=== PATIENT | female | born 1940 | race Caucasian/White ===

== ENCOUNTER → 2016-10-19 | Outpatient (CLI) | payer MEDICARE ==
--- NOTE | 2016-10-19 15:50 | US ---
EXAMINATION TYPE: US carotid duplex BILAT DATE OF EXAM: 10/19/2016 3:04 PM COMPARISON: NONE CLINICAL HISTORY: 76-year-old female R09.89 carotid bruit. No h/o stroke, patient states she asked fo r a baseline exam TECHNIQUE: Carotid duplex ultrasound. Indirect Doppler criteria was utilized. FINDINGS: Mild to moderate focal atherosclerotic changes noted at both bifurcations. EXAM MEASUREMENTS: RIGHT: Peak Systolic Velocity (PSV) cm/sec ----- Right CCA: 80.8 ----- Right ICA: 82.6 ----- Right ECA: 80.8 ICA/CCA ratio: 1.0 RIGHT: End Diastole cm/sec ----- Right CCA: 16.3 ----- Right ICA: 22.4 ----- Right ECA: 11.0 LEFT: Peak Systolic Velocity (PSV) cm/sec ----- Left CCA: 69.5 ----- Left ICA: 101.8 ----- Left ECA: 64.3 ICA/CCA ratio: 1.5 LEFT: End Diastole cm/sec ----- Left CCA: 21.5 ----- Left ICA: 28.5 ----- Left ECA: 13.7 VERTEBRALS (direction of flow): Right Vertebral: Antegrade Left Vertebral: Antegrade IMPRESSION: No hemodynamically significant stenosis appreciated in either internal carotid artery. Criteria for Assigning % of Stenosis / Diameter reduction (Estimation based on the indirect measurements of the internal carotid artery velocities (ICA PSV). 1. Normal (no stenosis)=ICA PSV < 125 cm/s: ratio < 2.0: ICA EDV<40 cm/s. 2. Less than 50% stenosis=ICA PSV < 125 cm/s: ratio < 2.0: ICA EDV<40 cm/s. 3. 50 to 69% stenosis=ICA PSV of 125 to 230 cm/s: ration 2.0 ? 4.0: ICA EDV 40-100 cm/s. 4. Greater than 70% stenosis to near occlusion= ICA PSV > 230 cm/s: ratio > 4.0: ICA EDV > 100 cm/s. 5. Near occlusion= ICA PSV velocities may be low or undetectable: variable ratio and ICA EDV. 6. Total occlusion=unable to detect flow.
== END | disposition home or self-care (01) ==
LOC: RADUSWWP 14:39
PROVIDERS: ATTEND Family Medicine
DX: R09.89 Other specified symptoms and signs involving the circulatory and respiratory systems (principal)
CPT/HCPCS: 93880

== ENCOUNTER → 2017-04-20 | Outpatient (CLI) | payer MEDICARE ==
--- NOTE | 2017-04-20 10:06 | US ---
EXAMINATION TYPE: US abdomen complete DATE OF EXAM: 04/20/2017 COMPARISON: NONE CLINICAL HISTORY: K43.9 Hernia of Anterior Abdominal Wall. EXAM MEASUREMENTS: Liver Length: 15.2 cm Gallbladder Wall: 0.2 cm CBD: 0.8 cm Spleen: 7.8 cm Right Kidney: 10.2 x 4.9 x 4.1 cm Left Kidney: 10.1 x 5.5 x 4.1 cm Patient suffers from gross morbid obesity. Technically difficult and somewhat limited study. Pancreas: Tail obscured by overlying bowel gas Liver: Increased attenuation, decreased visualization of vessels suggestive of fatty infiltrate Gallbladder: cholelithiasis Evidence for sonographic Pearl's sign: no CBD: dilated Spleen: scattered shadowing echogenic foci Right Kidney: Inferior pole obscured by bowel gas, heterogeneous Left Kidney: No hydronephrosis or masses seen , heterogeneous Upper IVC: wnl Abd Aorta: bifurcation and some proximal obscured by bowel gas, otherwise wnl Abdominal wall scanned for hernia, unable to see hernia with ultrasound. The liver is heterogenous which may reflect fatty liver. The intrahepatic portion of the IVC and prox imal abdominal aorta are within normal limits. Common bile duct is unremarkable. The visualized por tions of the pancreas are homogenous. The spleen is unremarkable. Kidneys are symmetric and free of hydronephrosis. No renal lesions are seen. IMPRESSION: 1. No visible abdominal wall hernia. 2. Probable fatty liver. 3. Cholelithiasis.
== END | disposition home or self-care (01) ==
LOC: RADUSWWP 08:33
PROVIDERS: ATTEND Family Medicine
DX: K80.20 Calculus of gallbladder without cholecystitis without obstruction (principal)
CPT/HCPCS: 76700

== ENCOUNTER 2017-11-11 18:40 | Emergency (ER) | payer MEDICARE ==
[2017-11-11] MEDS ORDERED: GLUCAGON 1 MG/ML VIAL IVP STA (19:08)
[2017-11-11] MEDS ORDERED: METOCLOPRAMIDE 5 MG/ML 2 ML VIAL IVP STA (19:08)
--- NOTE | 2017-11-11 19:16 | ED ---
General Adult HPI - General Chief complaint: Allergic Reaction Stated complaint: Difficulty swallowing Time Seen by Provider: 11/11/17 19:00 Source: patient Mode of arrival: wheelchair Limitations: no limitations - History of Present Illness Initial comments: 77 year-old female patient presents to the emergency department today for complaints of esophageal foreign body. Patient states that earlier today she was eating henriquez. States that afterward she was unable to swallow anything without spitting up. Patient states that she has had this happen to her couple times in the past. Patient states that she did attempt putting and Ativan under her tongue to help relax the muscles however this did not help. Patient states that she has had to spit out her oral secretions. She denies any difficulty speaking or with breathing. Patient denies any recent rash, fever, chills, shortness breath, chest pain, abdominal pain, nausea, diarrhea, constipation, back pain, numbness, tingling, dizziness, weakness, hematuria, dysuria, urinary urgency, urinary frequency, headache, visual changes, or any other complaints. - Related Data Home Medications Medication Instructions Recorded Confirmed LORazepam [Ativan] 1 mg PO DAILY PRN 01/17/14 04/01/14 Levothyroxine Sodium [Synthroid] 37.5 mcg PO DAILY 01/17/14 04/01/14 Lisinopril [Zestril] 2.5 mg PO DAILY 01/17/14 04/01/14 metFORMIN HCL [Glucophage] 500 mg PO BID 01/17/14 04/01/14 Allergies Allergy/AdvReac Type Severity Reaction Status Date / Time codeine Allergy Rash/Hives Verified 11/11/17 18:50 metronidazole [From Flagyl] Allergy Rash/Hives Verified 11/11/17 18:50 Metronidazole HCl Allergy Rash/Hives Verified 11/11/17 18:50 [From Flagyl] morphine Allergy Rash/Hives Verified 11/11/17 18:50 Sulfa (Sulfonamide AdvReac Unknown Verified 11/11/17 18:50 Antibiotics) msg Allergy Anaphylaxis Uncoded 11/11/17 18:50 Review of Systems ROS Statement: Those systems with pertinent positive or pertinent negative responses have been documented in the HPI. ROS Other: All systems not noted in ROS Statement are negative. Past Medical History Past Medical History: Cancer, Diabetes Mellitus, Hypertension, Thyroid Disorder Additional Past Medical History / Comment(s): hx skin cancer, hx. kidney stone, episode in summer w/food getting stuck History of Any Multi-Drug Resistant Organisms: None Reported Past Surgical History: Adenoidectomy, Tonsillectomy Additional Past Surgical History / Comment(s): bunionectomy, surery for kidney stone, cataract surg. back surgery Past Anesthesia/Blood Transfusion Reactions: No Reported Reaction Past Psychological History: No Psychological Hx Reported Smoking Status: Never smoker Past Alcohol Use History: None Reported Past Drug Use History: None Reported General Exam Limitations: no limitations General appearance: alert, in no apparent distress, other (This is a well- developed, well-nourished, obese elderly female patient in no acute distress. Vital signs upon presentation are temperature 98.9F, pulse 97, respirations 16 , blood pressure 150/72, pulse ox 98% on room air.) Eye exam: Present: normal appearance, PERRL, EOMI. Absent: scleral icterus, conjunctival injection, periorbital swelling ENT exam: Present: normal exam, normal oropharynx, mucous membranes moist Neck exam: Present: normal inspection. Absent: tenderness, meningismus, lymphadenopathy Respiratory exam: Present: normal lung sounds bilaterally. Absent: respiratory distress, wheezes, rales, rhonchi, stridor Cardiovascular Exam: Present: regular rate, normal rhythm, normal heart sounds. Absent: systolic murmur, diastolic murmur, rubs, gallop, clicks Neurological exam: Present: alert, oriented X3, CN II-XII intact Psychiatric exam: Present: normal affect, normal mood Skin exam: Present: warm, dry, intact, normal color. Absent: rash Course Vital Signs 11/11/17 11/11/17 11/11/17 18:46 22:26 23:39 Temperature 98.9 F 97.8 F Pulse Rate 97 81 64 Respiratory 16 18 20 Rate Blood Pressure 150/72 106/51 139/57 O2 Sat by Pulse 98 99 98 Oximetry Medical Decision Making - Medical Decision Making 77-year-old female patient percents to the emergency department today with complaints of esophageal foreign body. Patient was unable to tolerate oral intake, she would regurgitated backup this and is swallowing. Did try glucagon and Reglan without success. We did discuss the case with Dr. Rodriges who did come in and perform foreign body retrieval via endoscopy. Patient is feeling much better after the procedure. Upon reevaluation she is awake and alert. Able to swallow without difficulty. She denies any current pain or shortness of breath. We will discharge her home to follow-up with the [facility] urologist in 2 weeks. She is instructed to follow-up with her primary care physician for recheck in 1-2 days. Return parameters discussed in detail. She verbalizes understanding and agrees with this plan. - Radiology Data Radiology results: report reviewed, image reviewed Two-view x-ray of the chest was obtained. Findings show scattered senescent parenchymal changes noted. No evidence for infiltrate. No evidence for atelectasis. Heart size is stable. Mediastinal structures are stable gross unremarkable. No evidence for hilar prominence. Degenerative changes in the dorsal spine. Impression by Dr. Gonzalez shows no evidence for acute pulmonary disease. Disposition Clinical Impression: Esophageal foreign body Disposition: HOME SELF-CARE Condition: Good Instructions: Esophageal Foreign Body (ED) Additional Instructions: Eat soft foods. Chew food thoroughly. Follow-up with GI specialist outpatient. Return here immediately for any new, worsening, or concerning symptoms. Is patient prescribed a controlled substance at d/c from ED?: No Referrals: Boni Alvarez MD [Primary Care Provider] - 1-2 days Katya Rodriges MD [STAFF PHYSICIAN] - 1-2 days Time of Disposition: 23:20
--- NOTE | 2017-11-11 19:56 | XR ---
EXAMINATION TYPE: XR chest 2V DATE OF EXAM: 11/11/2017 COMPARISON: NONE HISTORY: Shortness of breath TECHNIQUE: Frontal and lateral views of the chest are obtained. FINDINGS: Scattered senescent parenchymal changes noted. No evidence for infiltrate. No evidence for atelectasis. Heart size is stable. Mediastinal structures are stable and grossly unremarkable. No evidence for hilar prominence. Degenerative changes dorsal spine. IMPRESSION: 1. No evidence for acute pulmonary disease.
[2017-11-11] MEDS ORDERED: KETOROLAC 30 MG/ML 1 ML VIAL IVP STA (20:23)
[2017-11-11] MEDS ORDERED: PROPOFOL 10 MG/ML 20 ML VIAL IV ONE (21:31)
[2017-11-11] MEDS ORDERED: LACTATED RINGERS 1,000 ML IV ONE (21:37)
--- NOTE | 2017-11-11 22:27 | PCN ---
PROCEDURE NOTE REQUESTING PHYSICIAN: Dr. Boni Alvarez. BRIEF HISTORY: The patient is the patient is a 77-year-old white female who came to the emergency room with acute food dysphagia. She was eating a piece of henriquez at home for dinner and could not swallow any further. She had a similar episode 4 years ago, at which time she had an emergency upper endoscopy by Dr. Rush. She also has intermittent dysphagia to solids for the last 4 years' duration, which happens once or twice a month. PROCEDURE PERFORMED: EGD with foreign body removal. PREOPERATIVE DIAGNOSIS: Acute food dysphagia. IV sedation by anesthesia. PROCEDURE: After informed consent was obtained from the patient, she was brought into the endoscopy unit. IV conscious sedation was administered by Anesthesia under continuous monitoring. The Olympus scope was then inserted into the mouth, esophagus intubated without any difficulty and was gradually advanced into the distal esophagus. There was food impaction identified. Using a snare, part of the piece was removed. Subsequently,a was used and most of the meat bolus was removed and some of it was pushed into the stomach. The scope at this time was advanced into the stomach and duodenum carefully examined. Bulb and 2nd part of the duodenum appeared normal. The scope at this time was withdrawn to the stomach, adequately insufflated with air. Upon careful examination, mucosa of the antrum, body, cardia and fundus appeared normal. The scope was then withdrawn to the esophagus. GE junction was located at 38 cm from the incisors. There was a distal esophageal stricture identified measuring about 13-15 mm in diameter. There was mucosal erythema and friability noted at the site of food impaction. Distal esophagus appeared normal and the patient tolerated the procedure well. IMPRESSION: Distal esophageal stricture with food impaction, status post foreign body removal as described above. RECOMMENDATION: Findings of this examination were discussed with the patient as well as the family. She was advised to start on Prilosec 20 mg daily and follow anti-reflux measures and she was advised to follow up in office in 2-3 weeks. MMODL / IJN: [id number] /
[2017-11-11 23:40] VITALS: BP 139/57; PULSE 64; RESP 20; TEMP 97.8
== END 2017-11-11 23:43 | disposition home or self-care (01) ==
LOC: EC 18:40
DX: T18.128A Food in esophagus causing other injury, initial encounter (principal); E11.9 Type 2 diabetes mellitus without complications; I10 Essential (primary) hypertension; E07.9 Disorder of thyroid, unspecified; Z88.1 Allergy status to other antibiotic agents; Z88.2 Allergy status to sulfonamides; Z88.5 Allergy status to narcotic agent; Z88.8 Allergy status to other drugs, medicaments and biological substances; Z79.84 Long term (current) use of oral hypoglycemic drugs; Z79.899 Other long term (current) drug therapy; X58.XXXA Exposure to other specified factors, initial encounter
CPT/HCPCS: 99284; 96374; 96375 ×2; 96361 ×2; 71046; 43247; J1610; J2765; J1885; J2704

== ENCOUNTER → 2018-03-15 | Outpatient (CLI) | payer MEDICARE ==
--- NOTE | 2018-03-15 16:08 | US ---
EXAMINATION TYPE: US kidneys/renal and bladder DATE OF EXAM: 03/15/2018 COMPARISON: US 2016 CLINICAL HISTORY: R30.0 Dysuria. Chronic kidney disease EXAM MEASUREMENTS: Right Kidney: 10.5 x 4.1 x 3.1 cm Left Kidney: 9.6 x 3.3 x 2.9 cm Post Void Residual Volume: 2.1 mL bladder volume: 51.6 ml Right Kidney: thin cortex Left Kidney: small cyst 0.5 x 0.5 x 0.7 cm upper pole Bladder: wnl Bilateral Jets seen: Yes Normal Post Void Residual: Yes IMPRESSION: 1. Small left renal cyst.
== END | disposition home or self-care (01) ==
LOC: RADUSWWP 14:46
PROVIDERS: ATTEND Family Medicine
DX: N28.1 Cyst of kidney, acquired (principal)
CPT/HCPCS: 76770

== ENCOUNTER → 2018-11-07 | Outpatient (CLI) | payer MEDICARE | END | disposition home or self-care (01) | LOC: RADUSWWP 09:24 | PROVIDERS: ATTEND Family Medicine | DX: R25.2 Cramp and spasm (principal) | CPT/HCPCS: 93922 ==

== ENCOUNTER 2019-05-09 09:50 | Day surgery (SDC) | payer MEDICARE ==
[2019-05-07 13:37] VITALS: BMI 35.4
[~2019-05-09 09:50] MED LIST: LACTATED RINGERS 1,000 ML IV SCH
[2019-05-09 10:09] VITALS: RESP 16; TEMP 97.3
[2019-05-09] MEDS ORDERED: LIDOCAINE 1% 20 ML VIAL (10MG/ML) FOR IV START INTRADERMA ONE (10:30)
[2019-05-09 10:47] LABS: Glucose,Whole Blood 111 mg/dL (75-99)
[2019-05-09] MEDS ORDERED: PROPOFOL 10 MG/ML 20 ML VIAL IV ONE (11:21)
--- NOTE | 2019-05-09 11:33 | P.PCN ---
Date of Procedure: 05/09/19 Procedure(s) Performed: BRIEF HISTORY: Patient is a 79-year-old, pleasant, white female, scheduled for an upper endoscopy with dilation for intermittent dysphagia to solids. Last upper endoscopy dilation was done in 11/2017 and was noted to have a tight distal esophageal stricture.. PROCEDURE PERFORMED: Esophagogastroduodenoscopy with dilation. PREOPERATIVE DIAGNOSIS: Intermittent dysphagia to solids for the last 1 year duration. IV sedation per anesthesia. PROCEDURE: After informed consent was obtained, the patient was brought into the endoscopy unit. IV sedation was administered by Anesthesia under continuous monitoring. Initially the Olympus GIF-140 video endoscope was inserted into the mouth. Esophagus intubated without any difficulty. It was gradually advanced into the stomach and duodenum and carefully examined. The bulb and the second part of the duodenum appeared normal. The scope at this time was withdrawn to the stomach, adequately insufflated with air, and upon careful examination, mucosa of the antrum, body, cardia and the fundus appeared normal. The scope was then withdrawn into the esophagus. The GE junction was located at 35 cm from the incisors. There was a distal esophageal stricture identified at this time I used a 12 mm TTS balloon. Initially was dilated to 12 mm balloon findings there was a brisk oozing identified and hence further dilations were not performed. There was a small sliding type hiatal hernia noted. The rest of the esophagus appeared normal. There were no erosions or ulcerations seen and the patient tolerated the procedure well. IMPRESSION: 1. Distal esophageal stricture status post balloon dilation using 12 mm TTS balloon as described above. 2. Small hiatal sliding Hiatal hernia. RECOMMENDATIONS: The findings of this examination were discussed with the patient as well as a family. She was advised to remain on a clear liquid diet today. She'll continue with Zantac 150 milligrams twice daily and follow antireflux measures. She'll be seen in office in 6 months..
[2019-05-09 12:09] VITALS: BP 121/57; PULSE 63
== END 2019-05-09 12:21 | disposition home or self-care (01) ==
LOC: ORWHC2ENDO 09:50
PROVIDERS: ATTEND Internal Medicine Gastroenterology
DX: K22.2 Esophageal obstruction (principal); K44.9 Diaphragmatic hernia without obstruction or gangrene; E11.9 Type 2 diabetes mellitus without complications; E07.9 Disorder of thyroid, unspecified; K21.9 Gastro-esophageal reflux disease without esophagitis; Z79.890 Hormone replacement therapy; Z79.899 Other long term (current) drug therapy; Z88.2 Allergy status to sulfonamides; Z88.1 Allergy status to other antibiotic agents; Z88.5 Allergy status to narcotic agent; Z91.09 Other allergy status, other than to drugs and biological substances
CPT/HCPCS: 43249; J2704; C1726

== ENCOUNTER → 2019-07-11 | Outpatient (CLI) | payer MEDICARE ==
--- NOTE | 2019-07-11 15:17 | US ---
EXAMINATION TYPE: US kidneys/renal and bladder DATE OF EXAM: 07/11/2019 COMPARISON: US 03/15/2018 CLINICAL HISTORY: N18.3 chronic kidney stage 3. EXAM MEASUREMENTS: Right Kidney: 10.1 x 4.5 x 4.0 cm Left Kidney: 9.3 x 4.5 x 5.1 cm Right Kidney: No hydronephrosis or nephrolithiasis seen Left Kidney: No hydronephrosis or nephrolithiasis seen Bladder: wnl Bilateral Jets seen: only left jet seen Mild bilateral cortical renal thinning. There is no evidence for hydronephrosis at this point in time . No nephrolithiasis is seen. No masses are identified. The previously seen small left renal cyst i s not identified on today's exam. The urinary bladder is anechoic. Bilateral ureteral jets are not s een. IMPRESSION: No hydronephrosis or nephrolithiasis. Sonographic sequela of medical renal disease with c ortical renal thinning.
== END | disposition home or self-care (01) ==
LOC: RADUSWWP 14:30
PROVIDERS: ATTEND Internal Medicine Nephrology
DX: N18.3 Chronic kidney disease, stage 3 (moderate) (principal)
CPT/HCPCS: 76770

== ENCOUNTER 2019-09-12 08:19 | Day surgery (SDC) | payer MEDICARE ==
--- NOTE | 2019-09-12 09:16 | ED ---
ENT HPI - General Chief complaint: ENT Stated complaint: needs esophagus stretched Time Seen by Provider: 09/12/19 08:30 Source: patient, RN notes reviewed Mode of arrival: ambulatory - History of Present Illness Initial comments: This is a 71-year-old female history of previous episodes of esophageal stricture among other medical issues who states she was eating fish and some other food last night when she started developing difficulty swallowing. She states that she was sent here by her asked her neurologist's office for evaluation. She denies any fevers chills nausea vomiting sweats chest pain shortness of breath or other symptoms just difficulty swallowing she states she can't swallow water. MD complaint: difficulty swallowing - Related Data Home Medications Medication Instructions Recorded Confirmed Acetaminophen Tab [Tylenol Tab] 325 mg PO DIRECTED PRN 05/07/19 05/09/19 Levothyroxine Sodium [Synthroid] 75 mcg PO DAILY 05/07/19 05/09/19 Magnesium 300 mg PO DAILY 05/07/19 05/09/19 Ranitidine HCl [Zantac] 150 mg PO BID 05/07/19 05/09/19 Allergies Allergy/AdvReac Type Severity Reaction Status Date / Time codeine Allergy Rash/Hives Verified 05/09/19 10:01 metronidazole [From Flagyl] Allergy Rash/Hives Verified 05/09/19 10:01 Metronidazole HCl Allergy Rash/Hives Verified 05/09/19 10:01 [From Flagyl] morphine Allergy Rash/Hives Verified 05/09/19 10:01 hydrocodone [From Zillah] AdvReac Unknown felt her Verified 05/09/19 10:01 mind was not right. Sulfa (Sulfonamide AdvReac Unknown- Verified 05/09/19 10:01 Antibiotics) almost passed out msg Allergy Anaphylaxis Uncoded 05/09/19 10:01 Review of Systems ROS Statement: Those systems with pertinent positive or pertinent negative responses have been documented in the HPI. ROS Other: All systems not noted in ROS Statement are negative. Past Medical History Past Medical History: Cancer, Diabetes Mellitus, Renal Disease, Thyroid Disorder Additional Past Medical History / Comment(s): Basal Cell skin cancer, hx. kidney stone, Diabetes- no longer on meds- watches diet, uses cane, states episodes where it feels her throat is tight (hx of EGD with dilation), chronic kidney disease. History of Any Multi-Drug Resistant Organisms: None Reported Past Surgical History: Adenoidectomy, Back Surgery, Tonsillectomy Additional Past Surgical History / Comment(s): bunionectomy, kidney stone, cataracts, EGD with dilation Past Anesthesia/Blood Transfusion Reactions: No Reported Reaction Past Psychological History: No Psychological Hx Reported Smoking Status: Never smoker Past Alcohol Use History: None Reported Past Drug Use History: None Reported - Past Family History Brother(s) Family Medical History: Cancer Additional Family Medical History / Comment(s): basal cell skin cancer General Exam - General Exam Comments Initial Comments: This is a well-developed well-nourished awake alert oriented 3 female General appearance: alert, in no apparent distress Head exam: Present: atraumatic, normocephalic, normal inspection Eye exam: Present: normal appearance, PERRL, EOMI. Absent: scleral icterus, c onjunctival injection, periorbital swelling ENT exam: Present: normal exam, mucous membranes moist Neck exam: Present: normal inspection. Absent: tenderness, meningismus, lymphadenopathy Respiratory exam: Present: normal lung sounds bilaterally. Absent: respiratory distress, wheezes, rales, rhonchi, stridor Cardiovascular Exam: Present: regular rate, normal rhythm, normal heart sounds. Absent: systolic murmur, diastolic murmur, rubs, gallop, clicks GI/Abdominal exam: Present: soft, normal bowel sounds. Absent: distended, tenderness, guarding, rebound, rigid Extremities exam: Present: normal inspection, full ROM, normal capillary refill. Absent: tenderness, pedal edema, joint swelling, calf tenderness Back exam: Present: normal inspection Neurological exam: Present: alert, oriented X3, CN II-XII intact Psychiatric exam: Present: normal affect, normal mood Skin exam: Present: warm, dry, intact, normal color. Absent: rash Course Vital Signs 09/12/19 09/12/19 08:20 09:48 Temperature 97.9 F 98.1 F Pulse Rate 92 58 L Respiratory 16 18 Rate Blood Pressure 146/64 132/54 O2 Sat by Pulse 99 97 Oximetry Medical Decision Making - Medical Decision Making I did discuss case with Dr. Ruiz. Patient will be admitted to the endoscopy suite for foreign body removal and esophageal dilation. Disposition Clinical Impression: Esophageal obstruction, Esophageal stricture Disposition: ADMITTED IP TO THIS HOSP Condition: Fair Referrals: Boni Alvarez MD [Primary Care Provider] - 1-2 days
[2019-09-12 09:54] VITALS: RESP 18
[2019-09-12] MEDS ORDERED: NALOXONE 0.4 MG/ML 1 ML VIAL IV PRN (10:26)
[2019-09-12 11:23] VITALS: BP 181/61; PULSE 87; TEMP 97.7
[2019-09-12] MEDS ORDERED: PROPOFOL 10 MG/ML 20 ML VIAL IV ONE (13:53)
[2019-09-12] MEDS ORDERED: LIDOCAINE 1% INJ 10MG/ML (20 ML MDV) ONE (13:53)
[2019-09-12] MEDS ORDERED: SODIUM CHLORIDE 0.9% 1,000 ML IV ONE (14:18)
--- NOTE | 2019-09-12 14:32 | P.CONS ---
History of Present Illness - Reason for Consult Consult date: 09/12/19 Esophageal foreign body Requesting physician: Boni Alvarez - Chief Complaint Difficulty swallowing - History of Present Illness 79-year-old female with a medical history significant for diabetes mellitus, esophageal stricture, hypothyroidism and chronic kidney disease who presented to the hospital due to difficulty swallowing. The patient has a known history of a distal esophageal stricture treated in the past with dilation. Last EGD was in 04/2019. The patient follows up closely with gastroenterology in the outpatient setting. She is on H2 antagonist therapy. She reports eating a meal of fish with a breadcoating and a roll yesterday when she had the sensation of food consumption her esophagus. Subsequently she had problems tolerating her secretions and would bring up any water she tried to get down. She denies any signs or symptoms of GI bleeding. Review of Systems REVIEW OF SYSTEMS: CONSTITUTIONAL: Denies any fevers, chills, weight change or fatigue. CARDIOVASCULAR: Denies any chest pain, palpitations high or low blood pressures RESPIRATORY: Denies any shortness of breath, hemoptysis or cough. GENITOURINARY: No dysuria or hematuria. MUSCULOSKELETAL: No weakness reported. SKIN: Denies any new rashes or lesions, jaundice or pallor. PSYCHIATRIC: Denies any depression or anxiety. NEUROLOGY: Denies headache, denies any new focal deficits. EARS/NOSE/THROAT: No recent hearing change, congestion, nasal discharge or sore throat. EYES: No pain in eyes, discharge or change in vision. GASTROINTESTINAL: As per HPI. Past Medical History Past Medical History: Cancer, Diabetes Mellitus, Renal Disease, Thyroid Disorder Additional Past Medical History / Comment(s): Basal Cell skin cancer, hx. kidney stone, Diabetes- no longer on meds- watches diet, uses cane, states episodes where it feels her throat is tight (hx of EGD with dilation), chronic kidney disease. History of Any Multi-Drug Resistant Organisms: None Reported Past Surgical History: Adenoidectomy, Back Surgery, Tonsillectomy Additional Past Surgical History / Comment(s): bunionectomy, kidney stone, cataracts, EGD with dilation Past Anesthesia/Blood Transfusion Reactions: No Reported Reaction Past Psychological History: No Psychological Hx Reported Smoking Status: Never smoker Past Alcohol Use History: None Reported Past Drug Use History: None Reported - Past Family History Brother(s) Family Medical History: Cancer Additional Family Medical History / Comment(s): basal cell skin cancer Medications and Allergies Home Medications Medication Instructions Recorded Confirmed Type Acetaminophen Tab [Tylenol Tab] 325 mg PO Q6H PRN 05/07/19 09/12/19 History Levothyroxine Sodium [Synthroid] 75 mcg PO DAILY 05/07/19 09/12/19 History Magnesium 300 mg PO DAILY 05/07/19 09/12/19 History Bacillus Coagulans/Inulin 1 cap PO DAILY 09/12/19 09/12/19 History [Probiotic with Prebiotic Cap] Allergies Allergy/AdvReac Type Severity Reaction Status Date / Time codeine Allergy Rash/Hives Verified 09/12/19 10:46 metronidazole [From Flagyl] Allergy Rash/Hives Verified 09/12/19 10:46 Metronidazole HCl Allergy Rash/Hives Verified 09/12/19 10:46 [From Flagyl] morphine Allergy Rash/Hives Verified 09/12/19 10:46 hydrocodone [From [place]] AdvReac Unknown felt her Verified 09/12/19 10:46 mind was not right. Sulfa (Sulfonamide AdvReac Unknown- Verified 09/12/19 10:46 Antibiotics) almost passed out msg Allergy Anaphylaxis Uncoded 05/09/19 10:01 Physical Exam Vitals: Vital Signs Temp Pulse Pulse Resp BP BP Pulse Ox 09/12/19 12:00 87 18 09/12/19 11:21 97.7 F 87 18 181/61 100 09/12/19 09:48 98.1 F 58 L 18 132/54 97 09/12/19 08:20 97.9 F 92 16 146/64 99 Intake and Output 09/11/19 09/12/19 09/12/19 22:59 06:59 14:59 Other: Weight 92.306 kg On physical examination, patient appears comfortable in no apparent distress. HEAD: Normocephalic, atraumatic. EYES: No scleral icterus. No conjunctival injection. MOUTH: No lesions, tongue midline. NECK: Trachea midline, no gross abnormalities. CHEST: Clear to auscultation with no wheezing or rhonchi appreciated. HEART: Regular rate and rhythm. ABDOMEN: Soft, obese. Bowel sounds are positive. No organomegaly. No guarding or rigidity. EXTREMITIES: No pedal edema. SKIN: No rashes, no jaundice. NEUROLOGIC: Alert and oriented x3. No focal deficits. Assessment and Plan (1) Esophageal obstruction Narrative/Plan: 79-year-old female who came to the hospital due to complaints of difficulty swallowing. She has a known history of esophageal stricture last dilated in 04/2019. She is on H2 antagonist therapy at home. She reports eating food yesterday and subsequently was unable to tolerate her saliva or any liquids. She presented to the hospital for further evaluation. Current Visit: Yes Status: Acute Code(s): K22.2 - ESOPHAGEAL OBSTRUCTION SNOMED Code(s): 598430233 (2) Esophageal stricture Current Visit: Yes Status: Acute Code(s): K22.2 - ESOPHAGEAL OBSTRUCTION SNOMED Code(s): 54262997 (3) Difficulty swallowing liquids Current Visit: No Status: Acute Code(s): R13.10 - DYSPHAGIA, UNSPECIFIED SNOMED Code(s): 872797457 Plan: Supportive care Nothing by mouth Plan on an urgent EGD for further evaluation Follow-up with gastroenterology after discharge Plan is for foreign body removal with dilation on EGD Thank you for allowing us to participate in the care of the patient we will continue to follow
--- NOTE | 2019-09-12 14:44 | P.PCN ---
Date of Procedure: 09/12/19 Description of Procedure: BRIEF HISTORY: 79-year-old female with a medical history significant for diabetes mellitus, esophageal stricture, hypothyroidism and chronic kidney disease who presented to the hospital due to difficulty swallowing. The patient has a known history of a distal esophageal stricture treated in the past with dilation. Last EGD was in 04/2019. The patient follows up closely with gastroenterology in the outpatient setting. She is on H2 antagonist therapy. She reports eating a meal of fish with a breadcoating and a roll yesterday when she had the sensation of food consumption her esophagus. Subsequently she had problems tolerating her secretions and would bring up any water she tried to get down. She denies any signs or symptoms of GI bleeding. PROCEDURE PERFORMED: Esophagogastroduodenoscopy with lqpbrfq-sek-hutny balloon dilation of the esophagus. PREOPERATIVE DIAGNOSIS: Esophageal foreign body, esophageal stricture, esophageal dysphagia. ESTIMATED BLOOD LOSS: Minimal. IV sedation per anesthesia. PROCEDURE: After informed consent was obtained, the patient was brought into the endoscopy unit. IV sedation was administered by Anesthesia under continuous monitoring. Initially the Olympus GIF-190 video endoscope was inserted into the mouth. Esophagus intubated without any difficulty. It was gradually advanced into the stomach and duodenum and carefully examined. The bulb and the second part of the duodenum appeared normal. The scope at this time was withdrawn to the stomach, adequately insufflated with air, and upon careful examination, mucosa of the antrum, body, cardia and the fundus appeared normal. The scope was then wi thdrawn into the esophagus. The GE junction was located at 37 cm from the incisors, with a benign-appearing stricture just proximal to the esophagus. The stricture was easily traversed. Sequential dilation of the stricture with a xdaceql-nbo-xwqic balloon dilator to 10 mm11 mm12 mm was performed with superficial mucosal tearing noted after 12 mm dilation. The esophagus otherwise appeared normal. There were no erosions or ulcerations seen and the patient tolerated the procedure well. IMPRESSION: 1. Benign-appearing distal esophageal stricture, dilated with a eeevwaq-dkn-ejdtg balloon dilator. 2. Foreign body had passed through the esophagus and was not identified. RECOMMENDATIONS: The findings of this examination were discussed with the patient. Okay to resume full liquid diet, advance as tolerated. Continue H2 antagonist therapy. Follow-up in gastroenterology As previously scheduled. Okay for discharge home.
== END 2019-09-12 15:19 | disposition home or self-care (01) ==
LOC: EC 08:19 → 1SOBS 10:26 → UNDOADMOB 10:26 → 1SOBS 10:50 → OR 10:50 → UNDODISOB 15:19
PROVIDERS: ATTEND Internal Medicine
DX: K22.2 Esophageal obstruction (principal); E11.22 Type 2 diabetes mellitus with diabetic chronic kidney disease; N18.9 Chronic kidney disease, unspecified; E03.9 Hypothyroidism, unspecified; Z79.899 Other long term (current) drug therapy; Z79.890 Hormone replacement therapy; Z88.5 Allergy status to narcotic agent; Z88.1 Allergy status to other antibiotic agents; Z88.2 Allergy status to sulfonamides; Z91.018 Allergy to other foods; Z85.828 Personal history of other malignant neoplasm of skin; Z87.442 Personal history of urinary calculi; Z90.89 Acquired absence of other organs; Z98.890 Other specified postprocedural states; Z98.49 Cataract extraction status, unspecified eye; Z80.8 Family history of malignant neoplasm of other organs or systems
CPT/HCPCS: 99284; 43249; J2001; J2704; C1726

== ENCOUNTER 2020-01-24 17:30 | Emergency (ER) | payer MEDICARE ==
[2020-01-24] MEDS ORDERED: METOCLOPRAMIDE 5 MG/ML 2 ML VIAL IVP STA (18:05)
[2020-01-24] MEDS ORDERED: NITROGLYCERIN SL TABS 0.4 MG TAB SUBLINGUAL STA (18:05)
[2020-01-24] MEDS ORDERED: SODIUM CHLORIDE 0.9% 1,000 ML IV STA (18:06)
[2020-01-24] MEDS ORDERED: GLUCAGON 1 MG/ML VIAL IVP STA ×2 (18:06→19:03)
--- NOTE | 2020-01-24 19:07 | ED ---
General Adult HPI - General Chief complaint: ENT Stated complaint: Difficulty swallowing Time Seen by Provider: 01/24/20 17:39 Source: patient, RN notes reviewed Mode of arrival: wheelchair Limitations: no limitations - History of Present Illness Initial comments: Patient is a pleasant 79-year-old female presenting to the emergency department with concern for piece of chicken stuck in her esophagus. Patient was eating around 4:00, small piece. Patient feels is not going down. Patient has had similar episodes multiple times previously and has needed endoscopy. No difficulty in breathing. Patient feels it is in her lower neck/throat region. - Related Data Home Medications Medication Instructions Recorded Confirmed Levothyroxine Sodium [Synthroid] 75 mcg PO DAILY 05/07/19 01/24/20 Dexamethasone [Decadron] See Taper PO DIRECTED 01/24/20 01/24/20 Allergies Allergy/AdvReac Type Severity Reaction Status Date / Time codeine Allergy Rash/Hives Verified 01/24/20 18:47 metronidazole [From Flagyl] Allergy Rash/Hives Verified 01/24/20 18:47 Metronidazole HCl Allergy Rash/Hives Verified 01/24/20 18:47 [From Flagyl] morphine Allergy Rash/Hives Verified 01/24/20 18:47 hydrocodone [From [place]] AdvReac Unknown felt her Verified 01/24/20 18:47 mind was not right. famotidine [From Pepcid] AdvReac Nausea & Verified 01/24/20 18:51 Vomiting Opioids - Morphine Analogues AdvReac Confusion Verified 01/24/20 18:47 Opioids-Meperidine and AdvReac Confusion Verified 01/24/20 18:47 Related Opioids-Methadone and Related AdvReac Confusion Verified 01/24/20 18:47 Sulfa (Sulfonamide AdvReac Unknown- Verified 01/24/20 18:47 Antibiotics) almost passed out msg Allergy Anaphylaxis Uncoded 01/24/20 17:36 Review of Systems ROS Statement: Those systems with pertinent positive or pertinent negative responses have been documented in the HPI. ROS Other: All systems not noted in ROS Statement are negative. Constitutional: Denies: fever Eyes: Denies: eye pain ENT: Reports: as per HPI. Denies: ear pain Respiratory: Denies: cough, dyspnea Cardiovascular: Denies: chest pain Endocrine: Denies: fatigue Gastrointestinal: Denies: abdominal pain Genitourinary: Denies: dysuria Musculoskeletal: Denies: back pain Skin: Denies: rash Neurological: Denies: weakness Past Medical History Past Medical History: Cancer, Diabetes Mellitus, Renal Disease, Thyroid Disorder Additional Past Medical History / Comment(s): Basal Cell skin cancer, hx. kidney stone, Diabetes- no longer on meds- watches diet, uses cane, states episodes where it feels her throat is tight (hx of EGD with dilation), chronic kidney disease. History of Any Multi-Drug Resistant Organisms: None Reported Past Surgical History: Adenoidectomy, Back Surgery, Tonsillectomy Additional Past Surgical History / Comment(s): bunionectomy, kidney stone, cataracts, EGD with dilation Past Anesthesia/Blood Transfusion Reactions: No Reported Reaction Past Psychological History: No Psychological Hx Reported Smoking Status: Never smoker Past Alcohol Use History: None Reported Past Drug Use History: None Reported - Past Family History Brother(s) Family Medical History: Cancer Additional Family Medical History / Comment(s): basal cell skin cancer General Exam Limitations: no limitations General appearance: alert, in no apparent distress Head exam: Present: normocephalic Eye exam: Present: normal appearance, PERRL ENT exam: Present: normal oropharynx Neck exam: Present: normal inspection Respiratory exam: Present: normal lung sounds bilaterally Cardiovascular Exam: Present: regular rate, normal rhythm GI/Abdominal exam: Present: soft. Absent: tenderness Extremities exam: Present: normal inspection Neurological exam: Present: alert Psychiatric exam: Present: normal affect, normal mood Skin exam: Present: normal color Course Vital Signs 01/24/20 17:31 Temperature 98.4 F Pulse Rate 80 Respiratory 20 Rate Blood Pressure 159/76 O2 Sat by Pulse 96 Oximetry - Reevaluation(s) Reevaluation #1: 01/24/20 19:07 No improvement with medications. Case was discussed with Dr. Driver with gastroenterology who will come and for endoscopy. He does want to try a second dose of glucagon. 01/24/20 20:39 Patient reevaluated and resting comfortably in bed. Endoscopy is here. Patient will be discharged following endoscopy with Dr. driver Disposition Clinical Impression: Esophageal obstruction Disposition: HOME SELF-CARE Instructions (If sedation given, give patient instructions): Esophageal Foreign Body (ED) Additional Instructions: Discharge following endoscopy with Dr. Driver. Clear liquid diet tonight. Soft diet tomorrow. Follow-up with Dr. driver as directed. Follow-up with primary care physician in the next day or 2 for recheck. Return for not tolerating oral intake, difficulty breathing, worsening symptoms or other concerns. Is patient prescribed a controlled substance at d/c from ED?: No Referrals: Boni Alvarez MD [Primary Care Provider] - 1-2 days Dominic Driver MD [STAFF PHYSICIAN] - 1-2 days Time of Disposition: 20:40
[2020-01-24] MEDS ORDERED: SODIUM CHLORIDE 0.9% 1,000 ML IV ONE (21:25)
[2020-01-24] MEDS ORDERED: SODIUM CHLORIDE 0.9% 500 ML IV ONE (22:04)
[2020-01-24 22:28] LABS: Glucose,Whole Blood 219 mg/dL (75-99)
[2020-01-25 00:33] VITALS: BP 132/66; PULSE 92; RESP 17; TEMP 98.4
--- NOTE | 2020-01-25 10:24 | P.CONS ---
History of Present Illness - Reason for Consult Consult date: 01/24/20 Esophageal foreign body Requesting physician: Dominic Ruiz - Chief Complaint Difficulty swallowing - History of Present Illness 79-year-old female with a medical history significant for diabetes mellitus, esophageal stricture, hypothyroidism and chronic kidney disease who presented to the hospital with complaints of difficulty swallowing. The patient has a known history of a distal esophageal stricture and underwent EGD in 04/2019 and then again in 09/2019 at which time she presented to the emergency department with difficulty swallowing when EGD was performed informed body had passed and patient underwent sequential dilation with a vwmmdcq-llv-rwtot balloon dilator. The patient follows up with gastroenterology in the outpatient setting and is on H2 antagonist therapy. On current presentation should come to the hospital after eating chicken. She reports that the chicken was cut up very finally however developed difficulty swallowing and managing her secretions. Review of Systems REVIEW OF SYSTEMS: CONSTITUTIONAL: Denies any fevers, chills, weight change or fatigue. CARDIOVASCULAR: Denies any palpitations high or low blood pressures, but the patient did have some chest pain in association with her form body. RESPIRATORY: Denies any shortness of breath, hemoptysis or cough. GENITOURINARY: No dysuria or hematuria. MUSCULOSKELETAL: No weakness reported. SKIN: Denies any new rashes or lesions, jaundice or pallor. PSYCHIATRIC: Denies any depression or anxiety. NEUROLOGY: Denies headache, denies any new focal deficits. EARS/NOSE/THROAT: No recent hearing change, congestion, nasal discharge or sore throat. EYES: No pain in eyes, discharge or change in vision. GASTROINTESTINAL: As per HPI. Past Medical History Past Medical History: Cancer, Diabetes Mellitus, Renal Disease, Thyroid Disorder Additional Past Medical History / Comment(s): Basal Cell skin cancer, hx. kidney stone, Diabetes- no longer on meds- watches diet, uses cane, states episodes where it feels her throat is tight (hx of EGD with dilation), chronic kidney disease. History of Any Multi-Drug Resistant Organisms: None Reported Past Surgical History: Adenoidectomy, Back Surgery, Tonsillectomy Additional Past Surgical History / Comment(s): bunionectomy, kidney stone, cataracts, EGD with dilation Past Anesthesia/Blood Transfusion Reactions: No Reported Reaction Past Psychological History: No Psychological Hx Reported Smoking Status: Never smoker Past Alcohol Use History: None Reported Past Drug Use History: None Reported - Past Family History Brother(s) Family Medical History: Cancer Additional Family Medical History / Comment(s): basal cell skin cancer Medications and Allergies Home Medications Medication Instructions Recorded Confirmed Type Levothyroxine Sodium [Synthroid] 75 mcg PO DAILY 05/07/19 01/24/20 History Dexamethasone [Decadron] See Taper PO DIRECTED 01/24/20 01/24/20 History Allergies Allergy/AdvReac Type Severity Reaction Status Date / Time codeine Allergy Rash/Hives Verified 01/24/20 18:47 metronidazole [From Flagyl] Allergy Rash/Hives Verified 01/24/20 18:47 Metronidazole HCl Allergy Rash/Hives Verified 01/24/20 18:47 [From Flagyl] morphine Allergy Rash/Hives Verified 01/24/20 18:47 hydrocodone [From [place]] AdvReac Unknown felt her Verified 01/24/20 18:47 mind was not right. famotidine [From Pepcid] AdvReac Nausea & Verified 01/24/20 18:51 Vomiting Opioids - Morphine Analogues AdvReac Confusion Verified 01/24/20 18:47 Opioids-Meperidine and AdvReac Confusion Verified 01/24/20 18:47 Related Opioids-Methadone and Related AdvReac Confusion Verified 01/24/20 18:47 Sulfa (Sulfonamide AdvReac Unknown- Verified 01/24/20 18:47 Antibiotics) almost passed out msg Allergy Anaphylaxis Uncoded 01/24/20 17:36 Physical Exam Vitals: Vital Signs Temp Pulse Resp BP Pulse Ox 01/24/20 17:31 98.4 F 80 20 159/76 96 Intake and Output 01/24/20 01/24/20 01/24/20 06:59 14:59 22:59 Other: Weight 102.058 kg On physical examination, patient appears comfortable in no apparent distress. HEAD: Normocephalic, atraumatic. EYES: No scleral icterus. No conjunctival injection. MOUTH: No lesions, tongue midline. NECK: Trachea midline, no gross abnormalities. CHEST: Decreased air entry in all lung ladd. HEART: S1-S2 appreciated. ABDOMEN: Soft, obese. Bowel sounds are positive. No organomegaly. No guarding or rigidity. EXTREMITIES: No pedal edema. SKIN: No rashes, no jaundice. NEUROLOGIC: Alert and oriented x3. No focal deficits. Assessment and Plan (1) Esophageal obstruction Narrative/Plan: 71-year-old female with a known history of esophageal stricture and prior admissions for esophageal foreign body you presents back with difficulty swallowing after eating chicken earlier in the day. Patient's last presentation was in 09/2019 for esophageal foreign body at which time she underwent dilation with a zfmckki-tbw-lgqfl balloon dilator with the balloon inflated to 10 mm11 mm12 mm sequentially. Currently having difficulty with secretions suspects foreign body. Status: Acute Code(s): K22.2 - ESOPHAGEAL OBSTRUCTION SNOMED Code(s): 950874455 (2) Difficulty swallowing liquids Status: Acute Code(s): R13.10 - DYSPHAGIA, UNSPECIFIED SNOMED Code(s): 100800307 (3) Esophageal stricture Status: Acute Code(s): K22.2 - ESOPHAGEAL OBSTRUCTION SNOMED Code(s): 74028865 Plan: Supportive care Nothing by mouth Continue gentle IV fluids Case discussed with the patient and her daughter who is bedside at length and plan will be for emergent EGD for esophageal foreign body removal Patient will need follow-up after discharge with gastroenterology Thank you for allowing us to participate in the care of the patient
--- NOTE | 2020-01-25 10:32 | P.PCN ---
Date of Procedure: 01/24/20 Description of Procedure: BRIEF HISTORY: 79-year-old female with a medical history significant for diabetes mellitus, esophageal stricture, hypothyroidism and chronic kidney disease who presented to the hospital due to difficulty swallowing. The patient has a known history of a distal esophageal stricture treated in the past with dilation. Last EGD was in 04/2019. The patient follows up closely with gastroenterology in the outpatient setting. She is on H2 antagonist therapy. She reports eating a meal of fish with a breadcoating and a roll yesterday when she had the sensation of food consumption her esophagus. Subsequently she had problems tolerating her secretions and would bring up any water she tried to get down. She denies any signs or symptoms of GI bleeding. PROCEDURE PERFORMED: Esophagogastroduodenoscopy with esophageal foreign body removal. PREOPERATIVE DIAGNOSIS: Esophageal foreign body, esophageal stricture, esophageal dysphagia. ESTIMATED BLOOD LOSS: Minimal. IV sedation per anesthesia. PROCEDURE: After informed consent was obtained, the patient was brought into the endoscopy unit. IV sedation was administered by Anesthesia under continuous monitoring. Initially the Olympus GIF-190 video endoscope was inserted into the mouth. Esophagus intubated without any difficulty with the gastroscope advanced to the mid esophagus approximately 25 cm from the incisors with a large amount of liquid and chicken/food debris noted. Due to the debris being very fine multiple passes were needed to remove the debris with a combination of techniques including removal with Castillo net, rat tooth forceps and graspers. Eventually the stomach was able to be intubated at which time the gastroscope was pulled back to the distal esophagus and the remaining food was able to be advanced into the stomach with gentle pressure and lavage from the distal to pr oximal esophagus sequentially. The esophagus was then again intubated and the gastroscope advanced into the stomach and duodenum and carefully examined. The bulb and the second part of the duodenum appeared normal. The scope at this time was withdrawn to the stomach, adequately insufflated with air, and upon careful examination, mucosa of the antrum, body, cardia and the fundus appeared normal, except for a large amount of food debris noted throughout the entire stomach. The scope was then withdrawn into the esophagus. The GE junction was located at 37 cm from the incisors, with a benign-appearing stricture just proximal to the esophagus which was not dilated due to irritation and erythema at the site of prior foreign body impaction. Otherwise he esophagus appeared normal, except for severe irritation in the proximal esophagus secondary to the patient's presentation with foreign body. The patient tolerated the procedure well. IMPRESSION: 1. Benign-appearing distal esophageal stricture. 2. Foreign body removal from the esophagus with a variety of techniques as dictated in the body of the procedure report. RECOMMENDATIONS: The findings of this examination were discussed with the patient for liquids today and to advance diet tomorrow. Extensive conversation with the patient's daughter regarding dietary modifications and the need to avoid trigger foods as well as sips of water between small bites of thoroughly chewed food. Patient will need follow-up with GI in the next 1-2 weeks and consideration for outpatient EGD for repeat esophageal dilation.
== END 2020-01-25 00:33 | disposition home or self-care (01) ==
LOC: EC 17:30
DX: K22.2 Esophageal obstruction (principal); E07.9 Disorder of thyroid, unspecified; Z99.89 Dependence on other enabling machines and devices; Z88.5 Allergy status to narcotic agent; Z85.828 Personal history of other malignant neoplasm of skin; Z88.1 Allergy status to other antibiotic agents; Z88.2 Allergy status to sulfonamides; Z88.8 Allergy status to other drugs, medicaments and biological substances; Z79.890 Hormone replacement therapy; T17.828A Food in other parts of respiratory tract causing other injury, initial encounter; X58.XXXA Exposure to other specified factors, initial encounter
CPT/HCPCS: 99284; 96374; 96375; 96376; 96361 ×6; 36415; J1610; J2765

== ENCOUNTER → 2021-03-30 | Outpatient (CLI) | payer MEDICARE ==
--- NOTE | 2021-03-30 13:42 | ECHOF ---
Referral Reason:R01.1 Cardiac murmur, unspecified MEASUREMENTS -------- HEIGHT: 157.5 cm WEIGHT: 93.9 kg BP: RVIDd: 3.1 cm (< 3.3) IVSd: 1.0 cm (0.6 - 1.1) LVIDd: 4.0 cm (3.9 - 5.3) LVPWd: 0.9 cm (0.6 - 1.1) IVSs: 1.5 cm LVIDs: 2.7 cm LVPWs: 1.2 cm LAESV Index (A-L): 35.79 ml/m Ao Diam: 2.8 cm (2.0 - 3.7) AV Cusp: 1.4 cm (1.5 - 2.6) LA Diam: 4.5 cm (2.7 - 3.8) MV EXCURSION: 17.007 mm (> 18.000) MV EF SLOPE: 63 mm/s (70 - 150) EPSS: 0.5 cm MV E Franky: 0.89 m/s MV DecT: 380 ms MV A Franky: 1.06 m/s MV E/A Ratio: 0.83 AV maxP.60 mmHg AV maxP.60 mmHg AV meanP.15 mmHg AR PHT: 923 ms RAP: 5.00 mmHg RVSP: 27.18 mmHg FINDINGS -------- Sinus rhythm. This was a technically adequate study. The left ventricular size is normal. There is mild concentric left ventricular hypertrophy. Overa ll left ventricular systolic function is normal with, an EF between 55 - 60 %. The diastolic fillin g pattern is normal for the age of the patient 10.06. The right ventricle is normal in size. LA is moderately dilated 34-39 ml/m2 The right atrial size is normal. There is mild aortic valve sclerosis. There is mild aortic regurgitation. There is mild aortic st enosis present. Peak/mean gradient across the Aortic Valve is 15.60mmHg / 7.15mmHg. The mitral valve leaflets are mildly thickened. [id number]-rq-ghvxkkig mitral regurgitation is present. The tricuspid valve appears structurally normal. Mild tricuspid regurgitation present. Right vent ricular systolic pressure is normal at < 35 mmHg. Trace/mild (physiologic) pulmonic regurgitation. The aortic root size is normal. Echo free space indicative of a pericardial fat pad. CONCLUSIONS -------- 1. Overall left ventricular systolic function is normal with, an EF between 55 - 60 %. 2. LA is moderately dilated 34-39 ml/m2 3. There is mild aortic regurgitation. 4. There is mild aortic stenosis present. 5. Peak/mean gradient across the Aortic Valve is 15.60mmHg / 7.15mmHg. 6. Zfvm-tv-[id number] mitral regurgitation is present. 7. Mild tricuspid regurgitation present. 8. Trace/mild (physiologic) pulmonic regurgitation. 9. Echo free space indicative of a pericardial fat pad. TEST WORKER: Linda Goldberg RDCS
== END | disposition home or self-care (01) ==
LOC: RADECHMAIN 11:01
PROVIDERS: ATTEND Family Medicine
DX: I08.8 Other rheumatic multiple valve diseases (principal)
CPT/HCPCS: 93306

== ENCOUNTER → 2021-07-07 | Outpatient (CLI) | payer MEDICARE ==
--- NOTE | 2021-07-07 16:10 | US ---
EXAMINATION TYPE: US carotid duplex BILAT DATE OF EXAM: 07/07/2021 COMPARISON: US CLINICAL HISTORY: I65.29 OCCLUSION AND STENOSIS OF CAROTID ARTERY. Patient denies carotid symptoms. EXAM MEASUREMENTS: RIGHT: Peak Systolic Velocity (PSV) cm/sec ----- Right CCA: 100.5 ----- Right ICA: 97.6 ----- Right ECA: 80.0 ICA/CCA ratio: 1.0 RIGHT: End Diastole cm/sec ----- Right CCA: 19.7 ----- Right ICA: 15.0 ----- Right ECA: 0.0 LEFT: Peak Systolic Velocity (PSV) cm/sec ----- Left CCA: 102.7 ----- Left ICA: 95.7 ----- Left ECA: 62.1 ICA/CCA ratio: 0.9 LEFT: End Diastole cm/sec ----- Left CCA: 23.4 ----- Left ICA: 23.2 ----- Left ECA: 0.0 VERTEBRALS (direction of flow): Right Vertebral: Antegrade Left Vertebral: Antegrade Rhythm: Normal Mild to moderate mixed wall plaque is noted at bilateral carotid bifurcation, but PSV is wnl bilatera lly. IMPRESSION: 1. Atheromatous plaquing without significant flow-limiting stenosis. Criteria for Assigning % of Stenosis / Diameter reduction (Estimation based on the indirect measurements of the internal carotid artery velocities (ICA PSV). 1. Normal (no stenosis)=ICA PSV < 125 cm/s: ratio < 2.0: ICA EDV<40 cm/s. 2. Less than 50% stenosis=ICA PSV < 125 cm/s: ratio < 2.0: ICA EDV<40 cm/s. 3. 50 to 69% stenosis=ICA PSV of 125 to 230 cm/s: ration 2.0 ? 4.0: ICA EDV 40-100 cm/s. 4. Greater than 70% stenosis to near occlusion= ICA PSV > 230 cm/s: ratio > 4.0: ICA EDV > 100 cm/s. 5. Near occlusion= ICA PSV velocities may be low or undetectable: variable ratio and ICA EDV. 6. Total occlusion=unable to detect flow.
== END | disposition home or self-care (01) ==
LOC: RADUSWWP 14:47
PROVIDERS: ATTEND Family Medicine
DX: I65.29 Occlusion and stenosis of unspecified carotid artery (principal); I65.23 Occlusion and stenosis of bilateral carotid arteries
CPT/HCPCS: 93880

== ENCOUNTER 2022-03-25 09:29 | Inpatient (IN) | payer MEDICARE ==
[2022-03-25] MEDS ORDERED: DOPamine DRIP 800 MG in DEXTROSE/WATER 1 250ML.BAG IV ONE (09:40)
[2022-03-25] MEDS ORDERED: IV FLUID CONTINUATION 1,000 ML IV ONE (09:40)
[2022-03-25] MEDS ORDERED: EPINEPHrine 10 ML SYRINGE (0.1 MG/ML) IV ONE (09:40)
[2022-03-25] MEDS ORDERED: HEPARIN SODIUM 1,000 UN/ML (10ML VL) IV ONE (09:41)
[2022-03-25] MEDS ORDERED: LIDOCAINE 1% INJ 10MG/ML (30 ML VIAL-PF) SQ ONE (09:42)
[2022-03-25] MEDS ORDERED: SODIUM BICARB 8.4% 50 ML SYR (1 MEQ/ML) IV ONE (09:45)
[2022-03-25] MEDS ORDERED: MAGNESIUM SULFATE 4 MEQ/ML 10ML VIAL IV ONE (09:51)
--- NOTE | 2022-03-25 09:51 | ED ---
Medical Decision Making - Medical Decision Making Patient is an 82-year-old female with past medical history remarkable for thyroid disease who presents as a STEMI activation. EKG was transmitted via EMS and showed significant ST segment elevations in the inferior leads II,III, avf with reciprocal depressions in I, aVL, V2 as well as ST segment elevations in V3 through V6. Patient was having lightheadedness/N/V since last nightPer EMS, patient is bradycardic in the 30s. Blood pressure appears stable at 100/41. Received 4 aspirin. Was 8 minutes out. STEMI pager was activated. laboratory chemist called back at approximately 9:22 AM stating that labor arbitrator 3 is ready for the patient. Cardiology PA presented at emergency department and was in agreement on evaluation of the EKG. I spoke Dr. Carrasco over the phone, who is in agreement with need for cardiac cath. Patient was transferred upstairs to the labor arbitrator upon arrival to the ED. Brief evaluation by myself shows patient A&O x3 on arrival with similar vital signs on arrival. Registration notified me the patient was registered immediately upon arrival. EKG was given to cardiology PA to take with her to labor arbitrator. Disposition Clinical Impression: STEMI (ST elevation myocardial infarction) Disposition: ADMITTED IP TO THIS HOSP Condition: Serious
[2022-03-25] MEDS ORDERED: LIDOCAINE 2% SYG (PF) 100 MG/5 ML IV ONE ×3 (09:52→11:44)
[2022-03-25] MEDS: PHENYLEPHRINE-0.9% NACL SYG 1,000 MCG/10 ML SYRINGE IV ONE ×3 (09:55→10:02)
[2022-03-25] MEDS ORDERED: DEXTROSE 5% IN WATER 100 ML with AMIODARONE 150 MG IV ONE ×3 (09:55→11:30)
--- NOTE | 2022-03-25 09:56 | P.CRDCN ---
History of Present Illness History of present illness: This is an 82-year-old female past medical history of type 2 diabetes, hypothyroidism. She does not follow with a wheel and caster repairer. We have been asked to see in consultation for STEMI. Patient presented to the emergency department via EMS after dizziness and syncopal episode this morning. ER physician gave report on patient, Cardiology was paged. Patient seen on stretcher in ER, she was alert, oriented x 3. She had no chest pain or shortness of breath. She has no known cardiac history. ER attending proceeded to send patient to the labor relations manager for immediate revascularization. EKG revealed significant ST elevation in the inferior leads. As well as ST elevation in V3-V6, and ST depression in lead V1 and V2. REVIEW OF SYSTEMS At the time of my exam: CONSTITUTIONAL: Denies fever or chills. CARDIOVASCULAR: Denies chest pain, shortness of breath, orthopnea, PND or palpitations. RESPIRATORY: Denies cough. GASTROINTESTINAL: Denies abdominal pain, diarrhea, constipation, nausea or vomi ting. MUSCULOSKELETAL: Denies myalgias. NEUROLOGIC: +Syncope ENDOCRINE: Denies fatigue, weight change, polydipsia or polyurina. GENITOURINARY: Denies burning, hematuria or urgency with micturation. HEMATOLOGIC: Denies history of anemia or bleeding. PHYSICAL EXAMINATION: Full examination not able to be completed secondary to patient taken right to cardiac labor relations manager via ER. CONSTITUTIONAL: pale, no acute distress at time of evaluation, on O2 vis NC NEUROLOGIC EXAMINATION: Patient is awake, alert and oriented x3. ASSESSMENT STEMI History of type 2 diabetes History of hypothyroidism PLAN Patient taken to cardiac labor relations manager for immediate cardiac catheterization with Dr. Carrasco Further recommendations based on clinical course Nurse practitioner note has been reviewed by physician. Signing provider agrees with the documented findings, assessment, and plan of care. Past Medical History Past Medical History: Cancer, Diabetes Mellitus, Renal Disease, Thyroid Disorder Additional Past Medical History / Comment(s): Basal Cell skin cancer, hx. kidney stone, Diabetes- no longer on meds- watches diet, uses cane, states epi sodes where it feels her throat is tight (hx of EGD with dilation), chronic kidney disease. History of Any Multi-Drug Resistant Organisms: None Reported Past Surgical History: Adenoidectomy, Back Surgery, Tonsillectomy Additional Past Surgical History / Comment(s): bunionectomy, kidney stone, cataracts, EGD with dilation Past Anesthesia/Blood Transfusion Reactions: No Reported Reaction Past Psychological History: No Psychological Hx Reported Smoking Status: Never smoker Past Alcohol Use History: None Reported Past Drug Use History: None Reported - Past Family History Brother(s) Family Medical History: Cancer Additional Family Medical History / Comment(s): basal cell skin cancer Medications and Allergies Home Medications Medication Instructions Recorded Confirmed Type Levothyroxine Sodium [Synthroid] 75 mcg PO DAILY 05/07/19 03/25/22 History Omeprazole 20 mg PO DAILY 03/25/22 03/25/22 History Allergies Allergy/AdvReac Type Severity Reaction Status Date / Time codeine Allergy Rash/Hives Verified 01/24/20 18:47 metronidazole [From Flagyl] Allergy Rash/Hives Verified 01/24/20 18:47 Metronidazole HCl Allergy Rash/Hives Verified 01/24/20 18:47 [From Flagyl] morphine Allergy Rash/Hives Verified 01/24/20 18:47 hydrocodone [From [place]] AdvReac Unknown felt her Verified 01/24/20 18:47 mind was not right. famotidine [From Pepcid] AdvReac Nausea & Verified 01/24/20 18:51 Vomiting Opioids - Morphine Analogues AdvReac Confusion Verified 01/24/20 18:47 Opioids-Meperidine and AdvReac Confusion Verified 01/24/20 18:47 Related Opioids-Methadone and Related AdvReac Confusion Verified 01/24/20 18:47 Sulfa (Sulfonamide AdvReac Unknown- Verified 01/24/20 18:47 Antibiotics) almost passed out msg Allergy Anaphylaxis Uncoded 01/24/20 17:36 Results 03/25/22 09:55 03/25/22 09:55
[2022-03-25] MEDS ORDERED: NOREPINEPHRINE 4 MG in SODIUM CHLORIDE 0.9% 250 ML IV ONE (10:02)
[2022-03-25] MEDS ORDERED: TIROFIBAN 12.5MG-250ML NS 250 ML IV ONE (10:07)
[2022-03-25] MEDS ORDERED: niCARdipine 25 MG/10 ML VIAL ONE (10:07)
[2022-03-25 10:09] LABS: Basophils # (A) 0.1 k/uL (0-0.2); Basophils % (A) 1 %; Eosinophils # (A) 0.2 k/uL (0-0.7); Eosinophils % (A) 1 %; HCT 37.7 % (34.0-46.0); HGB 11.8 gm/dL (11.4-16.0); Lymphocytes # (A) 4.4 k/uL (1.0-4.8); Lymphocytes % (A) 36 %; MCHC 31.2 g/dL (31.0-37.0); MCV 99.2 fL (80.0-100.0); Mean Platelet Volume 8.7; Monocytes # (A) 0.7 k/uL (0-1.0); Monocytes % (A) 6 %; Neutrophils # (A) 6.7 k/uL (1.3-7.7); Neutrophils % (A) 54 %; Platelet Count 212 k/uL (150-450); RBC 3.81 m/uL (3.80-5.40); RDW 12.9 % (11.5-15.5); WBC 12.4 k/uL (3.8-10.6)
[2022-03-25] MEDS: niCARdipine Syringe (1,000 mcg/10 mL) INTRACORON ONE ×3 (10:09→10:27)
[2022-03-25 10:24] LABS: ALT 30 U/L (4-34); AST 56 U/L (14-36); African American GFR (CKD) 38 (>60 ml/min/1.73 sqM); Albumin 3.3 g/dL (3.5-5.0); Alkaline Phosphatase 87 U/L (38-126); Anion Gap 13 mmol/L; Blood Urea Nitrogen 20 mg/dL (7-17); Carbon Dioxide 21 mmol/L (22-30); Chloride 97 mmol/L (98-107); Glucose 224 mg/dL (74-99); Non-African American GFR(CKD) 33 (>60 ml/min/1.73 sqM); Potassium 3.6 mmol/L (3.5-5.1); Sodium 131 mmol/L (137-145); Total Bilirubin 0.6 mg/dL (0.2-1.3); Total Protein 5.7 g/dL (6.3-8.2)
[2022-03-25] MEDS: POTASSIUM CHLORIDE 20 MEQ in WATER FOR INJECTION 1 100ML.BAG IVPB SCH ×2 (10:40→14:19)
[2022-03-25] MEDS ORDERED: TICAGRELOR 90 MG TAB PO ONE (10:40)
[2022-03-25] MEDS ORDERED: TICAGRELOR 90 MG TAB ONE (10:45)
[2022-03-25] MEDS ORDERED: AMIODARONE 360 MG in DEXTROSE 5% IN WATER 200 ML IV ONE ×4 (10:45→11:45)
[2022-03-25 10:51] LABS: Creatine Kinase MB 4.1 ng/mL (0.0-2.4)
[2022-03-25 10:55] LABS: Troponin I 0.4 ng/mL (0.000-0.034)
[2022-03-25] MEDS ORDERED: RX INFO: IV CONTRAST WAS GIVEN 1 EACH MISC MISCELLANE PRN (10:56)
[2022-03-25] MEDS ORDERED: ATROPINE SULFATE 0.1 MG/ML 10ML SYRINGE IV PRN (10:56)
[2022-03-25] MEDS ORDERED: MAG HYDROX/AL HYDROX/SIMETH 30 ML CUP PO PRN (10:56)
[2022-03-25] MEDS ORDERED: ZOLPIDEM 5 MG TAB PO PRN (10:56)
[2022-03-25] MEDS ORDERED: NITROGLYCERIN SL TABS 0.4 MG TAB SUBLINGUAL PRN (10:56)
--- NOTE | 2022-03-25 10:59 | P.PCN ---
Date of Procedure: 03/25/22 Operative Findings: CARDIAC CATHETERIZATION AND PERCUTANEOUS CORONARY INTERVENTION PERFORMING PHYSICIAN: Rangel Carrasco MD, [facility] PROCEDURE PERFORMED: 1. Selective right and left coronary angiogram 2. Left heart catheterization 3. Successful stenting of the RCA distally and in the midportion using 3.0 x 38 Xience AVA mm stents with an excellent angiographic result 4. Successful placement of transvenous pacer the right common femoral vein 5. Aspiration thrombectomy from the right coronary artery INDICATION: Acute inferior ST elevation myocardial infarction complicated by third-degree AV block COMPLICATION: None APPROACH: Right common femoral artery LEVEL OF SEDATION: Moderate to sedation length of 60 minutes PROCEDURE DESCRIPTION: After obtaining an informed consent, the patient was brought to cardiac lift slab operator. Local anesthesia was performed using lidocaine subcutaneously. The right common femoral artery was cannulated using Seldinger technique, the guidewire passed easily, following that we advanced a 6 Ghanaian sheath dilator assembly, the wire and dilator were removed and sheath was flushed. Selective right and left coronary angiogram using a 6-Ghanaian JR4 and JL catheters. Following that we did left heart catheterization using 6-Ghanaian pigtail catheter. The procedure was completed there was no complication. SELECTIVE CORONARY ANGIOGRAM: The right coronary artery: Large caliber vessel and a dominant vessel. The RCA is occluded in the distal portion. There was large thrombus burden Left main: Has mild disease only. Bifurcates into LCx and LAD The left circumflex: Moderate caliber vessel nondominant vessel. The LCx proximity gives rises into an OM which appeared to be angiographically normal and the circumflex distally is occluded. The left anterior descending artery: Large caliber vessel. The proximal LAD has mild disease only. The mid LAD has intermediate lesion appeared to be in the range of 50%. The LAD distally appeared to be angiographically normal. HEMODYNAMICS: The LVEDP was 16 mmHg was no significant gradient across aortic valve. PCI OF THE RCA: The patient was brought emergently from the ER to the cardiac lift slab operator after she presented with inferior ST patient myocardial infarction. The patient had cardiac arrest with asystole when she arrived to the cardiac lift slab operator. CPR was initiated on subsequently we were able to bring the patient's back. The right common femoral artery was cannulated using micropuncture technique, the micronodular wire passed easily then I placed a 6-Ghanaian sheath. Then right common femoral vein was cannulated using puncture technique, the micropuncture w kd passed easily then I placed a 6-Ghanaian sheath. Subsequently transcutaneous pacer was advanced under fluoroscopy guidance to the right ventricle where the pacer was set up at the rate of 60 and amb 5. Then I did engage the right coronary artery using a JR4 guiding catheter. RCA angiogram was performed and showed occluded RCA at the distal portion. I did wire it using a run-through wire. Then I did balloon angioplasty using 30 mm balloon. Subsequently I did deploy 30 by 38 mm stent in the distal right coronary artery and 30 by 38 mm stent in the midright coronary artery. The following angiogram showed no flow in the right coronary artery distally. I did aspiration thrombectomy and I was able to obtain JOEY-3 flow. Subsequently postdilatation was performed using 3.5 mm NC balloon. The final angiogram showed reasonable angiographic results with a JOEY 2 flow. The pressure was marginal. Please note that the patient did have multiple cardiac arrest during the procedure required shock. Also please note that we give the patient heparin at the beginning with continuous ACT monitoring. CONCLUSION: 1. Acute inferior ST elevation myocardial infarction complicated by cardiac arrest 2. Occluded large dominant RCA distally. I performed successful stenting of the RCA as described above 3. Mildly elevated left-sided filling pressure
[2022-03-25] MEDS ORDERED: SODIUM CHLORIDE 0.9% 1,000 ML in EMPTY BAG 1 BAG IV SCH (11:00)
[2022-03-25] MEDS ORDERED: TIROFIBAN 12.5MG-250ML NS 250 ML IV SCH (11:30)
[2022-03-25] MEDS ORDERED: IOPAMIDOL-370 125ML BTL INJ ONE ×2 (11:47→11:48)
[2022-03-25 11:53] VITALS: BMI 40.0
[2022-03-25] MEDS: NOREPINEPHRINE 4 MG in SODIUM CHLORIDE 0.9% 250 ML IV SCH (13:23)
[2022-03-25] MEDS ORDERED: NALOXONE 0.4 MG/ML 1 ML VIAL IV PRN (13:24)
[2022-03-25] MEDS ORDERED: MELATONIN 3 MG TABLET PO PRN (13:25)
[2022-03-25] MEDS ORDERED: bisacodyL 5 MG TABLET.DR PO PRN (13:25)
[2022-03-25] MEDS ORDERED: ACETAMINOPHEN TAB 325 MG TAB PO PRN (13:25)
[2022-03-25] MEDS ORDERED: HYDROcodone/APAP 5-325MG 1 EACH TAB PO PRN (13:25)
[2022-03-25] MEDS ORDERED: DEXTROSE 50% SYRINGE 50 ML IVP PRN ×2 (13:32)
--- NOTE | 2022-03-25 13:42 | P.DS ---
Providers Date of admission: 03/25/22 10:42 Expected date of discharge: 03/25/22 Attending physician: Miranda Cristobal, Consults: 03/25/22 10:57 Consult Physician Routine Consulting Provider: [facility] Consult Reason/Comments: Post Interventional Patient Do you want consulting provider notified?: Already Contacted 03/25/22 11:04 Consult Physician Urgent Consulting Provider: Miranda Cristobal Consult Reason/Comments: Medical Management Do you want consulting provider notified?: Yes Primary care physician: Zach Longoria MD Hospital Course: Patient is an 82-year-old female with a history of diabetes mellitus type 2 diet controlled, hypothyroidism, and esophageal stricture who presented to the hospital via EMS due to lightheaded and dizziness. EMS noted that she is having an ST segment elevated myocardial infarction and she was immediately taken to the Violent Crimes Detective. On arrival her heart rate was low. In [employer] she went into asystole, she received a transvenous pacemaker, had a aspiration thrombectomy and stenting of the RCA. She also had an episode of ventricular tachycardia and was started on amiodarone drip. Her blood pressure was low necessitating levothyroid and dopamine. She was transferred to the ICU. Patient seen and examined at bedside. She states that this morning she woke up to go to the bathroom. After she finished going to the bathroom was about to get up she became very lightheaded and disoriented. She then walked to her bedroom and is unsure whether she lost consciousness or just fell to the floor. She knew she was unable to get up and called for her daughter. After getting into a chair she continued to feel very dizzy and lightheaded. She denies any chest pain, shortness breath, nausea, vomiting, diaphoresis with the episode. She currently is complaining of musculoskeletal chest pain after the decompressions. She was in her normal state of health up until today. She has no other complaints currently. Pertinent positives and negatives as discussed in HPI, a complete review of systems was performed and all other systems are negative. Vital signs reviewed General: Ill-appearing, mild distress, appears at stated age Derm: warm, dry, ecchymosis chest wall Head: atraumatic, normocephalic, symmetric Eyes: EOMI, no lid lag, anicteric sclera, pupils equal round reactive to light ENT: Nose and ears atraumatic, no thrush, no pharyngeal erythema Neck: No thyromegaly, no cervical lymphadenopathy, trachea midline, supple Mouth: no lip lesion, mucus membranes moist Cardiovascular: S1S2 reg, no murmur, positive posterior tibial pulse bilateral, no edema, capillary refill less than 2 seconds Lungs: clear to auscultation bilateral, no rhonchi, no rales, no wheeze, no accessory muscle use Abdominal: soft, nontender to palpation, no guarding, no appreciable organomegaly, normal bowel sounds Ext: no gross muscle atrophy, muscle strength 5 out of 5 bilateral upper extremities, able to wiggle toes bilateral lower extremities, muscle strength not tested due to the arterial sheath being in place. No contractures Neuro: CN II-XII grossly intact, light touch intact all 4 extremities, no t remors Psych: Alert, oriented, appropriate affect Assessment/Plan: Acute inferior ST segment elevated myocardial infarction Cardiac arrest Hypotension likely related to cardiogenic shock Nonsustained V. tach - Currently requiring levo and dopamine -Aspirin, Brillenta, Lipitor -Unable to have a beta phong secondary to bradycardia and hypotension -Transvenous pacemaker in place - echo - tele - check lipid profile - cardio recs Leukoctyosis, reactive - follow CBC HARRIS VS CKD - unknown baseline - follow Cr - target Map > 65 Hyponatremia - IVF - repeat in AM Diabetes mellitus type 2 -Patient is diet controlled at home -She believes her A1c is < 6 -Check A1c -Sliding-scale insulin Hypothyroidism -Synthroid The patient is admitted with an anticipated greater than 2 midnight stay for evaluation of STEMI. Surrogate decision-maker: daughter CODE STATUS:full DVT prophylaxis: SCDs Discussed with: Patient, nursing, Dr. Carrasco, cardio DIRECTOR METABOLISM Anticipated discharge date: in 3-[address]: home A total of 65 minutes was spent on the care of this complex patient more than 50% of the time was spent in counseling and care coordination. Patient Condition at Discharge: Stable Plan - Discharge Summary New Discharge Prescriptions: No Action Levothyroxine Sodium [Synthroid] 75 mcg PO DAILY Omeprazole 20 mg PO DAILY Discharge Medication List Levothyroxine Sodium [Synthroid] 75 mcg PO DAILY 05/07/19 [History] Omeprazole 20 mg PO DAILY 03/25/22 [History] Discharge Disposition: ADMITTED IP TO THIS HOSP
[2022-03-25] MEDS: DOPamine DRIP 800 MG in DEXTROSE/WATER 1 250ML.BAG IV SCH (14:05)
[2022-03-25] MEDS: ONDANSETRON ODT 4 MG TAB PO PRN (14:06)
--- NOTE | 2022-03-25 15:56 | XR ---
EXAMINATION TYPE: XR chest 1V portable DATE OF EXAM: 03/25/2022 COMPARISON: 11/11/2017 INDICATION: Short of breath TECHNIQUE: Single frontal view of the chest is obtained. Positioning is semiupright. FINDINGS: The heart size is normal. The pulmonary vasculature is normal. The lungs are clear. IMPRESSION: 1. No acute pulmonary process.
[2022-03-25 16:57] LABS: Glucose,Whole Blood 199 mg/dL (70-110)
[2022-03-25] MEDS: INSULIN ASPART (NovoLOG) 100 UNIT/ML VIAL SQ SCH ×2 (16:58→20:45)
[2022-03-25] MEDS ORDERED: AMIODARONE 450 MG in DEXTROSE 5% IN WATER 250 ML IV SCH ×4 (17:00→18:00)
[2022-03-25 20:40] LABS: Glucose,Whole Blood 204 mg/dL (70-110)
[2022-03-25] MEDS: ATORVASTATIN 80 MG TAB PO SCH (20:44)
[2022-03-25] MEDS: TICAGRELOR 90 MG TAB PO SCH (20:44)
[2022-03-25 21:39] LABS: Chol/HDL Ratio 2.85 Ratio
[2022-03-26] MEDS: NOREPINEPHRINE 4 MG in SODIUM CHLORIDE 0.9% 250 ML IV SCH ×2 (03:00→15:47)
[2022-03-26 04:39] LABS: Basophils % (A) 0 %; Eosinophils % (A) 0 %; HCT 33.8 % (34.0-46.0); HGB 11.1 gm/dL (11.4-16.0); Lymphocytes # (A) 0.8 k/uL (1.0-4.8); Lymphocytes % (A) 5 %; MCH 31.5 pg (25.0-35.0); MCHC 32.8 g/dL (31.0-37.0); MCV 96.3 fL (80.0-100.0); Mean Platelet Volume 8.4; Monocytes # (A) 1.5 k/uL (0-1.0); Monocytes % (A) 9 %; Neutrophils # (A) 14.7 k/uL (1.3-7.7); Neutrophils % (A) 86 %; Platelet Count 280 k/uL (150-450); RBC 3.51 m/uL (3.80-5.40); RDW 13.1 % (11.5-15.5); WBC 17.1 k/uL (3.8-10.6)
[2022-03-26 05:05] LABS: Calcium 8.6 mg/dL (8.4-10.2); Potassium 4.4 mmol/L (3.5-5.1)
[2022-03-26 06:34] LABS: Glucose,Whole Blood 196 mg/dL (70-110)
[2022-03-26] MEDS: INSULIN ASPART (NovoLOG) 100 UNIT/ML VIAL SQ SCH ×4 (06:36→20:47)
[2022-03-26] MEDS: PANTOPRAZOLE 40 MG TABLET PO SCH (06:37)
[2022-03-26] MEDS: LEVOTHYROXINE 75 MCG TAB PO SCH (06:37)
--- NOTE | 2022-03-26 07:52 | P.PN ---
Subjective Progress Note Date: 03/26/22 Principal diagnosis: Acute inferior ST elevation myocardial infarction This is an 82-year-old female patient who presented to the hospital with chest discomfort and also she did have an episode of syncope. She was diagnosed was inferior STEMI which she underwent a heart catheterization complicated by cardiac arrest multiple times. She underwent PCI of the RCA. The RCA was t otally occluded. The patient was seen this morning. Clinically she seems to be feeling better. She still on norepinephrine as well as dopamine which we are in process of weaning her from. She is also on amiodarone IV which I'm going to switch her to amiodarone by mouth. She is on Aggrastat which I'm going to stop. Beside that she is on dual antiplatelet therapy along with high intensity statin. An echo is in process to be done. We'll follow-up with the patient. Objective - Vital Signs Vital signs: Vital Signs Temp 97.9 F 03/26/22 06:00 Pulse 90 03/26/22 07:00 Resp 17 03/26/22 07:00 BP 114/49 03/26/22 06:00 Pulse Ox 97 03/26/22 07:00 FiO2 Intake & Output 03/25/22 03/26/22 03/26/22 18:59 06:59 18:59 Intake Total 6011.827 5810.527 68.212 Output Total 320 Balance 1975.473 890.527 68.212 Weight 102.5 kg 104.1 kg Intake: IV 1918 1014 0.9 93 39 pressure bag 453 975 Intake, IV Titration 57.473 196.527 68.212 Amount Norepinephrine 4 mg In 57.473 196.527 68.212 Sodium Chloride 0.9% 250 ml @ 0.05 MCG/KG/MIN 19. 526 mls/hr IV .Q13H1M PENDING SALE TO [facility] Rx#:[id number] Output: Urine 320 Other: Voiding Method External Catheter External Catheter # Voids 1 ABP, PAP, CO, CI - Last Documented Arterial Blood Pressure 111/45 - Constitutional General appearance: Present: no acute distress - Respiratory Respiratory: bilateral: CTA - Cardiovascular Rhythm: regular Heart sounds: normal: S1, S2 - Labs CBC & Chem 7: 03/26/22 04:20 03/26/22 04:20 Labs: Abnormal Lab Results - Last 24 Hours (Table) 03/25/22 03/25/2203/25/22 Range/Units 09:55 09:55 09:55 WBC 12.4 H (3.8-10.6) k/uL RBC (3.80-5.40) m/uL Hgb (11.4-16.0) gm/dL Hct (34.0-46.0) % Neutrophils # (1.3-7.7) k/uL Lymphocytes # (1.0-4.8) k/uL Monocytes # (0-1.0) k/uL Sodium 131 L (137-145) mmol/L Chloride 97 L (98-107) mmol/L Carbon Dioxide 21 L (22-30) mmol/L BUN 20 H (7-17) mg/dL Creatinine 1.48 H (0.52-1.04) mg/dL Glucose 224 H (74-99) mg/dL POC Glucose (mg/dL) (70-110) mg/dL Hemoglobin A1c (0.0-6.0) % Calcium 8.0 L (8.4-10.2) mg/dL Magnesium (1.6-2.3) mg/dL AST 56 H (14-36) U/L CK-MB (CK-2) 4.1 H (0.0-2.4) ng/mL Troponin I 0.400 H* (0.000-0.034) ng/mL Total Protein 5.7 L (6.3-8.2) g/dL Albumin 3.3 L (3.5-5.0) g/dL Triglycerides 202.00 H (0.00-149.00) mg/dL VLDL Cholesterol, Calc 40.40 H (5.00-40.00) mg/dL 03/25/22 03/25/22 03/25/22 Range/Units 09:55 15:07 15:07 WBC (3.8-10.6) k/uL RBC (3.80-5.40) m/uL Hgb (11.4-16.0) gm/dL Hct (34.0-46.0) % Neutrophils # (1.3-7.7) k/uL Lymphocytes # (1.0-4.8) k/uL Monocytes # (0-1.0) k/uL Sodium (137-145) mmol/L Chloride (98-107) mmol/L Carbon Dioxide (22-30) mmol/L BUN (7-17) mg/dL Creatinine (0.52-1.04) mg/dL Glucose (74-99) mg/dL POC Glucose (mg/dL) (70-110) mg/dL Hemoglobin A1c 6.3 H (0.0-6.0) % Calcium (8.4-10.2) mg/dL Magnesium 2.6 H (1.6-2.3) mg/dL AST (14-36) U/L CK-MB (CK-2) (0.0-2.4) ng/mL Troponin I 234.000 H* (0.000-0.034) ng/mL Total Protein (6.3-8.2) g/dL Albumin (3.5-5.0) g/dL Triglycerides (0.00-149.00) mg/dL VLDL Cholesterol, Calc (5.00-40.00) mg/dL 03/25/22 03/25/22 03/26/22 Range/Units 16:55 20:39 04:20 WBC 17.1 H (3.8-10.6) k/uL RBC 3.51 L (3.80-5.40) m/uL Hgb 11.1 L (11.4-16.0) gm/dL Hct 33.8 L (34.0-46.0) % Neutrophils # 14.7 H (1.3-7.7) k/uL Lymphocytes # 0.8 L (1.0-4.8) k/uL Monocytes # 1.5 H (0-1.0) k/uL Sodium (137-145) mmol/L Chloride (98-107) mmol/L Carbon Dioxide (22-30) mmol/L BUN (7-17) mg/dL Creatinine (0.52-1.04) mg/dL Glucose (74-99) mg/dL POC Glucose (mg/dL) 199 H 204 H (70-110) mg/dL Hemoglobin A1c (0.0-6.0) % Calcium (8.4-10.2) mg/dL Magnesium (1.6-2.3) mg/dL AST (14-36) U/L CK-MB (CK-2) (0.0-2.4) ng/mL Troponin I (0.000-0.034) ng/mL Total Protein (6.3-8.2) g/dL Albumin (3.5-5.0) g/dL Triglycerides (0.00-149.00) mg/dL VLDL Cholesterol, Calc (5.00-40.00) mg/dL 03/26/22 03/26/22 Range/Units 04:20 06:32 WBC (3.8-10.6) k/uL RBC (3.80-5.40) m/uL Hgb (11.4-16.0) gm/dL Hct (34.0-46.0) % Neutrophils # (1.3-7.7) k/uL Lymphocytes # (1.0-4.8) k/uL Monocytes # (0-1.0) k/uL Sodium 132 L (137-145) mmol/L Chloride (98-107) mmol/L Carbon Dioxide 19 L (22-30) mmol/L BUN 26 H (7-17) mg/dL Creatinine 1.65 H (0.52-1.04) mg/dL Glucose 205 H (74-99) mg/dL POC Glucose (mg/dL) 196 H (70-110) mg/dL Hemoglobin A1c (0.0-6.0) % Calcium (8.4-10.2) mg/dL Magnesium (1.6-2.3) mg/dL AST (14-36) U/L CK-MB (CK-2) (0.0-2.4) ng/mL Troponin I (0.000-0.034) ng/mL Total Protein (6.3-8.2) g/dL Albumin (3.5-5.0) g/dL Triglycerides (0.00-149.00) mg/dL VLDL Cholesterol, Calc (5.00-40.00) mg/dL Assessment and Plan Assessment: Assessment Acute inferior STEMI Cardiogenic shock Cardiac arrest Multiple comorbid conditions Plan DC a new IV and start the patient on the medial by mouth DC Aggrastat Right wean the patient from norepinephrine as well as dopamine Continue dual antiplatelet therapy Follow-up on the echo cardiac
[2022-03-26] MEDS: ASPIRIN 81 MG PO SCH (08:12)
[2022-03-26] MEDS: TICAGRELOR 90 MG TAB PO SCH ×2 (08:12→20:28)
[2022-03-26] MEDS: AMIODARONE 200 MG TAB PO SCH ×2 (08:12→20:28)
--- NOTE | 2022-03-26 08:21 | P.HPIM ---
History of Present Illness H&P Date: 03/26/22 Patient is an 82-year-old female with a history of diabetes mellitus type 2 diet controlled, hypothyroidism, and esophageal stricture who presented to the hospital via EMS due to lightheaded and dizziness. EMS noted that she is having an ST segment elevated myocardial infarction and she was immediately taken to [facility]. On arrival her heart rate was low. In [facility] she went into asystole, she received a transvenous pacemaker, had a aspiration thrombectomy and stenting of the RCA. She also had an episode of ventricular tachycardia and was started on amiodarone drip. Her blood pressure was low necessitating levothyroid and dopamine. She was transferred to the ICU. Patient seen and examined at bedside. She states that this morning she woke up to go to the bathroom. After she finished going to the bathroom was about to get up she became very lightheaded and disoriented. She then walked to her bedroom and is unsure whether she lost consciousness or just fell to the floor. She knew she was unable to get up and called for her daughter. After getting into a chair she continued to feel very dizzy and lightheaded. She denies any chest pain, shortness breath, nausea, vomiting, diaphoresis with the episode. She currently is complaining of musculoskeletal chest pain after the decompressions. She was in her normal state of health up until today. She has no other complaints currently. Pertinent positives and negatives as discussed in HPI, a complete review of systems was performed and all other systems are negative. Vital signs reviewed General: Ill-appearing, mild distress, appears at stated age Derm: warm, dry, ecchymosis chest wall Head: atraumatic, normocephalic, symmetric Eyes: EOMI, no lid lag, anicteric sclera, pupils equal round reactive to light ENT: Nose and ears atraumatic, no thrush, no pharyngeal erythema Neck: No thyromegaly, no cervical lymphadenopathy, trachea midline, supple Mouth: no lip lesion, mucus membranes moist Cardiovascular: S1S2 reg, no murmur, positive posterior tibial pulse bilateral, no edema, capillary refill less than 2 seconds Lungs: clear to auscultation bilateral, no rhonchi, no rales, no wheeze, no accessory muscle use Abdominal: soft, nontender to palpation, no guarding, no appreciable organom egaly, normal bowel sounds Ext: no gross muscle atrophy, muscle strength 5 out of 5 bilateral upper extremities, able to wiggle toes bilateral lower extremities, muscle strength not tested due to the arterial sheath being in place. No contractures Neuro: CN II-XII grossly intact, light touch intact all 4 extremities, no tremors Psych: Alert, oriented, appropriate affect Assessment/Plan: Acute inferior ST segment elevated myocardial infarction Cardiac arrest Hypotension likely related to cardiogenic shock Nonsustained V. tach - Currently requiring levo and dopamine -Aspirin, Brillenta, Lipitor -Unable to have a beta phong secondary to bradycardia and hypotension -Transvenous pacemaker in place - echo - tele - check lipid profile - cardio recs Leukoctyosis, reactive - follow CBC HARRIS VS CKD - unknown baseline - follow Cr - target Map > 65 Hyponatremia - IVF - repeat in AM Diabetes mellitus type 2 -Patient is diet controlled at home -She believes her A1c is < 6 -Check A1c -Sliding-scale insulin Hypothyroidism -Synthroid The patient is admitted with an anticipated greater than 2 midnight stay for evaluation of STEMI. Surrogate decision-maker: daughter CODE STATUS:full DVT prophylaxis: SCDs Discussed with: Patient, nursing, Dr. Carrasco, cardio OPS ANALYST Anticipated discharge date: in 3-[address]: home A total of 65 minutes was spent on the care of this complex patient more than 50% of the time was spent in counseling and care coordination. Past Medical History Past Medical History: Cancer, Diabetes Mellitus, Renal Disease, Thyroid Disorder Additional Past Medical History / Comment(s): Basal Cell skin cancer, hx. kidney stone, Diabetes- no longer on meds- watches diet, uses cane, states episodes where it feels her throat is tight (hx of EGD with dilation), chronic kidney disease. History of Any Multi-Drug Resistant Organisms: None Reported Past Surgical History: Adenoidectomy, Back Surgery, Tonsillectomy Additional Past Surgical History / Comment(s): bunionectomy, kidney stone, cataracts, EGD with dilation Past Anesthesia/Blood Transfusion Reactions: No Reported Reaction Past Psychological History: No Psychological Hx Reported Smoking Status: Never smoker Past Alcohol Use History: None Reported Past Drug Use History: None Reported - Past Family History Brother(s) Family Medical History: Cancer Additional Family Medical History / Comment(s): basal cell skin cancer family Additional Family Medical History / Comment(s): no family hx of heart disease Medications and Allergies Home Medications Medication Instructions Recorded Confirmed Type Levothyroxine Sodium [Synthroid] 75 mcg PO DAILY 05/07/19 03/25/22 History Omeprazole 20 mg PO DAILY 03/25/22 03/25/22 History Allergies Allergy/AdvReac Type Severity Reaction Status Date / Time codeine Allergy Rash/Hives Verified 01/24/20 18:47 metronidazole [From Flagyl] Allergy Rash/Hives Verified 01/24/20 18:47 Metronidazole HCl Allergy Rash/Hives Verified 01/24/20 18:47 [From Flagyl] morphine Allergy Rash/Hives Verified 01/24/20 18:47 hydrocodone [From [place]] AdvReac Unknown felt her Verified 01/24/20 18:47 mind was not right. famotidine [From Pepcid] AdvReac Nausea & Verified 01/24/20 18:51 Vomiting Opioids - Morphine Analogues AdvReac Confusion Verified 01/24/20 18:47 Opioids-Meperidine and AdvReac Confusion Verified 01/24/20 18:47 Related Opioids-Methadone and Related AdvReac Confusion Verified 01/24/20 18:47 Sulfa (Sulfonamide AdvReac Unknown- Verified 01/24/20 18:47 Antibiotics) almost passed out msg Allergy Anaphylaxis Uncoded 01/24/20 17:36 Physical Exam Osteopathic Statement: *. No significant issues noted on an osteopathic structural exam other than those noted in the History and Physical/Consult. Vitals: Vital Signs Temp Pulse Pulse Resp BP BP Pulse Ox 03/26/22 07:00 90 17 97 03/26/22 06:30 100 15 97 03/26/22 06:00 97.9 F 98 18 114/49 97 03/26/22 05:30 105 H 16 98 03/26/22 05:00 106 H 18 97 03/26/22 04:30 104 H 16 97 03/26/22 04:00 97.9 F 100 100 12 97 03/26/22 03:30 109 H 0 L 97 03/26/22 03:00 112 H 12 96 03/26/22 02:30 112 H 10 L 97 03/26/22 02:00 109 H 15 97 03/26/22 01:30 99 18 97 03/26/22 01:00 98 21 97 03/26/22 00:30 92 18 96 03/26/22 00:00 97.9 F 106 H 101 H 18 97 03/25/22 23:41 16 97 03/25/22 23:30 101 H 13 96 03/25/22 23:00 101 H 16 96 03/25/22 22:42 97.8 F 18 105/46 96 03/25/22 22:30 109 H 85 H 97 03/25/22 22:00 102 H 22 92/50 97 03/25/22 21:30 109 H 13 92/50 96 03/25/22 21:00 107 H 6 L 89/56 98 03/25/22 20:30 104 H 17 96 03/25/22 20:00 97.9 F 99 109 H 18 79/52 96 03/25/22 19:30 100 18 96 03/25/22 19:00 109 H 19 87/54 96 03/25/22 18:30 107 H 18 87/54 96 03/25/22 18:00 110 H 17 87/54 96 03/25/22 17:30 108 H 17 83/48 96 03/25/22 17:00 107 H 23 97 03/25/22 16:30 105 H 17 97 03/25/22 16:00 111 H 17 97 03/25/22 15:30 118 H 12 96 03/25/22 15:00 95.8 F L 113 H 14 98 03/25/22 14:30 111 H 15 96 03/25/22 14:00 95.8 F L 104 H 15 100 03/25/22 13:30 109 H 15 97 03/25/22 13:00 111 H 13 03/25/22 12:30 99 12 100 03/25/22 12:00 104 H 10 L 89/60 98 03/25/22 11:32 106 H 16 Intake and Output 03/25/22 03/26/22 03/26/22 22:59 06:59 14:59 Intake Total 726.708 829.795 68.212 Output Total 150 170 Balance 576.708 659.795 68.212 Intake: IV 624 702 0.9 24 27 pressure bag 600 675 Intake, IV Titration 102.708 127.795 68.212 Amount Norepinephrine 4 mg In 102.708 127.795 68.212 Sodium Chloride 0.9% 250 ml @ 0.05 MCG/KG/MIN 19. 526 mls/hr IV .Q13H1M [facility] Rx#:[id number] Output: Urine 150 170 Other: Voiding Method External Catheter External Catheter # Voids 1 Weight 104.1 kg ABP, PAP, CO, CI - Last 8 Hours Arterial Blood Pressure 111/45 Arterial Blood Pressure 108/44 Arterial Blood Pressure 116/46 Arterial Blood Pressure 114/47 Arterial Blood Pressure 123/49 Arterial Blood Pressure 113/46 Arterial Blood Pressure 112/45 Arterial Blood Pressure 125/50 Arterial Blood Pressure 120/49 Arterial Blood Pressure 122/51 Arterial Blood Pressure 119/49 Arterial Blood Pressure 110/45 Arterial Blood Pressure 116/45 Arterial Blood Pressure 115/47 Results CBC & Chem 7: 03/26/22 04:20 03/26/22 04:20 Labs: Abnormal Lab Results - Last 24 Hours (Table) 03/25/22 03/25/22 03/25/22 Range/Units 09:55 09:55 09:55 WBC 12.4 H (3.8-10.6) k/uL RBC (3.80-5.40) m/uL Hgb (11.4-16.0) gm/dL Hct (34.0-46.0) % Neutrophils # (1.3-7.7) k/uL Lymphocytes # (1.0-4.8) k/uL Monocytes # (0-1.0) k/uL Sodium 131 L (137-145) mmol/L Chloride 97 L (98-107) mmol/L Carbon Dioxide 21 L (22-30) mmol/L BUN 20 H (7-17) mg/dL Creatinine 1.48 H (0.52-1.04) mg/dL Glucose 224 H (74-99) mg/dL POC Glucose (mg/dL) (70-110) mg/dL Hemoglobin A1c (0.0-6.0) % Calcium 8.0 L (8.4-10.2) mg/dL Magnesium (1.6-2.3) mg/dL AST 56 H (14-36) U/L CK-MB (CK-2) 4.1 H (0.0-2.4) ng/mL Troponin I 0.400 H* (0.000-0.034) ng/mL Total Protein 5.7 L (6.3-8.2) g/dL Albumin 3.3 L (3.5-5.0) g/dL Triglycerides 202.00 H (0.00-149.00) mg/dL VLDL Cholesterol, Calc 40.40 H (5.00-40.00) mg/dL 03/25/22 03/25/22 03/25/22 Range/Units 09:55 15:07 15:07 WBC (3.8-10.6) k/uL RBC (3.80-5.40) m/uL Hgb (11.4-16.0) gm/dL Hct (34.0-46.0) % Neutrophils # (1.3-7.7) k/uL Lymphocytes # (1.0-4.8) k/uL Monocytes # (0-1.0) k/uL Sodium (137-145) mmol/L Chloride (98-107) mmol/L Carbon Dioxide (22-30) mmol/L BUN (7-17) mg/dL Creatinine (0.52-1.04) mg/dL Glucose (74-99) mg/dL POC Glucose (mg/dL) (70-110) mg/dL Hemoglobin A1c 6.3 H (0.0-6.0) % Calcium (8.4-10.2) mg/dL Magnesium 2.6 H (1.6-2.3) mg/dL AST (14-36) U/L CK-MB (CK-2) (0.0-2.4) ng/mL Troponin I 234.000 H* (0.000-0.034) ng/mL Total Protein (6.3-8.2) g/dL Albumin (3.5-5.0) g/dL Triglycerides (0.00-149.00) mg/dL VLDL Cholesterol, Calc (5.00-40.00) mg/dL 03/25/22 03/25/22 03/26/22 Range/Units 16:55 20:39 04:20 WBC 17.1 H (3.8-10.6) k/uL RBC 3.51 L (3.80-5.40) m/uL Hgb 11.1 L (11.4-16.0) gm/dL Hct 33.8 L (34.0-46.0) % Neutrophils # 14.7 H (1.3-7.7) k/uL Lymphocytes # 0.8 L (1.0-4.8) k/uL Monocytes # 1.5 H (0-1.0) k/uL Sodium (137-145) mmol/L Chloride (98-107) mmol/L Carbon Dioxide (22-30) mmol/L BUN (7-17) mg/dL Creatinine (0.52-1.04) mg/dL Glucose (74-99) mg/dL POC Glucose (mg/dL) 199 H 204 H (70-110) mg/dL Hemoglobin A1c (0.0-6.0) % Calcium (8.4-10.2) mg/dL Magnesium (1.6-2.3) mg/dL AST (14-36) U/L CK-MB (CK-2) (0.0-2.4) ng/mL Troponin I (0.000-0.034) ng/mL Total Protein (6.3-8.2) g/dL Albumin (3.5-5.0) g/dL Triglycerides (0.00-149.00) mg/dL VLDL Cholesterol, Calc (5.00-40.00) mg/dL 03/26/22 03/26/22 Range/Units 04:20 06:32 WBC (3.8-10.6) k/uL RBC (3.80-5.40) m/uL Hgb (11.4-16.0) gm/dL Hct (34.0-46.0) % Neutrophils # (1.3-7.7) k/uL Lymphocytes # (1.0-4.8) k/uL Monocytes # (0-1.0) k/uL Sodium 132 L (137-145) mmol/L Chloride (98-107) mmol/L Carbon Dioxide 19 L (22-30) mmol/L BUN 26 H (7-17) mg/dL Creatinine 1.65 H (0.52-1.04) mg/dL Glucose 205 H (74-99) mg/dL POC Glucose (mg/dL) 196 H (70-110) mg/dL Hemoglobin A1c (0.0-6.0) % Calcium (8.4-10.2) mg/dL Magnesium (1.6-2.3) mg/dL AST (14-36) U/L CK-MB (CK-2) (0.0-2.4) ng/mL Troponin I (0.000-0.034) ng/mL Total Protein (6.3-8.2) g/dL Albumin (3.5-5.0) g/dL Triglycerides (0.00-149.00) mg/dL VLDL Cholesterol, Calc (5.00-40.00) mg/dL Thrombosis Risk Factor Assmnt - Choose All That Apply Any of the Below Risk Factors Present?: Yes Each Factor Represents 1 point: Acute NH, Medical pt on bed rest, Obesity (BMI >25) Other Risk Factors: Yes Each Risk Factor Represents 2 Points: Patient confined to bed Each Risk Factor Represents 3 Points: Age 75 years or older Other congenital or acquired thrombophilia - If yes, enter type in comment: No Thrombosis Risk Factor Assessment Total Risk Factor Score: 8 Thrombosis Risk Factor Assessment Level: High Risk
--- NOTE | 2022-03-26 10:17 | CA ---
Transthoracic Echo Report Name: Antnoio Muhammad Age: 82 Gender: F : 1940 Exam Date: 03/25/2022 13:20 Exam Location: [place] [facility] Ht (in): 62 Wt (lb): 210 Ordering Physician: Blanca Frazier Attending/Referring Phys: [employer] Linda Goldberg RDCS Procedure CPT: Indications: stemi Cardiac Hx: Technical Quality: Good Contrast 1: Total Dose (mL): Contrast 2: Total Dose (mL): MEASUREMENTS (Male / Female) Normal Values DOPPLER AV Peak Velocity 162.0 cm/s AV Peak Gradient 10.5 mmHg TR Peak Velocity 208.6 cm/s TR Peak Gradient 17.4 mmHg Right Ventricular Systolic Press 22.4 mmHg FINDINGS Left Ventricle Left ventricular ejection fraction is estimated at 40-45%. Inferior hypokinesis. Right Ventricle Normal right ventricular size and function. Right Atrium Normal right atrial size. Left Atrium Normal left atrial size. Mitral Valve Structurally normal mitral valve. Aortic Valve Trileaflet aortic valve. Tricuspid Valve Pulmonic Valve Pericardium Echo free space anterior to the right ventricle likely represents a fat pad. Aorta CONCLUSIONS Technically difficult study for interpretation Inverted all dysfunctional was EF between 40-45 post Previewed by: Dr. Rangel Carrasco MD (Electronically Signed) Final Date: 26 March 2022 10:16
[2022-03-26] MEDS: DOPamine DRIP 800 MG in DEXTROSE/WATER 1 250ML.BAG IV SCH (10:36)
--- NOTE | 2022-03-26 11:34 | P.CNPUL ---
History of Present Illness Consult date: 03/26/22 Requesting physician: Miranda Cristobal Reason for consult: other Chief complaint: Cardiac arrest. History of present illness: Pulmonary consult dated 03/26/2022. 82-year-old female who was admitted on March 25. She came in with syncope, and was found to have third-degree heart block. She was on the way to the catheterization laboratory, which she had a full-blown cardiac arrest. The pa jere underwent CPR, and ended up receiving 2 stents in the right coronary artery, with a temporary pacemaker being placed. The patient was brought back to the ICU. I was not initially consulted until late last night. Currently, the patient's on norepinephrine at 3 mcg/m, dopamine at 5 mcg/kg/m, and saline at 75 mL an hour. In addition, the patient's on 2 L of oxygen. I was called late last night by the hospitalist service, to alert me of the consult. This morning, the temporary venous pacemaker was removed by cardiology. White count 17.1, hemoglobin 11.1, hematocrit 33.8, and platelet count 280,000 sodium 132, potassium 4.4, chlorides 101, CO2 19, BUN 26, and creatinine 1.65. Troponin was 234. The patient's chest x-ray did not show any acute process. The patient was in acute inferior wall ST segment elevation myocardial infarction, cardiac arrest, and cardiogenic shock. Review of Systems REVIEW OF SYSTEMS: CONSTITUTIONAL: [Negative.] NEUROLOGIC: Cardiac syncope. HEENT: [ Negative.] CARDIAC: [Negative.] PULMONARY: [Negative.] GI: [Negative.] : [Negative.] RHEUMATOLOGIC: [ Negative.] IMMUNOLOGIC: [ Negative.] ENDOCRINE: [Negative. ] DERMATOLOGIC: [Negative.] Past Medical History Past Medical History: Cancer, Diabetes Mellitus, Renal Disease, Thyroid Disorder Additional Past Medical History / Comment(s): Basal Cell skin cancer, hx. kidney stone, Diabetes- no longer on meds- watches diet, uses cane, states episodes where it feels her throat is tight (hx of EGD with dilation), chronic kidney disease. History of Any Multi-Drug Resistant Organisms: None Reported Past Surgical History: Adenoidectomy, Back Surgery, Tonsillectomy Additional Past Surgical History / Comment(s): bunionectomy, kidney stone, cataracts, EGD with dilation Past Anesthesia/Blood Transfusion Reactions: No Reported Reaction Past Psychological History: No Psychological Hx Reported Smoking Status: Never smoker Past Alcohol Use History: None Reported Past Drug Use History: None Reported - Past Family History Brother(s) Family Medical History: Cancer Additional Family Medical History / Comment(s): basal cell skin cancer family Additional Family Medical History / Comment(s): no family hx of heart disease Medications and Allergies Home Medications Medication Instructions Recorded Confirmed Type Levothyroxine Sodium [Synthroid] 75 mcg PO DAILY 05/07/19 03/25/22 History Omeprazole 20 mg PO DAILY 03/25/22 03/25/22 History Allergies Allergy/AdvReac Type Severity Reaction Status Date / Time codeine Allergy Rash/Hives Verified 01/24/20 18:47 metronidazole [From Flagyl] Allergy Rash/Hives Verified 01/24/20 18:47 Metronidazole HCl Allergy Rash/Hives Verified 01/24/20 18:47 [From Flagyl] morphine Allergy Rash/Hives Verified 01/24/20 18:47 hydrocodone [From [place]] AdvReac Unknown felt her Verified 01/24/20 18:47 mind was not right. famotidine [From Pepcid] AdvReac Nausea & Verified 01/24/20 18:51 Vomiting Opioids - Morphine Analogues AdvReac Confusion Verified 01/24/20 18:47 Opioids-Meperidine and AdvReac Confusion Verified 01/24/20 18:47 Related Opioids-Methadone and Related AdvReac Confusion Verified 01/24/20 18:47 Sulfa (Sulfonamide AdvReac Unknown- Verified 01/24/20 18:47 Antibiotics) almost passed out msg Allergy Anaphylaxis Uncoded 01/24/20 17:36 Physical Exam Osteopathic Statement: *. No significant issues noted on an osteopathic structural exam other than those noted in the History and Physical/Consult. Vitals: Vital Signs Temp Pulse Pulse Resp BP BP Pulse Ox 03/26/22 11:00 90 14 100/53 99 03/26/22 10:30 90 16 96/43 98 03/26/22 10:00 89 17 98 03/26/22 09:30 104 H 17 97 03/26/22 09:00 94 17 100/42 03/26/22 08:30 96 15 98 03/26/22 08:00 97.8 F 96 14 95 03/26/22 07:30 100 12 96 03/26/22 07:00 90 17 97 03/26/22 06:30 100 15 97 03/26/22 06:00 97.9 F 98 18 114/49 97 03/26/22 05:30 105 H 16 98 03/26/22 05:00 106 H 18 97 03/26/22 04:30 104 H 16 97 03/26/22 04:00 97.9 F 100 100 12 97 03/26/22 03:30 109 H 0 L 97 03/26/22 03:00 112 H 12 96 03/26/22 02:30 112 H 10 L 97 03/26/22 02:00 109 H 15 97 03/26/22 01:30 99 18 97 03/26/22 01:00 98 21 97 03/26/22 00:30 92 18 96 03/26/22 00:00 97.9 F 106 H 101 H 18 97 03/25/22 23:41 16 97 03/25/22 23:30 101 H 13 96 03/25/22 23:00 101 H 16 96 03/25/22 22:42 97.8 F 18 105/46 96 03/25/22 22:30 109 H 85 H 97 03/25/22 22:00 102 H 22 92/50 97 03/25/22 21:30 109 H 13 92/50 96 03/25/22 21:00 107 H 6 L 89/56 98 03/25/22 20:30 104 H 17 96 03/25/22 20:00 97.9 F 99 109 H 18 79/52 96 03/25/22 19:30 100 18 96 03/25/22 19:00 109 H 19 87/54 96 03/25/22 18:30 107 H 18 87/54 96 03/25/22 18:00 110 H 17 87/54 96 03/25/22 17:30 108 H 17 83/48 96 03/25/22 17:00 107 H 23 97 03/25/22 16:30 105 H 17 97 03/25/22 16:00 111 H 17 97 03/25/22 15:30 118 H 12 96 03/25/22 15:00 95.8 F L 113 H 14 98 03/25/22 14:30 111 H 15 96 03/25/22 14:00 95.8 F L 104 H 15 100 03/25/22 13:30 109 H 15 97 03/25/22 13:00 111 H 13 03/25/22 12:30 99 12 100 03/25/22 12:00 104 H 10 L 89/60 98 03/25/22 11:32 106 H 16 Intake and Output 03/25/22 03/26/22 03/26/22 22:59 06:59 14:59 Intake Total 726.708 829.795 614.132 Output Total 150 170 50 Balance 576.708 659.795 564.132 Intake: IV 624 702 312 0.9 24 27 12 pressure bag 600 675 300 Intake, IV Titration 102.708 127.795 302.132 Amount DOPamine DRIP 800 mg In 197.145 Dextrose/Water 1 250ml. bag @ 5 MCG/KG/MIN 9.609 mls/hr IV .Q24H [facility] Rx#: [id number] Norepinephrine 4 mg In 102.708 127.795 104.987 Sodium Chloride 0.9% 250 ml @ 0.05 MCG/KG/MIN 19. 526 mls/hr IV .Q13H1M [facility] Rx#:[id number] Output: Urine 150 170 50 Other: Voiding Method External Catheter External Catheter External Catheter # Voids 1 Weight 104.1 kg ABP, PAP, CO, CI - Last 8 Hours Arterial Blood Pressure 105/44 Arterial Blood Pressure 109/45 Arterial Blood Pressure 106/44 Arterial Blood Pressure 109/48 Arterial Blood Pressure 109/46 Arterial Blood Pressure 114/48 Arterial Blood Pressure 107/45 Arterial Blood Pressure 104/45 Arterial Blood Pressure 111/45 Arterial Blood Pressure 108/44 Arterial Blood Pressure 116/46 Arterial Blood Pressure 114/47 Arterial Blood Pressure 123/49 Arterial Blood Pressure 113/46 Arterial Blood Pressure 112/45 Arterial Blood Pressure 125/50 No acute distress, oriented 3. No respiratory distress, currently on 2 L by nasal cannula. HEENT examination is grossly unremarkable. Neck supple. Full range of motion. No adenopathy thyromegaly or neck vein distention. Cardiovascular examination reveals regular rhythm rate. S1-S2 normal. No S3 or S4. No discernible murmur noted. Heart sounds are distant. Heart rate 90 bpm. Lungs reveal mostly clear breath sounds. Minimal scattered rhonchi. No wheezes. No crackles. Breath sounds equal bilaterally. 2 L saturation is 99%. Abdomen soft bowel sounds are heard. No masses or tenderness. Extremities are intact. No cyanosis clubbing or edema. Skin is without rash or lesion. Neurologic examination is brief but nonfocal. Results - Laboratory Findings CBC and BMP: 03/26/22 04:20 03/26/22 04:20 Abnormal lab findings: Abnormal Labs 03/25/22 03/25/22 03/25/22 09:55 09:55 09:55 WBC 12.4 H RBC Hgb Hct Neutrophils # Lymphocytes # Monocytes # Sodium 131 L Chloride 97 L Carbon Dioxide 21 L BUN 20 H Creatinine 1.48 H Glucose 224 H POC Glucose (mg/dL) Hemoglobin A1c Calcium 8.0 L Magnesium AST 56 H CK-MB (CK-2) 4.1 H Troponin I 0.400 H* Total Protein 5.7 L Albumin 3.3 L Triglycerides 202.00 H VLDL Cholesterol, Calc 40.40 H 03/25/22 03/25/22 03/25/22 09:55 15:07 15:07 WBC RBC Hgb Hct Neutrophils # Lymphocytes # Monocytes # Sodium Chloride Carbon Dioxide BUN Creatinine Glucose POC Glucose (mg/dL) Hemoglobin A1c 6.3 H Calcium Magnesium 2.6 H AST CK-MB (CK-2) Troponin I 234.000 H* Total Protein Albumin Triglycerides VLDL Cholesterol, Calc 03/25/22 03/25/22 03/26/22 16:55 20:39 04:20 WBC 17.1 H RBC 3.51 L Hgb 11.1 L Hct 33.8 L Neutrophils # 14.7 H Lymphocytes # 0.8 L Monocytes # 1.5 H Sodium Chloride Carbon Dioxide BUN Creatinine Glucose POC Glucose (mg/dL) 199 H 204 H Hemoglobin A1c Calcium Magnesium AST CK-MB (CK-2) Troponin I Total Protein Albumin Triglycerides VLDL Cholesterol, Calc 03/26/22 03/26/22 04:20 06:32 WBC RBC Hgb Hct Neutrophils # Lymphocytes # Monocytes # Sodium 132 L Chloride Carbon Dioxide 19 L BUN 26 H Creatinine 1.65 H Glucose 205 H POC Glucose (mg/dL) 196 H Hemoglobin A1c Calcium Magnesium AST CK-MB (CK-2) Troponin I Total Protein Albumin Triglycerides VLDL Cholesterol, Calc - Diagnostic Findings Chest x-ray: image reviewed Assessment and Plan Assessment: Acute inferior wall, ST segment elevation myocardial infarction. Status post cardiopulmonary arrest, with cardiopulmonary resuscitation and return of spontaneous circulation. Stenting 2, in the right coronary artery, aspiration thrombectomy from the right coronary artery and placement of a temporary venous pacemaker. History of GERD. History of hypothyroidism. Plan: Plan dated 03/26/2022. The patient appears be resting comfortably in the intensive care unit. Labs, x-rays, medications are reviewed. The patient remains on norepinephrine at 3 mcg/m, and dopamine at 5 mcg/kg/m. The temperature venous pacemaker was removed by cardiology today. Labs, x-rays, medications are reviewed. Prognosis is certainly guarded. We will follow along and make recommendations along the way. Time with Patient: Greater than 30
[2022-03-26 11:43] LABS: Glucose,Whole Blood 165 mg/dL (70-110)
[2022-03-26] MEDS: ONDANSETRON ODT 4 MG TAB PO PRN (11:47)
--- NOTE | 2022-03-26 13:04 | P.PN ---
Subjective Progress Note Date: 03/26/22 Patient is an 82-year-old female with a history of diabetes mellitus type 2 diet controlled, hypothyroidism, and esophageal stricture who presented to the hospital via EMS due to lightheaded and dizziness. EMS noted that she is having an ST segment elevated myocardial infarction and she was immediately taken to the [facility]. On arrival her heart rate was low. In [facility] she went into asystole, she received a transvenous pacemaker, had a aspiration thrombectomy and stenting of the RCA. She also had an episode of ventricular tachycardia and was started on amiodarone drip. Her blood pressure was low necessitating levo and dopamine. She was transferred to the ICU. She did well but continued to require vasopressor and critical care was consulted. Her echo came back with EF 40-45% with inferior wall hypokanesis. Patient seen and examined at bedside. She is still having some pain from her the chest compressions were preformed. No shortness of breath. Still is worried about nausea and vomiting has not tried to eat much. General: nontoxic, no distress, appears at stated age Derm: warm, dry Head: atraumatic, normocephalic, symmetric Eyes: EOMI, no lid lag, anicteric sclera Mouth: no lip lesion, mucus membranes moist Cardiovascular: S1S2 reg, no murmur, positive posterior tibial pulse bilateral, Lungs: CTA bilateral, no rhonchi, no rales , no accessory muscle use Abdominal: soft, nontender to palpation, no guarding, no appreciable organomegaly Ext: no gross muscle atrophy, no edema, no contractures Neuro: CN II-XI grossly intact, no focal neuro deficits Psych: Alert, oriented, appropriate affect Assessment/Plan: Acute inferior ST segment elevated myocardial infarction Cardiac arrest Hypotension likely related to cardiogenic shock Nonsustained V. tach - Currently requiring levo and dopamine- weaning -Aspirin, Brillenta, Lipitor, amio -Unable to have a beta phong secondary to bradycardia and hypotension -Transvenous pacemaker removed on 03/26/22 - echo with EF 40-45% - tele - Lipid profile normal - cardio recs Leukoctyosis, reactive - follow CBC HARRIS with possible CKD - IVF - Avoid nephrotoxic agents - suspect component of ATN due to hypotension Hyponatremia - IVF - repeat in AM Diabetes mellitus type 2 -Patient is diet controlled at home - A1C 6.3 -Sliding-scale insulin Hypothyroidism -Synthroid Objective - Vital Signs Vital signs: Vital Signs Temp 97.6 F 03/26/22 12:00 Pulse 91 03/26/22 12:00 Resp 14 03/26/22 12:00 BP 96/47 03/26/22 12:00 Pulse Ox 99 03/26/22 12:00 FiO2 Intake & Output 03/25/22 03/26/22 03/26/22 18:59 06:59 18:59 Intake Total 0760.901 6209.527 703.328 Output Total 320 50 Balance 1974.473 890.527 653.328 Weight 102.5 kg 104.1 kg Intake: IV 1918 1014 390 0.9 93 39 15 pressure bag 453 975 375 Intake, IV Titration 57.473 196.527 313.328 Amount DOPamine DRIP 800 mg In 197.145 Dextrose/Water 1 250ml. bag @ 5 MCG/KG/MIN 9.609 mls/hr IV .Q24H FL[facility] Rx#: [id number] Norepinephrine 4 mg In 57.473 196.527 116.183 Sodium Chloride 0.9% 250 ml @ 0.05 MCG/KG/MIN 19. 526 mls/hr IV .Q13H1M [facility] Rx#:[id number] Output: Urine 320 50 Other: Voiding Method External Catheter External Catheter External Catheter # Voids 1 ABP, PAP, CO, CI - Last Documented Arterial Blood Pressure 112/47 - Labs CBC & Chem 7: 03/26/22 04:20 03/26/22 04:20 Labs: Abnormal Lab Results - Last 24 Hours (Table) 03/25/22 03/25/22 03/25/22 Range/Units 09:55 09:55 15:07 WBC (3.8-10.6) k/uL RBC (3.80-5.40) m/uL Hgb (11.4-16.0) gm/dL Hct (34.0-46.0) % Neutrophils # (1.3-7.7) k/uL Lymphocytes # (1.0-4.8) k/uL Monocytes # (0-1.0) k/uL Sodium (137-145) mmol/L Carbon Dioxide (22-30) mmol/L BUN (7-17) mg/dL Creatinine (0.52-1.04) mg/dL Glucose (74-99) mg/dL POC Glucose (mg/dL) (70-110) mg/dL Hemoglobin A1c 6.3 H (0.0-6.0) % Magnesium 2.6 H (1.6-2.3) mg/dL Troponin I (0.000-0.034) ng/mL Triglycerides 202.00 H (0.00-149.00) mg/dL VLDL Cholesterol, Calc 40.40 H (5.00-40.00) mg/dL 03/25/22 03/25/22 03/25/22 Range/Units 15:07 16:55 20:39 WBC (3.8-10.6) k/uL RBC (3.80-5.40) m/uL Hgb (11.4-16.0) gm/dL Hct (34.0-46.0) % Neutrophils # (1.3-7.7) k/uL Lymphocytes # (1.0-4.8) k/uL Monocytes # (0-1.0) k/uL Sodium (137-145) mmol/L Carbon Dioxide (22-30) mmol/L BUN (7-17) mg/dL Creatinine (0.52-1.04) mg/dL Glucose (74-99) mg/dL POC Glucose (mg/dL) 199 H 204 H (70-110) mg/dL Hemoglobin A1c (0.0-6.0) % Magnesium (1.6-2.3) mg/dL Troponin I 234.000 H* (0.000-0.034) ng/mL Triglycerides (0.00-149.00) mg/dL VLDL Cholesterol, Calc (5.00-40.00) mg/dL 03/26/22 03/26/22 03/26/22 Range/Units 04:20 04:20 06:32 WBC 17.1 H (3.8-10.6) k/uL RBC 3.51 L (3.80-5.40) m/uL Hgb 11.1 L (11.4-16.0) gm/dL Hct 33.8 L (34.0-46.0) % Neutrophils # 14.7 H (1.3-7.7) k/uL Lymphocytes # 0.8 L (1.0-4.8) k/uL Monocytes # 1.5 H (0-1.0) k/uL Sodium 132 L (137-145) mmol/L Carbon Dioxide 19 L (22-30) mmol/L BUN 26 H (7-17) mg/dL Creatinine 1.65 H (0.52-1.04) mg/dL Glucose 205 H (74-99) mg/dL POC Glucose (mg/dL) 196 H (70-110) mg/dL Hemoglobin A1c (0.0-6.0) % Magnesium (1.6-2.3) mg/dL Troponin I (0.000-0.034) ng/mL Triglycerides (0.00-149.00) mg/dL VLDL Cholesterol, Calc (5.00-40.00) mg/dL 03/26/22 Range/Units 11:42 WBC (3.8-10.6) k/uL RBC (3.80-5.40) m/uL Hgb (11.4-16.0) gm/dL Hct (34.0-46.0) % Neutrophils # (1.3-7.7) k/uL Lymphocytes # (1.0-4.8) k/uL Monocytes # (0-1.0) k/uL Sodium (137-145) mmol/L Carbon Dioxide (22-30) mmol/L BUN (7-17) mg/dL Creatinine (0.52-1.04) mg/dL Glucose (74-99) mg/dL POC Glucose (mg/dL) 165 H (70-110) mg/dL Hemoglobin A1c (0.0-6.0) % Magnesium (1.6-2.3) mg/dL Troponin I (0.000-0.034) ng/mL Triglycerides (0.00-149.00) mg/dL VLDL Cholesterol, Calc (5.00-40.00) mg/dL
[2022-03-26] MEDS: SODIUM CHLORIDE 0.9% 1,000 ML IV SCH (15:06)
[2022-03-26 16:26] LABS: Glucose,Whole Blood 169 mg/dL (70-110)
[2022-03-26 20:14] LABS: Glucose,Whole Blood 131 mg/dL (70-110)
[2022-03-26] MEDS: ATORVASTATIN 80 MG TAB PO SCH (20:28)
[2022-03-27] MEDS: SODIUM CHLORIDE 0.9% 1,000 ML IV SCH ×2 (04:08→15:51)
[2022-03-27 04:38] LABS: HCT 27.5 % (34.0-46.0); MCH 31.5 pg (25.0-35.0); MCHC 32.6 g/dL (31.0-37.0); MCV 96.6 fL (80.0-100.0); Mean Platelet Volume 8.4; Platelet Count 192 k/uL (150-450); RBC 2.85 m/uL (3.80-5.40); WBC 17.4 k/uL (3.8-10.6)
[2022-03-27 04:50] LABS: Calcium 8.1 mg/dL (8.4-10.2); Potassium 4.6 mmol/L (3.5-5.1)
[2022-03-27 06:31] LABS: Glucose,Whole Blood 160 mg/dL (70-110)
[2022-03-27 06:39] LABS: Glucose,Whole Blood 124 mg/dL (70-110)
[2022-03-27] MEDS: PANTOPRAZOLE 40 MG TABLET PO SCH (06:43)
[2022-03-27] MEDS: LEVOTHYROXINE 75 MCG TAB PO SCH (06:43)
[2022-03-27] MEDS: INSULIN ASPART (NovoLOG) 100 UNIT/ML VIAL SQ SCH ×4 (06:44→20:26)
[2022-03-27] MEDS: NOREPINEPHRINE 4 MG in SODIUM CHLORIDE 0.9% 250 ML IV SCH ×2 (06:46→17:23)
--- NOTE | 2022-03-27 07:48 | P.PN ---
Subjective Progress Note Date: 03/27/22 Principal diagnosis: Acute inferior ST elevation myocardial infarction This is an 82-year-old female patient who presented to the hospital with chest discomfort and also she did have an episode of syncope. She was diagnosed was inferior STEMI which she underwent a heart catheterization complicated by cardiac arrest multiple times. She underwent PCI of the RCA. The RCA was t otally occluded. March [id number] The patient was seen this morning. Clinically she seems to be feeling better. She still on norepinephrine as well as dopamine which we are in process of weaning her from. She is also on amiodarone IV which I'm going to switch her to amiodarone by mouth. She is on Aggrastat which I'm going to stop. Beside that she is on dual antiplatelet therapy along with high intensity statin. An echo is in process to be done. We'll follow-up with the patient. March [id number] The patient was seen this morning. She is not experiencing any symptoms of chest pain or chest discomfort. The EKG changes are much better. We were able to wean her from norepinephrine but she still on small dose of dopamine. I'm going to give the patient a bolus of 250 of 0.9 normal saline and try to wean her from dopamine and remove the sheaths from the right groin. She has not been eating and drinking well. She has been maintaining normal sinus mechanism. The echo revealed mildly impaired EF around 40-45%. Beside that she is on dual antiplatelet therapy along with high intensity statin. Objective - Vital Signs Vital signs: Vital Signs Temp 98.1 F 03/27/22 04:00 Pulse 85 03/27/22 07:00 Resp 14 03/27/22 07:00 BP 97/46 03/27/22 07:00 Pulse Ox 98 03/27/22 07:00 FiO2 Intake & Output 03/26/22 03/27/22 03/27/22 18:59 06:59 18:59 Intake Total 1191.310 936 277.867 Output Total 50 Balance 1141.310 936 277.867 Weight 105.6 kg Intake: IV 858 936 78 0.9 33 36 3 pressure bag 825 900 75 Intake, IV Titration 333.310 199.867 Amount DOPamine DRIP 800 mg In 197.145 199.867 Dextrose/Water 1 250ml. bag @ 5 MCG/KG/MIN 9.609 mls/hr IV .Q24H [facility] Rx#: [id number] Norepinephrine 4 mg In 136.165 Sodium Chloride 0.9% 250 ml @ 0.05 MCG/KG/MIN 19. 526 mls/hr IV .Q13H1M [facility] Rx#:[id number] Output: Urine 50 Other: Voiding Method External Catheter External Catheter # Voids 1 1 1 ABP, PAP, CO, CI - Last Documented Arterial Blood Pressure 113/47 - Constitutional General appearance: Present: no acute distress - Respiratory Respiratory: bilateral: diminished - Cardiovascular Rhythm: regular Heart sounds: normal: S1, S2 - Labs CBC & Chem 7: 03/27/22 04:16 03/27/22 04:16 Labs: Abnormal Lab Results - Last 24 Hours (Table) 03/26/22 03/26/22 03/26/22 Range/Units 11:42 16:24 20:13 WBC (3.8-10.6) k/uL RBC (3.80-5.40) m/uL Hgb (11.4-16.0) gm/dL Hct (34.0-46.0) % Sodium (137-145) mmol/L Carbon Dioxide (22-30) mmol/L BUN (7-17) mg/dL Creatinine (0.52-1.04) mg/dL Glucose (74-99) mg/dL POC Glucose (mg/dL) 165 H 169 H 131 H (70-110) mg/dL Calcium (8.4-10.2) mg/dL 03/27/22 03/27/22 03/27/22 Range/Units 04:16 04:16 06:29 WBC 17.4 H (3.8-10.6) k/uL RBC 2.85 L (3.80-5.40) m/uL Hgb 9.0 L D (11.4-16.0) gm/dL Hct 27.5 L (34.0-46.0) % Sodium 132 L (137-145) mmol/L Carbon Dioxide 19 L (22-30) mmol/L BUN 32 H (7-17) mg/dL Creatinine 1.48 H (0.52-1.04) mg/dL Glucose 149 H (74-99) mg/dL POC Glucose (mg/dL) 160 H (70-110) mg/dL Calcium 8.1 L (8.4-10.2) mg/dL 03/27/22 Range/Units 06:37 WBC (3.8-10.6) k/uL RBC (3.80-5.40) m/uL Hgb (11.4-16.0) gm/dL Hct (34.0-46.0) % Sodium (137-145) mmol/L Carbon Dioxide (22-30) mmol/L BUN (7-17) mg/dL Creatinine (0.52-1.04) mg/dL Glucose (74-99) mg/dL POC Glucose (mg/dL) 124 H (70-110) mg/dL Calcium (8.4-10.2) mg/dL Assessment and Plan Assessment: Assessment Acute inferior STEMI Cardiogenic shock Cardiac arrest Multiple comorbid conditions Plan The right wean the patient from dopamine Give the patient a bolus of 250 of 0.9 normal saline Continue dual antiplatelet therapy Continue high intensity statin Try to remove the sheath from the right groin Follow-up with the patient
[2022-03-27] MEDS: MIDODRINE 5 MG TAB PO SCH ×3 (07:56→16:54)
[2022-03-27] MEDS ORDERED: SODIUM CHLORIDE 0.9% 500 ML 250 ML IV ONE (08:38)
[2022-03-27] MEDS: AMIODARONE 200 MG TAB PO SCH ×2 (08:50→20:26)
[2022-03-27] MEDS: ASPIRIN 81 MG PO SCH (08:50)
[2022-03-27] MEDS: TICAGRELOR 90 MG TAB PO SCH ×2 (08:50→20:26)
--- NOTE | 2022-03-27 10:24 | P.PN ---
Subjective Progress Note Date: 03/27/22 Principal diagnosis: Myocardial infarction. Pulmonary consult dated 03/26/2022. 82-year-old female who was admitted on March 25. She came in with syncope, and was found to have third-degree heart block. She was on the way to the catheterization laboratory, which she had a full-blown cardiac arrest. The patient underwent CPR, and ended up receiving 2 stents in the right coronary artery, with a temporary pacemaker being placed. The patient was brought back to the ICU. I was not initially consulted until late last night. Currently, the patient's on norepinephrine at 3 mcg/m, dopamine at 5 mcg/kg/m, and saline at 75 mL an hour. In addition, the patient's on 2 L of oxygen. I was called late last night by the hospitalist service, to alert me of the consult. This morning, the temporary venous pacemaker was removed by cardiology. White count 17.1, hemoglobin 11.1, hematocrit 33.8, and platelet count 280,000 sodium 132, potassium 4.4, chlorides 101, CO2 19, BUN 26, and creatinine 1.65. Troponin was 234. The patient's chest x-ray did not show any acute process. The patient was in acute inferior wall ST segment elevation myocardial infarction, cardiac ar rest, and cardiogenic shock. Progress note dated 03/27/2022. 82-year-old female admitted on March 25. She apparently came in initially with syncope. She was found to have third-degree heart block. On the way to the catheterization laboratory, she had a full-blown cardiac arrest, with cardio pulmonary resuscitation and eventual return of spontaneous circulation. In the catheterization laboratory, she received 2 stents of the right coronary artery, and a temporary pacemaker was placed. She was brought back to the intensive care unit, on dopamine and norepinephrine. Currently, she is resting comfortably. She is on 2 L. She is again seen in room 261. Currently, she getting dopamine at 2.5 mcg/kg/m. Norepinephrine has been weaned off. Saline is running at 75 mL an hour. Other than chest pain, because of cardiopulmonary resuscitation, the patient seems be doing relatively well. White count 17.4, hemoglobin 9, hematocrit 27.5, platelet count 292,000. Sodium 132, potassium 4 .6, chlorides 106, CO2 19, anion gap 7, BUN 32, and creatinine 1.48. No chest x-ray on this patient today. Objective - Vital Signs Vital signs: Vital Signs Temp 97.8 F 03/27/22 08:00 Pulse 80 03/27/22 10:00 Resp 17 03/27/22 10:00 BP 84/52 03/27/22 10:00 Pulse Ox 97 03/27/22 10:00 FiO2 Intake & Output 03/26/22 03/27/22 03/27/22 18:59 06:59 18:59 Intake Total 1191.310 936 766.608 Output Total 50 Balance 1141.310 936 766.608 Weight 105.6 kg Intake: IV 858 936 562 0.9 33 36 12 pressure bag 825 900 550 Intake, IV Titration 333.310 204.608 Amount DOPamine DRIP 800 mg In 197.145 204.608 Dextrose/Water 1 250ml. bag @ 5 MCG/KG/MIN 9.609 mls/hr IV .Q24H [facility] Rx#: [id number] Norepinephrine 4 mg In 136.165 Sodium Chloride 0.9% 250 ml @ 0.05 MCG/KG/MIN 19. 526 mls/hr IV .Q13H1M [facility] Rx#:[id number] Output: Urine 50 Other: Voiding Method External Catheter External Catheter External Catheter # Voids 1 1 0 ABP, PAP, CO, CI - Last Documented Arterial Blood Pressure 106/46 - Exam No acute distress, oriented 3. No respiratory distress, currently on 2 L by nasal cannula. HEENT examination is grossly unremarkable. Neck supple. Full range of motion. No adenopathy thyromegaly or neck vein distention. Cardiovascular examination reveals regular rhythm rate. S1-S2 normal. No S3 or S4. No discernible murmur noted. Heart sounds are distant. Heart rate 80 bpm. Lungs reveal mostly clear breath sounds. Minimal scattered rhonchi. No wheezes. No crackles. Breath sounds equal bilaterally. 2 L saturation is 97 %. Abdomen soft bowel sounds are heard. No masses or tenderness. Extremities are intact. No cyanosis clubbing or edema. Skin is without rash or lesion. Neurologic examination is brief but nonfocal. - Labs CBC & Chem 7: 03/27/22 04:16 03/27/22 04:16 Labs: Abnormal Lab Results - Last 24 Hours (Table) 03/26/22 03/26/22 03/26/22 Range/Units 11:42 16:24 20:13 WBC (3.8-10.6) k/uL RBC (3.80-5.40) m/uL Hgb (11.4-16.0) gm/dL Hct (34.0-46.0) % Sodium (137-145) mmol/L Carbon Dioxide (22-30) mmol/L BUN (7-17) mg/dL Creatinine (0.52-1.04) mg/dL Glucose (74-99) mg/dL POC Glucose (mg/dL) 165 H 169 H 131 H (70-110) mg/dL Calcium (8.4-10.2) mg/dL 03/27/22 03/27/22 03/27/22 Range/Units 04:16 04:16 06:29 WBC 17.4 H (3.8-10.6) k/uL RBC 2.85 L (3.80-5.40) m/uL Hgb 9.0 L D (11.4-16.0) gm/dL Hct 27.5 L (34.0-46.0) % Sodium 132 L (137-145) mmol/L Carbon Dioxide 19 L (22-30) mmol/L BUN 32 H (7-17) mg/dL Creatinine 1.48 H (0.52-1.04) mg/dL Glucose 149 H (74-99) mg/dL POC Glucose (mg/dL) 160 H (70-110) mg/dL Calcium 8.1 L (8.4-10.2) mg/dL 03/27/22 Range/Units 06:37 WBC (3.8-10.6) k/uL RBC (3.80-5.40) m/uL Hgb (11.4-16.0) gm/dL Hct (34.0-46.0) % Sodium (137-145) mmol/L Carbon Dioxide (22-30) mmol/L BUN (7-17) mg/dL Creatinine (0.52-1.04) mg/dL Glucose (74-99) mg/dL POC Glucose (mg/dL) 124 H (70-110) mg/dL Calcium (8.4-10.2) mg/dL Assessment and Plan Assessment: Acute inferior wall, ST segment elevation myocardial infarction. Status post cardiopulmonary arrest, with cardiopulmonary resuscitation and return of spontaneous circulation. Stenting 2, of the right coronary artery, aspiration thrombectomy from the right coronary artery and placement of a temporary venous pacemaker. History of GERD. History of hypothyroidism. Plan: Plan dated 03/26/2022. The patient appears be resting comfortably in the intensive care unit. Labs, x- rays, medications are reviewed. The patient remains on norepinephrine at 3 mcg/m, and dopamine at 5 mcg/kg/m. The temperature venous pacemaker was removed by cardiology today. Labs, x-rays, medications are reviewed. Prognosis is certainly guarded. We will follow along and make recommendations along the way. Plan dated 03/27/2022. The patient is seemingly doing reasonably well in the intensive care unit, room 261. She remains on dopamine at 2.5 mcg/kg/m. Norepinephrine has been weaned off. She is also receiving saline at 75 is an hour. She's currently on 2 L of oxygen. She does have soreness to the anterior chest wall, because of cardiopulmonary resuscitation. The temporary venous pacemaker was removed by cardiology yesterday. Labs, x-rays, and medications are reviewed. Prognosis is guarded. We will continue to follow the patient and make recommendations along the way. Time with Patient: Greater than 30
[2022-03-27 11:45] LABS: Glucose,Whole Blood 135 mg/dL (70-110)
[2022-03-27 14:03] LABS: HCT 26.3 % (34.0-46.0); HGB 8.5 gm/dL (11.4-16.0); MCH 31.7 pg (25.0-35.0); MCHC 32.4 g/dL (31.0-37.0); MCV 97.8 fL (80.0-100.0); Mean Platelet Volume 8.6; Platelet Count 194 k/uL (150-450); RBC 2.69 m/uL (3.80-5.40); RDW 13.1 % (11.5-15.5); WBC 16.4 k/uL (3.8-10.6)
[2022-03-27] MEDS: DOPamine DRIP 800 MG in DEXTROSE/WATER 1 250ML.BAG IV SCH (14:05)
--- NOTE | 2022-03-27 14:47 | P.PN ---
Subjective Progress Note Date: 03/27/22 (delayed charting seen at 1030) Patient is an 82-year-old female with a history of diabetes mellitus type 2 diet controlled, hypothyroidism, and esophageal stricture who presented to the [facility] via EMS due to lightheaded and dizziness. EMS noted that she is having an ST segment elevated myocardial infarction and she was immediately taken to the [facility]. On arrival her heart rate was low. In [facility] she went into asystole, she received a transvenous pacemaker, had a aspiration thrombectomy and stenting of the RCA. She also had an episode of ventricular tachycardia and was started on amiodarone drip. Her blood pressure was low necessitating levo and dopamine. She was transferred to the ICU. She did well but continued to require vasopressor and critical care was consulted. Her echo came back with EF 40-45% with inferior wall hypokanesis. Her HgB continued to fall. Patient seen and examined at bedside. She has no chest pain or shortness of breath, no lightheadedness no dizziness. No blood bowel movements per patient and nursing General: nontoxic, no distress, appears at stated age Derm: multiple area of ecchymosis worse left breast Head: atraumatic, normocephalic, symmetric Eyes: EOMI, no lid lag, anicteric sclera Mouth: no lip lesion, mucus membranes moist Cardiovascular: S1S2 reg, no murmur, positive posterior tibial pulse bilateral, Lungs: Decreased bs bilateral, no rhonchi, no rales , no accessory muscle use Abdominal: soft, nontender to palpation, no guarding, no appreciable organomegaly Ext: no gross muscle atrophy, no edema, no contractures Neuro: CN II-XI grossly intact, no focal neuro deficits Psych: Alert, oriented, appropriate affect Assessment/Plan: Acute inferior ST segment elevated myocardial infarction Cardiac arrest Hypotension likely related to cardiogenic shock Nonsustained V. tach Cardiomyopathy with EF 40-45% - Currently requiring dopamine- weaning, off levo -Aspirin, Brillenta, Lipitor, amio -Unable to have a beta phong secondary to bradycardia and hypotension -Transvenous pacemaker removed on 03/26/22 - echo with EF 40-45% - tele - Lipid profile normal - cardio recs Anemia - no signs of GI bleed - CT abd and pelvis to rule out retorperitoneal bleed - follow CBC Leukoctyosis, reactive - follow CBC [facility] with possible CKD - IVF - Avoid nephrotoxic agents - suspect component of ATN due to hypotension Hyponatremia, stable - IVF - repeat in AM Diabetes mellitus type 2 -Patient is diet controlled at home - A1C 6.3 -Sliding-scale insulin Hypothyroidism -Synthroid Active Medications Generic Name Dose Route Start Last Admin Trade Name Freq PRN Reason Stop Dose Admin Acetaminophen 650 mg 03/25/22 13:25 03/27/22 14:05 Acetaminophen Tab 325 Mg Tab PO 650 mg Q6HR PRN Administration Mild Pain or Fever > 100.5 Hydrocodone Bitart/Acetaminophen 1 each 03/25/22 13:25 Hydrocodone/Apap 5-325mg 1 Each Tab PO Q4HR PRN Moderate Pain (Scale 4 to 6) Al Hydroxide/Mg Hydroxide 30 ml 03/25/22 10:56 Mag Hydrox/Al Hydrox/Simeth 30 Ml Cup PO Q4HR PRN Heartburn Amiodarone HCl 400 mg 03/26/22 09:00 03/27/22 08:50 Amiodarone 200 Mg Tab PO 400 mg BID FLORINDA Administration Aspirin 81 mg 03/26/22 09:00 03/27/22 08:50 Aspirin 81 Mg PO 81 mg DAILY FLORINDA Administration Atorvastatin Calcium 80 mg 03/25/22 21:00 03/26/22 20:28 Atorvastatin 80 Mg Tab PO 80 mg HS FLORINDA Administration Atropine Sulfate 0.5 mg 03/25/22 10:56 Atropine Sulfate 0.1 Mg/Ml 10ml Syringe IV ONCE PRN Symptomatic Bradycardia Bisacodyl 5 mg 03/25/22 13:25 Bisacodyl 5 Mg Tablet.Dr PO DAILY PRN Constipation Dextrose/Water 25 ml 03/25/22 13:32 Dextrose 50% Syringe 50 Ml IVP PER PROTOCOL PRN Hypoglycemia Protocol Dextrose/Water 50 ml 03/25/22 13:32 Dextrose 50% Syringe 50 Ml IVP PER PROTOCOL PRN Hypoglycemia Protocol Norepinephrine Bitartrate 4 mg 254 mls @ 19.526 mls/hr 03/25/22 13:30 03/27/22 06:46 / Sodium Chloride IV Not Given .Q13H1M FLORINDA Protocol 0.05 MCG/KG/MIN Dopamine HCl/Dextrose 800 mg/ 250 mls @ 9.609 mls/hr 03/25/22 13:30 03/27/22 14:05 IV Solution IV Not Given .Q24H FLORINDA Protocol 5 MCG/KG/MIN Sodium Chloride 1,000 mls @ 75 mls/hr 03/26/22 13:15 03/27/22 04:08 Saline 0.9% IV 75 mls/hr .[id number] FLORINDA Administration Insulin Aspart 0 unit 03/25/22 17:30 03/27/22 11:58 Insulin Aspart (Novolog) 100 Unit/Ml Vial SQ Not Given ACHS [facility] Protocol Levothyroxine Sodium 75 mcg 03/26/22 06:30 03/27/22 06:43 Levothyroxine 75 Mcg Tab PO 75 mcg DAILY@0630 FLORINDA Administration Melatonin 3 mg 03/25/22 13:25 Melatonin 3 Mg Tablet PO HS PRN Insomnia Midodrine 2.5 mg 03/27/22 07:46 03/27/22 12:10 Midodrine 5 Mg Tab PO 2.5 mg AC-TID FLORINDA Administration Naloxone HCl 0.2 mg 03/25/22 13:24 Naloxone 0.4 Mg/Ml 1 Ml Vial IV Q2M PRN Opioid Reversal Nitroglycerin 0.4 mg 03/25/22 10:56 Nitroglycerin Sl Tabs 0.4 Mg Tab SUBLINGUAL Q5M PRN Chest Pain Ondansetron HCl 4 mg 03/25/22 13:05 03/26/22 11:47 Ondansetron Odt 4 Mg Tab PO 4 mg Q8HR PRN Administration Nausea Pantoprazole Sodium 40 mg 03/26/22 07:30 03/27/22 06:43 Pantoprazole 40 Mg Tablet PO 40 mg [id number] FLORINDA Administration Ticagrelor 90 mg 03/25/22 21:00 03/27/22 08:50 Ticagrelor 90 Mg Tab PO 90 mg BID FLORINDA Administration Protocol Zolpidem Tartrate 5 mg 03/25/22 10:56 Zolpidem 5 Mg Tab PO HS PRN Insomnia Objective - Vital Signs Vital signs: Vital Signs Temp 97.4 F L 03/27/22 12:00 Pulse 79 03/27/22 14:00 Resp 15 03/27/22 14:00 BP 93/43 03/27/22 14:00 Pulse Ox 96 03/27/22 14:00 FiO2 Intake & Output 03/26/22 03/27/22 03/27/22 18:59 06:59 18:59 Intake Total 1191.947 312 1748.399 Output Total 50 Balance 1141.211 714 2836.399 Weight 105.6 kg Intake: IV 858 936 874 0.9 33 36 24 pressure bag 825 900 850 Intake, IV Titration 333.310 227.399 Amount DOPamine DRIP 800 mg In 197.145 227.399 Dextrose/Water 1 250ml. bag @ 5 MCG/KG/MIN 9.609 mls/hr IV .Q24H FLORINDA Rx#: [id number] Norepinephrine 4 mg In 136.165 Sodium Chloride 0.9% 250 ml @ 0.05 MCG/KG/MIN 19. 526 mls/hr IV .Q13H1M FLORINDA Rx#:[id number] Output: Urine 50 Other: Voiding Method External Catheter External Catheter External Catheter # Voids 1 1 1 ABP, PAP, CO, CI - Last Documented Arterial Blood Pressure 111/48 - Labs CBC & Chem 7: 03/27/22 13:40 03/27/22 04:16 Labs: Abnormal Lab Results - Last 24 Hours (Table) 03/26/22 03/26/22 03/27/22 Range/Units 16:24 20:13 04:16 WBC 17.4 H (3.8-10.6) k/uL RBC 2.85 L (3.80-5.40) m/uL Hgb 9.0 L D (11.4-16.0) gm/dL Hct 27.5 L (34.0-46.0) % Sodium (137-145) mmol/L Carbon Dioxide (22-30) mmol/L BUN (7-17) mg/dL Creatinine (0.52-1.04) mg/dL Glucose (74-99) mg/dL POC Glucose (mg/dL) 169 H 131 H (70-110) mg/dL Calcium (8.4-10.2) mg/dL 03/27/22 03/27/22 03/27/22 Range/Units 04:16 06:29 06:37 WBC (3.8-10.6) k/uL RBC (3.80-5.40) m/uL Hgb (11.4-16.0) gm/dL Hct (34.0-46.0) % Sodium 132 L (137-145) mmol/L Carbon Dioxide 19 L (22-30) mmol/L BUN 32 H (7-17) mg/dL Creatinine 1.48 H (0.52-1.04) mg/dL Glucose 149 H (74-99) mg/dL POC Glucose (mg/dL) 160 H 124 H (70-110) mg/dL Calcium 8.1 L (8.4-10.2) mg/dL 03/27/22 03/27/22 Range/Units 11:44 13:40 WBC 16.4 H (3.8-10.6) k/uL RBC 2.69 L (3.80-5.40) m/uL Hgb 8.5 L (11.4-16.0) gm/dL Hct 26.3 L (34.0-46.0) % Sodium (137-145) mmol/L Carbon Dioxide (22-30) mmol/L BUN (7-17) mg/dL Creatinine (0.52-1.04) mg/dL Glucose (74-99) mg/dL POC Glucose (mg/dL) 135 H (70-110) mg/dL Calcium (8.4-10.2) mg/dL
--- NOTE | 2022-03-27 15:46 | CT ---
EXAMINATION TYPE: CT abdomen pelvis wo con DATE OF EXAM: 03/27/2022 COMPARISON: None HISTORY: Anemmia, possible retroperitoneal bleed CT DLP: 1718 mGycm Automated exposure control for dose reduction was used. There is some infiltrate and atelectasis at the posterior lung bases with bilateral pleural effusions . Heart is enlarged. No pericardial effusion. There is subcutaneous edema over the anterior abdomen. Liver and spleen are intact. Stomach is intact. No evidence of pancreatic mass. There are multiple ca lcified gallstones. There is no adrenal mass. There is contrast in the kidneys apparently from previous contrast exam. Ur eters are not dilated. No hydronephrosis. No retroperitoneal adenopathy. There is contrast in the uri nary bladder. Bladder distends smoothly. No inguinal hernia. There is retained fecal material in the rectum. No evidence of free air. No ascites. No mesenteric edema. There is some presacral edema. The lumbar vertebrae have normal alignment. There is multilevel spondylotic changes. There is 10% wed ging of L4 and L3 and T11 vertebra. The bony pelvis is intact. The hip joints are intact. IMPRESSION: There is some constipation with rectal fecal impaction. Mild presacral edema. Subcutaneous edema over the anterior abdomen. Contrast in the renal collecting systems and urinary bl adder. No sign of renal obstruction. No evidence of retroperitoneal hemorrhage. Pleural effusions with mild basilar infiltrates and atelectasis that could be congestive heart failur e. High attenuation in the gallbladder. Gallstones are possible. This could also be vicarious excreti on.
[2022-03-27 15:54] LABS: Appearance,Urine Clear (Clear); Bilirubin,Urine Negative (Negative); Blood,Urine Negative (Negative); Color,Urine Yellow; Glucose,Urine (UA) Negative (Negative); Ketones,Urine Negative (Negative); Leukocyte Esterase,Urine Negative (Negative); Nitrite,Urine Negative (Negative); PH, Urine 5.5 (5.0-8.0); Protein,Urine Trace (Negative); Specific Gravity,Urine 1.025 (1.001-1.035); Urobilinogen,Urine <2.0 mg/dL (<2.0)
[2022-03-27 16:39] LABS: Glucose,Whole Blood 141 mg/dL (70-110)
[2022-03-27 20:24] LABS: Glucose,Whole Blood 207 mg/dL (70-110)
[2022-03-27 20:24] LABS: HCT 24.4 % (34.0-46.0); HGB 8.1 gm/dL (11.4-16.0); MCH 32.5 pg (25.0-35.0); MCHC 33.2 g/dL (31.0-37.0); MCV 97.8 fL (80.0-100.0); Mean Platelet Volume 9.2; Platelet Count 168 k/uL (150-450); RDW 13.3 % (11.5-15.5); WBC 15.7 k/uL (3.8-10.6)
[2022-03-27] MEDS: ATORVASTATIN 80 MG TAB PO SCH (20:26)
[2022-03-27] MEDS ORDERED: SODIUM CHLORIDE 0.9% 500 ML 500 ML IV ONE (23:54)
[2022-03-28 04:16] LABS: HCT 25.5 % (34.0-46.0); HGB 8.1 gm/dL (11.4-16.0); MCH 30.8 pg (25.0-35.0); MCHC 31.6 g/dL (31.0-37.0); MCV 97.5 fL (80.0-100.0); Mean Platelet Volume 9.2; Platelet Count 190 k/uL (150-450); RBC 2.62 m/uL (3.80-5.40); RDW 13.3 % (11.5-15.5); WBC 17.7 k/uL (3.8-10.6)
[2022-03-28 04:55] LABS: Calcium 7.4 mg/dL (8.4-10.2); Potassium 4.3 mmol/L (3.5-5.1)
[2022-03-28] MEDS ORDERED: QUEtiapine 50 MG TAB PO STA (05:21)
[2022-03-28] MEDS: MIDODRINE 5 MG TAB PO SCH ×3 (05:34→18:17)
[2022-03-28] MEDS: LEVOTHYROXINE 75 MCG TAB PO SCH (05:34)
[2022-03-28] MEDS: PANTOPRAZOLE 40 MG TABLET PO SCH (05:34)
[2022-03-28 06:04] LABS: Glucose,Whole Blood 119 mg/dL (70-110)
[2022-03-28] MEDS: INSULIN ASPART (NovoLOG) 100 UNIT/ML VIAL SQ SCH ×4 (06:49→20:43)
[2022-03-28] MEDS: NOREPINEPHRINE 4 MG in SODIUM CHLORIDE 0.9% 250 ML IV SCH ×2 (06:50→18:11)
--- NOTE | 2022-03-28 07:28 | XR ---
EXAMINATION TYPE: XR chest 1V portable DATE OF EXAM: 03/28/2022 Comparison: 03/25/2022 Clinical History: 82-year-old female plural effusions Findings: Heart mildly enlarged. Diffuse interstitial density has increased in the interval. Trace left pleural effusion has developed. Impression: Now mild cardiomegaly with increasing interstitial densities and a trace left effusion. Correlate for developing CHF and pulmonary vascular congestion.
--- NOTE | 2022-03-28 07:53 | P.PN ---
Subjective Progress Note Date: 03/28/22 PROGRESS NOTE The patient is an 82-year-old female presented with an acute myocardial infarction, underwent stenting of the RCA. Her presentation was complicated by complete heart block and cardiac arrest. She is awake, confused at times, following commands. Her blood pressure is on the low side. She continues to have a venous sheath in her right femoral vein because of lack of access of peripheral site. She scheduled to undergo a midline today. She has no further atrial fibrillation or ventricular tachycardia. She has no chest discomfort, dizziness or palpitations. Medications: Amiodarone 400 mg twice a day, aspirin once a day, midodrine 5 mg 3 times a day, Brilinta 90 mg twice a day, Lipitor 80 mg daily she is off norepinephrine PHYSICAL EXAMINATION: Blood pressure 107/50 heart rate 80 LUNGS: Few crackles at the base HEART: Regular rate and rhythm, S1, S2. No S3. systolic ejection murmur ABDOMEN: Soft, nontender, no organomegaly EXTREMETIES: No edema, venous access in the right femoral vein, no hematoma LAB: Hemoglobin 8.1, white blood cell 17.7, BUN 40, creatinine 1.44, potassium 4.3 IMPRESSION: 1. Status post inferior wall myocardial infarction, complicated by complete hea rt block and cardiac arrest, improving, post stenting 2. Chronic kidney disease 3. Hypotension 4. Mild ischemic cardiomyopathy PLAN: 1. Place midline today 2. Remove venous she 3. Increase physical activity afterward 4. Follow blood pressure, and heart rate and if stable add beta phong 5. Follow renal functions Objective - Vital Signs Vital signs: Vital Signs Temp 98.2 F 03/28/22 04:00 Pulse 85 03/28/22 07:00 Resp 19 03/28/22 07:00 BP 95/53 03/28/22 06:00 Pulse Ox 96 03/28/22 07:31 FiO2 Intake & Output 03/27/22 03/28/22 03/28/22 18:59 06:59 18:59 Intake Total 8556.204 6914 78 Output Total 660 250 15 Balance 725.359 0208 63 Weight 106.6 kg Intake: IV 1186 936 78 0.9 36 36 3 pressure bag 1150 900 75 Intake, IV Titration 227.399 500 Amount DOPamine DRIP 800 mg In 227.399 Dextrose/Water 1 250ml. bag @ 5 MCG/KG/MIN 9.609 mls/hr IV .Q24H [facility] Rx#: [id number] Sodium Chloride 0.9% 500 500 ml 500 ml @ 999 mls/hr IV .Q31M [facility] Rx#:[id number] Oral 250 Output: Urine 660 250 15 Other: Voiding Method Indwelling Catheter Indwelling Catheter # Voids 1 ABP, PAP, CO, CI - Last Documented Arterial Blood Pressure 107/45 - Labs CBC & Chem 7: 03/28/22 04:00 03/28/22 04:00 Labs: Abnormal Lab Results - Last 24 Hours (Table) 03/27/22 03/27/22 03/27/22 Range/Units 11:44 13:40 15:35 WBC 16.4 H (3.8-10.6) k/uL RBC 2.69 L (3.80-5.40) m/uL Hgb 8.5 L (11.4-16.0) gm/dL Hct 26.3 L (34.0-46.0) % Sodium (137-145) mmol/L Chloride (98-107) mmol/L Carbon Dioxide (22-30) mmol/L BUN (7-17) mg/dL Creatinine (0.52-1.04) mg/dL Glucose (74-99) mg/dL POC Glucose (mg/dL) 135 H (70-110) mg/dL Calcium (8.4-10.2) mg/dL Urine Protein Trace H (Negative) 03/27/22 03/27/22 03/27/22 Range/Units 16:38 20:00 20:23 WBC 15.7 H (3.8-10.6) k/uL RBC 2.50 L (3.80-5.40) m/uL Hgb 8.1 L (11.4-16.0) gm/dL Hct 24.4 L (34.0-46.0) % Sodium (137-145) mmol/L Chloride (98-107) mmol/L Carbon Dioxide (22-30) mmol/L BUN (7-17) mg/dL Creatinine (0.52-1.04) mg/dL Glucose (74-99) mg/dL POC Glucose (mg/dL) 141 H 207 H (70-110) mg/dL Calcium (8.4-10.2) mg/dL Urine Protein (Negative) 03/28/22 03/28/22 03/28/22 Range/Units 04:00 04:00 06:01 WBC 17.7 H (3.8-10.6) k/uL RBC 2.62 L (3.80-5.40) m/uL Hgb 8.1 L (11.4-16.0) gm/dL Hct 25.5 L (34.0-46.0) % Sodium 131 L (137-145) mmol/L Chloride 109 H (98-107) mmol/L Carbon Dioxide 16 L (22-30) mmol/L BUN 40 H (7-17) mg/dL Creatinine 1.44 H (0.52-1.04) mg/dL Glucose 115 H (74-99) mg/dL POC Glucose (mg/dL) 119 H (70-110) mg/dL Calcium 7.4 L (8.4-10.2) mg/dL Urine Protein (Negative)
[2022-03-28 07:57] LABS: Reticulocyte % 2.9 % (0.5-2.0)
--- NOTE | 2022-03-28 09:27 | P.PN ---
Subjective Progress Note Date: 03/28/22 On today's evaluation of 03/28/2022, the patient is being seen for a follow-up. The patient is post acute ST segment elevation inferior wall myocardial infarction the patient underwent stenting of the RCA 2. Note that during the course of her cardiac catheterization, the patient had ventricular tachycardia and subsequently asystole. She was resuscitated. The patient was given a transvenous pacemaker which was a temporary pacemaker that was ultimately taken off. Currently she is off pressors and the patient is hemodynamically stable maintaining her on blood pressure. Cardiac rhythm is sinus at this point in time. The patient was on a combination of norepinephrine and dopamine and both have been discontinued and the patient is currently on normal saline at the rate of 75 mL an hour. Her echocardiogram is showing an ejection fraction of around 40-45%. No significant valvular abnormalities. There was a drop in hemoglobin down to 8.1 and based on that the patient was given CAT scan of the abdomen and pelvis that showed no evidence of any retroperitoneal bleed. The patient has chronic stage III kidney disease in the patient's creatinine is stable at 1.44. She does have a component of non- anion gap Metabolic acidosis. Overnight, the patient was given Ambien and subsequently she became agitated and delirious and the patient was given Seroquel a dose of 50 mg and the patient is currently quite drowsy. She is arousable yet she is resting comfortably in bed and the family's the bedside. She remains on a combination of aspirin and Alimta. She is on high dose statins. She is on NovoLog sliding scale insulin coverage. She is on Synthroid. Family is at the bedside. Objective - Vital Signs Vital signs: Vital Signs Temp 98.2 F 03/28/22 04:00 Pulse 85 03/28/22 08:00 Resp 11 L 03/28/22 08:00 BP 109/57 03/28/22 08:00 Pulse Ox 96 03/28/22 08:00 FiO2 Intake & Output 03/27/22 03/28/22 03/28/22 18:59 06:59 18:59 Intake Total 2573.195 2870 78 Output Total 660 250 15 Balance 001.466 7187 63 Weight 106.6 kg Intake: IV 1186 936 78 0.9 36 36 3 pressure bag 1150 900 75 Intake, IV Titration 227.399 500 Amount DOPamine DRIP 800 mg In 227.399 Dextrose/Water 1 250ml. bag @ 5 MCG/KG/MIN 9.609 mls/hr IV .Q24H [facility] Rx#: [id number] Sodium Chloride 0.9% 500 500 ml 500 ml @ 999 mls/hr IV .Q31M [facility] Rx#:[id number] Oral 250 Output: Urine 660 250 15 Other: Voiding Method Indwelling Catheter Indwelling Catheter Indwelling Catheter # Voids 1 ABP, PAP, CO, CI - Last Documented Arterial Blood Pressure 118/48 - Exam No acute distress, oriented 3. No respiratory distress, currently on 2 L by nasal cannula. HEENT examination is grossly unremarkable. Neck supple. Full range of motion. No adenopathy thyromegaly or neck vein distention. Cardiovascular examination reveals regular rhythm rate. S1-S2 normal. No S3 or S4. No discernible murmur noted. Heart sounds are distant. Heart rate 80 bpm. Lungs reveal mostly clear breath sounds. Minimal scattered rhonchi. No wheezes. No crackles. Breath sounds equal bilaterally. 2 L saturation is 97 %. Abdomen soft bowel sounds are heard. No masses or tenderness. Extremities are intact. No cyanosis clubbing or edema. Skin is without rash or lesion. Neurologic examination is brief but nonfocal. - Labs CBC & Chem 7: 03/28/22 04:00 03/28/22 04:00 Labs: Abnormal Lab Results - Last 24 Hours (Table) 03/27/22 03/27/22 03/27/22 Range/Units 11:44 13:40 15:35 WBC 16.4 H (3.8-10.6) k/uL RBC 2.69 L (3.80-5.40) m/uL Hgb 8.5 L (11.4-16.0) gm/dL Hct 26.3 L (34.0-46.0) % Retic Count (0.5-2.0) % Sodium (137-145) mmol/L Chloride (98-107) mmol/L Carbon Dioxide (22-30) mmol/L BUN (7-17) mg/dL Creatinine (0.52-1.04) mg/dL Glucose (74-99) mg/dL POC Glucose (mg/dL) 135 H (70-110) mg/dL Calcium (8.4-10.2) mg/dL Urine Protein Trace H (Negative) 03/27/22 03/27/22 03/27/22 Range/Units 16:38 20:00 20:23 WBC 15.7 H (3.8-10.6) k/uL RBC 2.50 L (3.80-5.40) m/uL Hgb 8.1 L (11.4-16.0) gm/dL Hct 24.4 L (34.0-46.0) % Retic Count (0.5-2.0) % Sodium (137-145) mmol/L Chloride (98-107) mmol/L Carbon Dioxide (22-30) mmol/L BUN (7-17) mg/dL Creatinine (0.52-1.04) mg/dL Glucose (74-99) mg/dL POC Glucose (mg/dL) 141 H 207 H (70-110) mg/dL Calcium (8.4-10.2) mg/dL Urine Protein (Negative) 03/28/22 03/28/22 03/28/22 Range/Units 04:00 04:00 04:00 WBC 17.7 H (3.8-10.6) k/uL RBC 2.62 L (3.80-5.40) m/uL Hgb 8.1 L (11.4-16.0) gm/dL Hct 25.5 L (34.0-46.0) % Retic Count 2.9 H (0.5-2.0) % Sodium 131 L (137-145) mmol/L Chloride 109 H (98-107) mmol/L Carbon Dioxide 16 L (22-30) mmol/L BUN 40 H (7-17) mg/dL Creatinine 1.44 H (0.52-1.04) mg/dL Glucose 115 H (74-99) mg/dL POC Glucose (mg/dL) (70-110) mg/dL Calcium 7.4 L (8.4-10.2) mg/dL Urine Protein (Negative) 03/28/22 Range/Units 06:01 WBC (3.8-10.6) k/uL RBC (3.80-5.40) m/uL Hgb (11.4-16.0) gm/dL Hct (34.0-46.0) % Retic Count (0.5-2.0) % Sodium (137-145) mmol/L Chloride (98-107) mmol/L Carbon Dioxide (22-30) mmol/L BUN (7-17) mg/dL Creatinine (0.52-1.04) mg/dL Glucose (74-99) mg/dL POC Glucose (mg/dL) 119 H (70-110) mg/dL Calcium (8.4-10.2) mg/dL Urine Protein (Negative) Assessment and Plan Plan: Acute inferior ST segment elevated myocardial infarction, post emergent artery c atheterization and stent insertion 2 in the RCA. A she is currently on a combination of aspirin and brillinta Cardiac arrest , V. tach/asystole occurred during cardiac catheterization and the patient had cardiac pulmonary arrest, resuscitated in the [facility] and currently the patient is in a normal sinus rhythm with occasional PVCs. During the course of this resuscitation, the patient was also given the for the third degree AV AV block and the TVP was removed yesterday. Hypotension likely related to cardiogenic shock, recovered and the patient was on pressors in the form of norepinephrine and dopamine and the patient is currently off pressors. She is maintaining her on blood pressure for now Nonsustained V. tach, likely ischemic in nature post acute inferior wall ST segment elevation myocardial infarction Cardiomyopathy with EF 40-45%, patient is currently off pressors Anemia, dropped the Hb the patient underwent a CT abd and pelvis to rule out retorperitoneal bleed Leukoctyosis, reactive HARRIS with possible CKD , Cr is 1.44 Hyponatremia, stable Diabetes mellitus type 2, Patient is diet controlled at home, - HA1C 6.3 , -Sliding-scale insulin Hypothyroidism, on Synthroid Delirium, was given Seroquel at a dose of 50 mg overnight and the patient is currently drowsy and sleeping. Noted the patient was also given Ambien overnight Non-anion gap metabolic acidosis and serum bicarb is down to 16 and the patient is receiving IV fluids in the form of normal saline at the rate of 75 mL an hour Plan We'll establish IV access Monitor hemoglobin CAT scan of the abdomen and pelvis showed no evidence of any retroperitoneal bleed Change IV fluids to bicarbonate infusion at the rate of 100 mL an hour Continue aspirin and Brilinta No beta blockers yet that the patient had very soft blood pressure. Continue amiodarone per cardiology at a dose of 100 mg twice a day Dopamine and norepinephrine infusion have been both discontinued Monitor mental status Monitor renal function and avoid nephrotoxic agents Monitor sodium level Monitor hemoglobin Echo was noted We will establish an IV access and will remove the venous sheath and arterial sheath We'll continue to follow
[2022-03-28] MEDS: AMIODARONE 200 MG TAB PO SCH ×2 (09:51→20:45)
[2022-03-28] MEDS: ASPIRIN 81 MG PO SCH (09:52)
[2022-03-28] MEDS: TICAGRELOR 90 MG TAB PO SCH ×2 (09:52→20:44)
--- NOTE | 2022-03-28 09:52 | P.PN ---
Subjective Progress Note Date: 03/28/22 Patient is an 82-year-old female with a history of diabetes mellitus type 2 diet controlled, hypothyroidism, and esophageal stricture who presented to the hospital via EMS due to lightheaded and dizziness. EMS noted that she is having an ST segment elevated myocardial infarction and she was immediately taken to the [facility]. On arrival her heart rate was low. In [facility] she went into asystole, she received a transvenous pacemaker, had a aspiration thrombectomy and stenting of the RCA. She also had an episode of ventricular tachycardia and was started on amiodarone drip. Her blood pressure was low necessitating levo and dopamine. She was transferred to the ICU. She did well but continued to require vasopressor and critical care was consulted. Her echo came back with EF 40-45% with inferior wall hypokanesis. Her HgB continued to fall. She underwent CT abd and pelvis which showed facal impaction but no retroperitoneal bleed. Patient seen and examined at bedside. Family present and asks me not to wake her, as she was up all night. Family given update. They said she had wanted to have BM yesterday but could not go on bed disla. General: nontoxic, no distress, appears at stated age Derm: multiple area of ecchymosis worse left breast Head: atraumatic, normocephalic, symmetric Mouth: no lip lesion Cardiovascular: S1S2 reg, no murmur, positive posterior tibial pulse bilateral, Lungs: Decreased bs bilateral, no rhonchi, no rales , no accessory muscle use Abdominal: soft, nontender to palpation, no guarding, no appreciable organomegaly Ext: no gross muscle atrophy, trace edema, no contractures Assessment/Plan: Acute inferior ST segment elevated myocardial infarction Cardiac arrest Hypotension likely related to cardiogenic shock Nonsustained V. tach Ischemic Cardiomyopathy with EF 40-45% - off dopamine and levo -Aspirin, Brillenta, Lipitor, amio -Unable to have a beta phong secondary to bradycardia and hypotension -Transvenous pacemaker removed on 03/26/22, sheath is still in place, remove today, have consulted for a midline. - echo with EF 40-45% - tele - Lipid profile normal - cardio recs Acute encephalopathy, medication related - no additional doses of ambien - safe and supportive environment. Anemia - no signs of GI bleed - CT abd and pelvis to rule out retorperitoneal bleed - follow CBC Leukoctyosis, reactive - follow CBC HARRIS with possible CKD Non anion gap metabolic acidosis - IVF transitioned to D5 with sodium bicarb - Avoid nephrotoxic agents - suspect component of ATN due to hypotension Hyponatremia, stable - IVF - repeat in AM Diabetes mellitus type 2 -Patient is diet controlled at home - A1C 6.3 -Sliding-scale insulin Hypothyroidism -Synthroid Active Medications Generic Name Dose Route Start Last Admin Trade Name Freq PRN Reason Stop Dose Admin Acetaminophen 650 mg 03/25/22 13:25 03/27/22 14:05 Acetaminophen Tab 325 Mg Tab PO 650 mg Q6HR PRN Administration Mild Pain or Fever > 100.5 Hydrocodone Bitart/Acetaminophen 1 each 03/25/22 13:25 Hydrocodone/Apap 5-325mg 1 Each Tab PO Q4HR PRN Moderate Pain (Scale 4 to 6) Al Hydroxide/Mg Hydroxide 30 ml 03/25/22 10:56 Mag Hydrox/Al Hydrox/Simeth 30 Ml Cup PO Q4HR PRN Heartburn Amiodarone HCl 400 mg 03/26/22 09:00 03/27/22 20:26 Amiodarone 200 Mg Tab PO 400 mg BID [facility] Administration Aspirin 81 mg 03/26/22 09:00 03/27/22 08:50 Aspirin 81 Mg PO 81 mg DAILY [facility] Administration Atorvastatin Calcium 80 mg 03/25/22 21:00 03/27/22 20:26 Atorvastatin 80 Mg Tab PO 80 mg HS [facility] Administration Atropine Sulfate 0.5 mg 03/25/22 10:56 Atropine Sulfate 0.1 Mg/Ml 10ml Syringe IV ONCE PRN Symptomatic Bradycardia Bisacodyl 5 mg 03/25/22 13:25 Bisacodyl 5 Mg Tablet.Dr PO DAILY PRN Constipation Dextrose/Water 25 ml 03/25/22 13:32 Dextrose 50% Syringe 50 Ml IVP PER PROTOCOL PRN Hypoglycemia Protocol Dextrose/Water 50 ml 03/25/22 13:32 Dextrose 50% Syringe 50 Ml IVP PER PROTOCOL PRN Hypoglycemia Protocol Norepinephrine Bitartrate 4 mg 254 mls @ 19.526 mls/hr 03/25/22 13:30 03/28/22 06:50 / Sodium Chloride IV Not Given .Q13H1M [facility] Protocol 0.05 MCG/KG/MIN Dopamine HCl/Dextrose 800 mg/ 250 mls @ 9.609 mls/hr 03/25/22 13:30 03/27/22 14:05 IV Solution IV Not Given .Q24H [facility] Protocol 5 MCG/KG/MIN Sodium Bicarbonate 150 ml/ 1,150 mls @ 75 mls/hr 03/28/22 10:00 Dextrose/Water IV .[id number] [facility] Insulin Aspart 0 unit 03/25/22 17:30 03/28/22 06:49 Insulin Aspart (Novolog) 100 Unit/Ml Vial SQ Not Given ACHS [facility] Protocol Levothyroxine Sodium 75 mcg 03/26/22 06:30 03/28/22 05:34 Levothyroxine 75 Mcg Tab PO 75 mcg DAILY@0630 [facility] Administration Melatonin 3 mg 03/25/22 13:25 Melatonin 3 Mg Tablet PO HS PRN Insomnia Midodrine 5 mg 03/28/22 07:30 03/28/22 05:34 Midodrine 5 Mg Tab PO 5 mg AC-TID [facility] Administration Naloxone HCl 0.2 mg 03/25/22 13:24 Naloxone 0.4 Mg/Ml 1 Ml Vial IV Q2M PRN Opioid Reversal Nitroglycerin 0.4 mg 03/25/22 10:56 Nitroglycerin Sl Tabs 0.4 Mg Tab SUBLINGUAL Q5M PRN Chest Pain Ondansetron HCl 4 mg 03/25/22 13:05 03/26/22 11:47 Ondansetron Odt 4 Mg Tab PO 4 mg Q8HR PRN Administration Nausea Pantoprazole Sodium 40 mg 03/26/22 07:30 03/28/22 05:34 Pantoprazole 40 Mg Tablet PO 40 mg [id number] [facility] Administration Ticagrelor 90 mg 03/25/22 21:00 03/27/22 20:26 Ticagrelor 90 Mg Tab PO 90 mg BID [facility] Administration Protocol Objective - Vital Signs Vital signs: Vital Signs Temp 98.2 F 03/28/22 04:00 Pulse 85 03/28/22 08:00 Resp 11 L 03/28/22 08:00 BP 109/57 03/28/22 08:00 Pulse Ox 96 03/28/22 08:00 FiO2 Intake & Output 03/27/22 03/28/22 03/28/22 18:59 06:59 18:59 Intake Total 5252.339 5906 78 Output Total 660 250 15 Balance 182.547 4276 63 Weight 106.6 kg Intake: IV 1186 936 78 0.9 36 36 3 pressure bag 1150 900 75 Intake, IV Titration 227.399 500 Amount DOPamine DRIP 800 mg In 227.399 Dextrose/Water 1 250ml. bag @ 5 MCG/KG/MIN 9.609 mls/hr IV .Q24H [facility] Rx#: [id number] Sodium Chloride 0.9% 500 500 ml 500 ml @ 999 mls/hr IV .Q31M [facility] Rx#:[id number] Oral 250 Output: Urine 660 250 15 Other: Voiding Method Indwelling Catheter Indwelling Catheter Indwelling Catheter # Voids 1 ABP, PAP, CO, CI - Last Documented Arterial Blood Pressure 118/48 - Labs CBC & Chem 7: 03/28/22 04:00 03/28/22 04:00 Labs: Abnormal Lab Results - Last 24 Hours (Table) 03/27/22 03/27/22 03/27/22 Range/Units 11:44 13:40 15:35 WBC 16.4 H (3.8-10.6) k/uL RBC 2.69 L (3.80-5.40) m/uL Hgb 8.5 L (11.4-16.0) gm/dL Hct 26.3 L (34.0-46.0) % Retic Count (0.5-2.0) % Sodium (137-145) mmol/L Chloride (98-107) mmol/L Carbon Dioxide (22-30) mmol/L BUN (7-17) mg/dL Creatinine (0.52-1.04) mg/dL Glucose (74-99) mg/dL POC Glucose (mg/dL) 135 H (70-110) mg/dL Calcium (8.4-10.2) mg/dL Urine Protein Trace H (Negative) 03/27/22 03/27/22 03/27/22 Range/Units 16:38 20:00 20:23 WBC 15.7 H (3.8-10.6) k/uL RBC 2.50 L (3.80-5.40) m/uL Hgb 8.1 L (11.4-16.0) gm/dL Hct 24.4 L (34.0-46.0) % Retic Count (0.5-2.0) % Sodium (137-145) mmol/L Chloride (98-107) mmol/L Carbon Dioxide (22-30) mmol/L BUN (7-17) mg/dL Creatinine (0.52-1.04) mg/dL Glucose (74-99) mg/dL POC Glucose (mg/dL) 141 H 207 H (70-110) mg/dL Calcium (8.4-10.2) mg/dL Urine Protein (Negative) 03/28/22 03/28/22 03/28/22 Range/Units 04:00 04:00 04:00 WBC 17.7 H (3.8-10.6) k/uL RBC 2.62 L (3.80-5.40) m/uL Hgb 8.1 L (11.4-16.0) gm/dL Hct 25.5 L (34.0-46.0) % Retic Count 2.9 H (0.5-2.0) % Sodium 131 L (137-145) mmol/L Chloride 109 H (98-107) mmol/L Carbon Dioxide 16 L (22-30) mmol/L BUN 40 H (7-17) mg/dL Creatinine 1.44 H (0.52-1.04) mg/dL Glucose 115 H (74-99) mg/dL POC Glucose (mg/dL) (70-110) mg/dL Calcium 7.4 L (8.4-10.2) mg/dL Urine Protein (Negative) 03/28/22 Range/Units 06:01 WBC (3.8-10.6) k/uL RBC (3.80-5.40) m/uL Hgb (11.4-16.0) gm/dL Hct (34.0-46.0) % Retic Count (0.5-2.0) % Sodium (137-145) mmol/L Chloride (98-107) mmol/L Carbon Dioxide (22-30) mmol/L BUN (7-17) mg/dL Creatinine (0.52-1.04) mg/dL Glucose (74-99) mg/dL POC Glucose (mg/dL) 119 H (70-110) mg/dL Calcium (8.4-10.2) mg/dL Urine Protein (Negative)
[2022-03-28] MEDS: DEXTROSE 5% IN WATER 1,000 ML with SODIUM BICARB (1 MEQ/ML) 150 ML IV SCH (10:25)
[2022-03-28 11:26] LABS: Glucose,Whole Blood 145 mg/dL (70-110)
--- NOTE | 2022-03-28 11:28 | P.NPCON ---
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 Patient was admitted to the hospital with complaints of ligh theadedness and dizziness. She had acute ST elevation ME and was taken to the r&d lab technician. Patient had a transvenous pacer she had stenting of RCA. Patient had a cardiac arrest in the r&d lab technician as well. Next Patient was on dopamine which is now discontinued she was also on amiodarone drip and had a transvenous pacer which is currently removed. Family is present at bedside Patient has been confused this morning. Urine output is at 35-30 mL per minute. It had been low at about 5-0 mL per hour overnight. Serum creatinine has been at about 1.4 mg/dL. It had increased to 1.6 on 03/26/2022. Review of Systems As per HPI Past Medical History Past Medical History: Cancer, Diabetes Mellitus, Renal Disease, Thyroid Disorder Additional Past Medical History / Comment(s): Basal Cell skin cancer, hx. kidney stone, Diabetes- no longer on meds- watches diet, uses cane, states episodes where it feels her throat is tight (hx of EGD with dilation), chronic kidney disease. History of Any Multi-Drug Resistant Organisms: None Reported Past Surgical History: Adenoidectomy, Back Surgery, Tonsillectomy Additional Past Surgical History / Comment(s): bunionectomy, kidney stone, cataracts, EGD with dilation Past Anesthesia/Blood Transfusion Reactions: No Reported Reaction Past Psychological History: No Psychological Hx Reported Smoking Status: Never smoker Past Alcohol Use History: None Reported Past Drug Use History: None Reported - Past Family History Brother(s) Family Medical History: Cancer Additional Family Medical History / Comment(s): basal cell skin cancer family Additional Family Medical History / Comment(s): no family hx of heart disease Medications and Allergies Home Medications Medication Instructions Recorded Confirmed Type Levothyroxine Sodium [Synthroid] 75 mcg PO DAILY 05/07/19 03/25/22 History Omeprazole 20 mg PO DAILY 03/25/22 03/25/22 History Allergies Allergy/AdvReac Type Severity Reaction Status Date / Time codeine Allergy Rash/Hives Verified 01/24/20 18:47 metronidazole [From Flagyl] Allergy Rash/Hives Verified 01/24/20 18:47 Metronidazole HCl Allergy Rash/Hives Verified 01/24/20 18:47 [From Flagyl] morphine Allergy Rash/Hives Verified 01/24/20 18:47 hydrocodone [From [place]] AdvReac Unknown felt her Verified 01/24/20 18:47 mind was not right. famotidine [From Pepcid] AdvReac Nausea & Verified 01/24/20 18:51 Vomiting Opioids - Morphine Analogues AdvReac Confusion Verified 01/24/20 18:47 Opioids-Meperidine and AdvReac Confusion Verified 01/24/20 18:47 Related Opioids-Methadone and Related AdvReac Confusion Verified 01/24/20 18:47 Sulfa (Sulfonamide AdvReac Unknown- Verified 01/24/20 18:47 Antibiotics) almost passed out msg Allergy Anaphylaxis Uncoded 01/24/20 17:36 Physical Exam Vitals: Vital Signs Temp Pulse Resp BP Pulse Ox 03/28/22 09:00 80 19 99/55 03/28/22 08:00 85 11 L 109/57 96 03/28/22 07:31 96 03/28/22 07:00 85 19 03/28/22 06:00 83 18 95/53 98 03/28/22 05:00 83 23 87/51 98 03/28/22 04:00 98.2 F 87 20 93/45 98 03/28/22 03:00 89 25 H 98/53 95 03/28/22 02:00 92 15 94 L 03/28/22 01:00 91 23 100/63 96 03/28/22 00:16 93 32 H 97 03/28/22 00:00 97.8 F 87 24 97/66 98 03/27/22 23:00 86 19 98/69 98 03/27/22 22:00 75 17 130/70 98 03/27/22 21:00 85 15 122/53 96 03/27/22 20:30 87 20 101/51 96 03/27/22 20:00 98.1 F 85 18 100/49 97 03/27/22 19:30 86 19 97/46 97 03/27/22 19:00 80 19 91/44 97 03/27/22 18:30 84 19 94/46 98 03/27/22 18:00 82 18 90/44 97 03/27/22 17:30 80 18 95 03/27/22 17:00 79 17 87/53 98 03/27/22 16:30 75 17 85/36 98 03/27/22 16:00 97.8 F 75 15 95 03/27/22 15:30 75 19 97 03/27/22 15:00 100/53 03/27/22 14:30 73 16 103/47 97 03/27/22 14:00 79 15 93/43 96 03/27/22 13:30 75 15 92/39 97 03/27/22 13:00 79 16 92/40 96 03/27/22 12:30 76 15 101/48 95 03/27/22 12:00 97.4 F L 79 17 97 03/27/22 11:30 80 20 93/51 100 Intake and Output 03/27/22 03/28/22 03/28/22 22:59 06:59 14:59 Intake Total 874 1124 156 Output Total 750 160 45 Balance 124 964 111 Intake: IV 624 624 156 0.9 24 24 6 pressure bag 600 600 150 Intake, IV Titration 500 Amount Sodium Chloride 0.9% 500 500 ml 500 ml @ 999 mls/hr IV .Q31M ONE Rx#:[id number] Oral 250 Output: Urine 750 160 45 Other: Voiding Method Indwelling Catheter Indwelling Catheter Indwelling Catheter Weight 106.6 kg ABP, PAP, CO, CI - Last 8 Hours Arterial Blood Pressure 120/50 Arterial Blood Pressure 118/48 Arterial Blood Pressure 107/45 Arterial Blood Pressure 113/43 Arterial Blood Pressure 105/45 Arterial Blood Pressure 110/43 Patient is confused. She has been having hallucinations. Patient is comfortable Examination of the heart S1 and S2 Examination of the lungs bilateral breath sounds are heard Abdomen is soft obese nontender Examination of the lower extremities shows no significant edema RAYON WINDER exam shows patient is moving all 4 extremities but is confused. Results - Lab Results Most recent lab results Calcium 7.4 mg/dL (8.4-10.2) L 03/28/22 04:00 Magnesium 2.6 mg/dL (1.6-2.3) H 03/25/22 15:07 03/28/22 04:00 03/28/22 04:00 Assessment and Plan Assessment: 1. Acute kidney injury secondary to hypotension/cardiac arrest currently with improved urine output. UA is benign. CT of the abdomen does not show any obstruction 2. CK D NKF stage IIIB be with baseline creatinine close to 1.4 mg/dL. Etiology is nephrosclerosis 3. Status post acute ST elevation ME status post cardiac catheterization and stenting of RCA 4. Status post cardiac arrest 5. Confusion and mental status changes 6. Non-gap metabolic acidosis associated with acute kidney injury currently maintained on bicarb drip Plan: Continue IV bicarb Repeat labs in a.m. Avoid nephrotoxic agents Check iron profile
[2022-03-28] MEDS ORDERED: ATROPINE SULFATE 0.1 MG/ML 10ML SYRINGE ONE (12:23)
[2022-03-28 12:47] LABS: % Iron Saturation 6.28 (12.00-45.00)
[2022-03-28] MEDS: DOPamine DRIP 800 MG in DEXTROSE/WATER 1 250ML.BAG IV SCH (15:14)
[2022-03-28 16:28] LABS: Glucose,Whole Blood 186 mg/dL (70-110)
--- NOTE | 2022-03-28 17:14 | XR ---
EXAMINATION TYPE: XR chest 1V confirm line [facility] DATE OF EXAM: 03/28/2022 4:49 PM COMPARISON: Chest radiographs from 03/28/2022 TECHNIQUE: XR chest 1V confirm line [facility] Portable AP radiograph of the chest. CLINICAL INDICATION:Female, 82 years old with history of left sc line placement; FINDINGS: Lungs/Pleura: There is trace bilateral pleural effusions. No pneumothorax. Pulmonary vascularity: Pulmonary vascular congestion. Heart/mediastinum: Cardiomediastinal silhouette is enlarged and stable. Musculoskeletal: No acute osseous pathology. Lines/Tubes: Left-sided PICC with distal tip at the superior vena cava/brachiocephalic confluence. IMPRESSION: Left PICC in appropriate placement. Pulmonary vascular congestion, trace bilateral pleural effusions and cardiomegaly correlate for conge stive heart failure with serum BNP.
--- NOTE | 2022-03-28 17:14 | P.PCN ---
Date of Procedure: 03/28/22 Preoperative Diagnosis: Acute non-STEMI, cardiac arrest Postoperative Diagnosis: Same Procedure(s) Performed: Insertion of a triple-lumen catheter Anesthesia: local Surgeon: Danial Estrada Estimated Blood Loss (ml): 0 Pathology: other Condition: critical Disposition: ICU Operative Findings: Indication: Hemodynamic monitoring/Intravenous access. A time-out was completed verifying correct patient, procedure, site, positioning, and implant(s) or special equipment if applicable. The patient was placed in a dependent position appropriate for central line placement based on the vein to be cannulated. The patients left chest was prepped and draped in sterile fashion. 1% Lidocaine was used to anesthetize the surrounding skin area. A triple lumen 9F Cordis catheter was introduced into the left subclavian vein using Seldinger technique. The catheter was threaded smoothly over the guide wire and appropriate blood return was obtained. Each lumen of the catheter was evacuated of air and flushed with sterile saline. The catheter was then sutured in place to the skin and a sterile dressing applied. Perfusion to the extremity distal to the point of catheter insertion was checked and found to be adequate. The patient tolerated the procedure well and there were no complications.
[2022-03-28 20:21] LABS: Glucose,Whole Blood 173 mg/dL (70-110)
[2022-03-28] MEDS: ATORVASTATIN 80 MG TAB PO SCH (20:44)
[2022-03-28] MEDS ORDERED: QUEtiapine 50 MG TAB PO SCH (21:00)
[2022-03-29] MEDS: DEXTROSE 5% IN WATER 1,000 ML with SODIUM BICARB (1 MEQ/ML) 150 ML IV SCH ×2 (00:50→17:26)
[2022-03-29 04:33] LABS: HCT 24.5 % (34.0-46.0); HGB 7.7 gm/dL (11.4-16.0); MCH 30.8 pg (25.0-35.0); MCHC 31.6 g/dL (31.0-37.0); MCV 97.5 fL (80.0-100.0); Mean Platelet Volume 8.7; Platelet Count 184 k/uL (150-450); RBC 2.51 m/uL (3.80-5.40); RDW 13.7 % (11.5-15.5); WBC 13.1 k/uL (3.8-10.6)
[2022-03-29 04:50] LABS: Calcium 7.5 mg/dL (8.4-10.2); Potassium 3.9 mmol/L (3.5-5.1)
[2022-03-29 06:27] LABS: Glucose,Whole Blood 155 mg/dL (70-110)
[2022-03-29] MEDS: PANTOPRAZOLE 40 MG TABLET PO SCH (06:41)
[2022-03-29] MEDS: LEVOTHYROXINE 75 MCG TAB PO SCH (06:41)
[2022-03-29] MEDS: MIDODRINE 5 MG TAB PO SCH ×3 (06:41→17:26)
[2022-03-29] MEDS: INSULIN ASPART (NovoLOG) 100 UNIT/ML VIAL SQ SCH ×4 (06:41→20:32)
[2022-03-29] MEDS ORDERED: POTASSIUM CHLORIDE 10 MEQ in WATER FOR INJECTION 1 100ML.BAG IVPB ONE (07:30)
--- NOTE | 2022-03-29 07:32 | P.PN ---
Subjective Progress Note Date: 03/29/22 PROGRESS NOTE The patient is an 82-year-old female presented with an acute myocardial infarction, underwent stenting of the RCA. Her presentation was complicated by complete heart block and cardiac arrest. She is awake, confused at times, following commands. Her blood pressure is on the low side. She continues to have a venous sheath in her right femoral vein because of lack of access of peripheral site. She scheduled to undergo a midline today. She has no further atrial fibrillation or ventricular tachycardia. She has no chest discomfort, dizziness or palpitations. March 29: She is more awake and alert this morning, she denies any chest discomfort. She continues to be in sinus mechanism. She had a triple lumen catheter inserted. She denies any nausea or vomiting. She has no evidence of malignant arrhythmia. Hemodynamically she is stable. Her echocardiogram showed an ejection fraction of 40-45% with inferior wall hypokinesis Medications: Amiodarone 400 mg twice a day, aspirin once a day, midodrine 5 mg 3 times a day, Brilinta 90 mg twice a day, Lipitor 80 mg daily PHYSICAL EXAMINATION: Blood pressure 111/60 heart rate 76 LUNGS: Clear to auscultation HEART: Regular rate and rhythm, S1, S2. No S3. systolic ejection murmur ABDOMEN: Soft, nontender, no organomegaly EXTREMETIES: No edema, no hematoma LAB: Hemoglobin 7.7, white blood cell 13.1, BUN 42, creatinine 1.41, potassium 3.9 IMPRESSION: 1. Status post inferior wall myocardial infarction, complicated by complete heart block and cardiac arrest, improving, post stenting 2. Chronic kidney disease 3. Hypotension, resolved 4. Mild ischemic cardiomyopathy 5. Anemia PLAN: 1. Decrease amiodarone to 200 mg twice a day 2. Start low dose beta phong 3. Increase physical activity 4. Follow blood pressure and adjust the dose of midodrine and beta phong accordingly Objective - Vital Signs Vital signs: Vital Signs Temp 99.1 F 03/29/22 04:00 Pulse 76 03/29/22 07:00 Resp 16 03/29/22 07:00 BP 111/56 03/29/22 07:00 Pulse Ox 95 03/29/22 07:00 FiO2 Intake & Output 03/28/22 03/29/22 03/29/22 18:59 06:59 18:59 Intake Total 1266 1035 Output Total 320 560 Balance 946 475 Weight 108 kg Intake: IV 156 900 0.9 6 Dextrose 5% in Water 1, 900 000 ml @ 75 mls/hr IV . [id number] FLORINDA with Sodium Bicarb (1 Meq/ml) 150 ml Rx#:[id number] pressure bag 150 Intake, IV Titration 750 75 Amount Dextrose 5% in Water 1, 750 75 000 ml @ 75 mls/hr IV . [id number] FLORINDA with Sodium Bicarb (1 Meq/ml) 150 ml Rx#:[id number] Oral 360 60 Output: Urine 320 560 Other: Voiding Method Indwelling Catheter Indwelling Catheter ABP, PAP, CO, CI - Last Documented Arterial Blood Pressure 108/41 - Labs CBC & Chem 7: 03/29/22 03:48 03/29/22 03:48 Labs: Abnormal Lab Results - Last 24 Hours (Table) 03/28/22 03/28/22 03/28/22 Range/Units 04:00 04:00 11:25 WBC (3.8-10.6) k/uL RBC (3.80-5.40) m/uL Hgb (11.4-16.0) gm/dL Hct (34.0-46.0) % Retic Count 2.9 H (0.5-2.0) % Sodium (137-145) mmol/L Carbon Dioxide (22-30) mmol/L BUN (7-17) mg/dL Creatinine (0.52-1.04) mg/dL Glucose (74-99) mg/dL POC Glucose (mg/dL) 145 H (70-110) mg/dL Calcium (8.4-10.2) mg/dL Iron 14 L (50-170) ug/dL TIBC 220 L (228-460) ug/dL % Saturation 6.28 L (12.00-45.00) Transferrin 157.0 L (204.0-354.0) mg/dL 03/28/22 03/28/22 03/29/22 Range/Units 16:27 20:20 03:48 WBC (3.8-10.6) k/uL RBC (3.80-5.40) m/uL Hgb (11.4-16.0) gm/dL Hct (34.0-46.0) % Retic Count (0.5-2.0) % Sodium 130 L (137-145) mmol/L Carbon Dioxide 21 L (22-30) mmol/L BUN 42 H (7-17) mg/dL Creatinine 1.41 H (0.52-1.04) mg/dL Glucose 132 H (74-99) mg/dL POC Glucose (mg/dL) 186 H 173 H (70-110) mg/dL Calcium 7.5 L (8.4-10.2) mg/dL Iron (50-170) ug/dL TIBC (228-460) ug/dL % Saturation (12.00-45.00) Transferrin (204.0-354.0) mg/dL 03/29/22 03/29/22 Range/Units 03:48 06:26 WBC 13.1 H (3.8-10.6) k/uL RBC 2.51 L (3.80-5.40) m/uL Hgb 7.7 L (11.4-16.0) gm/dL Hct 24.5 L (34.0-46.0) % Retic Count (0.5-2.0) % Sodium (137-145) mmol/L Carbon Dioxide (22-30) mmol/L BUN (7-17) mg/dL Creatinine (0.52-1.04) mg/dL Glucose (74-99) mg/dL POC Glucose (mg/dL) 155 H (70-110) mg/dL Calcium (8.4-10.2) mg/dL Iron (50-170) ug/dL TIBC (228-460) ug/dL % Saturation (12.00-45.00) Transferrin (204.0-354.0) mg/dL
[2022-03-29] MEDS: SODIUM CHLORIDE 0.9% 1,000 ML IV SCH (07:56)
[2022-03-29] MEDS: NOREPINEPHRINE 4 MG in SODIUM CHLORIDE 0.9% 250 ML IV SCH ×2 (07:59→22:08)
[2022-03-29] MEDS: SODIUM FERRIC GLUCONAT-SUCROSE 125 MG in SODIUM CHLORIDE 0.9% 100 ML IVPB SCH (08:24)
--- NOTE | 2022-03-29 08:35 | P.PN ---
Subjective Progress Note Date: 03/29/22 On today's evaluation of 03/28/2022, the patient is being seen for a follow-up. The patient is post acute ST segment elevation inferior wall myocardial infarction the patient underwent stenting of the RCA 2. Note that during the course of her cardiac catheterization, the patient had ventricular tachycardia and subsequently asystole. She was resuscitated. The patient was given a transvenous pacemaker which was a temporary pacemaker that was ultimately taken off. Currently she is off pressors and the patient is hemodynamically stable maintaining her on blood pressure. Cardiac rhythm is sinus at this point in time. The patient was on a combination of norepinephrine and dopamine and both have been discontinued and the patient is currently on normal saline at the rate of 75 mL an hour. Her echocardiogram is showing an ejection fraction of around 40-45%. No significant valvular abnormalities. There was a drop in hemoglobin down to 8.1 and based on that the patient was given CAT scan of the abdomen and pelvis that showed no evidence of any retroperitoneal bleed. The patient has chronic stage III kidney disease in the patient's creatinine is stable at 1.44. She does have a component of non- anion gap Metabolic acidosis. Overnight, the patient was given Ambien and subsequently she became agitated and delirious and the patient was given Seroquel a dose of 50 mg and the patient is currently quite drowsy. She is arousable yet she is resting comfortably in bed and the family's the bedside. She remains on a combination of aspirin and Alimta. She is on high dose statins. She is on NovoLog sliding scale insulin coverage. She is on Synthroid. Family is at the bedside. On 03/29/2022, the patient is being seen for a follow-up. She is resting comfortably in bed. As mentioned earlier, the patient is status post acute ST segment elevation myocardial infarction the patient underwent a inferior wall AL requiring emergent cardiac catheterization and stenting of the RCA 2. The patient also had V. tach and asystole and she was resuscitated and this was a brief cardiac arrest and she was resuscitated adequately. During the course of her treatment she also had a transvenous pacemaker that was removed. I was able to take off the catheter sheath yesterday. I also give the patient a triple- lumen catheter in her left subclavian for IV access. She is currently on no pr essors. She is receiving bicarb infusion for an underlying bicarb deficit and it is running at the rate of 75 mL an hour and see him back today's up to 21. Her echocardiogram showed an ejection fraction of 40-45%. One concern is downgoing drop in hemoglobin which is down to 7.7. No signs of any bleeding. CAT scan of the abdomen and pelvis as mentioned showed no evidence of any retroperitoneal bleeding. The patient remains on a combination of aspirin and Alimta. Creatinine is stable at 1.4. In terms of her mentation, yesterday afternoon she started turning around and she was more interactive and oriented and this morning she is feeling pretty good she is able to follow commands. No agitation. No major confusion at this point in time and she is moving all 4 extremities without any limitation. In terms of her blood work, the patient has a low white cell count of 15.1 with hemoglobin of 7.7 and a platelet count of 184. Sodium is at 1:30 with a potassium level of 3.99. Her blood sugar from this morning is at 155. The patient is still on amiodarone 200 mg by mouth twice a day. She was started on metoprolol 12.5 mg by mouth twice a day and will monitor blood pressure very closely with that. The antiplatelet agents are still on board. She is on high dose statins. She is on room air oxygen with a pulse ox of 95%. Objective - Vital Signs Vital signs: Vital Signs Temp 96.5 F L 03/29/22 08:00 Pulse 76 03/29/22 08:00 Resp 16 03/29/22 08:00 BP 113/51 03/29/22 08:00 Pulse Ox 95 03/29/22 08:00 FiO2 Intake & Output 03/28/22 03/29/22 03/29/22 18:59 06:59 18:59 Intake Total 1266 1035 95 Output Total 320 560 15 Balance 946 475 80 Weight 108 kg Intake: IV 156 900 95 0.9 6 20 Dextrose 5% in Water 1, 900 75 000 ml @ 75 mls/hr IV . [id number] FLORINDA with Sodium Bicarb (1 Meq/ml) 150 ml Rx#:[id number] pressure bag 150 Intake, IV Titration 750 75 Amount Dextrose 5% in Water 1, 750 75 000 ml @ 75 mls/hr IV . [id number] FLORINDA with Sodium Bicarb (1 Meq/ml) 150 ml Rx#:[id number] Oral 360 60 Output: Urine 320 560 15 Other: Voiding Method Indwelling Catheter Indwelling Catheter Indwelling Catheter ABP, PAP, CO, CI - Last Documented Arterial Blood Pressure 108/41 - Exam No acute distress, oriented 3. No respiratory distress, currently on room air oxygen HEENT examination is grossly unremarkable. Neck supple. Full range of motion. No adenopathy thyromegaly or neck vein distention. Cardiovascular examination reveals regular rhythm rate. S1-S2 normal. No S3 or S4. No discernible murmur noted. Heart sounds are distant. Heart rate 80 bpm. Lungs reveal mostly clear breath sounds. Minimal scattered rhonchi. No wheezes. No crackles. Breath sounds equal bilaterally. Abdomen soft bowel sounds are heard. No masses or tenderness. Extremities are intact. No cyanosis clubbing or edema. Skin is without rash or lesion. Neurologic examination is brief but nonfocal. More oriented and alert and she is communicating. No focal neurological deficit. She had some episodes of delirium yesterday and she seems to be much more appropriate today. - Labs CBC & Chem 7: 03/29/22 03:48 03/29/22 03:48 Labs: Abnormal Lab Results - Last 24 Hours (Table) 03/28/22 03/28/22 03/28/22 Range/Units 04:00 11:25 16:27 WBC (3.8-10.6) k/uL RBC (3.80-5.40) m/uL Hgb (11.4-16.0) gm/dL Hct (34.0-46.0) % Sodium (137-145) mmol/L Carbon Dioxide (22-30) mmol/L BUN (7-17) mg/dL Creatinine (0.52-1.04) mg/dL Glucose (74-99) mg/dL POC Glucose (mg/dL) 145 H 186 H (70-110) mg/dL Calcium (8.4-10.2) mg/dL Iron 14 L (50-170) ug/dL TIBC 220 L (228-460) ug/dL % Saturation 6.28 L (12.00-45.00) Transferrin 157.0 L (204.0-354.0) mg/dL 03/28/22 03/29/22 03/29/22 Range/Units 20:20 03:48 03:48 WBC 13.1 H (3.8-10.6) k/uL RBC 2.51 L (3.80-5.40) m/uL Hgb 7.7 L (11.4-16.0) gm/dL Hct 24.5 L (34.0-46.0) % Sodium 130 L (137-145) mmol/L Carbon Dioxide 21 L (22-30) mmol/L BUN 42 H (7-17) mg/dL Creatinine 1.41 H (0.52-1.04) mg/dL Glucose 132 H (74-99) mg/dL POC Glucose (mg/dL) 173 H (70-110) mg/dL Calcium 7.5 L (8.4-10.2) mg/dL Iron (50-170) ug/dL TIBC (228-460) ug/dL % Saturation (12.00-45.00) Transferrin (204.0-354.0) mg/dL 03/29/22 Range/Units 06:26 WBC (3.8-10.6) k/uL RBC (3.80-5.40) m/uL Hgb (11.4-16.0) gm/dL Hct (34.0-46.0) % Sodium (137-145) mmol/L Carbon Dioxide (22-30) mmol/L BUN (7-17) mg/dL Creatinine (0.52-1.04) mg/dL Glucose (74-99) mg/dL POC Glucose (mg/dL) 155 H (70-110) mg/dL Calcium (8.4-10.2) mg/dL Iron (50-170) ug/dL TIBC (228-460) ug/dL % Saturation (12.00-45.00) Transferrin (204.0-354.0) mg/dL Assessment and Plan Plan: Acute inferior ST segment elevated myocardial infarction, post emergent artery catheterization and stent insertion 2 in the RCA. A she is currently on a combination of aspirin and brillinta Cardiac arrest , V. tach/asystole occurred during cardiac catheterization and the patient had cardiac pulmonary arrest, resuscitated in the Elevator Supervisor and currently the patient is in a normal sinus rhythm with occasional PVCs. During the course of this resuscitation, the patient was also given the for the third degree AV AV block and the TVP was removed yesterday. Hypotension likely related to cardiogenic shock, recovered and the patient was on pressors in the form of norepinephrine and dopamine and the patient is cur rently off pressors. She is maintaining her on blood pressure for now Nonsustained V. tach, likely ischemic in nature post acute inferior wall ST segment elevation myocardial infarction Cardiomyopathy with EF 40-45%, patient is currently off pressors Anemia, dropped the Hb the patient underwent a CT abd and pelvis to rule out retorperitoneal bleed Leukoctyosis, reactive HARRIS with possible CKD , Cr is 1.44 Hyponatremia, stable , Diabetes mellitus type 2, Patient is diet controlled at home, - HA1C 6.3 , -Sliding-scale insulin Hypothyroidism, on Synthroid Delirium, was given Seroquel at a dose of 50 mg overnight and the patient is currently drowsy and sleeping. Noted the patient was also given Ambien overnight Non-anion gap metabolic acidosis , improved Plan IV access was established The patient remains on a combination of aspirin and Brilinta The patient remains on amiodarone and the cardiac rhythm is sinus, no ventricular arrhythmias The patient was started on metoprolol 12.5 mg by mouth twice a day Hemoglobin is at 7.7 and needs to be further monitored and there is no signs of any bleeding Mental status improved compared to yesterday Serum bicarb has also improved compared to yesterday and will continue the bicarb infusion for another 24 hours Monitor mental status Increased mobility as tolerated and the patient may need to stay in for today for further monitoring.
[2022-03-29] MEDS: TICAGRELOR 90 MG TAB PO SCH ×2 (09:27→20:46)
[2022-03-29] MEDS: ASPIRIN 81 MG PO SCH (09:28)
[2022-03-29] MEDS: METOPROLOL TARTRATE 12.5 MG TAB PO SCH ×2 (09:28→20:32)
[2022-03-29] MEDS: AMIODARONE 200 MG TAB PO SCH ×2 (09:28→20:46)
--- NOTE | 2022-03-29 11:28 | P.PN ---
Subjective Patient is seen for follow-up for acute kidney injury and top of chronic kidney disease. Patient is status post cardiac catheterization and stenting of RCA for acute ST elevation VA. She had third degree heart block and is status post transvenous pacer which was eventually removed. Renal function has improved Serum creatinine had increased to 1.6 and is now staying at 1.4 Patient was hallucinating yesterday. Mentation is much improved today. Objective - Vital Signs Vital signs: Vital Signs Temp 96.5 F L 03/29/22 08:00 Pulse 76 03/29/22 09:00 Resp 18 03/29/22 10:00 BP 109/57 03/29/22 10:00 Pulse Ox 94 L 03/29/22 10:00 FiO2 Intake & Output 03/28/22 03/29/22 03/29/22 18:59 06:59 18:59 Intake Total 1266 1035 285 Output Total 320 560 55 Balance 946 475 230 Weight 108 kg Intake: IV 156 900 285 0.9 6 60 Dextrose 5% in Water 1, 900 225 000 ml @ 75 mls/hr IV . [id number] FLORINDA with Sodium Bicarb (1 Meq/ml) 150 ml Rx#:[id number] pressure bag 150 Intake, IV Titration 750 75 Amount Dextrose 5% in Water 1, 750 75 000 ml @ 75 mls/hr IV . [id number] FLORINDA with Sodium Bicarb (1 Meq/ml) 150 ml Rx#:[id number] Oral 360 60 Output: Urine 320 560 55 Other: Voiding Method Indwelling Catheter Indwelling Catheter Indwelling Catheter ABP, PAP, CO, CI - Last Documented Arterial Blood Pressure 108/41 - Exam Awake, comfortable, not in any acute distress On 6 questions appropriately Examination of the heart S1 and S2 Examination of the lungs bilateral breath sounds are heard Abdomen is soft nontender Examination of the lower extremities shows 1+ edema bilaterally WANT AD RECEIVER exam grossly intact - Labs CBC & Chem 7: 03/29/22 03:48 03/29/22 03:48 Labs: Abnormal Lab Results - Last 24 Hours (Table) 03/28/22 03/28/22 03/28/22 Range/Units 04:00 11:25 16:27 WBC (3.8-10.6) k/uL RBC (3.80-5.40) m/uL Hgb (11.4-16.0) gm/dL Hct (34.0-46.0) % Sodium (137-145) mmol/L Carbon Dioxide (22-30) mmol/L BUN (7-17) mg/dL Creatinine (0.52-1.04) mg/dL Glucose (74-99) mg/dL POC Glucose (mg/dL) 145 H 186 H (70-110) mg/dL Calcium (8.4-10.2) mg/dL Iron 14 L (50-170) ug/dL TIBC 220 L (228-460) ug/dL % Saturation 6.28 L (12.00-45.00) Transferrin 157.0 L (204.0-354.0) mg/dL 03/28/22 03/29/22 03/29/22 Range/Units 20:20 03:48 03:48 WBC 13.1 H (3.8-10.6) k/uL RBC 2.51 L (3.80-5.40) m/uL Hgb 7.7 L (11.4-16.0) gm/dL Hct 24.5 L (34.0-46.0) % Sodium 130 L (137-145) mmol/L Carbon Dioxide 21 L (22-30) mmol/L BUN 42 H (7-17) mg/dL Creatinine 1.41 H (0.52-1.04) mg/dL Glucose 132 H (74-99) mg/dL POC Glucose (mg/dL) 173 H (70-110) mg/dL Calcium 7.5 L (8.4-10.2) mg/dL Iron (50-170) ug/dL TIBC (228-460) ug/dL % Saturation (12.00-45.00) Transferrin (204.0-354.0) mg/dL 03/29/22 Range/Units 06:26 WBC (3.8-10.6) k/uL RBC (3.80-5.40) m/uL Hgb (11.4-16.0) gm/dL Hct (34.0-46.0) % Sodium (137-145) mmol/L Carbon Dioxide (22-30) mmol/L BUN (7-17) mg/dL Creatinine (0.52-1.04) mg/dL Glucose (74-99) mg/dL POC Glucose (mg/dL) 155 H (70-110) mg/dL Calcium (8.4-10.2) mg/dL Iron (50-170) ug/dL TIBC (228-460) ug/dL % Saturation (12.00-45.00) Transferrin (204.0-354.0) mg/dL Assessment and Plan Assessment: 1. Acute kidney injury secondary to hypotension/cardiac arrest currently with improved urine output. UA is benign. CT of the abdomen does not show any obstruction 2. CK D NKF stage IIIB be with baseline creatinine close to 1.4 mg/dL. Etiology is nephrosclerosis 3. Status post acute ST elevation VA status post cardiac catheterization and stenting of RCA 4. Status post cardiac arrest 5. Confusion and mental status changes 6. Non-gap metabolic acidosis associated with acute kidney injury currently maintained on bicarb drip Plan: DC bicarb drip tomorrow Encourage increase oral intake Avoid nephrotoxic agents Repeat labs in a.m.
[2022-03-29 11:57] LABS: Glucose,Whole Blood 179 mg/dL (70-110)
--- NOTE | 2022-03-29 12:55 | US ---
EXAMINATION TYPE: US lower ext pseudo artery RT DATE OF EXAM: 03/29/2022 COMPARISON: NONE CLINICAL HISTORY: hematoma/pseudoaneurysm. Right groin heart cath on 03/25/2022 EXAM PERFORMED: Grayscale and color Doppler duplex imaging performed of the groin, post cardiac clement ter to assess for pseudoaneurysm. SIDE PERFORMED: RIGHT Color and Waveform Doppler performed to assess for the presence of pseudoaneurysm; Extremely limited exam due to patient body habitus and swelling Is there ultrasound evidence of a pseudoaneurysm: Possible pseudoaneurysm with partial flow, unable to visualize a neck= 4.6 x 2.2 x 1.4 cm Is there a fluid collection present: yes vs edema, anterior to PSA IMPRESSION: 1. Small pseudoaneurysm suggested on the right. 2. The neck was not definitively visualized.
[2022-03-29] MEDS: DOPamine DRIP 800 MG in DEXTROSE/WATER 1 250ML.BAG IV SCH (13:13)
--- NOTE | 2022-03-29 13:27 | CDI ---
Documentation Clarification Form Date: 03/29/2022 01:15:09 PM From: Dagmar Barboza CCS, CCDS Admit Date: 03/25/2022 10:42:00 AM Patient Name: Antonio Muhammad Visit Number: [id number] Discharge Date: ATTENTION: The Clinical Documentation Specialists (CDI) and [facility] Coding Staff appreciate your assistance in clarifying documentation. Please respond to the clarification below the line at the bottom and electronically sign. The CDI & [facility] Coding staff will review the response and follow-up if needed. Please note: Queries are made part of the Legal Health Record. If you have any questions, please contact the author of this message via ITS. Dr. Miranda Cristobal: Unspecified Anemia is documented in the 03/27 Attending Physician Progress Note, in the 03/28 & 03/29 Pulmonary/Critical Care Progress Note and in the 03/29 Cardiology Progress Note. Additional specificity regarding the Type & Acuity of Anemia is requested. History/Risk Factors per the 03/25 H/P: DM II, diet controlled; Hypothyroidism, Esophageal Stricture, CKD. Clinical indicators: Presented to the ED on 03/25 via EMS with lightheadedness, nausea and vomiting, HR in the 30s. STEMI alert activated. Admit with STEMI. Patient taken to the labor/excavator emergently: LHC and Stent placement to RCA. Hemoglobin 03/25: 11.8. 03/26: 11.1. 03/27: 9.0, 8.5, 8.1. 03/28: 8.1. 03/29: 7.7. Hematocrit 03/25: 37.7. 03/26: 33.8. 03/27: 27.5, 26.3, 24.4; 03/28: 25.5. 03/29: 24.5. 03/28 LAB: Iron 14, TIBC 220, % Saturation 6.28, Transferrin 157.0 Treatment 03/25: Ht Cath & PTCA w/Stent, to ICU, Ann catheter, Fall precautions, Smoking Cessation. IV Dopamine/Dextrose, IV Epinephrine, IV heparin, IV Na Bicarb, IV Mag Sulfate, IV Norepinephrine, IV Kcl 100 mls @ 50 mls/hr q2H, po Brilinta 180 mg, IV Atropine 0.5 mg x1, Nitro sl. 9/18: IV Na Chl 250 mls @ 999 mls/hr q16M, 500 mls @ 999 mls/hr q31M 03/29: IV Ferric na gluconate 125 mg 110 mls @ 100 mls/hr Daily. Please clarify the Type & Acuity of Anemia if known: [ ] Acute blood loss anemia [ ] Acute on chronic blood loss anemia [ ] Chronic blood loss anemia [ X ] Iron deficiency anemia [ ] Hemolytic anemia [ ] Drug induced anemia [ ] Nutritional Anemia [ ] Anemia of Chronic Kidney Disease [ ] Anemia of Chronic Disease [ ] Unable to determine [ ] Other, please specify (Template Last Revised: August 2020) MTDD
--- NOTE | 2022-03-29 15:15 | P.PN ---
Subjective Progress Note Date: 03/29/22 (delayed charting seen at 1100) Patient is an 82-year-old female with a history of diabetes mellitus type 2 diet controlled, hypothyroidism, and esophageal stricture who [facility] due to lightheaded and dizziness. EMS noted that she is having an ST segment elevated myocardial infarction and she was immediately taken to the [facility]. On arrival her heart rate was low. In [facility] she went into asystole, she received a transvenous pacemaker, had a aspiration thrombectomy and stenting of the RCA. She also had an episode of ventricular tachycardia and was started on amiodarone drip. Her blood pressure was low necessitating levo and dopamine. She was transferred to the ICU. She did well but continued to require vasopressor and critical care was consulted. Her echo came back with EF 40-45% with inferior wall hypokanesis. Her HgB continued to fall. She underwent CT abd and pelvis which showed fecal impaction but no retroperitoneal bleed. She continue to have decreasing hemoglobin. Her iron studies came back abnormal. Patient seen and examined at bedside. Family given update. Had BM this morning, still has pain with deep inspiration. No nausea or vomiting, no bleeding. General: nontoxic, no distress, appears at stated age Derm: multiple area of ecchymosis worse left breast Head: atraumatic, normocephalic, symmetric Mouth: no lip lesion Cardiovascular: S1S2 reg, no murmur, positive posterior tibial pulse bilateral, Lungs: Decreased bs bilateral, no rhonchi, no rales , no accessory muscle use Abdominal: soft, nontender to palpation, no guarding, no appreciable organomegaly Ext: no gross muscle atrophy, trace edema, no contractures Assessment/Plan: Acute inferior ST segment elevated myocardial infarction Cardiac arrest Hypotension likely related to cardiogenic shock Nonsustained V. tach Ischemic Cardiomyopathy with EF 40-45% - off dopamine and levo -Aspirin, Brillenta, Lipitor, amio -started on midodrine by nephrology and metoprolol by cardio -Transvenous pacemaker removed on 03/26/22, sheath is still in place, remove today, have consulted for a midline. - echo with EF 40-45% - tele - Lipid profile normal - cardio recs Anemia, Iron deficiency with acute blood loss - US LE ordered and demonstrates pseudoaneurysm va fluid collection - IV iron X 1 - no signs of GI bleed - follow CBC Leukoctyosis, reactive - follow CBC HARRIS with possible CKD Non anion gap metabolic acidosis - IVF transitioned to D5 with sodium bicarb - Avoid nephrotoxic agents - suspect component of ATN due to hypotension Hyponatremia, worsening - monitor closely on IVF - suspect hypervolemic - repeat in AM Diabetes mellitus type 2 -Patient is diet controlled at home - A1C 6.3 -Sliding-scale insulin Hypothyroidism -Synthroid Acute encephalopathy, medication related, resolved Active Medications Generic Name Dose Route Start Last Admin Trade Name Freq PRN Reason Stop Dose Admin Acetaminophen 650 mg 03/25/22 13:25 03/27/22 14:05 Acetaminophen Tab 325 Mg Tab PO 650 mg Q6HR PRN Administration Mild Pain or Fever > 100.5 Hydrocodone Bitart/Acetaminophen 1 each 03/25/22 13:25 Hydrocodone/Apap 5-325mg 1 Each Tab PO Q4HR PRN Moderate Pain (Scale 4 to 6) Al Hydroxide/Mg Hydroxide 30 ml 03/25/22 10:56 Mag Hydrox/Al Hydrox/Simeth 30 Ml Cup PO Q4HR PRN Heartburn Amiodarone HCl 200 mg 03/29/22 09:00 03/29/22 09:28 Amiodarone 200 Mg Tab PO 200 mg BID FLORINDA Administration Aspirin 81 mg 03/26/22 09:00 03/29/22 09:28 Aspirin 81 Mg PO 81 mg DAILY FLORINDA Administration Atorvastatin Calcium 80 mg 03/25/22 21:00 03/28/22 20:44 Atorvastatin 80 Mg Tab PO 80 mg HS FLORINDA Administration Atropine Sulfate 0.5 mg 03/25/22 10:56 Atropine Sulfate 0.1 Mg/Ml 10ml Syringe IV ONCE PRN Symptomatic Bradycardia Bisacodyl 5 mg 03/25/22 13:25 Bisacodyl 5 Mg Tablet.Dr PO DAILY PRN Constipation Dextrose/Water 25 ml 03/25/22 13:32 Dextrose 50% Syringe 50 Ml IVP PER PROTOCOL PRN Hypoglycemia Protocol Dextrose/Water 50 ml 03/25/22 13:32 Dextrose 50% Syringe 50 Ml IVP PER PROTOCOL PRN Hypoglycemia Protocol Norepinephrine Bitartrate 4 mg 254 mls @ 19.526 mls/hr 03/25/22 13:30 07:59 / Sodium Chloride IV Not Given .Q13H1M FLORINDA Protocol 0.05 MCG/KG/MIN Dopamine HCl/Dextrose 800 mg/ 250 mls @ 9.609 mls/hr 03/25/22 13:30 03/29/22 13:13 IV Solution IV Not Given .Q24H FLORINDA Protocol 5 MCG/KG/MIN Sodium Bicarbonate 150 ml/ 1,150 mls @ 75 mls/hr 03/28/22 10:00 03/29/22 00:50 Dextrose/Water IV 75 mls/hr .[id number] FLORINDA Administration Ferric Sodium Gluconate 125 mg 110 mls @ 100 mls/hr 03/29/22 09:00 03/29/22 08:24 / Sodium Chloride IVPB 03/31/22 10:05 100 mls/hr DAILY FLORINDA Administration Insulin Aspart 0 unit 03/25/22 17:30 03/29/22 11:58 Insulin Aspart (Novolog) 100 Unit/Ml Vial SQ 1 unit ACHS FLORINDA Administration Protocol Levothyroxine Sodium 75 mcg 03/26/22 06:30 03/29/22 06:41 Levothyroxine 75 Mcg Tab PO 75 mcg DAILY@0630 FLORINDA Administration Melatonin 3 mg 03/25/22 13:25 Melatonin 3 Mg Tablet PO HS PRN Insomnia Metoprolol Tartrate 12.5 mg 03/29/22 09:00 03/29/22 09:28 Metoprolol Tartrate 12.5 Mg Tab PO 12.5 mg BID FLORINDA Administration Midodrine 5 mg 03/28/22 07:30 03/29/22 11:58 Midodrine 5 Mg Tab PO 5 mg AC-TID FLORINDA Administration Naloxone HCl 0.2 mg 03/25/22 13:24 Naloxone 0.4 Mg/Ml 1 Ml Vial IV Q2M PRN Opioid Reversal Nitroglycerin 0.4 mg 03/25/22 10:56 Nitroglycerin Sl Tabs 0.4 Mg Tab SUBLINGUAL Q5M PRN Chest Pain Ondansetron HCl 4 mg 03/25/22 13:05 03/26/22 11:47 Ondansetron Odt 4 Mg Tab PO 4 mg Q8HR PRN Administration Nausea Pantoprazole Sodium 40 mg 03/26/22 07:30 03/29/22 06:41 Pantoprazole 40 Mg Tablet PO 40 mg [id number] FLORINDA Administration Ticagrelor 90 mg 03/25/22 21:00 09/20/22 09:27 Ticagrelor 90 Mg Tab PO 90 mg BID FLORINDA Administration Protocol Objective - Vital Signs Vital signs: Vital Signs Temp 96.5 F L 03/29/22 08:00 Pulse 73 03/29/22 14:00 Resp 23 03/29/22 14:00 BP 96/51 03/29/22 14:00 Pulse Ox 94 L 03/29/22 14:00 FiO2 Intake & Output 03/28/22 03/29/22 03/29/22 18:59 06:59 18:59 Intake Total 1266 1035 665 Output Total 320 560 160 Balance 946 475 505 Weight 108 kg Intake: IV 156 900 665 0.9 6 140 Dextrose 5% in Water 1, 900 525 000 ml @ 75 mls/hr IV . [id number] FLORINDA with Sodium Bicarb (1 Meq/ml) 150 ml Rx#:[id number] pressure bag 150 Intake, IV Titration 750 75 Amount Dextrose 5% in Water 1, 750 75 000 ml @ 75 mls/hr IV . [id number] FLORINDA with Sodium Bicarb (1 Meq/ml) 150 ml Rx#:[id number] Oral 360 60 Output: Urine 320 560 160 Other: Voiding Method Indwelling Catheter Indwelling Catheter Indwelling Catheter ABP, PAP, CO, CI - Last Documented Arterial Blood Pressure 108/41 - Labs CBC & Chem 7: 03/29/22 03:48 03/29/22 03:48 Labs: Abnormal Lab Results - Last 24 Hours (Table) 03/28/22 03/28/22 03/29/22 Range/Units 16:27 20:20 03:48 WBC (3.8-10.6) k/uL RBC (3.80-5.40) m/uL Hgb (11.4-16.0) gm/dL Hct (34.0-46.0) % Sodium 130 L (137-145) mmol/L Carbon Dioxide 21 L (22-30) mmol/L BUN 42 H (7-17) mg/dL Creatinine 1.41 H (0.52-1.04) mg/dL Glucose 132 H (74-99) mg/dL POC Glucose (mg/dL) 186 H 173 H (70-110) mg/dL Calcium 7.5 L (8.4-10.2) mg/dL 03/29/22 03/29/22 03/29/22 Range/Units 03:48 06:26 11:55 WBC 13.1 H (3.8-10.6) k/uL RBC 2.51 L (3.80-5.40) m/uL Hgb 7.7 L (11.4-16.0) gm/dL Hct 24.5 L (34.0-46.0) % Sodium (137-145) mmol/L Carbon Dioxide (22-30) mmol/L BUN (7-17) mg/dL Creatinine (0.52-1.04) mg/dL Glucose (74-99) mg/dL POC Glucose (mg/dL) 155 H 179 H (70-110) mg/dL Calcium (8.4-10.2) mg/dL
[2022-03-29 16:24] LABS: Glucose,Whole Blood 125 mg/dL (70-110)
--- NOTE | 2022-03-29 18:15 | P.CONS ---
History of Present Illness - Reason for Consult Consult date: 03/29/22 iron def anemia Requesting physician: Miranda Cristobal (stemi) - Chief Complaint STEMI - History of Present Illness Ms. Muhammad is a very pleasant 82-year-old patient we have been asked to see in regards to iron deficient anemia. Patient is status post cardiac catheteriza tion with thrombectomy and RCA stent. Required CPR 4 days ago for an episode of cardiopulmonary arrest. Her hemoglobin was low normal on admit, since admission Hgb has progressively decreased, she has not required a transfusion yet. Patient denies any history of blood transfusions, diagnosis of iron deficiency, no family history of any anemia or deficiency disorders. she is pretty massive bruising across her chest, and in areas of known trauma on the extremities. No hematomas. She denies any epistaxis, gum bleeding, hematemesis, hemoptysis, hematuria, hematochezia or melena. She has had a colonoscopy within the last 3 or 4 years, she follows with Dr. Rodriges for chronic esophageal stricture/neuro esophagus. She will occasionally have dilation. Denies any vegan type diet. She does have chronic kidney disease Review of Systems 10 point ROS is neg Past Medical History Past Medical History: Cancer, Diabetes Mellitus, Renal Disease, Thyroid Disorder Additional Past Medical History / Comment(s): Basal Cell skin cancer, hx. kidney stone, Diabetes- no longer on meds- watches diet, uses cane, states episodes where it feels her throat is tight (hx of EGD with dilation), chronic kidney disease. History of Any Multi-Drug Resistant Organisms: None Reported Past Surgical History: Adenoidectomy, Back Surgery, Tonsillectomy Additional Past Surgical History / Comment(s): bunionectomy, kidney stone, cataracts, EGD with dilation Past Anesthesia/Blood Transfusion Reactions: No Reported Reaction Past Psychological History: No Psychological Hx Reported Smoking Status: Never smoker Past Alcohol Use History: None Reported Past Drug Use History: None Reported - Past Family History Brother(s) Family Medical History: Cancer Additional Family Medical History / Comment(s): basal cell skin cancer family Additional Family Medical History / Comment(s): no family hx of heart disease Medications and Allergies Home Medications Medication Instructions Recorded Confirmed Type Levothyroxine Sodium [Synthroid] 75 mcg PO DAILY 05/07/19 03/25/22 History Omeprazole 20 mg PO DAILY 03/25/22 03/25/22 History Allergies Allergy/AdvReac Type Severity Reaction Status Date / Time codeine Allergy Rash/Hives Verified 01/24/20 18:47 metronidazole [From Flagyl] Allergy Rash/Hives Verified 01/24/20 18:47 Metronidazole HCl Allergy Rash/Hives Verified 01/24/20 18:47 [From Flagyl] morphine Allergy Rash/Hives Verified 01/24/20 18:47 hydrocodone [From [place]] AdvReac Unknown felt her Verified 01/24/20 18:47 mind was not right. famotidine [From Pepcid] AdvReac Nausea & Verified 01/24/20 18:51 Vomiting Opioids - Morphine Analogues AdvReac Confusion Verified 01/24/20 18:47 Opioids-Meperidine and AdvReac Confusion Verified 01/24/20 18:47 Related Opioids-Methadone and Related AdvReac Confusion Verified 01/24/20 18:47 Sulfa (Sulfonamide AdvReac Unknown- Verified 01/24/20 18:47 Antibiotics) almost passed out msg Allergy Anaphylaxis Uncoded 01/24/20 17:36 Physical Exam Vitals: Vital Signs Temp Pulse Resp BP Pulse Ox 03/29/22 16:00 97.2 F L 74 18 99/57 91 L 03/29/22 15:00 73 18 100/56 93 L 03/29/22 14:00 73 23 96/51 94 L 03/29/22 13:00 72 12 102/50 94 L 03/29/22 12:00 74 21 83/44 93 L 03/29/22 11:00 73 11 L 100/51 95 03/29/22 10:00 18 109/57 94 L 03/29/22 09:00 76 19 109/66 95 03/29/22 08:00 96.5 F L 76 16 113/51 95 03/29/22 07:00 76 16 111/56 95 03/29/22 06:00 90 28 H 117/62 95 03/29/22 05:00 79 25 H 99/59 92 L 03/29/22 04:00 99.1 F 82 22 105/56 91 L 03/29/22 03:00 80 26 H 97/53 93 L 03/29/22 02:00 81 22 99/51 94 L 03/29/22 01:00 80 21 95/34 92 L 03/29/22 00:00 97.5 F L 80 26 H 81/56 93 L 03/28/22 23:00 80 26 H 96/46 92 L 03/28/22 22:00 83 24 91/46 95 03/28/22 21:00 81 23 110/57 91 L 03/28/22 20:00 97.4 F L 81 18 112/69 92 L 03/28/22 19:00 75 22 110/60 03/28/22 18:00 75 22 106/57 Intake and Output 03/29/22 03/29/22 03/29/22 06:59 14:59 22:59 Intake Total 735 665 190 Output Total 345 160 60 Balance 390 505 130 Intake: IV 675 665 190 0.9 140 40 Dextrose 5% in Water 1, 675 525 150 000 ml @ 75 mls/hr IV . [id number] FLORINDA with Sodium Bicarb (1 Meq/ml) 150 ml Rx#:[id number] Oral 60 Output: Urine 345 160 60 Other: Voiding Method Indwelling Catheter Indwelling Catheter Indwelling Catheter Weight 108 kg - Constitutional General appearance: cooperative, no acute distress, obese - EENT Eyes: anicteric sclerae, EOMI ENT: hearing grossly normal, normal oropharynx - Neck Neck: no lymphadenopathy - Respiratory Respiratory: bilateral: CTA - Cardiovascular Rhythm: regular Heart sounds: normal: S1, S2 Abnormal Heart Sounds: no systolic murmur, no diastolic murmur, no rub, no S3 Gallop, no S4 Gallop, no click, no other leg Peripheral Edema: bilateral: None - Gastrointestinal General gastrointestinal: no absent bowel sounds, no decreased bowel sounds, no distended, no hepatomegaly, no hyperactive bowel sounds, normal bowel sounds, no organomegaly, no rigid, no scaphoid, soft, no splenomegaly, no tenderness, no umbilical hernia, no ventral hernia - Integumentary Integumentary: pale - Neurologic Neurologic: CNII-XII intact - Musculoskeletal Musculoskeletal: generalized weakness, strength equal bilaterally - Psychiatric Psychiatric: A&O x's 3, appropriate affect, intact judgment & insight Results CBC & Chem 7: 03/29/22 03:48 03/29/22 03:48 Labs: Abnormal Lab Results - Last 24 Hours (Table) 03/28/22 03/29/22 03/29/22 Range/Units 20:20 03:48 03:48 WBC 13.1 H (3.8-10.6) k/uL RBC 2.51 L (3.80-5.40) m/uL Hgb 7.7 L (11.4-16.0) gm/dL Hct 24.5 L (34.0-46.0) % Sodium 130 L (137-145) mmol/L Carbon Dioxide 21 L (22-30) mmol/L BUN 42 H (7-17) mg/dL Creatinine 1.41 H (0.52-1.04) mg/dL Glucose 132 H (74-99) mg/dL POC Glucose (mg/dL) 173 H (70-110) mg/dL Calcium 7.5 L (8.4-10.2) mg/dL Vitamin B12 (200.0-944.0) pg/mL 03/29/22 03/29/22 03/29/22 Range/Units 03:48 06:26 11:55 WBC (3.8-10.6) k/uL RBC (3.80-5.40) m/uL Hgb (11.4-16.0) gm/dL Hct (34.0-46.0) % Sodium (137-145) mmol/L Carbon Dioxide (22-30) mmol/L BUN (7-17) mg/dL Creatinine (0.52-1.04) mg/dL Glucose (74-99) mg/dL POC Glucose (mg/dL) 155 H 179 H (70-110) mg/dL Calcium (8.4-10.2) mg/dL Vitamin B12 1144.0 H (200.0-944.0) pg/mL 03/29/22 Range/Units 16:22 WBC (3.8-10.6) k/uL RBC (3.80-5.40) m/uL Hgb (11.4-16.0) gm/dL Hct (34.0-46.0) % Sodium (137-145) mmol/L Carbon Dioxide (22-30) mmol/L BUN (7-17) mg/dL Creatinine (0.52-1.04) mg/dL Glucose (74-99) mg/dL POC Glucose (mg/dL) 125 H (70-110) mg/dL Calcium (8.4-10.2) mg/dL Vitamin B12 (200.0-944.0) pg/mL Assessment and Plan (1) Iron deficiency anemia Current Visit: Yes Status: Acute Priority: High Code(s): D50.9 - IRON DEFICIENCY ANEMIA, UNSPECIFIED SNOMED Code(s): 57156340 Plan: Laboratory values are consistent with iron deficiency. IV iron has been ordered. Agree with the same. Anemia is new since admit, progressive. Pt has had thrombectomy, cardiac procedures as well as CPR with bruising all across the chest. No other bleeding reported. No transfusion today. Monitor CBC daily Pt reports colonoscopy in maybe the last 3-4 years. She has has frequent EGDs with Dr. Rodriges for chronic esophageal stricture/narrowing and occasional dilation. No need for urgent endoscopy at this time. Few additional nutritional labs ordered for anemia. Epo level ordered. attests: I have seen and examined patient, performed history and physical exam, developed impression and plan of care. Discussed with dictator. Agree with documentation, dictated as a scribe
[2022-03-29 20:16] LABS: Glucose,Whole Blood 139 mg/dL (70-110)
[2022-03-29] MEDS: ATORVASTATIN 80 MG TAB PO SCH (20:46)
[2022-03-30 04:29] LABS: Calcium 7.3 mg/dL (8.4-10.2); HCT 26.4 % (34.0-46.0); HGB 8.7 gm/dL (11.4-16.0); MCH 31.6 pg (25.0-35.0); MCV 95.9 fL (80.0-100.0); Mean Platelet Volume 8.5; Platelet Count 212 k/uL (150-450); Potassium 3.8 mmol/L (3.5-5.1); RBC 2.75 m/uL (3.80-5.40); RDW 14.4 % (11.5-15.5); WBC 15.8 k/uL (3.8-10.6)
[2022-03-30] MEDS ORDERED: POTASSIUM CHLORIDE 20 MEQ in WATER FOR INJECTION 1 100ML.BAG IVPB STA ×2 (06:29→06:33)
[2022-03-30 06:34] LABS: Glucose,Whole Blood 136 mg/dL (70-110)
[2022-03-30] MEDS: INSULIN ASPART (NovoLOG) 100 UNIT/ML VIAL SQ SCH ×4 (06:40→20:39)
[2022-03-30] MEDS: LEVOTHYROXINE 75 MCG TAB PO SCH (06:47)
[2022-03-30] MEDS: PANTOPRAZOLE 40 MG TABLET PO SCH (06:47)
[2022-03-30] MEDS: MIDODRINE 5 MG TAB PO SCH ×3 (06:47→17:46)
--- NOTE | 2022-03-30 07:35 | P.PN ---
Subjective Progress Note Date: 03/30/22 PROGRESS NOTE The patient is an 82-year-old female presented with an acute myocardial infarction, underwent stenting of the RCA. Her presentation was complicated by complete heart block and cardiac arrest. She is awake, confused at times, following commands. Her blood pressure is on the low side. She continues to have a venous sheath in her right femoral vein because of lack of access of peripheral site. She scheduled to undergo a midline today. She has no further atrial fibrillation or ventricular tachycardia. She has no chest discomfort, dizziness or palpitations. March 29: She is more awake and alert this morning, she denies any chest discomfort. She continues to be in sinus mechanism. She had a triple lumen catheter inserted. She denies any nausea or vomiting. She has no evidence of malignant arrhythmia. Hemodynamically she is stable. Her echocardiogram showed an ejection fraction of 40-45% with inferior wall hypokinesis March 30: The patient is feeling well this morning, she has chest wall tenderness but no anginal pain. She is in sinus mechanism and hemodynamically stable. She has no malignant arrhythmia. Her urine output is good. She is on no vasopressors. She has no nausea or vomiting. Her duplex scan showed possible pseudoaneurysm on the right. The neck could not be visualized. Medications: Amiodarone 200 mg twice a day, aspirin once a day, midodrine 5 mg 3 times a day, Brilinta 90 mg twice a day, Lipitor 80 mg daily , Metoprolol 12.5 mg twice a day PHYSICAL EXAMINATION: Blood [id number] heart rate 73 LUNGS: Clear to auscultation HEART: Regular rate and rhythm, S1, S2. No S3. systolic ejection murmur ABDOMEN: Soft, nontender, no organomegaly EXTREMETIES +1 edema, more on the right side, no hematoma, Right groin nontender LAB: Hemoglobi 8.7, white blood cell 15.8, BUN 41, creatinine 1.25. Sodium 129. IMPRESSION: 1. Status post inferior wall myocardial infarction, complicated by complete heart block and cardiac arrest, improving, post stenting 2. Chronic kidney disease, Improved 3. Hypotension, resolved 4. Mild ischemic cardiomyopathy 5. Anemia 6. 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 Increase physical activity 2. Follow hemoglobin. 3. Obtain consultation from interventional radiology for possible injection of the pseudoaneurysm 4. Follow renal function and hemoglobin Objective - Vital Signs Vital signs: Vital Signs Temp 98.3 F 03/30/22 04:00 Pulse 73 03/30/22 06:00 Resp 26 H 03/30/22 06:00 BP 92/76 03/30/22 06:00 Pulse Ox 92 L 03/30/22 07:14 FiO2 Intake & Output 03/29/22 03/30/22 03/30/22 18:59 06:59 18:59 Intake Total 1045 1045 Output Total 260 430 Balance 785 615 Weight 107.5 kg Intake: IV 1045 1045 0.9 220 220 Dextrose 5% in Water 1, 825 825 000 ml @ 75 mls/hr IV . [id number] FLORINDA with Sodium Bicarb (1 Meq/ml) 150 ml Rx#:[id number] Output: Urine 260 430 Other: Voiding Method Indwelling Catheter Indwelling Catheter ABP, PAP, CO, CI - Last Documented Arterial Blood Pressure 108/41 - Labs CBC & Chem 7: 03/30/22 03:56 03/30/22 03:56 Labs: Abnormal Lab Results - Last 24 Hours (Table) 03/29/22 03/29/22 03/29/22 Range/Units 03:48 11:55 16:22 WBC (3.8-10.6) k/uL RBC (3.80-5.40) m/uL Hgb (11.4-16.0) gm/dL Hct (34.0-46.0) % Sodium (137-145) mmol/L BUN (7-17) mg/dL Creatinine (0.52-1.04) mg/dL Glucose (74-99) mg/dL POC Glucose (mg/dL) 179 H 125 H (70-110) mg/dL Calcium (8.4-10.2) mg/dL Vitamin B12 1144.0 H (200.0-944.0) pg/mL 03/29/22 03/30/22 03/30/22 Range/Units 20:14 03:56 03:56 WBC 15.8 H (3.8-10.6) k/uL RBC 2.75 L (3.80-5.40) m/uL Hgb 8.7 L (11.4-16.0) gm/dL Hct 26.4 L (34.0-46.0) % Sodium 129 L (137-145) mmol/L BUN 41 H (7-17) mg/dL Creatinine 1.25 H (0.52-1.04) mg/dL Glucose 120 H (74-99) mg/dL POC Glucose (mg/dL) 139 H (70-110) mg/dL Calcium 7.3 L (8.4-10.2) mg/dL Vitamin B12 (200.0-944.0) pg/mL 03/30/22 Range/Units 06:32 WBC (3.8-10.6) k/uL RBC (3.80-5.40) m/uL Hgb (11.4-16.0) gm/dL Hct (34.0-46.0) % Sodium (137-145) mmol/L BUN (7-17) mg/dL Creatinine (0.52-1.04) mg/dL Glucose (74-99) mg/dL POC Glucose (mg/dL) 136 H (70-110) mg/dL Calcium (8.4-10.2) mg/dL Vitamin B12 (200.0-944.0) pg/mL
[2022-03-30] MEDS ORDERED: ALBUTEROL HFA INHALER INHALATION PRN (07:47)
[2022-03-30] MEDS ORDERED: guaiFENesin-DM 100-10MG/5ML 10 ML CUP PO PRN (07:49)
[2022-03-30] MEDS: DEXTROSE 5% IN WATER 1,000 ML with SODIUM BICARB (1 MEQ/ML) 150 ML IV SCH (08:11)
[2022-03-30] MEDS: TICAGRELOR 90 MG TAB PO SCH ×2 (08:17→20:39)
[2022-03-30] MEDS: METOPROLOL TARTRATE 12.5 MG TAB PO SCH ×2 (08:17→20:39)
[2022-03-30] MEDS: AMIODARONE 200 MG TAB PO SCH ×2 (08:17→20:39)
[2022-03-30] MEDS: ASPIRIN 81 MG PO SCH (08:18)
--- NOTE | 2022-03-30 09:34 | P.PN ---
Subjective Progress Note Date: 03/30/22 On today's evaluation of 03/28/2022, the patient is being seen for a follow-up. The patient is post acute ST segment elevation inferior wall myocardial infarction the patient underwent stenting of the RCA 2. Note that during the course of her cardiac catheterization, the patient had ventricular tachycardia and subsequently asystole. She was resuscitated. The patient was given a transvenous pacemaker which was a temporary pacemaker that was ultimately taken off. Currently she is off pressors and the patient is hemodynamically stable maintaining her on blood pressure. Cardiac rhythm is sinus at this point in time. The patient was on a combination of norepinephrine and dopamine and both have been discontinued and the patient is currently on normal saline at the rate of 75 mL an hour. Her echocardiogram is showing an ejection fraction of around 40-45%. No significant valvular abnormalities. There was a drop in hemoglobin down to 8.1 and based on that the patient was given CAT scan of the abdomen and pelvis that showed no evidence of any retroperitoneal bleed. The patient has chronic stage III kidney disease in the patient's creatinine is stable at 1.44. She does have a component of non- anion gap Metabolic acidosis. Overnight, the patient was given Ambien and subsequently she became agitated and delirious and the patient was given Seroquel a dose of 50 mg and the patient is currently quite drowsy. She is arousable yet she is resting comfortably in bed and the family's the bedside. She remains on a combination of aspirin and Alimta. She is on high dose statins. She is on NovoLog sliding scale insulin coverage. She is on Synthroid. Family is at the bedside. On 03/29/2022, the patient is being seen for a follow-up. She is resting comfortably in bed. As mentioned earlier, the patient is status post acute ST segment elevation myocardial infarction the patient underwent a inferior wall NM requiring emergent cardiac catheterization and stenting of the RCA 2. The patient also had V. tach and asystole and she was resuscitated and this was a brief cardiac arrest and she was resuscitated adequately. During the course of her treatment she also had a transvenous pacemaker that was removed. I was able to take off the catheter sheath yesterday. I also give the patient a triple- lumen catheter in her left subclavian for IV access. She is currently on no pr essors. She is receiving bicarb infusion for an underlying bicarb deficit and it is running at the rate of 75 mL an hour and see him back today's up to 21. Her echocardiogram showed an ejection fraction of 40-45%. One concern is downgoing drop in hemoglobin which is down to 7.7. No signs of any bleeding. CAT scan of the abdomen and pelvis as mentioned showed no evidence of any retroperitoneal bleeding. The patient remains on a combination of aspirin and Alimta. Creatinine is stable at 1.4. In terms of her mentation, yesterday afternoon she started turning around and she was more interactive and oriented and this morning she is feeling pretty good she is able to follow commands. No agitation. No major confusion at this point in time and she is moving all 4 extremities without any limitation. In terms of her blood work, the patient has a low white cell count of 15.1 with hemoglobin of 7.7 and a platelet count of 184. Sodium is at 1:30 with a potassium level of 3.99. Her blood sugar from this morning is at 155. The patient is still on amiodarone 200 mg by mouth twice a day. She was started on metoprolol 12.5 mg by mouth twice a day and will monitor blood pressure very closely with that. The antiplatelet agents are still on board. She is on high dose statins. She is on room air oxygen with a pulse ox of 95%. On 03/30/2022, the patient is awake and alert and she is communicating. She is sore from all the CPR that she received. Otherwise, she is hemodynamically stable. Normotensive. She is on no pressors. No major respiratory distress. She is on 2 L O2 nasal cannula and pulse ox is around 94%. The patient is currently on a bicarb infusion and his serum bicarbonate is improved and the bicarb deficit has been corrected and this was a component of non-anion gap metabolic acidosis. The same time, the patient creatinine has been improving. Creatinine is down to 1.2 and a serum bicarbonate has also normalized. Rest of the electrodes showed mild component of hyponatremia with a sodium level of 129 and a potassium level of 3.8. Urine is a 41 with a creatinine of 1.25 in the creatinine is essentially improving. The patient's serum iron was low at 14 and she will be receiving iron infusion. Hemoglobin is at 3.7 with a white cell count of 15.8. She is on aspirin and Alimta. She is on beta blockers which is able to tolerate without any major difficulties and the cardiac rhythm is sinus. She is having a questionable pseudoaneurysm right groin and this will be further worked up by cardiology. Otherwise, no other significant events overnig ht. The patient remains in intensive care units for now. She is supposedly wall myocardial infarction and this was a ST segment elevation NM and the patient received 2 stents in her RCA, remains on a combination of aspirin and Brilinta. Objective - Vital Signs Vital signs: Vital Signs Temp 97.5 F L 03/30/22 08:00 Pulse 79 03/30/22 08:00 Resp 24 03/30/22 08:00 BP 111/56 03/30/22 08:00 Pulse Ox 92 L 03/30/22 08:00 FiO2 Intake & Output 03/29/22 03/30/22 03/30/22 18:59 06:59 18:59 Intake Total 1045 1045 285 Output Total 260 430 115 Balance 785 615 170 Weight 107.5 kg Intake: IV 1045 1045 285 0.9 220 220 60 Dextrose 5% in Water 1, 825 825 225 000 ml @ 75 mls/hr IV . [id number] FLORINDA with Sodium Bicarb (1 Meq/ml) 150 ml Rx#:[id number] Output: Urine 260 430 115 Other: Voiding Method Indwelling Catheter Indwelling Catheter Indwelling Catheter ABP, PAP, CO, CI - Last Documented Arterial Blood Pressure 108/41 - Exam No acute distress, oriented 3. No respiratory distress, currently on room air oxygen HEENT examination is grossly unremarkable. Neck supple. Full range of motion. No adenopathy thyromegaly or neck vein distention. Cardiovascular examination reveals regular rhythm rate. S1-S2 normal. No S3 or S4. No discernible murmur noted. Heart sounds are distant. Heart rate 80 bpm. Lungs reveal mostly clear breath sounds. Minimal scattered rhonchi. No wheezes. No crackles. Breath sounds equal bilaterally. Abdomen soft bowel sounds are heard. No masses or tenderness. Extremities are intact. No cyanosis clubbing or edema. Skin is without rash or lesion. Neurologic examination is brief but nonfocal. More oriented and alert and she is communicating. No focal neurological deficit. She had some episodes of delirium yesterday and she seems to be much more appropriate today. - Labs CBC & Chem 7: 03/30/22 03:56 03/30/22 03:56 Labs: Abnormal Lab Results - Last 24 Hours (Table) 03/29/22 03/29/22 03/29/22 Range/Units 03:48 11:55 16:22 WBC (3.8-10.6) k/uL RBC (3.80-5.40) m/uL Hgb (11.4-16.0) gm/dL Hct (34.0-46.0) % Sodium (137-145) mmol/L BUN (7-17) mg/dL Creatinine (0.52-1.04) mg/dL Glucose (74-99) mg/dL POC Glucose (mg/dL) 179 H 125 H (70-110) mg/dL Calcium (8.4-10.2) mg/dL Vitamin B12 1144.0 H (200.0-944.0) pg/mL 03/29/22 03/30/22 03/30/22 Range/Units 20:14 03:56 03:56 WBC 15.8 H (3.8-10.6) k/uL RBC 2.75 L (3.80-5.40) m/uL Hgb 8.7 L (11.4-16.0) gm/dL Hct 26.4 L (34.0-46.0) % Sodium 129 L (137-145) mmol/L BUN 41 H (7-17) mg/dL Creatinine 1.25 H (0.52-1.04) mg/dL Glucose 120 H (74-99) mg/dL POC Glucose (mg/dL) 139 H (70-110) mg/dL Calcium 7.3 L (8.4-10.2) mg/dL Vitamin B12 (200.0-944.0) pg/mL 03/30/22 Range/Units 06:32 WBC (3.8-10.6) k/uL RBC (3.80-5.40) m/uL Hgb (11.4-16.0) gm/dL Hct (34.0-46.0) % Sodium (137-145) mmol/L BUN (7-17) mg/dL Creatinine (0.52-1.04) mg/dL Glucose (74-99) mg/dL POC Glucose (mg/dL) 136 H (70-110) mg/dL Calcium (8.4-10.2) mg/dL Vitamin B12 (200.0-944.0) pg/mL Assessment and Plan Plan: Acute inferior ST segment elevated myocardial infarction, post emergent artery catheterization and stent insertion 2 in the RCA. A she is currently on a combination of aspirin and brillinta Cardiac arrest , V. tach/asystole occurred during cardiac catheterization and the patient had cardiac pulmonary arrest, resuscitated in the [employer] and currently the patient is in a normal sinus rhythm with occasional PVCs. During the course of this resuscitation, the patient was also given the for the third degree AV AV block and the TVP was removed yesterday. Hypotension likely related to cardiogenic shock, recovered and the patient was on pressors in the form of norepinephrine and dopamine and the patient is currently off pressors. She is maintaining her on blood pressure for now Nonsustained V. tach, likely ischemic in nature post acute inferior wall ST segment elevation myocardial infarction Cardiomyopathy with EF 40-45%, patient is currently off pressors Anemia, dropped the Hb the patient underwent a CT abd and pelvis to rule out retorperitoneal bleed and the patient has an iron deficiency anemia and she'll be started on IV iron supplements. Leukoctyosis, reactive HARRIS with possible CKD , Cr is improving is down to 1.25 Hyponatremia, stable , Diabetes mellitus type 2, Patient is diet controlled at home, - HA1C 6.3 , -Sliding-scale insulin Hypothyroidism, on Synthroid Delirium, was given Seroquel at a dose of 50 mg overnight and the patient is currently drowsy and sleeping. Noted the patient was also given Ambien overnight Non-anion gap metabolic acidosis , improved Plan Discontinue the bicarb infusion IV fluids to KVO IV iron regarding her underlying iron deficiency and the patient is going to receive 3 doses of Fe metoprolol is much gluconate 125 mg each access was established The patient remains on a combination of aspirin and Brilinta The patient remains on amiodarone and the cardiac rhythm is sinus, no ventricular arrhythmias metoprolol 12.5 mg by mouth twice a day Hemoglobin is at 8.7 and needs to be further monitored and there is no signs of any bleeding Mental status improved Increased mobility as tolerated and the patient may need to stay in for today for further monitoring. TARA dwyer with regards
--- NOTE | 2022-03-30 10:21 | P.GSCN ---
History of Present Illness Consult date: 03/30/22 Reason for Consult: assess for pseudoaneurysm treatment History of present illness: Evaluation of the images of the right groin post cardiac catheterization is equivocal. CTA may be of benefit. Past Medical History Past Medical History: Cancer, Diabetes Mellitus, Renal Disease, Thyroid Disorder Additional Past Medical History / Comment(s): Basal Cell skin cancer, hx. kidney stone, Diabetes- no longer on meds- watches diet, uses cane, states episodes where it feels her throat is tight (hx of EGD with dilation), chronic kidney disease. History of Any Multi-Drug Resistant Organisms: None Reported Past Surgical History: Adenoidectomy, Back Surgery, Tonsillectomy Additional Past Surgical History / Comment(s): bunionectomy, kidney stone, cataracts, EGD with dilation Past Anesthesia/Blood Transfusion Reactions: No Reported Reaction Past Psychological History: No Psychological Hx Reported Smoking Status: Never smoker Past Alcohol Use History: None Reported Past Drug Use History: None Reported - Past Family History Brother(s) Family Medical History: Cancer Additional Family Medical History / Comment(s): basal cell skin cancer family Additional Family Medical History / Comment(s): no family hx of heart disease Medications and Allergies Home Medications Medication Instructions Recorded Confirmed Type Levothyroxine Sodium [Synthroid] 75 mcg PO DAILY 05/07/19 03/25/22 History Omeprazole 20 mg PO DAILY 03/25/22 03/25/22 History Allergies Allergy/AdvReac Type Severity Reaction Status Date / Time codeine Allergy Rash/Hives Verified 01/24/20 18:47 metronidazole [From Flagyl] Allergy Rash/Hives Verified 01/24/20 18:47 Metronidazole HCl Allergy Rash/Hives Verified 01/24/20 18:47 [From Flagyl] morphine Allergy Rash/Hives Verified 01/24/20 18:47 hydrocodone [From Crowley] AdvReac Unknown felt her Verified 01/24/20 18:47 mind was not right. famotidine [From Pepcid] AdvReac Nausea & Verified 01/24/20 18:51 Vomiting Opioids - Morphine Analogues AdvReac Confusion Verified 01/24/20 18:47 Opioids-Meperidine and AdvReac Confusion Verified 01/24/20 18:47 Related Opioids-Methadone and Related AdvReac Confusion Verified 01/24/20 18:47 Sulfa (Sulfonamide AdvReac Unknown- Verified 01/24/20 18:47 Antibiotics) almost passed out msg Allergy Anaphylaxis Uncoded 01/24/20 17:36 Surgical - Exam Vital Signs Pulse Resp 106 H 16 03/25/22 11:32 03/25/22 11:32 Results - Labs 03/30/22 03:56 03/30/22 03:56 Abnormal Lab Results - Last 24 Hours (Table) 03/29/22 03/29/22 03/29/22 Range/Units 03:48 11:55 16:22 WBC (3.8-10.6) k/uL RBC (3.80-5.40) m/uL Hgb (11.4-16.0) gm/dL Hct (34.0-46.0) % Sodium (137-145) mmol/L BUN (7-17) mg/dL Creatinine (0.52-1.04) mg/dL Glucose (74-99) mg/dL POC Glucose (mg/dL) 179 H 125 H (70-110) mg/dL Calcium (8.4-10.2) mg/dL Vitamin B12 1144.0 H (200.0-944.0) pg/mL 03/29/22 03/30/22 03/30/22 Range/Units 20:14 03:56 03:56 WBC 15.8 H (3.8-10.6) k/uL RBC 2.75 L (3.80-5.40) m/uL Hgb 8.7 L (11.4-16.0) gm/dL Hct 26.4 L (34.0-46.0) % Sodium 129 L (137-145) mmol/L BUN 41 H (7-17) mg/dL Creatinine 1.25 H (0.52-1.04) mg/dL Glucose 120 H (74-99) mg/dL POC Glucose (mg/dL) 139 H (70-110) mg/dL Calcium 7.3 L (8.4-10.2) mg/dL Vitamin B12 (200.0-944.0) pg/mL 03/30/22 Range/Units 06:32 WBC (3.8-10.6) k/uL RBC (3.80-5.40) m/uL Hgb (11.4-16.0) gm/dL Hct (34.0-46.0) % Sodium (137-145) mmol/L BUN (7-17) mg/dL Creatinine (0.52-1.04) mg/dL Glucose (74-99) mg/dL POC Glucose (mg/dL) 136 H (70-110) mg/dL Calcium (8.4-10.2) mg/dL Vitamin B12 (200.0-944.0) pg/mL Diabetes panel 03/30/22 Range/Units 03:56 Sodium 129 L (137-145) mmol/L Potassium 3.8 (3.5-5.1) mmol/L Chloride 99 (98-107) mmol/L Carbon Dioxide 22 (22-30) mmol/L BUN 41 H (7-17) mg/dL Creatinine 1.25 H (0.52-1.04) mg/dL Glucose 120 H (74-99) mg/dL Calcium 7.3 L (8.4-10.2) mg/dL Calcium panel 03/30/22 Range/Units 03:56 Calcium 7.3 L (8.4-10.2) mg/dL Pituitary panel 03/30/22 Range/Units 03:56 Sodium 129 L (137-145) mmol/L Potassium 3.8 (3.5-5.1) mmol/L Chloride 99 (98-107) mmol/L Carbon Dioxide 22 (22-30) mmol/L BUN 41 H (7-17) mg/dL Creatinine 1.25 H (0.52-1.04) mg/dL Glucose 120 H (74-99) mg/dL Calcium 7.3 L (8.4-10.2) mg/dL Adrenal panel 03/30/22 Range/Units 03:56 Sodium 129 L (137-145) mmol/L Potassium 3.8 (3.5-5.1) mmol/L Chloride 99 (98-107) mmol/L Carbon Dioxide 22 (22-30) mmol/L BUN 41 H (7-17) mg/dL Creatinine 1.25 H (0.52-1.04) mg/dL Glucose 120 H (74-99) mg/dL Calcium 7.3 L (8.4-10.2) mg/dL
[2022-03-30] MEDS: SODIUM FERRIC GLUCONAT-SUCROSE 125 MG in SODIUM CHLORIDE 0.9% 100 ML IVPB SCH (10:32)
[2022-03-30 11:23] LABS: Glucose,Whole Blood 139 mg/dL (70-110)
[2022-03-30] MEDS ORDERED: FUROSEMIDE 10 MG/ML 2 ML VIAL IV ONE (11:36)
[2022-03-30] MEDS: NOREPINEPHRINE 4 MG in SODIUM CHLORIDE 0.9% 250 ML IV SCH (13:47)
--- NOTE | 2022-03-30 16:34 | P.PN ---
Subjective Patient is seen for follow-up for acute kidney injury and top of chronic kidney disease. Patient is status post cardiac catheterization and stenting of RCA for acute ST elevation [place]. She had third degree heart block and is status post transvenous pacer which was eventually removed. Renal function has improved Serum creatinine had increased to 1.6 and is now down to 1.2 Mentation is normal. Trying to increase oral intake. IV bicarbonate discontinued today. Objective - Vital Signs Vital signs: Vital Signs Temp 97.7 F 03/30/22 12:00 Pulse 73 03/30/22 13:00 Resp 21 03/30/22 13:00 BP 102/57 03/30/22 13:00 Pulse Ox 97 03/30/22 13:00 FiO2 Intake & Output 03/29/22 03/30/22 03/30/22 18:59 06:59 18:59 Intake Total 1045 1045 345 Output Total 260 430 350 Balance 785 615 -5 Weight 107.5 kg Intake: IV 1045 1045 345 0.9 220 220 120 Dextrose 5% in Water 1, 825 825 225 000 ml @ 75 mls/hr IV . [id number] FLORINDA with Sodium Bicarb (1 Meq/ml) 150 ml Rx#:[id number] Output: Urine 260 430 350 Other: Voiding Method Indwelling Catheter Indwelling Catheter Indwelling Catheter ABP, PAP, CO, CI - Last Documented Arterial Blood Pressure 108/41 - Exam Awake, comfortable, not in any acute distress On 6 questions appropriately Examination of the heart S1 and S2 Examination of the lungs bilateral breath sounds are heard Abdomen is soft nontender Examination of the lower extremities shows 1+ edema bilaterally DETACHER exam grossly intact - Labs CBC & Chem 7: 03/30/22 03:56 03/30/22 03:56 Labs: Abnormal Lab Results - Last 24 Hours (Table) 03/29/22 03/29/22 03/30/22 Range/Units 03:48 20:14 03:56 WBC (3.8-10.6) k/uL RBC (3.80-5.40) m/uL Hgb (11.4-16.0) gm/dL Hct (34.0-46.0) % Sodium 129 L (137-145) mmol/L BUN 41 H (7-17) mg/dL Creatinine 1.25 H (0.52-1.04) mg/dL Glucose 120 H (74-99) mg/dL POC Glucose (mg/dL) 139 H (70-110) mg/dL Calcium 7.3 L (8.4-10.2) mg/dL Erythropoietin 53.39 H (2.00-30.00) mIU/mL 03/30/22 03/30/22 03/30/22 Range/Units 03:56 06:32 11:22 WBC 15.8 H (3.8-10.6) k/uL RBC 2.75 L (3.80-5.40) m/uL Hgb 8.7 L (11.4-16.0) gm/dL Hct 26.4 L (34.0-46.0) % Sodium (137-145) mmol/L BUN (7-17) mg/dL Creatinine (0.52-1.04) mg/dL Glucose (74-99) mg/dL POC Glucose (mg/dL) 136 H 139 H (70-110) mg/dL Calcium (8.4-10.2) mg/dL Erythropoietin (2.00-30.00) mIU/mL Assessment and Plan Assessment: 1. Acute kidney injury secondary to hypotension/cardiac arrest currently with improved urine output. UA is benign. CT of the abdomen does not show any obstruction. 2. CKD NKF stage IIIB b with baseline creatinine close to 1.4 mg/dL. Etiology is nephrosclerosis 3. Status post acute ST elevation [place] status post cardiac catheterization and stenting of RCA 4. Status post cardiac arrest 5. Confusion and mental status changes, improved. 6. Non-gap metabolic acidosis associated with acute kidney injury, s/p bicarb drip 7. Hypervolemic hyponatremia Plan: agree with discontinuation of bicarb drip Encourage increase oral intake Avoid nephrotoxic agents IV lasix x1 Repeat labs in a.m.
[2022-03-30 16:38] LABS: Glucose,Whole Blood 167 mg/dL (70-110)
--- NOTE | 2022-03-30 18:28 | P.PN ---
Subjective Patient seen and examined at bedside. Patient denies shortness of breath. Patient has some chest tenderness status post CPR. Patient has extensive bruising throughout her chest. Patient however feels better than she would have mentioned given the circumstances. She denies nausea vomiting fevers and chills. is awaiting transfer to cardiac telemetry floor. Objective - Vital Signs Vital signs: Vital Signs Temp 97.6 F 03/30/22 14:00 Pulse 82 03/30/22 14:00 Resp 20 03/30/22 14:00 BP 115/68 03/30/22 14:00 Pulse Ox 90 L 03/30/22 14:00 FiO2 Intake & Output 03/29/22 03/30/22 03/30/22 18:59 06:59 18:59 Intake Total 1045 1045 345 Output Total 260 430 950 Balance 785 615 -605 Weight 107.5 kg Intake: IV 1045 1045 345 0.9 220 220 120 Dextrose 5% in Water 1, 825 825 225 000 ml @ 75 mls/hr IV . [id number] FLORINDA with Sodium Bicarb (1 Meq/ml) 150 ml Rx#:[id number] Output: Urine 260 430 950 Other: Voiding Method Indwelling Catheter Indwelling Catheter Indwelling Catheter ABP, PAP, CO, CI - Last Documented Arterial Blood Pressure 108/41 - Constitutional Constitutional Comment(s): General: [non toxic], [no distress], [appears at stated age] Derm: [warm], [dry] multiple areas of extensive bruising of the chest Head: [atraumatic], [normocephalic], [symmetric] Eyes: [EOMI], [no lid lag], [anicteric sclera] Mouth: [no lip lesion], [mucus membranes moist] Cardiovascular: [S1S2 reg], [no murmur], [positive posterior tibial pulse bilateral], Lungs: [CTA bilateral], [no rhonchi, no rales] , [no accessory muscle use] Abdominal: [soft], [ nontender to palpation], [no guarding], [no appreciable organomegaly] Ext: [no gross muscle atrophy], [no edema], [no contractures] Neuro: [ CN II-XI grossly intact], [no focal neuro deficits] Psych: [Alert], [oriented], [appropriate affect] - Labs CBC & Chem 7: 03/30/22 03:56 03/30/22 03:56 Labs: Abnormal Lab Results - Last 24 Hours (Table) 03/29/22 03/29/22 03/30/22 Range/Units 03:48 20:14 03:56 WBC (3.8-10.6) k/uL RBC (3.80-5.40) m/uL Hgb (11.4-16.0) gm/dL Hct (34.0-46.0) % Sodium 129 L (137-145) mmol/L BUN 41 H (7-17) mg/dL Creatinine 1.25 H (0.52-1.04) mg/dL Glucose 120 H (74-99) mg/dL POC Glucose (mg/dL) 139 H (70-110) mg/dL Calcium 7.3 L (8.4-10.2) mg/dL Erythropoietin 53.39 H (2.00-30.00) mIU/mL 03/30/22 03/30/22 03/30/22 Range/Units 03:56 06:32 11:22 WBC 15.8 H (3.8-10.6) k/uL RBC 2.75 L (3.80-5.40) m/uL Hgb 8.7 L (11.4-16.0) gm/dL Hct 26.4 L (34.0-46.0) % Sodium (137-145) mmol/L BUN (7-17) mg/dL Creatinine (0.52-1.04) mg/dL Glucose (74-99) mg/dL POC Glucose (mg/dL) 136 H 139 H (70-110) mg/dL Calcium (8.4-10.2) mg/dL Erythropoietin (2.00-30.00) mIU/mL 03/30/22 Range/Units 16:37 WBC (3.8-10.6) k/uL RBC (3.80-5.40) m/uL Hgb (11.4-16.0) gm/dL Hct (34.0-46.0) % Sodium (137-145) mmol/L BUN (7-17) mg/dL Creatinine (0.52-1.04) mg/dL Glucose (74-99) mg/dL POC Glucose (mg/dL) 167 H (70-110) mg/dL Calcium (8.4-10.2) mg/dL Erythropoietin (2.00-30.00) mIU/mL Assessment and Plan Assessment: Acute inferior ST segment elevated myocardial infarction Cardiac arrest Hypotension likely related to cardiogenic shock resolved Nonsustained V. tach resolved Ischemic Cardiomyopathy with EF 40-45% - off dopamine and levo -Aspirin, Brillenta, Lipitor, amio -started on midodrine by nephrology and metoprolol by cardio -Transvenous pacemaker removed on 03/26/22, sheath is still in place, removed - echo with EF 40-45% - tele - Lipid profile normal - cardio recs Anemia, Iron deficiency with acute blood loss - US LE ordered and demonstrates pseudoaneurysm va fluid collection - IV iron X 1 - no signs of GI bleed - follow CBC Leukoctyosis, reactive - follow CBC HARRIS with possible CKD Non anion gap metabolic acidosis - IVF transitioned to D5 with sodium bicarb - Avoid nephrotoxic agents - suspect component of ATN due to hypotension Hyponatremia, worsening - monitor closely on IVF - suspect hypervolemic - repeat in AM - consult nephrology Diabetes mellitus type 2 -Patient is diet controlled at home - A1C 6.3 -Sliding-scale insulin Hypothyroidism -Synthroid -check tsh Acute encephalopathy, medication related, resolved Time with Patient: Greater than 30
[2022-03-30 20:17] LABS: Glucose,Whole Blood 171 mg/dL (70-110)
[2022-03-30] MEDS: ATORVASTATIN 80 MG TAB PO SCH (20:39)
[2022-03-31 06:10] LABS: Glucose,Whole Blood 122 mg/dL (70-110)
[2022-03-31] MEDS: MIDODRINE 5 MG TAB PO SCH ×3 (06:40→17:11)
[2022-03-31] MEDS: LEVOTHYROXINE 75 MCG TAB PO SCH (06:40)
[2022-03-31] MEDS: PANTOPRAZOLE 40 MG TABLET PO SCH (06:40)
[2022-03-31] MEDS: INSULIN ASPART (NovoLOG) 100 UNIT/ML VIAL SQ SCH ×4 (06:40→22:18)
[2022-03-31] MEDS ORDERED: FUROSEMIDE 10 MG/ML 4 ML VIAL IV STA (08:30)
--- NOTE | 2022-03-31 08:31 | P.PN ---
Subjective Progress Note Date: 03/31/22 PROGRESS NOTE The patient is an 82-year-old female presented with an acute myocardial infarction, underwent stenting of the RCA. Her presentation was complicated by complete heart block and cardiac arrest. She is awake, confused at times, following commands. Her blood pressure is on the low side. She continues to have a venous sheath in her right femoral vein because of lack of access of peripheral site. She scheduled to undergo a midline today. She has no further atrial fibrillation or ventricular tachycardia. She has no chest discomfort, dizziness or palpitations. March 29: She is more awake and alert this morning, she denies any chest discomfort. She continues to be in sinus mechanism. She had a triple lumen catheter inserted. She denies any nausea or vomiting. She has no evidence of malignant arrhythmia. Hemodynamically she is stable. Her echocardiogram showed an ejection fraction of 40-45% with inferior wall hypokinesis March 30: The patient is feeling well this morning, she has chest wall tenderness but no anginal pain. She is in sinus mechanism and hemodynamically stable. She has no malignant arrhythmia. Her urine output is good. She is on no vasopressors. She has no nausea or vomiting. Her duplex scan showed possible pseudoaneurysm on the right. The neck could not be visualized. March 31: The patient feels well this morning, she denies any dyspnea, dizziness or palpitations. She has chest wall tenderness. Hemodynamically she is stable. H er blood pressure is stable and she continues to be in sinus mechanism. She denies any nausea or vomiting. She is increasing her activity gradually. She was evaluated by the interventional radiologist regarding the possible pseudoaneurysm and a CT angiogram was recommended. Medications: Amiodarone 200 mg twice a day, aspirin once a day, midodrine 5 mg 3 times a day, Brilinta 90 mg twice a day, Lipitor 80 mg daily , Metoprolol 12.5 mg twice a day PHYSICAL EXAMINATION: Blood pressure 99/60 heart rate 73 LUNGS: Clear to auscultation HEART: Regular rate and rhythm, S1, S2. No S3. systolic ejection murmur ABDOMEN: Soft, nontender, no organomegaly EXTREMETIES +1-2 edema LAB: Pending IMPRESSION: 1. Status post inferior wall myocardial infarction, complicated by complete heart block and cardiac arrest, improving, post stenting 2. Chronic kidney disease, Improved 3. Hypotension, resolved 4. Mild ischemic cardiomyopathy 5. Anemia 6. 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 Increase physical activity 2. Follow renal function to see if his CT angiogram can be performed 3. IV Lasix 1 4. Continue low-dose beta phong and statin 5. Decrease amiodarone 6. Follow hemoglobin 7. If stable probable DC in 24-48 hours. Objective - Vital Signs Vital signs: Vital Signs Temp 98.1 F 03/31/22 04:00 Pulse 74 03/31/22 04:00 Resp 20 03/31/22 04:00 BP 99/59 03/31/22 04:00 Pulse Ox 96 03/31/22 04:00 FiO2 Intake & Output 03/30/22 03/31/22 03/31/22 18:59 06:59 18:59 Intake Total 345 Output Total 950 400 Balance -605 -400 Weight 105.5 kg Intake: IV 345 0.9 120 Dextrose 5% in Water 1, 225 000 ml @ 75 mls/hr IV . [id number] FLORINDA with Sodium Bicarb (1 Meq/ml) 150 ml Rx#:[id number] Output: Urine 950 400 Other: Voiding Method Indwelling Catheter Indwelling Catheter ABP, PAP, CO, CI - Last Documented Arterial Blood Pressure 108/41 - Labs CBC & Chem 7: 03/30/22 03:56 03/30/22 03:56 Labs: Abnormal Lab Results - Last 24 Hours (Table) 03/29/22 03/30/22 03/30/22 Range/Units 03:48 11:22 16:37 POC Glucose (mg/dL) 139 H 167 H (70-110) mg/dL Erythropoietin 53.39 H (2.00-30.00) mIU/mL 03/30/22 03/31/22 Range/Units 20:16 06:08 POC Glucose (mg/dL) 171 H 122 H (70-110) mg/dL Erythropoietin (2.00-30.00) mIU/mL
[2022-03-31] MEDS: METOPROLOL TARTRATE 12.5 MG TAB PO SCH ×2 (08:33→22:16)
[2022-03-31] MEDS: ASPIRIN 81 MG PO SCH (08:33)
[2022-03-31] MEDS: AMIODARONE 200 MG TAB PO SCH (08:33)
[2022-03-31] MEDS: TICAGRELOR 90 MG TAB PO SCH ×2 (08:33→22:17)
[2022-03-31 09:55] LABS: HCT 25.3 % (34.0-46.0); HGB 8.3 gm/dL (11.4-16.0); Hypochromasia Slight; MCH 32.2 pg (25.0-35.0); MCHC 32.6 g/dL (31.0-37.0); MCV 98.7 fL (80.0-100.0); Mean Platelet Volume 8.3; Platelet Count 268 k/uL (150-450); RBC 2.57 m/uL (3.80-5.40); RDW 14.2 % (11.5-15.5); WBC 14.1 k/uL (3.8-10.6)
[2022-03-31 10:04] LABS: Calcium 7.1 mg/dL (8.4-10.2); Potassium 3.6 mmol/L (3.5-5.1)
[2022-03-31] MEDS: SODIUM FERRIC GLUCONAT-SUCROSE 125 MG in SODIUM CHLORIDE 0.9% 100 ML IVPB SCH (10:13)
[2022-03-31 11:50] LABS: Glucose,Whole Blood 161 mg/dL (70-110)
--- NOTE | 2022-03-31 12:13 | P.PN ---
Subjective Patient is seen for follow-up for acute kidney injury and top of chronic kidney disease. Patient is status post cardiac catheterization and stenting of RCA for acute ST elevation MA. She had third degree heart block and is status post transvenous pacer which was eventually removed. Renal function has improved Serum creatinine had increased to 1.6 and now fluctuating between 1.2 and 1.4. Patient has been hypervolemic and received IV Lasix yesterday. Objective - Vital Signs Vital signs: Vital Signs Temp 97.4 F L 03/31/22 08:23 Pulse 76 03/31/22 11:46 Resp 19 03/31/22 11:46 BP 100/57 03/31/22 08:23 Pulse Ox 93 L 03/31/22 08:23 FiO2 Intake & Output 03/30/22 03/31/22 03/31/22 18:59 06:59 18:59 Intake Total 345 Output Total 950 400 Balance -605 -400 Weight 105.5 kg Intake: IV 345 0.9 120 Dextrose 5% in Water 1, 225 000 ml @ 75 mls/hr IV . [id number] FLORINDA with Sodium Bicarb (1 Meq/ml) 150 ml Rx#:[id number] Output: Urine 950 400 Other: Voiding Method Indwelling Catheter Indwelling Catheter Indwelling Catheter ABP, PAP, CO, CI - Last Documented Arterial Blood Pressure 108/41 - Exam Awake, comfortable, not in any acute distress On 6 questions appropriately Examination of the heart S1 and S2 Examination of the lungs bilateral breath sounds are heard Abdomen is soft nontender Examination of the lower extremities shows 1+ edema bilaterally TRACTOR DRIVER exam grossly intact - Labs CBC & Chem 7: 03/31/22 09:08 03/31/22 09:08 Labs: Abnormal Lab Results - Last 24 Hours (Table) 03/29/22 03/30/22 03/30/22 Range/Units 03:48 16:37 20:16 WBC (3.8-10.6) k/uL RBC (3.80-5.40) m/uL Hgb (11.4-16.0) gm/dL Hct (34.0-46.0) % Sodium (137-145) mmol/L Chloride (98-107) mmol/L BUN (7-17) mg/dL Creatinine (0.52-1.04) mg/dL Glucose (74-99) mg/dL POC Glucose (mg/dL) 167 H 171 H (70-110) mg/dL Calcium (8.4-10.2) mg/dL Erythropoietin 53.39 H (2.00-30.00) mIU/mL 03/31/22 03/31/22 03/31/22 Range/Units 06:08 09:08 09:08 WBC 14.1 H (3.8-10.6) k/uL RBC 2.57 L (3.80-5.40) m/uL Hgb 8.3 L (11.4-16.0) gm/dL Hct 25.3 L (34.0-46.0) % Sodium 128 L (137-145) mmol/L Chloride 96 L (98-107) mmol/L BUN 39 H (7-17) mg/dL Creatinine 1.46 H (0.52-1.04) mg/dL Glucose 144 H (74-99) mg/dL POC Glucose (mg/dL) 122 H (70-110) mg/dL Calcium 7.1 L (8.4-10.2) mg/dL Erythropoietin (2.00-30.00) mIU/mL 03/31/22 Range/Units 11:49 WBC (3.8-10.6) k/uL RBC (3.80-5.40) m/uL Hgb (11.4-16.0) gm/dL Hct (34.0-46.0) % Sodium (137-145) mmol/L Chloride (98-107) mmol/L BUN (7-17) mg/dL Creatinine (0.52-1.04) mg/dL Glucose (74-99) mg/dL POC Glucose (mg/dL) 161 H (70-110) mg/dL Calcium (8.4-10.2) mg/dL Erythropoietin (2.00-30.00) mIU/mL Assessment and Plan Assessment: 1. Acute kidney injury secondary to hypotension/cardiac arrest currently with improved urine output. UA is benign. CT of the abdomen does not show any obstruction. 2. CKD NKF stage IIIB b with baseline creatinine close to 1.4 mg/dL. Etiology is nephrosclerosis 3. Status post acute ST elevation MA status post cardiac catheterization and stenting of RCA 4. Status post cardiac arrest 5. Confusion and mental status changes, improved. 6. Non-gap metabolic acidosis associated with acute kidney injury, s/p bicarb drip 7. Hypervolemic hyponatremia 8. Anemia with severe iron deficiency status post IV iron Plan: Encourage increase oral intake Avoid nephrotoxic agents Diurese patient Repeat labs in a.m. Check chest x-ray in a.m.
--- NOTE | 2022-03-31 12:55 | P.PN ---
Subjective Progress Note Date: 03/31/22 On today's evaluation of 03/28/2022, the patient is being seen for a follow-up. The patient is post acute ST segment elevation inferior wall myocardial infarction the patient underwent stenting of the RCA 2. Note that during the course of her cardiac catheterization, the patient had ventricular tachycardia and subsequently asystole. She was resuscitated. The patient was given a transvenous pacemaker which was a temporary pacemaker that was ultimately taken off. Currently she is off pressors and the patient is hemodynamically stable maintaining her on blood pressure. Cardiac rhythm is sinus at this point in time. The patient was on a combination of norepinephrine and dopamine and both have been discontinued and the patient is currently on normal saline at the rate of 75 mL an hour. Her echocardiogram is showing an ejection fraction of around 40-45%. No significant valvular abnormalities. There was a drop in hemoglobin down to 8.1 and based on that the patient was given CAT scan of the abdomen and pelvis that showed no evidence of any retroperitoneal bleed. The patient has chronic stage III kidney disease in the patient's creatinine is stable at 1.44. She does have a component of non- anion gap Metabolic acidosis. Overnight, the patient was given Ambien and subsequently she became agitated and delirious and the patient was given Seroquel a dose of 50 mg and the patient is currently quite drowsy. She is arousable yet she is resting comfortably in bed and the family's the bedside. She remains on a combination of aspirin and Alimta. She is on high dose statins. She is on NovoLog sliding scale insulin coverage. She is on Synthroid. Family is at the bedside. On 03/29/2022, the patient is being seen for a follow-up. She is resting comfortably in bed. As mentioned earlier, the patient is status post acute ST segment elevation myocardial infarction the patient underwent a inferior wall ID requiring emergent cardiac catheterization and stenting of the RCA 2. The patient also had V. tach and asystole and she was resuscitated and this was a brief cardiac arrest and she was resuscitated adequately. During the course of her treatment she also had a transvenous pacemaker that was removed. I was able to take off the catheter sheath yesterday. I also give the patient a triple- lumen catheter in her left subclavian for IV access. She is currently on no pr essors. She is receiving bicarb infusion for an underlying bicarb deficit and it is running at the rate of 75 mL an hour and see him back today's up to 21. Her echocardiogram showed an ejection fraction of 40-45%. One concern is downgoing drop in hemoglobin which is down to 7.7. No signs of any bleeding. CAT scan of the abdomen and pelvis as mentioned showed no evidence of any retroperitoneal bleeding. The patient remains on a combination of aspirin and Alimta. Creatinine is stable at 1.4. In terms of her mentation, yesterday afternoon she started turning around and she was more interactive and oriented and this morning she is feeling pretty good she is able to follow commands. No agitation. No major confusion at this point in time and she is moving all 4 extremities without any limitation. In terms of her blood work, the patient has a low white cell count of 15.1 with hemoglobin of 7.7 and a platelet count of 184. Sodium is at 1:30 with a potassium level of 3.99. Her blood sugar from this morning is at 155. The patient is still on amiodarone 200 mg by mouth twice a day. She was started on metoprolol 12.5 mg by mouth twice a day and will monitor blood pressure very closely with that. The antiplatelet agents are still on board. She is on high dose statins. She is on room air oxygen with a pulse ox of 95%. On 03/30/2022, the patient is awake and alert and she is communicating. She is sore from all the CPR that she received. Otherwise, she is hemodynamically stable. Normotensive. She is on no pressors. No major respiratory distress. She is on 2 L O2 nasal cannula and pulse ox is around 94%. The patient is currently on a bicarb infusion and his serum bicarbonate is improved and the bicarb deficit has been corrected and this was a component of non-anion gap metabolic acidosis. The same time, the patient creatinine has been improving. Creatinine is down to 1.2 and a serum bicarbonate has also normalized. Rest of the electrodes showed mild component of hyponatremia with a sodium level of 129 and a potassium level of 3.8. Urine is a 41 with a creatinine of 1.25 in the creatinine is essentially improving. The patient's serum iron was low at 14 and she will be receiving iron infusion. Hemoglobin is at 3.7 with a white cell count of 15.8. She is on aspirin and Alimta. She is on beta blockers which is able to tolerate without any major difficulties and the cardiac rhythm is sinus. She is having a questionable pseudoaneurysm right groin and this will be further worked up by cardiology. Otherwise, no other significant events overnig ht. The patient remains in intensive care units for now. She is supposedly wall myocardial infarction and this was a ST segment elevation ID and the patient received 2 stents in her RCA, remains on a combination of aspirin and Brilinta. , the patient is on a medical treatment. The patient is feeling any chest pain. The patient denies having any shortness of breath. No syncope. No angina. She remains on a combination of aspirin and Brilinta. No bleeding complications. She is extremely weak and she would benefit from physical therapy and rehabilitation. Blood work from today shows a white cell count of 14.4 with hemoglobin 8.3 and the patient is taking her third dose of IV iron. The platelet count is up to 68. BUN is a 39 with a creatinine of 1.4. No altered mentation. No other complaints otherwise for now. No cardiac arrhythmias. The patient is on 3 L of nasal cannula with a pulse oximeter of 96%. BP is adequate for now. Objective - Vital Signs Vital signs: Vital Signs Temp 97.4 F L 03/31/22 08:23 Pulse 79 03/31/22 12:23 Resp 18 03/31/22 12:23 BP 93/59 03/31/22 12:23 Pulse Ox 96 03/31/22 12:23 FiO2 Intake & Output 03/30/22 03/31/22 03/31/22 18:59 06:59 18:59 Intake Total 345 Output Total 950 400 Balance -605 -400 Weight 105.5 kg Intake: IV 345 0.9 120 Dextrose 5% in Water 1, 225 000 ml @ 75 mls/hr IV . [id number] FLORINDA with Sodium Bicarb (1 Meq/ml) 150 ml Rx#:[id number] Output: Urine 950 400 Other: Voiding Method Indwelling Catheter Indwelling Catheter Indwelling Catheter ABP, PAP, CO, CI - Last Documented Arterial Blood Pressure 108/41 - Exam No acute distress, oriented 3. No respiratory distress, currently on 3 L O2 nasal cannula with a pulse ox of 96% HEENT examination is grossly unremarkable. Neck supple. Full range of motion. No adenopathy thyromegaly or neck vein distention. Cardiovascular examination reveals regular rhythm rate. S1-S2 normal. No S3 or S4. No discernible murmur noted. Heart sounds are distant. Heart rate 80 bpm. Lungs reveal mostly clear breath sounds. Minimal scattered rhonchi. No wheez es. No crackles. Breath sounds equal bilaterally. Abdomen soft bowel sounds are heard. No masses or tenderness. Extremities are intact. No cyanosis clubbing or edema. Skin is without rash or lesion. NeurologicNeurologically, the patient is awake and alert and the patient does not have any focal neurological deficit. Cranial nerves are essentially intact. Generalized motor weakness involving the extremities. - Labs CBC & Chem 7: 03/31/22 09:08 03/31/22 09:08 Labs: Abnormal Lab Results - Last 24 Hours (Table) 03/29/22 03/30/22 03/30/22 Range/Units 03:48 16:37 20:16 WBC (3.8-10.6) k/uL RBC (3.80-5.40) m/uL Hgb (11.4-16.0) gm/dL Hct (34.0-46.0) % Sodium (137-145) mmol/L Chloride (98-107) mmol/L BUN (7-17) mg/dL Creatinine (0.52-1.04) mg/dL Glucose (74-99) mg/dL POC Glucose (mg/dL) 167 H 171 H (70-110) mg/dL Calcium (8.4-10.2) mg/dL Erythropoietin 53.39 H (2.00-30.00) mIU/mL 03/31/22 03/31/22 03/31/22 Range/Units 06:08 09:08 09:08 WBC 14.1 H (3.8-10.6) k/uL RBC 2.57 L (3.80-5.40) m/uL Hgb 8.3 L (11.4-16.0) gm/dL Hct 25.3 L (34.0-46.0) % Sodium 128 L (137-145) mmol/L Chloride 96 L (98-107) mmol/L BUN 39 H (7-17) mg/dL Creatinine 1.46 H (0.52-1.04) mg/dL Glucose 144 H (74-99) mg/dL POC Glucose (mg/dL) 122 H (70-110) mg/dL Calcium 7.1 L (8.4-10.2) mg/dL Erythropoietin (2.00-30.00) mIU/mL 03/31/22 Range/Units 11:49 WBC (3.8-10.6) k/uL RBC (3.80-5.40) m/uL Hgb (11.4-16.0) gm/dL Hct (34.0-46.0) % Sodium (137-145) mmol/L Chloride (98-107) mmol/L BUN (7-17) mg/dL Creatinine (0.52-1.04) mg/dL Glucose (74-99) mg/dL POC Glucose (mg/dL) 161 H (70-110) mg/dL Calcium (8.4-10.2) mg/dL Erythropoietin (2.00-30.00) mIU/mL Assessment and Plan Plan: Acute inferior ST segment elevated myocardial infarction, post emergent artery catheterization and stent insertion 2 in the RCA. A she is currently on a combination of aspirin and brillinta, currently free of any angina and the pa tient is asymptomatic. She is having some skeletal chest wall pain as the patient received CPR to her chest wall. Cardiac arrest , V. tach/asystole occurred during cardiac catheterization and the patient had cardiac pulmonary arrest, resuscitated in the [employer] and currently the patient is in a normal sinus rhythm with occasional PVCs. During the course of this resuscitation, the patient was also given the for the third degree AV AV block and the TVP was removed yesterday. Hypotension likely related to cardiogenic shock, recovered and the patient was on pressors in the form of norepinephrine and dopamine and the patient is currently off pressors. She is maintaining her on blood pressure for now Nonsustained V. tach, likely ischemic in nature post acute inferior wall ST segment elevation myocardial infarction Cardiomyopathy with EF 40-45%, patient is currently off pressors Anemia, dropped the Hb the patient underwent a CT abd and pelvis to rule out retorperitoneal bleed and the patient has an iron deficiency anemia and she'll be started on IV iron supplements. Leukoctyosis, reactive HARRIS with possible CKD , Cr is improving and it is stable Hyponatremia, stable , Diabetes mellitus type 2, Patient is diet controlled at home, - HA1C 6.3 , -Sliding-scale insulin Hypothyroidism, on Synthroid Delirium, was given Seroquel at a dose of 50 mg overnight and the patient is currently drowsy and sleeping. Noted the patient was also given Ambien overnight Non-anion gap metabolic acidosis , improved Plan Continue using incentive spirometer Wean FiO2 down IV fluids to KVO IV iron regarding her underlying iron deficiency and the patient is going to receive 3 doses of Fe metoprolol is much gluconate 125 mg each The patient remains on a combination of aspirin and Brilinta The patient remains on amiodarone and the cardiac rhythm is sinus, no ventricular arrhythmias metoprolol 12.5 mg by mouth twice a day Hemoglobin is stable Mental status improved Increased mobility as tolerated and the patient may need to stay in for today for further monitoring. Consult PT Evaluate for ECF placement
--- NOTE | 2022-03-31 16:01 | P.PN ---
Subjective Patient seen and examined at bedside. Patient is accompanied by her 2 daughters. Patient denies chest pain or shortness of breath at this time how ever she does feel tired. Patient has no questions or concerns. Objective - Vital Signs Vital signs: Vital Signs Temp 97.4 F L 03/31/22 08:23 Pulse 79 03/31/22 12:23 Resp 18 03/31/22 15:15 BP 93/59 03/31/22 12:23 Pulse Ox 96 03/31/22 12:23 FiO2 Intake & Output 03/30/22 03/31/22 03/31/22 18:59 06:59 18:59 Intake Total 345 Output Total 950 400 200 Balance -605 -400 -200 Weight 105.5 kg Intake: IV 345 0.9 120 Dextrose 5% in Water 1, 225 000 ml @ 75 mls/hr IV . [id number] FLORINDA with Sodium Bicarb (1 Meq/ml) 150 ml Rx#:[id number] Output: Urine 950 400 200 Other: Voiding Method Indwelling Catheter Indwelling Catheter Indwelling Catheter ABP, PAP, CO, CI - Last Documented Arterial Blood Pressure 108/41 - Exam General: [non toxic], [no distress], [appears at stated age] Derm: [warm], [dry] extensive bruising of chest Head: [atraumatic], [normocephalic], [symmetric] Eyes: [EOMI], [no lid lag], [anicteric sclera] Mouth: [no lip lesion], [mucus membranes moist] Cardiovascular: [S1S2 reg], [no murmur], [positive posterior tibial pulse bilateral], Lungs: [CTA bilateral], [no rhonchi, no rales] , [no accessory muscle use] Abdominal: [soft], [ nontender to palpation], [no guarding], [no appreciable organomegaly] Ext: [no gross muscle atrophy], [no edema], [no contractures] Neuro: [ CN II-XI grossly intact], [no focal neuro deficits] Psych: [Alert], [oriented], [appropriate affect] - Labs CBC & Chem 7: 03/31/22 09:08 03/31/22 09:08 Labs: Abnormal Lab Results - Last 24 Hours (Table) 03/30/22 03/30/22 03/31/22 Range/Units 16:37 20:16 06:08 WBC (3.8-10.6) k/uL RBC (3.80-5.40) m/uL Hgb (11.4-16.0) gm/dL Hct (34.0-46.0) % Sodium (137-145) mmol/L Chloride (98-107) mmol/L BUN (7-17) mg/dL Creatinine (0.52-1.04) mg/dL Glucose (74-99) mg/dL POC Glucose (mg/dL) 167 H 171 H 122 H (70-110) mg/dL Calcium (8.4-10.2) mg/dL 03/31/22 03/31/22 03/31/22 Range/Units 09:08 09:08 11:49 WBC 14.1 H (3.8-10.6) k/uL RBC 2.57 L (3.80-5.40) m/uL Hgb 8.3 L (11.4-16.0) gm/dL Hct 25.3 L (34.0-46.0) % Sodium 128 L (137-145) mmol/L Chloride 96 L (98-107) mmol/L BUN 39 H (7-17) mg/dL Creatinine 1.46 H (0.52-1.04) mg/dL Glucose 144 H (74-99) mg/dL POC Glucose (mg/dL) 161 H (70-110) mg/dL Calcium 7.1 L (8.4-10.2) mg/dL Assessment and Plan Assessment: Acute inferior ST segment elevated myocardial infarction Cardiac arrest Hypotension likely related to cardiogenic shock resolved Nonsustained V. tach resolved Ischemic Cardiomyopathy with EF 40-45% - off dopamine and levo -Aspirin, Brillenta, Lipitor, amio -started on midodrine by nephrology and metoprolol by cardio -Transvenous pacemaker removed on 03/26/22, sheath is still in place, removed - echo with EF 40-45% - tele - Lipid profile normal - cardio recs Anemia, Iron deficiency with acute blood loss - US LE ordered and demonstrates pseudoaneurysm va fluid collection - IV iron X 1 - no signs of GI bleed - follow CBC Leukoctyosis, reactive - follow CBC HARRIS with possible CKD Non anion gap metabolic acidosis - IVF transitioned to D5 with sodium bicarb - Avoid nephrotoxic agents - suspect component of ATN due to hypotension Hyponatremia, worsening - monitor closely on IVF - suspect hypervolemic - repeat in AM - Nephrology following Diabetes mellitus type 2 -Patient is diet controlled at home - A1C 6.3 -Sliding-scale insulin Hypothyroidism -Synthroid -TSH within normal limits Acute encephalopathy, medication related, resolved Discharge planning in the next 24 hours to rehab Time with Patient: Greater than 30
[2022-03-31 16:57] LABS: Glucose,Whole Blood 139 mg/dL (70-110)
[2022-03-31 20:14] LABS: Glucose,Whole Blood 182 mg/dL (70-110)
[2022-03-31] MEDS: ATORVASTATIN 80 MG TAB PO SCH (22:17)
[2022-04-01 06:16] LABS: Glucose,Whole Blood 125 mg/dL (70-110)
[2022-04-01 06:32] VITALS: TEMP 98.3
[2022-04-01] MEDS: LEVOTHYROXINE 75 MCG TAB PO SCH (06:33)
[2022-04-01] MEDS: PANTOPRAZOLE 40 MG TABLET PO SCH (06:33)
[2022-04-01] MEDS: INSULIN ASPART (NovoLOG) 100 UNIT/ML VIAL SQ SCH ×2 (06:33→12:33)
[2022-04-01] MEDS: MIDODRINE 5 MG TAB PO SCH ×2 (06:33→12:37)
[2022-04-01] MEDS: METOPROLOL TARTRATE 12.5 MG TAB PO SCH (08:50)
[2022-04-01] MEDS: ASPIRIN 81 MG PO SCH (08:51)
[2022-04-01] MEDS: TICAGRELOR 90 MG TAB PO SCH (08:51)
[2022-04-01] MEDS: AMIODARONE 200 MG TAB PO SCH (08:51)
[2022-04-01] MEDS ORDERED: FUROSEMIDE 10 MG/ML 4 ML VIAL IV SCH (09:00)
[2022-04-01 09:05] VITALS: RESP 16
[2022-04-01 09:25] LABS: Basophils % (A) 0 %; Eosinophils # (A) 0.5 k/uL (0-0.7); Eosinophils % (A) 4 %; HCT 26.8 % (34.0-46.0); HGB 8.5 gm/dL (11.4-16.0); Hypochromasia Slight; Lymphocytes # (A) 1.2 k/uL (1.0-4.8); Lymphocytes % (A) 9 %; MCH 31.5 pg (25.0-35.0); MCHC 31.7 g/dL (31.0-37.0); MCV 99.4 fL (80.0-100.0); Macrocytosis Slight; Mean Platelet Volume 7.9; Monocytes % (A) 8 %; Neutrophils # (A) 10.1 k/uL (1.3-7.7); Neutrophils % (A) 77 %; Platelet Count 331 k/uL (150-450); RBC 2.69 m/uL (3.80-5.40); RDW 15.1 % (11.5-15.5); WBC 13.2 k/uL (3.8-10.6)
[2022-04-01 09:42] LABS: Albumin 2.6 g/dL (3.5-5.0); Calcium 7.6 mg/dL (8.4-10.2); Potassium 3.9 mmol/L (3.5-5.1)
[2022-04-01] MEDS ORDERED: TOLVAPTAN 15 MG 1/2 TABLET PO ONE (10:30)
[2022-04-01 11:41] LABS: Glucose,Whole Blood 147 mg/dL (70-110)
--- NOTE | 2022-04-01 11:44 | P.PN ---
Subjective Patient is seen for follow-up for acute kidney injury and top of chronic kidney disease. Patient is status post cardiac catheterization and stenting of RCA for acute ST elevation MS. She had third degree heart block and is status post transvenous pacer which was eventually removed. Renal function had improved but serum creatinine slowly increasing again. Serum creatinine had increased to 1.6 and now fluctuating between 1.2 and 1.4. Patient has been hypervolemic and has been receiving IV Lasix daily. Sodium is down to 127 today and serum creatinine at 1.5 today. No significant complaints. Blood pressure on the lower side and maintained on midodrine. Objective - Vital Signs Vital signs: Vital Signs Temp 98.3 F 04/01/22 04:00 Pulse 92 04/01/22 08:00 Resp 16 04/01/22 08:00 BP 97/64 04/01/22 08:00 Pulse Ox 95 04/01/22 08:00 FiO2 Intake & Output 03/31/22 04/01/22 04/01/22 18:59 06:59 18:59 Output Total 1150 320 600 Balance -1150 -320 -600 Output: Urine 1150 320 600 Other: Voiding Method Indwelling Catheter Indwelling Catheter ABP, PAP, CO, CI - Last Documented Arterial Blood Pressure 108/41 - Exam Awake, comfortable, not in any acute distress On 6 questions appropriately Examination of the heart S1 and S2 Examination of the lungs bilateral breath sounds are heard Abdomen is soft nontender Examination of the lower extremities shows 1+ edema bilaterally [employer] exam grossly intact - Labs CBC & Chem 7: 04/01/22 08:59 04/01/22 08:59 Labs: Abnormal Lab Results - Last 24 Hours (Table) 03/31/22 03/31/22 03/31/22 Range/Units 11:49 16:55 20:13 WBC (3.8-10.6) k/uL RBC (3.80-5.40) m/uL Hgb (11.4-16.0) gm/dL Hct (34.0-46.0) % Neutrophils # (1.3-7.7) k/uL Sodium (137-145) mmol/L Chloride (98-107) mmol/L BUN (7-17) mg/dL Creatinine (0.52-1.04) mg/dL Glucose (74-99) mg/dL POC Glucose (mg/dL) 161 H 139 H 182 H (70-110) mg/dL Calcium (8.4-10.2) mg/dL Total Bilirubin (0.2-1.3) mg/dL AST (14-36) U/L Total Protein (6.3-8.2) g/dL Albumin (3.5-5.0) g/dL 04/01/22 04/01/22 04/01/22 Range/Units 06:15 08:59 08:59 WBC 13.2 H (3.8-10.6) k/uL RBC 2.69 L (3.80-5.40) m/uL Hgb 8.5 L (11.4-16.0) gm/dL Hct 26.8 L (34.0-46.0) % Neutrophils # 10.1 H (1.3-7.7) k/uL Sodium 127 L (137-145) mmol/L Chloride 95 L (98-107) mmol/L BUN 42 H (7-17) mg/dL Creatinine 1.51 H (0.52-1.04) mg/dL Glucose 144 H (74-99) mg/dL POC Glucose (mg/dL) 125 H (70-110) mg/dL Calcium 7.6 L (8.4-10.2) mg/dL Total Bilirubin 2.0 H (0.2-1.3) mg/dL AST 56 H (14-36) U/L Total Protein 5.0 L (6.3-8.2) g/dL Albumin 2.6 L (3.5-5.0) g/dL Assessment and Plan Assessment: 1. Acute kidney injury secondary to hypotension/cardiac arrest currently with improved urine output. UA is benign. CT of the abdomen does not show any obstruction. 2. CKD NKF stage IIIB b with baseline creatinine close to 1.4 mg/dL. Etiology is nephrosclerosis 3. Status post acute ST elevation MS status post cardiac catheterization and stenting of RCA 4. Status post cardiac arrest 5. Confusion and mental status changes, improved. 6. Non-gap metabolic acidosis associated with acute kidney injury, s/p bicarb drip 7. Hypervolemic hyponatremia 8. Anemia with severe iron deficiency status post IV iron Plan: Increase midodrine to 10 mg 3 times a day Samsca 1 today Switch to by mouth Lasix 40 mg daily upon discharge.
[2022-04-01 11:47] LABS: INR 1.1 (<1.2)
[2022-04-01 11:48] LABS: Prothrombin Time 11.6 sec (9.0-12.0)
--- NOTE | 2022-04-01 12:52 | P.PN ---
Subjective Progress Note Date: 04/01/22 HISTORY OF PRESENT ILLNESS: The patient is an 82-year-old female presented with an acute myocardial infarction, underwent stenting of the RCA. Her presentation was complicated by complete heart block and cardiac arrest. She is awake, confused at times, following commands. Her blood pressure is on the low side. She continues to have a venous sheath in her right femoral vein because of lack of access of peripheral site. She scheduled to undergo a midline today. She has no further atrial fibrillation or ventricular tachycardia. She has no chest discomfort, dizziness or palpitations. March 29: She is more awake and alert this morning, she denies any chest discomfort. She continues to be in sinus mechanism. She had a triple lumen catheter inserted. She denies any nausea or vomiting. She has no evidence of malignant arrhythmia. Hemodynamically she is stable. Her echocardiogram showed an ejection fraction of 40-45% with inferior wall hypokinesis March 30: The patient is feeling well this morning, she has chest wall tenderness but no anginal pain. She is in sinus mechanism and hemodynamically stable. She has no malignant arrhythmia. Her urine output is good. She is on no vasopressors. She has no nausea or vomiting. Her duplex scan showed possible pseudoaneurysm on the right. The neck could not be visualized. March 31: The patient feels well this morning, she denies any dyspnea, dizziness or palpitations. She has chest wall tenderness. Hemodynamically she is stable. Her blood pressure is stable and she continues to be in sinus mechanism. She denies any nausea or vomiting. She is increasing her activity gradually. She was evaluated by the interventional radiologist regarding the possible pseudoaneurysm and a CT angiogram was recommended. 04/01/2022 Patient examined this morning at the bedside. Patient denies chest pain or pressure. She denies shortness of breath. She states her chest is sore secondary to cardiac arrest and CPR. She reports anxiety this morning. She was started on IV Lasix per nephrology. Her kidney function is stable at 1.5. PHYSICAL EXAM: VITAL SIGNS: Reviewed. GENERAL: Well-developed in no acute distress. NECK: Supple. No JVD or thyromegaly LUNGS: Respirations even and unlabored. Lungs essentially clear to auscultation bilaterally. HEART: Regular rate and rhythm. S1 and S2 heard. Systolic murmur noted. EXTREMITIES: Normal range of motion. No clubbing or cyanosis. Peripheral pulses intact. 2+ bilateral lower extremity edema ASSESSMENT: 1. Status post inferior wall myocardial infarction, complicated by complete heart block and cardiac arrest, improving, post stenting 2. Chronic kidney disease, Improved 3. Hypotension, resolved 4. Mild ischemic cardiomyopathy 5. Anemia 6. Possible pseudoaneurysm PLAN: Continue current cardiac medications Continue IV Lasix per nephrology Monitor kidney function Daily weights and accurate I&O Continue to monitor vital signs Further recommendations pending patient's course Nurse practitioner note has been reviewed by physician. Signing provider agrees with the documented findings, assessment, and plan of care. Objective - Vital Signs Vital signs: Vital Signs Temp 98.3 F 04/01/22 04:00 Pulse 92 04/01/22 08:00 Resp 16 04/01/22 08:00 BP 97/64 04/01/22 08:00 Pulse Ox 95 04/01/22 08:00 FiO2 Intake & Output 03/31/22 04/01/22 04/01/22 18:59 06:59 18:59 Output Total 1150 320 600 Balance -1150 -320 -600 Output: Urine 1150 320 600 Other: Voiding Method Indwelling Catheter Indwelling Catheter ABP, PAP, CO, CI - Last Documented Arterial Blood Pressure 108/41 - Labs CBC & Chem 7: 04/01/22 08:59 04/01/22 08:59 Labs: Abnormal Lab Results - Last 24 Hours (Table) 03/31/22 03/31/22 04/01/22 Range/Units 16:55 20:13 06:15 WBC (3.8-10.6) k/uL RBC (3.80-5.40) m/uL Hgb (11.4-16.0) gm/dL Hct (34.0-46.0) % Neutrophils # (1.3-7.7) k/uL Sodium (137-145) mmol/L Chloride (98-107) mmol/L BUN (7-17) mg/dL Creatinine (0.52-1.04) mg/dL Glucose (74-99) mg/dL POC Glucose (mg/dL) 139 H 182 H 125 H (70-110) mg/dL Calcium (8.4-10.2) mg/dL Total Bilirubin (0.2-1.3) mg/dL AST (14-36) U/L Lactate Dehydrogenase (313-618) U/L Total Protein (6.3-8.2) g/dL Albumin (3.5-5.0) g/dL 04/01/22 04/01/22 04/01/22 Range/Units 08:59 08:59 11:16 WBC 13.2 H (3.8-10.6) k/uL RBC 2.69 L (3.80-5.40) m/uL Hgb 8.5 L (11.4-16.0) gm/dL Hct 26.8 L (34.0-46.0) % Neutrophils # 10.1 H (1.3-7.7) k/uL Sodium 127 L (137-145) mmol/L Chloride 95 L (98-107) mmol/L BUN 42 H (7-17) mg/dL Creatinine 1.51 H (0.52-1.04) mg/dL Glucose 144 H (74-99) mg/dL POC Glucose (mg/dL) (70-110) mg/dL Calcium 7.6 L (8.4-10.2) mg/dL Total Bilirubin 2.0 H (0.2-1.3) mg/dL AST 56 H (14-36) U/L Lactate Dehydrogenase 1341 H (313-618) U/L Total Protein 5.0 L (6.3-8.2) g/dL Albumin 2.6 L (3.5-5.0) g/dL 04/01/22 Range/Units 11:40 WBC (3.8-10.6) k/uL RBC (3.80-5.40) m/uL Hgb (11.4-16.0) gm/dL Hct (34.0-46.0) % Neutrophils # (1.3-7.7) k/uL Sodium (137-145) mmol/L Chloride (98-107) mmol/L BUN (7-17) mg/dL Creatinine (0.52-1.04) mg/dL Glucose (74-99) mg/dL POC Glucose (mg/dL) 147 H (70-110) mg/dL Calcium (8.4-10.2) mg/dL Total Bilirubin (0.2-1.3) mg/dL AST (14-36) U/L Lactate Dehydrogenase (313-618) U/L Total Protein (6.3-8.2) g/dL Albumin (3.5-5.0) g/dL
--- NOTE | 2022-04-01 13:27 | P.DS ---
Providers Date of admission: 03/25/22 10:42 Expected date of discharge: 04/01/22 Attending physician: Miranda Cristobal, Consults: 03/25/22 10:57 Consult Physician Routine Consulting Provider: [facility] Consult Reason/Comments: Post Interventional Patient Do you want consulting provider notified?: Already Contacted 03/25/22 11:04 Consult Physician Urgent Consulting Provider: Miranda Cristobal Consult Reason/Comments: Medical Management Do you want consulting provider notified?: Yes 03/25/22 21:03 Consult Physician Routine Consulting Provider: Nehemias Black Consult Reason/Comments: ICU care , hypotension Do you want consulting provider notified?: Yes 03/25/22 21:07 Consult Physician Stat Consulting Provider: Nehemias Black Consult Reason/Comments: ICU Do you want consulting provider notified?: Already Contacted 03/28/22 03:45 Consult Physician Stat Consulting Provider: Eladio Hayes Consult Reason/Comments: low urine output, chronic kidney disease Do you want consulting provider notified?: Already Contacted 03/29/22 07:44 Consult Physician Routine Consulting Provider: Bev Fabian Consult Reason/Comments: iron deficiency anemia Do you want consulting provider notified?: Yes Primary care physician: Zach Longoria MD Hospital Course: Admission diagnoses: Acute [place] Discharge diagnoses: Acute inferior ST segment elevated myocardial infarction Cardiac arrest Hypotension likely related to cardiogenic shock resolved Nonsustained V. tach resolved Ischemic Cardiomyopathy with EF 40-45% Anemia, Iron deficiency with acute blood loss Leukoctyosis, reactive Hyponatremia-repeat BMP F/u with nephrology DM diet controlled Hba1c 6.3 HARRIS on CKD Hypothyroid Patient is an 82-year-old female with a history of diabetes mellitus type 2 diet controlled, hypothyroidism, and esophageal stricture who presented to the hospital via EMS due to lightheaded and dizziness. EMS noted that she is having an ST segment elevated myocardial infarction and she was immediately taken to the [facility]. On arrival her heart rate was low. In [facility] she went into asystole, she received a transvenous pacemaker, had a aspiration thrombectomy and stenting of the RCA. She also had an episode of ventricular tachycardia and was started on amiodarone drip. Her blood pressure was low necessitating levothyroid and dopamine. She was transferred to the ICU. Patient seen and examined at bedside. She states that this morning she woke up to go to the bathroom. After she finished going to the bathroom was about to get up she became very lightheaded and disoriented. She then walked to her bedroom and is unsure whether she lost consciousness or just fell to the floor. She knew she was unable to get up and called for her daughter. After getting into a chair she continued to feel very dizzy and lightheaded. She denies any chest pain, shortness breath, nausea, vomiting, diaphoresis with the episode. She currently is complaining of musculoskeletal chest pain after the decompressions. She was in her normal state of health up until today. She has no other complaints currently. Pertinent positives and negatives as discussed in HPI, a complete review of systems was performed and all other systems are negative. Physical: General: [non toxic], [no distress], [appears at stated age] Derm: [warm], [dry] Head: [atraumatic], [normocephalic], [symmetric] Eyes: [EOMI], [no lid lag], [anicteric sclera] Mouth: [no lip lesion], [mucus membranes moist] Cardiovascular: [S1S2 reg], [no murmur], [positive posterior tibial pulse bilateral], +2 bilateral lower extremity edema Lungs: [CTA bilateral], [no rhonchi, no rales] , [no accessory muscle use] Abdominal: [soft], [ nontender to palpation], [no guarding], [no appreciable organomegaly] Ext: [no gross muscle atrophy], [no edema], [no contractures] Neuro: [ CN II-XI grossly intact], [no focal neuro deficits] Psych: [Alert], [oriented], [appropriate affect] Clinical Course: Acute inferior ST segment elevated myocardial infarction Cardiac arrest Hypotension likely related to cardiogenic shock resolved Nonsustained V. tach resolved Ischemic Cardiomyopathy with EF 40-45% - off dopamine and levo -Aspirin, Brillenta, Lipitor, amio -started on midodrine by nephrology and metoprolol by cardio -Transvenous pacemaker removed on 03/26/22, sheath is still in place, removed - echo with EF 40-45% - Lipid profile normal - cardio followed Anemia, Iron deficiency with acute blood loss - US LE ordered and demonstrates pseudoaneurysm va fluid collection - IV iron X 1 - no signs of GI bleed - follow CBC Leukoctyosis, reactive trnding down - follow CBC HARRIS with possible CKD Non anion gap metabolic acidosis - Avoid nephrotoxic agents - suspect component of ATN due to hypotension Hyponatremia repeat BMP Diabetes mellitus type 2 -Patient is diet controlled at home - A1C 6.3 -Sliding-scale insulin Hypothyroidism -Synthroid -TSH within normal limits Acute encephalopathy, medication related, resolved Disposition: Transfer to SNF Condition: Fair Activity: Activity as tolerated Diet: Diabetic Follow-up with PCP in 3-7 days Follow-up with nephrology within 1 week to recheck electrolytes and renal function Follow-up with cardiology in 1-2 weeks Follow-up with pulmonology in 1-2 weeks Patient Condition at Discharge: Stable Plan - Discharge Summary Discharge Rx Participant: Yes New Discharge Prescriptions: New Ticagrelor [Brilinta] 90 mg PO BID #60 tab Atorvastatin [Lipitor] 80 mg PO HS #30 tab Melatonin 3 mg PO HS PRN #30 tab PRN Reason: Insomnia Midodrine [ProAmatine] 5 mg PO AC-TID #90 tab Pantoprazole [Protonix] 40 mg PO AC-BRKFST #30 tab Ondansetron Odt [Zofran ODT] 4 mg PO Q8HR PRN #30 tab PRN Reason: Nausea Aspirin 81 mg PO DAILY #30 tab Furosemide [Lasix] 40 mg PO DAILY #30 tab Metoprolol Tartrate [Lopressor] 12.5 mg PO BID #60 tab Nitroglycerin Sl Tabs [Nitrostat] 0.4 mg SUBLINGUAL Q5M PRN #30 tab PRN Reason: Chest Pain Acetaminophen Tab [Tylenol] 650 mg PO Q6HR PRN #90 tab PRN Reason: Mild Pain Or Fever > 100.5 Continue Levothyroxine Sodium [Synthroid] 75 mcg PO DAILY Discontinued Omeprazole 20 mg PO DAILY Discharge Medication List Levothyroxine Sodium [Synthroid] 75 mcg PO DAILY 05/07/19 [History] Acetaminophen Tab [Tylenol] 650 mg PO Q6HR PRN #90 tab 04/01/22 [Rx] Aspirin 81 mg PO DAILY #30 tab 04/01/22 [Rx] Atorvastatin [Lipitor] 80 mg PO HS #30 tab 04/01/22 [Rx] Furosemide [Lasix] 40 mg PO DAILY #30 tab 04/01/22 [Rx] Melatonin 3 mg PO HS PRN #30 tab 04/01/22 [Rx] Metoprolol Tartrate [Lopressor] 12.5 mg PO BID #60 tab 04/01/22 [Rx] Midodrine [ProAmatine] 5 mg PO AC-TID #90 tab 04/01/22 [Rx] Nitroglycerin Sl Tabs [Nitrostat] 0.4 mg SUBLINGUAL Q5M PRN #30 tab 04/01/22 [Rx] Ondansetron Odt [Zofran ODT] 4 mg PO Q8HR PRN #30 tab 04/01/22 [Rx] Pantoprazole [Protonix] 40 mg PO AC-BRKFST #30 tab 04/01/22 [Rx] Ticagrelor [Brilinta] 90 mg PO BID #60 tab 04/01/22 [Rx] Follow up Appointment(s)/Referral(s): Patti Lloyd MD [STAFF PHYSICIAN] - 1 Week Zach Harper MD [STAFF PHYSICIAN] - 1 Week Danial Estrada MD [STAFF PHYSICIAN] - 1 Week Activity/Diet/Wound Care/Special Instructions: Follow-up with PCP in 3-7 days Discharge Disposition: ADMITTED IP TO THIS HOSP
--- NOTE | 2022-04-01 13:39 | P.PN ---
Subjective Progress Note Date: 04/01/22 On today's evaluation of 03/28/2022, the patient is being seen for a follow-up. The patient is post acute ST segment elevation inferior wall myocardial infarction the patient underwent stenting of the RCA 2. Note that during the course of her cardiac catheterization, the patient had ventricular tachycardia and subsequently asystole. She was resuscitated. The patient was given a transvenous pacemaker which was a temporary pacemaker that was ultimately taken off. Currently she is off pressors and the patient is hemodynamically stable maintaining her on blood pressure. Cardiac rhythm is sinus at this point in time. The patient was on a combination of norepinephrine and dopamine and both have been discontinued and the patient is currently on normal saline at the rate of 75 mL an hour. Her echocardiogram is showing an ejection fraction of around 40-45%. No significant valvular abnormalities. There was a drop in hemoglobin down to 8.1 and based on that the patient was given CAT scan of the abdomen and pelvis that showed no evidence of any retroperitoneal bleed. The patient has chronic stage III kidney disease in the patient's creatinine is stable at 1.44. She does have a component of non- anion gap Metabolic acidosis. Overnight, the patient was given Ambien and subsequently she became agitated and delirious and the patient was given Seroquel a dose of 50 mg and the patient is currently quite drowsy. She is arousable yet she is resting comfortably in bed and the family's the bedside. She remains on a combination of aspirin and Alimta. She is on high dose statins. She is on NovoLog sliding scale insulin coverage. She is on Synthroid. Family is at the bedside. On 03/29/2022, the patient is being seen for a follow-up. She is resting comfortably in bed. As mentioned earlier, the patient is status post acute ST segment elevation myocardial infarction the patient underwent a inferior wall ND requiring emergent cardiac catheterization and stenting of the RCA 2. The patient also had V. tach and asystole and she was resuscitated and this was a brief cardiac arrest and she was resuscitated adequately. During the course of her treatment she also had a transvenous pacemaker that was removed. I was able to take off the catheter sheath yesterday. I also give the patient a triple- lumen catheter in her left subclavian for IV access. She is currently on no pr essors. She is receiving bicarb infusion for an underlying bicarb deficit and it is running at the rate of 75 mL an hour and see him back today's up to 21. Her echocardiogram showed an ejection fraction of 40-45%. One concern is downgoing drop in hemoglobin which is down to 7.7. No signs of any bleeding. CAT scan of the abdomen and pelvis as mentioned showed no evidence of any retroperitoneal bleeding. The patient remains on a combination of aspirin and Alimta. Creatinine is stable at 1.4. In terms of her mentation, yesterday afternoon she started turning around and she was more interactive and oriented and this morning she is feeling pretty good she is able to follow commands. No agitation. No major confusion at this point in time and she is moving all 4 extremities without any limitation. In terms of her blood work, the patient has a low white cell count of 15.1 with hemoglobin of 7.7 and a platelet count of 184. Sodium is at 1:30 with a potassium level of 3.99. Her blood sugar from this morning is at 155. The patient is still on amiodarone 200 mg by mouth twice a day. She was started on metoprolol 12.5 mg by mouth twice a day and will monitor blood pressure very closely with that. The antiplatelet agents are still on board. She is on high dose statins. She is on room air oxygen with a pulse ox of 95%. On 03/30/2022, the patient is awake and alert and she is communicating. She is sore from all the CPR that she received. Otherwise, she is hemodynamically stable. Normotensive. She is on no pressors. No major respiratory distress. She is on 2 L O2 nasal cannula and pulse ox is around 94%. The patient is currently on a bicarb infusion and his serum bicarbonate is improved and the bicarb deficit has been corrected and this was a component of non-anion gap metabolic acidosis. The same time, the patient creatinine has been improving. Creatinine is down to 1.2 and a serum bicarbonate has also normalized. Rest of the electrodes showed mild component of hyponatremia with a sodium level of 129 and a potassium level of 3.8. Urine is a 41 with a creatinine of 1.25 in the creatinine is essentially improving. The patient's serum iron was low at 14 and she will be receiving iron infusion. Hemoglobin is at 3.7 with a white cell count of 15.8. She is on aspirin and Alimta. She is on beta blockers which is able to tolerate without any major difficulties and the cardiac rhythm is sinus. She is having a questionable pseudoaneurysm right groin and this will be further worked up by cardiology. Otherwise, no other significant events overnig ht. The patient remains in intensive care units for now. She is supposedly wall myocardial infarction and this was a ST segment elevation ND and the patient received 2 stents in her RCA, remains on a combination of aspirin and Brilinta. , the patient is on a medical treatment. The patient is feeling any chest pain. The patient denies having any shortness of breath. No syncope. No angina. She remains on a combination of aspirin and Brilinta. No bleeding complications. She is extremely weak and she would benefit from physical therapy and rehabilitation. Blood work from today shows a white cell count of 14.4 with hemoglobin 8.3 and the patient is taking her third dose of IV iron. The platelet count is up to 68. BUN is a 39 with a creatinine of 1.4. No altered mentation. No other complaints otherwise for now. No cardiac arrhythmias. The patient is on 3 L of nasal cannula with a pulse oximeter of 96%. BP is adequate for now. 04/01/2024, the patient is stable. She is still having soreness in her chest. This is manageable with painkillers. No cardiac arrhythmias. She is on 3 L about 2 by nasal cannula. She is producing adequate amount of urine output and the patient is on Lasix and she has been switched to oral Lasix from IV Lasix and she is receiving 40 mg by mouth daily. Overall, she is doing well. There is some disturbances in her electrolytes. The patient had a sodium level of 07/29/2016 the patient was given a dose of Semsca by nephrology. Creatinine is at 1.5 with a BUN of 42. The white cell count of 15.2 with a hemoglobin of 8.5. No other complaints otherwise for now. She remains on a combination of aspirin and Brilinta. She is very much weak and she is looking forward for rehabilitation. Objective - Vital Signs Vital signs: Vital Signs Temp 98.3 F 04/01/22 04:00 Pulse 92 04/01/22 08:00 Resp 16 04/01/22 08:00 BP 97/64 09/23/22 08:00 Pulse Ox 95 04/01/22 08:00 FiO2 Intake & Output 03/31/22 04/01/22 04/01/22 18:59 06:59 18:59 Output Total 1150 320 600 Balance -1150 -320 -600 Output: Urine 1150 320 600 Other: Voiding Method Indwelling Catheter Indwelling Catheter ABP, PAP, CO, CI - Last Documented Arterial Blood Pressure 108/41 - Exam No acute distress, oriented 3. No respiratory distress, currently on 3 L O2 nasal cannula with a pulse ox of 96% HEENT examination is grossly unremarkable. Neck supple. Full range of motion. No adenopathy thyromegaly or neck vein di stention. Cardiovascular examination reveals regular rhythm rate. S1-S2 normal. No S3 or S4. No discernible murmur noted. Heart sounds are distant. Heart rate 80 bpm. Lungs reveal mostly clear breath sounds. Minimal scattered rhonchi. No wheezes. No crackles. Breath sounds equal bilaterally. Abdomen soft bowel sounds are heard. No masses or tenderness. Extremities are intact. No cyanosis clubbing or edema. Skin is without rash or lesion. NeurologicNeurologically, the patient is awake and alert and the patient does not have any focal neurological deficit. Cranial nerves are essentially intact. Generalized motor weakness involving the extremities. - Labs CBC & Chem 7: 04/01/22 08:59 04/01/22 08:59 Labs: Abnormal Lab Results - Last 24 Hours (Table) 03/31/22 03/31/22 04/01/22 Range/Units 16:55 20:13 06:15 WBC (3.8-10.6) k/uL RBC (3.80-5.40) m/uL Hgb (11.4-16.0) gm/dL Hct (34.0-46.0) % Neutrophils # (1.3-7.7) k/uL Sodium (137-145) mmol/L Chloride (98-107) mmol/L BUN (7-17) mg/dL Creatinine (0.52-1.04) mg/dL Glucose (74-99) mg/dL POC Glucose (mg/dL) 139 H 182 H 125 H (70-110) mg/dL Calcium (8.4-10.2) mg/dL Total Bilirubin (0.2-1.3) mg/dL AST (14-36) U/L Lactate Dehydrogenase (313-618) U/L Total Protein (6.3-8.2) g/dL Albumin (3.5-5.0) g/dL 04/01/22 04/01/22 04/01/22 Range/Units 08:59 08:59 11:16 WBC 13.2 H (3.8-10.6) k/uL RBC 2.69 L (3.80-5.40) m/uL Hgb 8.5 L (11.4-16.0) gm/dL Hct 26.8 L (34.0-46.0) % Neutrophils # 10.1 H (1.3-7.7) k/uL Sodium 127 L (137-145) mmol/L Chloride 95 L (98-107) mmol/L BUN 42 H (7-17) mg/dL Creatinine 1.51 H (0.52-1.04) mg/dL Glucose 144 H (74-99) mg/dL POC Glucose (mg/dL) (70-110) mg/dL Calcium 7.6 L (8.4-10.2) mg/dL Total Bilirubin 2.0 H (0.2-1.3) mg/dL AST 56 H (14-36) U/L Lactate Dehydrogenase 1341 H (313-618) U/L Total Protein 5.0 L (6.3-8.2) g/dL Albumin 2.6 L (3.5-5.0) g/dL 04/01/22 Range/Units 11:40 WBC (3.8-10.6) k/uL RBC (3.80-5.40) m/uL Hgb (11.4-16.0) gm/dL Hct (34.0-46.0) % Neutrophils # (1.3-7.7) k/uL Sodium (137-145) mmol/L Chloride (98-107) mmol/L BUN (7-17) mg/dL Creatinine (0.52-1.04) mg/dL Glucose (74-99) mg/dL POC Glucose (mg/dL) 147 H (70-110) mg/dL Calcium (8.4-10.2) mg/dL Total Bilirubin (0.2-1.3) mg/dL AST (14-36) U/L Lactate Dehydrogenase (313-618) U/L Total Protein (6.3-8.2) g/dL Albumin (3.5-5.0) g/dL Assessment and Plan Plan: Acute inferior ST segment elevated myocardial infarction, post emergent artery catheterization and stent insertion 2 in the RCA. A she is currently on a combination of aspirin and brillinta, currently free of any angina and the patient is asymptomatic. She is having some skeletal chest wall pain as the patient received CPR to her chest wall. Cardiac arrest , V. tach/asystole occurred during cardiac catheterization and the patient had cardiac pulmonary arrest, resuscitated in the Echocardiograph Technician and currently the patient is in a normal sinus rhythm with occasional PVCs. During the course of this resuscitation, the patient was also given the for the third degree AV AV block and the TVP was removed yesterday. Chest wall pain secondary to CPR Hypoxic respiratory failure currently on 3 L of oxygen by nasal cannula Hypotension likely related to cardiogenic shock, recovered Nonsustained V. tach, likely ischemic in nature post acute inferior wall ST segment elevation myocardial infarction Cardiomyopathy with EF 40-45%, patient is currently off pressors Anemia, dropped the Hb the patient underwent a CT abd and pelvis to rule out retorperitoneal bleed and the patient has an iron deficiency anemia and she'll be started on IV iron supplements. Leukoctyosis, reactive HARRIS with possible CKD , Cr is improving and it is stable Hyponatremia, stable , Diabetes mellitus type 2, Patient is diet controlled at home, - HA1C 6.3 , -Sliding-scale insulin Hypothyroidism, on Synthroid Delirium, was given Seroquel at a dose of 50 mg overnight and the patient is currently drowsy and sleeping. Noted the patient was also given Ambien overnight Non-anion gap metabolic acidosis , improved Hyponatremia with a sodium level of 127, treated with Semsca Plan Continue using incentive spirometer Agree on Semsca Wean FiO2 down IV fluids to KVO The patient remains on a combination of aspirin and Brilinta The patient remains on amiodarone and the cardiac rhythm is sinus, no ventricular arrhythmias metoprolol 12.5 mg by mouth twice a day Hemoglobin is stable Mental status improved Increased mobility as tolerated and the patient may need to stay in for today for further monitoring. Consult PT Evaluate for ECF placement
[2022-04-01 13:46] VITALS: BP 89/52; PULSE 80
[2022-04-02] MEDS ORDERED: FUROSEMIDE 40 MG TAB PO SCH (09:00)
--- NOTE | 2022-04-06 13:17 | CDI ---
Documentation Clarification Form Date: 04/06/22 From: Megha Han Admit Date: 03/25/2022 10:42:00 AM Patient Name: Antonio Muhammad Visit Number: [id number] Discharge Date: 04/01/2022 04:20:00 PM ATTENTION: The Clinical Documentation Specialists (CDI) and [facility] Coding Staff appreciate your assistance in clarifying documentation. Please respond to the clarification below the line at the bottom and electronically sign. The CDI & [facility] Coding staff will review the response and follow-up if needed. Please note: Queries are made part of the Legal Health Record. If you have any questions, please contact the author of this message via ITS. Dr. Ana Maradiaga, Suspect component of ATN due to hypotension is documented in the discharge summary, which may lack sufficient clinical evidence/support in the medical record. Additional clarification is requested. History/Risk Factors: STEMI of RCA, toxic encephalopathy, cardiac arrest due to underlying cardiac condition, AV block complete, ventricular tachycardia Clinical Indicators: Hypotension likely related to cardiogenic shock, cardiac arrest. BP low on admission and thru the visit. LAB: Cr: 1.48,165, 1.48, 1.44, 1.41, 1.25, 1.46, 1.51 Treatment: unable to give beta phong secondary to bradycardia and hypotension, avoid nephrotoxic agents Please clarify if ATN is a valid diagnosis? [ x ] Yes, ATN is present as evidence by (additional clinical support): [ ] No, ATN is ruled out [ ] Other (please specify diagnosis) [ ] Unable to determine MTDD
== END 2022-04-01 16:20 | DRG 246 ==
LOC: 2SICU 10:42 → 3SCARD 03-30 13:58
PROVIDERS: ADMIT Internal Medicine; ATTEND Internal Medicine
PROC: 4A023N7 Measurement of Cardiac Sampling and Pressure, Left Heart, Percutaneous Approach (ICD-10-PCS; principal; 2022-03-25 12:15)
PROC: 02C03ZZ Extirpation of Matter from Coronary Artery, One Artery, Percutaneous Approach (ICD-10-PCS; principal; 2022-03-25 12:15)
PROC: 5A1223Z Performance of Cardiac Pacing, Continuous (ICD-10-PCS; principal; 2022-03-25 12:15)
PROC: 027034Z Dilation of Coronary Artery, One Artery with Drug-eluting Intraluminal Device, Percutaneous Approach (ICD-10-PCS; principal; 2022-03-25 12:15)
PROC: 5A12012 Performance of Cardiac Output, Single, Manual (ICD-10-PCS; principal; 2022-03-25 12:15)
PROC: B2111ZZ Fluoroscopy of Multiple Coronary Arteries using Low Osmolar Contrast (ICD-10-PCS; principal; 2022-03-25 12:15)
PROC: 3E033XZ Introduction of Vasopressor into Peripheral Vein, Percutaneous Approach (ICD-10-PCS; 2022-03-25 12:15)
PROC: 02HV33Z Insertion of Infusion Device into Superior Vena Cava, Percutaneous Approach (ICD-10-PCS; 2022-03-25 12:15)
PROC: 05HB33Z Insertion of Infusion Device into Right Basilic Vein, Percutaneous Approach (ICD-10-PCS; 2022-03-25 12:15)
PROC: 05HC33Z Insertion of Infusion Device into Left Basilic Vein, Percutaneous Approach (ICD-10-PCS; 2022-03-29)
DX: I21.11 ST elevation (STEMI) myocardial infarction involving right coronary artery (principal); G92.8 Other toxic encephalopathy; I46.2 Cardiac arrest due to underlying cardiac condition; N17.0 Acute kidney failure with tubular necrosis; I44.2 Atrioventricular block, complete; I47.2 Ventricular tachycardia; E87.2 Acidosis; D62 Acute posthemorrhagic anemia; E87.1 Hypo-osmolality and hyponatremia; Z68.41 Body mass index [BMI] 40.0-44.9, adult; K22.2 Esophageal obstruction; I95.9 Hypotension, unspecified; E11.22 Type 2 diabetes mellitus with diabetic chronic kidney disease; N18.32 Chronic kidney disease, stage 3b; K56.41 Fecal impaction; I72.4 Aneurysm of artery of lower extremity; I25.5 Ischemic cardiomyopathy; R00.1 Bradycardia, unspecified; E66.9 Obesity, unspecified; I12.9 Hypertensive chronic kidney disease with stage 1 through stage 4 chronic kidney disease, or unspecified chronic kidney disease; I25.10 Atherosclerotic heart disease of native coronary artery without angina pectoris; E03.9 Hypothyroidism, unspecified; K21.9 Gastro-esophageal reflux disease without esophagitis; E87.70 Fluid overload, unspecified; G47.00 Insomnia, unspecified; T42.6X5A Adverse effect of other antiepileptic and sedative-hypnotic drugs, initial encounter; Z79.890 Hormone replacement therapy; Z79.899 Other long term (current) drug therapy; Z71.3 Dietary counseling and surveillance; Z87.442 Personal history of urinary calculi; Z85.828 Personal history of other malignant neoplasm of skin; Z88.5 Allergy status to narcotic agent; Z88.2 Allergy status to sulfonamides; Z88.8 Allergy status to other drugs, medicaments and biological substances; Z91.02 Food additives allergy status; W18.30XA Fall on same level, unspecified, initial encounter
CPT/HCPCS: 33210; 36410; 71045; 74176; 76937; 80048; 80053; 80061; 81003; 82550; 82553; 82607; 82668; 82728; 82746; 83010; 83036; 83540; 83550; 83615; 83735; 84443; 84484; 85025; 85027; 85045; 85610; 92950; 93306; 93458; 93975; 94760; 99284

== ENCOUNTER 2022-04-03 04:05 | Emergency (ER) | payer MEDICARE ==
[2022-04-03 05:15] LABS: Anisocytosis Slight; Basophils % (A) 0 %; Eosinophils # (A) 0.6 k/uL (0-0.7); Eosinophils % (A) 3 %; HCT 26.7 % (34.0-46.0); HGB 8.6 gm/dL (11.4-16.0); Hypochromasia Slight; Lymphocytes # (A) 1.1 k/uL (1.0-4.8); Lymphocytes % (A) 6 %; MCH 31.8 pg (25.0-35.0); MCHC 32.3 g/dL (31.0-37.0); MCV 98.2 fL (80.0-100.0); Macrocytosis Slight; Mean Platelet Volume 7.9; Monocytes % (A) 6 %; Neutrophils # (A) 13.8 k/uL (1.3-7.7); Neutrophils % (A) 82 %; Platelet Count 389 k/uL (150-450); RBC 2.72 m/uL (3.80-5.40); RDW 16.4 % (11.5-15.5); WBC 16.8 k/uL (3.8-10.6)
--- NOTE | 2022-04-03 05:20 | XR ---
EXAMINATION TYPE: XR chest 2V DATE OF EXAM: 04/03/2022 COMPARISON: 03/28/2022 HISTORY: Dysrhythmia TECHNIQUE: 2 views FINDINGS: Heart is enlarged. There is pulmonary interstitial and airspace edema. There is blunting of the costophrenic angles. IMPRESSION: Congestive heart failure with pleural effusions. Failure and pleural fluid increased comp ared to old exam
[2022-04-03 05:24] LABS: INR 1.1 (<1.2); Partial Thromboplastin Time 23.4 sec (22.0-30.0); Prothrombin Time 11.8 sec (9.0-12.0)
[2022-04-03 05:31] LABS: Albumin 2.6 g/dL (3.5-5.0); Calcium 7.9 mg/dL (8.4-10.2); Magnesium 1.8 mg/dL (1.6-2.3); Potassium 3.5 mmol/L (3.5-5.1); Total Bilirubin 2.3 mg/dL (0.2-1.3)
--- NOTE | 2022-04-03 06:23 | ED ---
General Adult HPI - General Chief complaint: Arrhythmia/Palpitations Stated complaint: Dizziness Time Seen by Provider: 04/03/22 04:55 Source: patient, EMS Mode of arrival: EMS Limitations: no limitations - History of Present Illness Initial comments: This patient is an 82-year-old woman who presents to have evaluation after she had an episode of lightheadedness and dizziness as well as palpitations. Patient's recent history does include cardiac arrest with a number of minutes of CPR being performed. She had been hospitalized for that episode 1 week ago. She had been seen by cardiology and had stents placed. Patient denies chest pain other than some discomfort which she has had related to the CPR that was performed. No chest pain tonight. No dyspnea tonight. No diaphoresis. The patient states that the episode was self-limited and that she is feeling better here. -: minutes(s) Severity scale (1-10): 0 Consistency: constant Improves with: none Worsens with: none Associated Symptoms: weakness - Related Data Home Medications Medication Instructions Recorded Confirmed Levothyroxine Sodium [Synthroid] 75 mcg PO DAILY 05/07/19 03/25/22 Previous Rx's Medication Instructions Recorded Acetaminophen Tab [Tylenol] 650 mg PO Q6HR PRN #90 tab 04/01/22 Aspirin 81 mg PO DAILY #30 tab 04/01/22 Atorvastatin [Lipitor] 80 mg PO HS #30 tab 04/01/22 Furosemide [Lasix] 40 mg PO DAILY #30 tab 04/01/22 Melatonin 3 mg PO HS PRN #30 tab 04/01/22 Metoprolol Tartrate [Lopressor] 12.5 mg PO BID #60 tab 04/01/22 Midodrine [ProAmatine] 5 mg PO AC-TID #90 tab 04/01/22 Nitroglycerin Sl Tabs [Nitrostat] 0.4 mg SUBLINGUAL Q5M PRN #30 tab 04/01/22 Ondansetron Odt [Zofran ODT] 4 mg PO Q8HR PRN #30 tab 04/01/22 Pantoprazole [Protonix] 40 mg PO AC-BRKFST #30 tab 04/01/22 Ticagrelor [Brilinta] 90 mg PO BID #60 tab 04/01/22 Allergies Allergy/AdvReac Type Severity Reaction Status Date / Time codeine Allergy Rash/Hives Verified 04/03/22 04:36 metronidazole [From Flagyl] Allergy Rash/Hives Verified 04/03/22 04:36 Metronidazole HCl Allergy Rash/Hives Verified 04/03/22 04:36 [From Flagyl] morphine Allergy Rash/Hives Verified 04/03/22 04:36 hydrocodone [From [place]] AdvReac Unknown felt her Verified 04/03/22 04:36 mind was not right. famotidine [From Pepcid] AdvReac Nausea & Verified 04/03/22 04:36 Vomiting Opioids - Morphine Analogues AdvReac Confusion Verified 04/03/22 04:36 Opioids-Meperidine and AdvReac Confusion Verified 04/03/22 04:36 Related Opioids-Methadone and Related AdvReac Confusion Verified 04/03/22 04:36 Sulfa (Sulfonamide AdvReac Unknown- Verified 04/03/22 04:36 Antibiotics) almost passed out msg Allergy Anaphylaxis Uncoded 04/03/22 04:36 Review of Systems ROS Statement: Those systems with pertinent positive or pertinent negative responses have been documented in the HPI. ROS Other: All systems not noted in ROS Statement are negative. Constitutional: Reports: weakness. Denies: fever, chills Eyes: Denies: vision change Respiratory: Denies: cough, dyspnea, wheezes, hemoptysis Cardiovascular: Reports: palpitations, syncope (Near syncope). Denies: chest pain, orthopnea, edema Gastrointestinal: Denies: abdominal pain, vomiting, diarrhea, melena, hematochezia Genitourinary: Denies: dysuria, hematuria Musculoskeletal: Denies: back pain Skin: Denies: rash Neurological: Denies: headache, weakness, numbness, paresthesias, confusion Hematological/Lymphatic: Denies: easy bleeding Past Medical History Past Medical History: Cancer, Diabetes Mellitus, Renal Disease, Thyroid Disorder Additional Past Medical History / Comment(s): Basal Cell skin cancer, hx. kidney stone, Diabetes- no longer on meds- watches diet, uses cane, states episodes where it feels her throat is tight (hx of EGD with dilation), chronic kidney disease. cardiac arrest History of Any Multi-Drug Resistant Organisms: None Reported Past Surgical History: Adenoidectomy, Back Surgery, Tonsillectomy Additional Past Surgical History / Comment(s): bunionectomy, kidney stone, cataracts, EGD with dilation Past Anesthesia/Blood Transfusion Reactions: No Reported Reaction Past Psychological History: No Psychological Hx Reported Smoking Status: Never smoker Past Alcohol Use History: None Reported Past Drug Use History: None Reported - Past Family History Brother(s) Family Medical History: Cancer Additional Family Medical History / Comment(s): basal cell skin cancer family Additional Family Medical History / Comment(s): no family hx of heart disease General Exam Limitations: no limitations General appearance: alert, in no apparent distress Head exam: Present: atraumatic, normocephalic Eye exam: Present: normal appearance. Absent: scleral icterus, conjunctival injection Neck exam: Present: normal inspection Respiratory exam: Present: normal lung sounds bilaterally, chest wall tenderness, other (Ecchymosis to the anterior chest wall.). Absent: respiratory distress, wheezes, rales, rhonchi, stridor, accessory muscle use Cardiovascular Exam: Present: regular rate, irregular rhythm, normal heart sounds. Absent: systolic murmur, diastolic murmur, rubs, gallop GI/Abdominal exam: Present: soft. Absent: distended, tenderness, guarding, rebound, rigid, mass Extremities exam: Present: normal inspection, normal capillary refill, pedal edema (Trace edema at the ankles bilaterally). Absent: calf tenderness Back exam: Present: normal inspection. Absent: CVA tenderness (R), CVA tenderness (L) Neurological exam: Present: alert Skin exam: Present: warm, dry, intact, normal color. Absent: rash Course Vital Signs 04/03/22 04/03/22 04/03/22 04:40 06:00 06:50 Temperature 97.3 F L 98.2 F Pulse Rate 72 79 77 Respiratory 16 18 15 Rate Blood Pressure 107/47 100/42 90/64 O2 Sat by Pulse 100 100 99 Oximetry EKG Findings - EKG Results: EKG: [facility] E[facility] shows: atrial fibrillation (Underlying rhythm appears to be atrial flutter with a rate of 79 bpm) - Dysrhythmias: Supraventricular dysrhythmia: atrial flutter - [place], Pacemaker, Normal: Myocardial infarction: inferior [place] (old age indeterminate) Medical Decision Making - Medical Decision Making Patient is an 82-year-old woman who did have what sounds like episode of near- syncope at home. Evaluation here does reveal mild elevation of troponin but this is suspected to be still decreasing from her previous admission for [place]. She is feeling well throughout her course here and expresses preference to go home. I did offer admission overnight to observe, patient states she is feeling much better and would like to go home. She will follow with financial officer. She'll return if any symptoms develop or the original symptoms recur. - Lab Data Result diagrams: 04/03/22 04:57 04/03/22 04:57 Lab Results 04/03/22 04/03/22 04/03/22 Range/Units 04:57 04:57 04:57 WBC 16.8 H (3.8-10.6) k/uL RBC 2.72 L (3.80-5.40) m/uL Hgb 8.6 L (11.4-16.0) gm/dL Hct 26.7 L (34.0-46.0) % MCV 98.2 (80.0-100.0) fL MCH 31.8 (25.0-35.0) pg MCHC 32.3 (31.0-37.0) g/dL RDW 16.4 H (11.5-15.5) % Plt Count 389 (150-450) k/uL MPV 7.9 Neutrophils % 82 % Lymphocytes % 6 % Monocytes % 6 % Eosinophils % 3 % Basophils % 0 % Neutrophils # 13.8 H (1.3-7.7) k/uL Lymphocytes # 1.1 (1.0-4.8) k/uL Monocytes # 1.0 (0-1.0) k/uL Eosinophils # 0.6 (0-0.7) k/uL Basophils # 0.0 (0-0.2) k/uL Hypochromasia Slight Anisocytosis Slight Macrocytosis Slight PT 11.8 (9.0-12.0) sec INR 1.1 (<1.2) APTT 23.4 (22.0-30.0) sec Sodium 130 L (137-145) mmol/L Potassium 3.5 (3.5-5.1) mmol/L Chloride 96 L (98-107) mmol/L Carbon Dioxide 27 (22-30) mmol/L Anion Gap 7 mmol/L BUN 47 H (7-17) mg/dL Creatinine 1.61 H (0.52-1.04) mg/dL Est GFR (CKD-EPI)AfAm 34 (>60 ml/min/1.73 sqM) Est GFR (CKD-EPI)NonAf 30 (>60 ml/min/1.73 sqM) Glucose 132 H (74-99) mg/dL Calcium 7.9 L (8.4-10.2) mg/dL Magnesium 1.8 (1.6-2.3) mg/dL Total Bilirubin 2.3 H (0.2-1.3) mg/dL AST 46 H (14-36) U/L ALT 29 (4-34) U/L Alkaline Phosphatase 115 (38-126) U/L Troponin I (0.000-0.034) ng/mL Total Protein 5.0 L (6.3-8.2) g/dL Albumin 2.6 L (3.5-5.0) g/dL 04/03/22 Range/Units 04:57 WBC (3.8-10.6) k/uL RBC (3.80-5.40) m/uL Hgb (11.4-16.0) gm/dL Hct (34.0-46.0) % MCV (80.0-100.0) fL MCH (25.0-35.0) pg MCHC (31.0-37.0) g/dL RDW (11.5-15.5) % Plt Count (150-450) k/uL MPV Neutrophils % % Lymphocytes % % Monocytes % % Eosinophils % % Basophils % % Neutrophils # (1.3-7.7) k/uL Lymphocytes # (1.0-4.8) k/uL Monocytes # (0-1.0) k/uL Eosinophils # (0-0.7) k/uL Basophils # (0-0.2) k/uL Hypochromasia Anisocytosis Macrocytosis PT (9.0-12.0) sec INR (<1.2) APTT (22.0-30.0) sec Sodium (137-145) mmol/L Potassium (3.5-5.1) mmol/L Chloride (98-107) mmol/L Carbon Dioxide (22-30) mmol/L Anion Gap mmol/L BUN (7-17) mg/dL Creatinine (0.52-1.04) mg/dL Est GFR (CKD-EPI)AfAm (>60 ml/min/1.73 sqM) Est GFR (CKD-EPI)NonAf (>60 ml/min/1.73 sqM) Glucose (74-99) mg/dL Calcium (8.4-10.2) mg/dL Magnesium (1.6-2.3) mg/dL Total Bilirubin (0.2-1.3) mg/dL AST (14-36) U/L ALT (4-34) U/L Alkaline Phosphatase (38-126) U/L Troponin I 3.670 H* (0.000-0.034) ng/mL Total Protein (6.3-8.2) g/dL Albumin (3.5-5.0) g/dL Disposition Clinical Impression: Palpitations Disposition: HOME SELF-CARE Condition: Good Instructions (If sedation given, give patient instructions): Heart Palpitations (ED) Is patient prescribed a controlled substance at d/c from ED?: No Referrals: Boni Alvarez MD [Primary Care Provider] - 1-2 days
[2022-04-03 07:18] VITALS: TEMP 98.2
[2022-04-03 07:21] VITALS: BP 90/64; PULSE 77; RESP 15
== END 2022-04-03 06:50 | disposition home or self-care (01) ==
LOC: EC 04:05
DX: Z88.2 Allergy status to sulfonamides (principal); R00.2 Palpitations; E11.9 Type 2 diabetes mellitus without complications; E07.9 Disorder of thyroid, unspecified; Z86.74 Personal history of sudden cardiac arrest; Z79.82 Long term (current) use of aspirin; Z79.899 Other long term (current) drug therapy; Z79.890 Hormone replacement therapy; Z88.5 Allergy status to narcotic agent; Z88.6 Allergy status to analgesic agent; Z88.8 Allergy status to other drugs, medicaments and biological substances
CPT/HCPCS: 36415; 71046; 80053; 83735; 84484; 85025; 85610; 85730; 93005; 99285

== ENCOUNTER 2022-04-11 17:18 | Inpatient (IN) | payer MEDICARE ==
[2022-04-11 18:08] LABS: Partial Thromboplastin Time 24.1 sec (22.0-30.0)
[2022-04-11 18:14] LABS: Albumin 3.1 g/dL (3.5-5.0); Calcium 8.4 mg/dL (8.4-10.2); Magnesium 1.9 mg/dL (1.6-2.3); Potassium 4.3 mmol/L (3.5-5.1); Total Bilirubin 1.6 mg/dL (0.2-1.3); Total Protein 6.1 g/dL (6.3-8.2)
--- NOTE | 2022-04-11 18:30 | XR ---
EXAMINATION TYPE: XR chest 2V DATE OF EXAM: 04/11/2022 6:17 PM COMPARISON: Chest radiographs from 04/03/2022 TECHNIQUE: XR chest 2V Frontal and lateral views of the chest. CLINICAL INDICATION:Female, 82 years old with history of Chest Pain; FINDINGS: Lungs/Pleura: No evidence of focal consolidation or pneumothorax. Blunting of the costophrenic angles is present. Pulmonary vascularity: Pulmonary vascular congestion. Heart/mediastinum: Cardiomediastinal silhouette is enlarged and stable. Musculoskeletal: No acute osseous pathology. IMPRESSION: Similar cardiomegaly, pulmonary vascular congestion and bilateral pleural effusions. 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
[2022-04-11 18:53] LABS: Anisocytosis Slight; HCT 33.4 % (34.0-46.0); HGB 11.1 gm/dL (11.4-16.0); MCH 33.2 pg (25.0-35.0); MCHC 33.3 g/dL (31.0-37.0); MCV 99.6 fL (80.0-100.0); Macrocytosis Moderate; Mean Platelet Volume 7.9; Platelet Count 365 k/uL (150-450); RBC 3.36 m/uL (3.80-5.40); RDW 17.3 % (11.5-15.5); WBC 10.9 k/uL (3.8-10.6)
[2022-04-11 19:25] LABS: Anisocytosis (M) Present; Eosinophils # (M) 0.22 k/uL (0-0.7); Lymphocytes # (M) 1.09 k/uL (1.0-4.8); Monocytes # (M) 1.31 k/uL (0-1.0); Neutrophils # (M) 8.28 k/uL (1.3-7.7); Neutrophils % (M) 76 %; Nucleated Red Blood Cells 0 /100 WBC (0-0); Total Cells Counted 100
[2022-04-11] MEDS ORDERED: FUROSEMIDE 10 MG/ML 4 ML VIAL IV STA (21:46)
[2022-04-11] MEDS ORDERED: MAG HYDROX/AL HYDROX/SIMETH 30 ML CUP PO PRN (22:23)
[2022-04-11] MEDS ORDERED: oxyCODONE-APAP 5-325MG 1 EACH TAB PO PRN (22:23)
[2022-04-11] MEDS ORDERED: TEMAZEPAM 15 MG CAP PO PRN (22:23)
[2022-04-11] MEDS ORDERED: ALPRAZolam 0.25 MG TAB PO PRN (22:23)
[2022-04-11] MEDS ORDERED: ONDANSETRON 4 MG/2 ML VIAL IVP PRN (22:23)
[2022-04-11] MEDS ORDERED: NALOXONE 0.4 MG/ML 1 ML VIAL IV PRN (22:23)
--- NOTE | 2022-04-11 22:23 | ED ---
SOB HPI - General Chief Complaint: Shortness of Breath Stated Complaint: LITZY Time Seen by Provider: 04/11/22 17:33 Source: patient Mode of arrival: wheelchair Limitations: no limitations - History of Present Illness Initial Comments: Patient complains of shortness of breath. Her symptoms are worse with exertion. She has taken no medicine for this. She had a recent heart attack. She has no focal weakness. She has no lightheadedness or dizziness. She is unaware of any sick contacts. She hasn't traveled. She has swelling in the legs. She has not had this previously - Related Data Home Medications Medication Instructions Recorded Confirmed Levothyroxine Sodium [Synthroid] 75 mcg PO DAILY 05/07/19 04/11/22 Metoprolol Tartrate [Lopressor] 12.5 mg PO BID 04/11/22 04/11/22 Midodrine [ProAmatine] 10 mg PO TID@0800,1300,2000 04/11/22 04/11/22 Previous Rx's Medication Instructions Recorded Acetaminophen Tab [Tylenol] 650 mg PO Q6HR PRN #90 tab 04/01/22 Aspirin 81 mg PO DAILY #30 tab 04/01/22 Atorvastatin [Lipitor] 80 mg PO HS #30 tab 04/01/22 Furosemide [Lasix] 40 mg PO DAILY #30 tab 04/01/22 Nitroglycerin Sl Tabs [Nitrostat] 0.4 mg SUBLINGUAL Q5M PRN #30 tab 04/01/22 Ondansetron Odt [Zofran ODT] 4 mg PO Q8HR PRN #30 tab 04/01/22 Ticagrelor [Brilinta] 90 mg PO BID #60 tab 04/01/22 Allergies Allergy/AdvReac Type Severity Reaction Status Date / Time codeine Allergy Rash/Hives Verified 04/11/22 20:53 metronidazole [From Flagyl] Allergy Rash/Hives Verified 04/11/22 20:53 Metronidazole HCl Allergy Rash/Hives Verified 04/11/22 20:53 [From Flagyl] morphine Allergy Rash/Hives Verified 04/11/22 20:53 hydrocodone [From [place]] AdvReac Unknown felt her Verified 04/11/22 20:53 mind was not right. famotidine [From Pepcid] AdvReac Nausea & Verified 04/11/22 20:53 Vomiting Opioids - Morphine Analogues AdvReac Confusion Verified 04/11/22 20:53 Opioids-Meperidine and AdvReac Confusion Verified 04/11/22 20:53 Related Opioids-Methadone and Related AdvReac Confusion Verified 04/11/22 20:53 Sulfa (Sulfonamide AdvReac Unknown- Verified 04/11/22 20:53 Antibiotics) almost passed out msg Allergy Anaphylaxis Uncoded 04/11/22 20:53 Review of Systems ROS Statement: Those systems with pertinent positive or pertinent negative responses have been documented in the HPI. ROS Other: All systems not noted in ROS Statement are negative. Past Medical History Past Medical History: Coronary Artery Disease (CAD), Cancer, Diabetes Mellitus, Myocardial Infarction (HI), Renal Disease, Thyroid Disorder Additional Past Medical History / Comment(s): Basal Cell skin cancer, hx. kidney stone, Diabetes- no longer on meds- watches diet, uses cane, states episodes where it feels her throat is tight (hx of EGD with dilation), chronic kidney disease. cardiac arrest History of Any Multi-Drug Resistant Organisms: None Reported Past Surgical History: Adenoidectomy, Back Surgery, Tonsillectomy Additional Past Surgical History / Comment(s): bunionectomy, kidney stone, cataracts, EGD with dilation heart stents Past Anesthesia/Blood Transfusion Reactions: No Reported Reaction Past Psychological History: No Psychological Hx Reported Smoking Status: Never smoker Past Alcohol Use History: None Reported Past Drug Use History: None Reported - Past Family History Brother(s) Family Medical History: Cancer Additional Family Medical History / Comment(s): basal cell skin cancer family Additional Family Medical History / Comment(s): no family hx of heart disease General Exam Limitations: no limitations General appearance: alert, in no apparent distress Head exam: Present: atraumatic, normocephalic, normal inspection Eye exam: Present: normal appearance ENT exam: Present: normal exam Neck exam: Present: normal inspection. Absent: tenderness Respiratory exam: Present: rales Cardiovascular Exam: Present: tachycardia GI/Abdominal exam: Present: soft. Absent: distended Extremities exam: Present: pedal edema. Absent: tenderness Back exam: Present: normal inspection. Absent: tenderness Neurological exam: Present: alert, oriented X3 Psychiatric exam: Present: normal affect, normal mood Skin exam: Present: warm, dry Course Vital Signs 1004/11/22 04/11/22 17:25 17:40 17:54 Temperature 98.2 F 97.6 F Pulse Rate 130 H 115 H Pulse Rate [ 115 H Medical Artist ] Respiratory 32 H 24 Rate Blood Pressure 146/90 155/109 O2 Sat by Pulse 94 L 99 Oximetry 04/11/22 04/11/22 18:21 18:56 Temperature 97.8 F 97.6 F Pulse Rate 101 H 96 Pulse Rate [ Medical Artist ] Respiratory 20 18 Rate Blood Pressure 140/98 140/67 O2 Sat by Pulse 99 99 Oximetry Medical Decision Making - Medical Decision Making Patient presents with shortness of breath. She is initially in a flutter with RVR, but converted to sinus rhythm. I ordered her IV Lasix because of concern for failure. Will consult cardiology. Patient will be admitted to the hospital. - Lab Data Result diagrams: 04/11/22 17:50 04/11/22 17:50 Lab Results 04/11/22 04/11/22 04/11/22 Range/Units 17:50 17:50 17:50 WBC 10.9 H (3.8-10.6) k/uL RBC 3.36 L (3.80-5.40) m/uL Hgb 11.1 L (11.4-16.0) gm/dL Hct 33.4 L (34.0-46.0) % MCV 99.6 (80.0-100.0) fL MCH 33.2 (25.0-35.0) pg MCHC 33.3 (31.0-37.0) g/dL RDW 17.3 H (11.5-15.5) % Plt Count 365 (150-450) k/uL MPV 7.9 Neutrophils % (Manual) 76 % Lymphocytes % (Manual) 10 % Monocytes % (Manual) 12 % Eosinophils % (Manual) 2 % Neutrophils # (Manual) 8.28 H (1.3-7.7) k/uL Lymphocytes # (Manual) 1.09 (1.0-4.8) k/uL Monocytes # (Manual) 1.31 H (0-1.0) k/uL Eosinophils # (Manual) 0.22 (0-0.7) k/uL Nucleated RBCs 0 (0-0) /100 WBC Manual Slide Review Performed Anisocytosis Slight Anisocytosis (manual) Present Macrocytosis Moderate PT 11.0 (9.0-12.0) sec INR 1.0 (<1.2) APTT 24.1 (22.0-30.0) sec Sodium 126 L (137-145) mmol/L Potassium 4.3 (3.5-5.1) mmol/L Chloride 91 L (98-107) mmol/L Carbon Dioxide 23 (22-30) mmol/L Anion Gap 12 mmol/L BUN 42 H (7-17) mg/dL Creatinine 1.17 H (0.52-1.04) mg/dL Est GFR (CKD-EPI)AfAm 51 (>60 ml/min/1.73 sqM) Est GFR (CKD-EPI)NonAf 44 (>60 ml/min/1.73 sqM) Glucose 147 H (74-99) mg/dL Calcium 8.4 (8.4-10.2) mg/dL Magnesium 1.9 (1.6-2.3) mg/dL Total Bilirubin 1.6 H (0.2-1.3) mg/dL AST 45 H (14-36) U/L ALT 33 (4-34) U/L Alkaline Phosphatase 204 H (38-126) U/L Troponin I (0.000-0.034) ng/mL NT-Pro-B Natriuret Pep pg/mL Total Protein 6.1 L (6.3-8.2) g/dL Albumin 3.1 L (3.5-5.0) g/dL 04/11/22 04/11/22 Range/Units 17:50 17:50 WBC (3.8-10.6) k/uL RBC (3.80-5.40) m/uL Hgb (11.4-16.0) gm/dL Hct (34.0-46.0) % MCV (80.0-100.0) fL MCH (25.0-35.0) pg MCHC (31.0-37.0) g/dL RDW (11.5-15.5) % Plt Count (150-450) k/uL MPV Neutrophils % (Manual) % Lymphocytes % (Manual) % Monocytes % (Manual) % Eosinophils % (Manual) % Neutrophils # (Manual) (1.3-7.7) k/uL Lymphocytes # (Manual) (1.0-4.8) k/uL Monocytes # (Manual) (0-1.0) k/uL Eosinophils # (Manual) (0-0.7) k/uL Nucleated RBCs (0-0) /100 WBC Manual Slide Review Anisocytosis Anisocytosis (manual) Macrocytosis PT (9.0-12.0) sec INR (<1.2) APTT (22.0-30.0) sec Sodium (137-145) mmol/L Potassium (3.5-5.1) mmol/L Chloride (98-107) mmol/L Carbon Dioxide (22-30) mmol/L Anion Gap mmol/L BUN (7-17) mg/dL Creatinine (0.52-1.04) mg/dL Est GFR (CKD-EPI)AfAm (>60 ml/min/1.73 sqM) Est GFR (CKD-EPI)NonAf (>60 ml/min/1.73 sqM) Glucose (74-99) mg/dL Calcium (8.4-10.2) mg/dL Magnesium (1.6-2.3) mg/dL Total Bilirubin (0.2-1.3) mg/dL AST (14-36) U/L ALT (4-34) U/L Alkaline Phosphatase (38-126) U/L Troponin I 0.241 H* (0.000-0.034) ng/mL NT-Pro-B Natriuret Pep 19102 pg/mL Total Protein (6.3-8.2) g/dL Albumin (3.5-5.0) g/dL 04/11/22 22:22 Twelve-lead EKG shows ventricular 146 bpm, no P waves present, QRS complexes are not wide, no ST elevation or depression, interpreted by me as a flutter with rapid ventricular response. Disposition Clinical Impression: Heart failure Disposition: ADMITTED IP TO THIS HOSP Condition: Fair Is patient prescribed a controlled substance at d/c from ED?: No Referrals: Boni Alvarez MD [Primary Care Provider] - 1-2 days
[2022-04-11] MEDS ORDERED: NITROGLYCERIN SL TABS 0.4 MG TAB SUBLINGUAL PRN (22:25)
[2022-04-11] MEDS ORDERED: ACETAMINOPHEN TAB 325 MG TAB PO PRN (22:34)
[2022-04-11] MEDS ORDERED: HEPARIN SODIUM 1,000 UN/ML (10ML VL) IV ONE (23:06)
[2022-04-11] MEDS ORDERED: HEPARIN SOD,PORK IN 0.45% NACL 25,000 UNIT in 0.45% NACL 1 250ML.BAG IV SCH (23:15)
--- NOTE | 2022-04-11 23:15 | P.HPIM ---
History of Present Illness H&P Date: 04/11/22 Chief Complaint: shortness of breath 82-year-old female with recent event of STEMI and cardiac arrest, chronic kidney disease, congestive heart failure, diabetes mellitus Patient comes in with worsening shortness of breath over the past initially with with minimal exertion however progress to shortness of breath at rest associated with orthopnea and paroxysmal maternal dyspnea patient waking up multiple times at night catching her breath denies any associated chest pain she claims to be compliant with her medications denies any fevers or chills denies any nausea vomiting denies any GI bleeding denies any changes in bowel or urinary habits. No She denies any recent travel or known sick contacts. She was recently hospitalized and discharged about 10 days ago, she was hospitalized for cardiac arrest found to have STEMI and echogenic shock echocardiogram showed EF of 45% patient was discharged to subacute rehab however she didn't like the care over there in discharged herself to home Workup in the ED chest x-ray showed pulmonary vascular congestion with bilateral pleural effusion. EKG initially showed a flutter with rapid ventricular response however she c onverted spontaneously Troponin was elevated however trending down compared to at time of discharge 10 days ago Review of Systems Pertinent positives as noted in HPI. All other systems were reviewed and are negative Past Medical History Past Medical History: Coronary Artery Disease (CAD), Cancer, Diabetes Mellitus, Myocardial Infarction (MS), Renal Disease, Thyroid Disorder Additional Past Medical History / Comment(s): Basal Cell skin cancer, hx. kidney stone, Diabetes- no longer on meds- watches diet, uses cane, states episodes where it feels her throat is tight (hx of EGD with dilation), chronic kidney disease. cardiac arrest History of Any Multi-Drug Resistant Organisms: None Reported Past Surgical History: Adenoidectomy, Back Surgery, Tonsillectomy Additional Past Surgical History / Comment(s): bunionectomy, kidney stone, cataracts, EGD with dilation heart stents Past Anesthesia/Blood Transfusion Reactions: No Reported Reaction Past Psychological History: No Psychological Hx Reported Smoking Status: Never smoker Past Alcohol Use History: None Reported Past Drug Use History: None Reported - Past Family History Brother(s) Family Medical History: Cancer Additional Family Medical History / Comment(s): basal cell skin cancer family Additional Family Medical History / Comment(s): no family hx of heart disease Medications and Allergies Home Medications Medication Instructions Recorded Confirmed Type Levothyroxine Sodium [Synthroid] 75 mcg PO DAILY 05/07/19 04/11/22 History Acetaminophen Tab [Tylenol] 650 mg PO Q6HR PRN #90 tab 04/01/22 04/11/22 Rx Aspirin 81 mg PO DAILY #30 tab 04/01/22 04/11/22 Rx Atorvastatin [Lipitor] 80 mg PO HS #30 tab 04/01/22 04/11/22 Rx Furosemide [Lasix] 40 mg PO DAILY #30 tab 04/01/22 04/11/22 Rx Nitroglycerin Sl Tabs [Nitrostat] 0.4 mg SUBLINGUAL Q5M PRN #30 tab 04/01/22 04/11/22 Rx Ondansetron Odt [Zofran ODT] 4 mg PO Q8HR PRN #30 tab 04/01/22 04/11/22 Rx Ticagrelor [Brilinta] 90 mg PO BID #60 tab 04/01/22 04/11/22 Rx Metoprolol Tartrate [Lopressor] 12.5 mg PO BID 04/11/22 04/11/22 History Midodrine [ProAmatine] 10 mg PO TID@0800,1300,2000 04/11/22 04/11/22 History Allergies Allergy/AdvReac Type Severity Reaction Status Date / Time codeine Allergy Rash/Hives Verified 04/11/22 20:53 metronidazole [From Flagyl] Allergy Rash/Hives Verified 04/11/22 20:53 Metronidazole HCl Allergy Rash/Hives Verified 04/11/22 20:53 [From Flagyl] morphine Allergy Rash/Hives Verified 04/11/22 20:53 hydrocodone [From [place]] AdvReac Unknown felt her Verified 04/11/22 20:53 mind was not right. famotidine [From Pepcid] AdvReac Nausea & Verified 04/11/22 20:53 Vomiting Opioids - Morphine Analogues AdvReac Confusion Verified 04/11/22 20:53 Opioids-Meperidine and AdvReac Confusion Verified 04/11/22 20:53 Related Opioids-Methadone and Related AdvReac Confusion Verified 04/11/22 20:53 Sulfa (Sulfonamide AdvReac Unknown- Verified 04/11/22 20:53 Antibiotics) almost passed out msg Allergy Anaphylaxis Uncoded 04/11/22 20:53 Physical Exam Vitals: Vital Signs Temp Pulse Pulse Resp BP Pulse Ox 04/11/22 18:56 97.6 F 96 18 140/67 99 04/11/22 18:21 97.8 F 101 H 20 140/98 99 04/11/22 17:54 97.6 F 115 H 24 155/109 99 04/11/22 17:40 115 H 04/11/22 17:25 98.2 F 130 H 32 H 146/90 94 L Intake and Output 04/11/22 04/11/22 04/12/22 14:59 22:59 06:59 Other: Weight 95.254 kg Physical examConstitutional: No acute distress, conversant, pleasant Eyes: Anicteric sclerae, moist conjunctiva, Pupils equal round reactive to light ENMT: NC/AT Oropharynx clear, no erythema, or exudates Neck: Supple, no masses, or JVD No carotid bruits No thyromegaly Lungs: Good breath sounds bilaterally with some fine inspiratory rales at lung bases Clear to percussion Normal respiratory effort, no accessory muscle use Cardiovascular: Heart regular in rate and rhythm, No murmurs, gallops, or rubs +2 bilateral peripheral leg edema Abdominal: Soft Nontender, no guarding, rebound or rigidity Abdomen moving with respiration Normoactive bowel sounds No hepatomegaly, No splenomegaly No palpable mass No abdominal wall hernia noted Skin: Extensive bruising and ecchymosis over the chest from recent event of CPR while hospitalized about 2 weeks ago, otherwise Normal temperature, tone, texture, turgor Extremities: No digital cyanosis No clubbing Pedal pulses intact and symmetrical Radial pulses intact and symmetrical No calf tenderness Psychiatric: Alert and oriented to person, place Appropriate affect fair judgement Neuro Muscles Strength 4/5 in all 4 extremities Sensation to light touch grossly present throughout Cranial nerves II-XII grossly intact No focal sensory deficits Lymphatics: no palpable cervical or supraclavicular , or inguinal lymph nodes Results CBC & Chem 7: 04/11/22 17:50 04/11/22 17:50 Labs: Abnormal Lab Results - Last 24 Hours (Table) 04/11/22 04/11/22 04/11/22 Range/Units 17:50 17:50 17:50 WBC 10.9 H (3.8-10.6) k/uL RBC 3.36 L (3.80-5.40) m/uL Hgb 11.1 L (11.4-16.0) gm/dL Hct 33.4 L (34.0-46.0) % RDW 17.3 H (11.5-15.5) % Neutrophils # (Manual) 8.28 H (1.3-7.7) k/uL Monocytes # (Manual) 1.31 H (0-1.0) k/uL Sodium 126 L (137-145) mmol/L Chloride 91 L (98-107) mmol/L BUN 42 H (7-17) mg/dL Creatinine 1.17 H (0.52-1.04) mg/dL Glucose 147 H (74-99) mg/dL Total Bilirubin 1.6 H (0.2-1.3) mg/dL AST 45 H (14-36) U/L Alkaline Phosphatase 204 H (38-126) U/L Troponin I 0.241 H* (0.000-0.034) ng/mL Total Protein 6.1 L (6.3-8.2) g/dL Albumin 3.1 L (3.5-5.0) g/dL Assessment and Plan Assessment: Acute CHF exacerbation Ischemic cardiomyopathy with left ventricular ejection fraction 45% A flutter with rapid ventricular response followed by spontaneous conversion hyponatremia Coronary artery disease status post stents plan CXR showed pulmonary vasc congestion , pleural effusion IV 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 denies chest pain cardio consult resume home cardiac meds recent STEMI , continue brilinta aspirin statin supplemental oxygen as needed monitor electrolytes and renal function cardiology to consider benefits of life vest / ICD chronic conditions Chronic kidney disease stable Diabetes mellitus dietary controlled Hypothyroid resume levothyroxin insulin sliding scale for DM DVT PPX heparin sc tid No code
[2022-04-12] MEDS: TICAGRELOR 90 MG TAB PO SCH ×2 (00:14→09:35)
[2022-04-12] MEDS: METOPROLOL TARTRATE 12.5 MG TAB PO SCH ×2 (00:14→09:36)
[2022-04-12] MEDS: HEPARIN SODIUM,PORCINE/PF 5,000 UNIT/0.5 ML SYRINGE SQ SCH ×2 (01:02→11:43)
[2022-04-12 06:15] LABS: Glucose,Whole Blood 100 mg/dL (70-110)
[2022-04-12] MEDS: INSULIN ASPART (NovoLOG) 100 UNIT/ML VIAL SQ SCH ×4 (06:20→20:55)
[2022-04-12] MEDS: LEVOTHYROXINE 75 MCG TAB PO SCH (06:29)
[2022-04-12] MEDS: MIDODRINE 5 MG TAB PO SCH ×3 (06:29→17:35)
[2022-04-12 08:37] LABS: Anisocytosis Slight; Basophils % (A) 0 %; Eosinophils # (A) 0.2 k/uL (0-0.7); Eosinophils % (A) 2 %; HCT 32.4 % (34.0-46.0); HGB 10.4 gm/dL (11.4-16.0); Hypochromasia Moderate; Lymphocytes # (A) 1.3 k/uL (1.0-4.8); Lymphocytes % (A) 12 %; MCH 32.9 pg (25.0-35.0); MCHC 32.1 g/dL (31.0-37.0); MCV 102.3 fL (80.0-100.0); Macrocytosis Moderate; Mean Platelet Volume 7.8; Monocytes # (A) 0.7 k/uL (0-1.0); Monocytes % (A) 6 %; Neutrophils # (A) 8.6 k/uL (1.3-7.7); Neutrophils % (A) 76 %; Platelet Count 347 k/uL (150-450); RBC 3.16 m/uL (3.80-5.40); RDW 17.7 % (11.5-15.5); WBC 11.3 k/uL (3.8-10.6)
[2022-04-12 08:51] LABS: Calcium 8.5 mg/dL (8.4-10.2); Potassium 4.2 mmol/L (3.5-5.1)
[2022-04-12] MEDS ORDERED: TICAGRELOR 90 MG TAB PO SCH (09:00)
[2022-04-12] MEDS ORDERED: ASPIRIN 81 MG PO SCH (09:00)
[2022-04-12] MEDS ORDERED: FUROSEMIDE 40 MG TAB PO SCH (09:00)
[2022-04-12] MEDS ORDERED: METOPROLOL TARTRATE 12.5 MG TAB PO SCH (09:00)
[2022-04-12] MEDS: FUROSEMIDE 10 MG/ML 4 ML VIAL IV SCH ×2 (09:37→20:55)
[2022-04-12] MEDS: APIXABAN 5 MG TAB PO SCH ×2 (09:37→20:55)
[2022-04-12 11:43] LABS: Glucose,Whole Blood 132 mg/dL (70-110)
--- NOTE | 2022-04-12 11:44 | P.CRDCN ---
History of Present Illness History of present illness: HISTORY OF PRESENT ILLNESS: This is a 82-year-old female with a past medical history significant for coronary artery disease with recent STEMI and stenting to the RCA, ischemic cardiomyopathy, hyperlipidemia, and congestive heart failure. Patient does not see a exhibits curator but underwent cardiac catheterization recently with Dr. Farooq. We have been asked to see the patient in consultation for congestive heart failure. Patient examined at the bedside. Patient presented to the hospital with a chief complaint of shortness of breath and coughing. Patient was found to be in acute congestive heart failure. She was started on IV Lasix. She reports lower extremity edema which has been present since her recent heart attack. She denies any chest pain or pressure. EKG on admission reveals atrial fibrillation. Upon reviewing telemetry, patient appears to remain in atrial fibrillation. She denies a history of atrial fibrillation. However looking at previous EKGs it appears the patient may have been in atrial fibrillation during her previous hospitalization. She was not anticoagulated on an outpatient basis. * EKG reveals A. fib with RVR * Chest xray cardiomegaly. Pulmonary vascular congestion and bilateral pleural effusions. * Laboratory data: WBC 11.3. Hemoglobin 10.4. Platelet count 347. Sodium 130. Potassium 4.2. BUN 39. Creatinine 1.27. BNP 22,300. Troponin 0.243. 0.231. 0.244. * Current home cardiac medications include metoprolol 12.5 mg twice a day, aspirin 81 mg daily, Lipitor 80 mg daily, Lasix 40 mg daily, Brilinta 90 mg twice a day * Most recent echocardiogram obtained in March 2022 revealed ejection fraction 40-45% REVIEW OF SYSTEMS: At the time of my exam: CONSTITUTIONAL: Denies fever or chills. HEENT: Denies blurred vision, vision changes, or eye pain. Denies hemoptysis CARDIOVASCULAR: Denies chest pain. Denies orthopnea. Denies PND. Denies palpitations RESPIRATORY: Denies shortness of breath. GASTROINTESTINAL: Denies abdominal pain. Denies nausea or vomiting. HEMATOLOGIC: Denies bleeding disorders. GENITOURINARY: Denies any blood in urine. SKIN: Denies pruitis. Denies rash. PHYSICAL EXAM: VITAL SIGNS: Reviewed. GENERAL: Well-developed in no acute distress. HEENT: Head is normocephalic. Pupils are equal, round. Sclerae anicteric. Mucous membranes of the mouth are moist. Neck supple. No JVD or thyromegaly LUNGS: Respirations even and unlabored. Lungs diminished with bibasilar rales HEART: Irregular rate and rhythm. S1 and S2 heard. ABDOMEN: Soft. Nondistended. Nontender. EXTREMITIES: Normal range of motion. No clubbing or cyanosis. Peripheral pulses intact. 2-3+ bilateral lower extremity edema NEUROLOGIC: Awake and alert. Oriented x 3. ASSESSMENT: Acute on chronic heart failure with mildly reduced ejection fraction Persistent atrial fibrillation with RVR Recent STEMI with PCI to RCA Recent cardiac arrest Ischemic cardiomyopathy Hyperlipidemia PLAN: Continue IV lasix Begin Eliquis 5mg BID Discontinue aspirin and Brilinta Give loading dose of Plavix tomorrow then begin 75mg daily the following day Further recommendations pending patient course Nurse practitioner note has been reviewed by physician. Signing provider agrees with the documented findings, assessment, and plan of care. Past Medical History Past Medical History: Coronary Artery Disease (CAD), Cancer, Diabetes Mellitus, Myocardial Infarction (HI), Renal Disease, Thyroid Disorder Additional Past Medical History / Comment(s): Basal Cell skin cancer, hx. kidney stone, Diabetes- no longer on meds- watches diet, uses cane, states episodes where it feels her throat is tight (hx of EGD with dilation), chronic kidney disease. cardiac arrest Last Myocardial Infarction Date:: 03/25/22 History of Any Multi-Drug Resistant Organisms: None Reported Past Surgical History: Adenoidectomy, Back Surgery, Tonsillectomy Additional Past Surgical History / Comment(s): bunionectomy, kidney stone, cataracts, EGD with dilation heart stents Past Anesthesia/Blood Transfusion Reactions: No Reported Reaction Past Psychological History: No Psychological Hx Reported Smoking Status: Never smoker Past Alcohol Use History: None Reported Past Drug Use History: None Reported - Past Family History Brother(s) Family Medical History: Cancer Additional Family Medical History / Comment(s): basal cell skin cancer family Additional Family Medical History / Comment(s): no family hx of heart disease Medications and Allergies Home Medications Medication Instructions Recorded Confirmed Type Levothyroxine Sodium [Synthroid] 75 mcg PO DAILY 05/07/19 04/11/22 History Acetaminophen Tab [Tylenol] 650 mg PO Q6HR PRN #90 tab 04/01/22 04/11/22 Rx Aspirin 81 mg PO DAILY #30 tab 04/01/22 04/11/22 Rx Atorvastatin [Lipitor] 80 mg PO HS #30 tab 04/01/22 04/11/22 Rx Furosemide [Lasix] 40 mg PO DAILY #30 tab 04/01/22 04/11/22 Rx Nitroglycerin Sl Tabs [Nitrostat] 0.4 mg SUBLINGUAL Q5M PRN #30 tab 04/01/22 04/11/22 Rx Ondansetron Odt [Zofran ODT] 4 mg PO Q8HR PRN #30 tab 04/01/22 04/11/22 Rx Ticagrelor [Brilinta] 90 mg PO BID #60 tab 04/01/22 04/11/22 Rx Metoprolol Tartrate [Lopressor] 12.5 mg PO BID 04/11/22 04/11/22 History Midodrine [ProAmatine] 10 mg PO TID@0800,1300,2000 04/11/22 04/11/22 History Allergies Allergy/AdvReac Type Severity Reaction Status Date / Time codeine Allergy Rash/Hives Verified 04/11/22 20:53 metronidazole [From Flagyl] Allergy Rash/Hives Verified 04/11/22 20:53 Metronidazole HCl Allergy Rash/Hives Verified 04/11/22 20:53 [From Flagyl] morphine Allergy Rash/Hives Verified 04/11/22 20:53 hydrocodone [From [place]] AdvReac Unknown felt her Verified 04/11/22 20:53 mind was not right. famotidine [From Pepcid] AdvReac Nausea & Verified 04/11/22 20:53 Vomiting Opioids - Morphine Analogues AdvReac Confusion Verified 04/11/22 20:53 Opioids-Meperidine and AdvReac Confusion Verified 04/11/22 20:53 Related Opioids-Methadone and Related AdvReac Confusion Verified 04/11/22 20:53 Sulfa (Sulfonamide AdvReac Unknown- Verified 04/11/22 20:53 Antibiotics) almost passed out msg Allergy Anaphylaxis Uncoded 04/11/22 20:53 Physical Exam Vitals: Vital Signs Temp Pulse Pulse Resp BP BP Pulse Ox 04/12/22 03:30 98.2 F 84 18 109/70 98 04/12/22 00:06 98 F 99 20 138/64 97 04/11/22 18:56 97.6 F 96 18 140/67 99 04/11/22 18:21 97.8 F 101 H 20 140/98 99 04/11/22 17:54 97.6 F 115 H 24 155/109 99 04/11/22 17:40 115 H 04/11/22 17:25 98.2 F 130 H 32 H 146/90 94 L Intake and Output 04/11/22 04/12/22 04/12/22 22:59 06:59 14:59 Output Total 1100 Balance -1100 Output: Urine 1100 Other: Voiding Method Diaper External Catheter # Voids 1 Weight 95.254 kg 95.254 kg Results 04/12/22 08:05 04/12/22 08:05 Cardiac Enzymes 04/11/22 04/11/22 04/11/22 Range/Units 17:50 17:50 22:42 AST 45 H (14-36) U/L Troponin I 0.241 H* 0.231 H* (0.000-0.034) ng/mL 04/12/22 Range/Units 00:49 AST (14-36) U/L Troponin I 0.244 H* (0.000-0.034) ng/mL Coagulation 04/11/22 Range/Units 17:50 PT 11.0 (9.0-12.0) sec APTT 24.1 (22.0-30.0) sec CBC 04/11/22 04/12/22 Range/Units 17:50 08:05 WBC 10.9 H 11.3 H (3.8-10.6) k/uL RBC 3.36 L 3.16 L (3.80-5.40) m/uL Hgb 11.1 L 10.4 L (11.4-16.0) gm/dL Hct 33.4 L 32.4 L (34.0-46.0) % Plt Count 365 347 (150-450) k/uL Comprehensive Metabolic Panel 04/11/22 04/12/22 Range/Units 17:50 08:05 Sodium 126 L 130 L (137-145) mmol/L Potassium 4.3 4.2 (3.5-5.1) mmol/L Chloride 91 L 93 L (98-107) mmol/L Carbon Dioxide 23 25 (22-30) mmol/L BUN 42 H 39 H (7-17) mg/dL Creatinine 1.17 H 1.27 H (0.52-1.04) mg/dL Glucose 147 H 93 (74-99) mg/dL Calcium 8.4 8.5 (8.4-10.2) mg/dL AST 45 H (14-36) U/L ALT 33 (4-34) U/L Alkaline Phosphatase 204 H (38-126) U/L Total Protein 6.1 L (6.3-8.2) g/dL Albumin 3.1 L (3.5-5.0) g/dL Current Medications Generic Name Dose Route Start Last Admin Trade Name Freq PRN Reason Stop Dose Admin Acetaminophen 650 mg 04/11/22 22:34 Acetaminophen Tab 325 Mg Tab PO Q6HR PRN Mild Pain or Fever > 100.5 Al Hydroxide/Mg Hydroxide 15 ml 04/11/22 22:23 Mag Hydrox/Al Hydrox/Simeth 30 Ml Cup PO Q6HR PRN Indigestion Alprazolam 0.25 mg 04/11/22 22:23 Alprazolam 0.25 Mg Tab PO Q6HR PRN Anxiety Aspirin 81 mg 04/12/22 09:00 Aspirin 81 Mg PO DAILY [facility] Atorvastatin Calcium 80 mg 04/12/22 21:00 Atorvastatin 80 Mg Tab PO HS [facility] Furosemide 40 mg 04/12/22 09:00 Furosemide 10 Mg/Ml 4 Ml Vial IV Q12HR [facility] Heparin Sodium (Porcine) 5,000 unit 04/12/22 00:30 04/12/22 01:02 Heparin Sodium,Porcine/Pf 5,000 Unit/0.5 Ml Syringe SQ 5,000 unit Q8HR [facility] Administration Insulin Aspart 0 unit 04/12/22 07:30 04/12/22 06:20 Insulin Aspart (Novolog) 100 Unit/Ml Vial SQ Not Given ACHS [facility] Protocol Levothyroxine Sodium 75 mcg 04/12/22 06:30 04/12/22 06:29 Levothyroxine 75 Mcg Tab PO 75 mcg DAILY@0630 [facility] Administration Metoprolol Tartrate 12.5 mg 04/11/22 22:45 04/12/22 00:14 Metoprolol Tartrate 12.5 Mg Tab PO 12.5 mg BID [facility] Administration Midodrine 10 mg 04/12/22 07:30 04/12/22 06:29 Midodrine 5 Mg Tab PO 10 mg AC-TID FLORINDA Administration Naloxone HCl 0.2 mg 04/11/22 22:23 Naloxone 0.4 Mg/Ml 1 Ml Vial IV Q2M PRN Opioid Reversal Nitroglycerin 0.4 mg 04/11/22 22:25 Nitroglycerin Sl Tabs 0.4 Mg Tab SUBLINGUAL Q5M PRN Chest Pain Ondansetron HCl 4 mg 04/11/22 22:23 Ondansetron 4 Mg/2 Ml Vial IVP Q8HR PRN Nausea And Vomiting Oxycodone/Acetaminophen 1 each 04/11/22 22:23 Oxycodone-Apap 5-325mg 1 Each Tab PO Q4HR PRN Severe Pain (Scale 7 to 10) Temazepam 15 mg 04/11/22 22:23 Temazepam 15 Mg Cap PO HS PRN Insomnia Ticagrelor 90 mg 04/11/22 22:45 04/12/22 00:14 Ticagrelor 90 Mg Tab PO 90 mg BID FLORINDA Administration Intake and Output 04/11/22 04/12/22 04/12/22 22:59 06:59 14:59 Output Total 1100 Balance -1100 Output: Urine 1100 Other: Voiding Method Diaper External Catheter # Voids 1 Weight 95.254 kg 95.254 kg 04/12/22 08:05 04/12/22 08:05
--- NOTE | 2022-04-12 15:24 | P.PN ---
Subjective Progress Note Date: 04/12/22 (delayed charting seen at 1130) 82-year-old female with recent event of STEMI and cardiac arrest, chronic kidney disease, congestive heart failure, diabetes mellitus who presented with incre asing shortness of breath. The ER she was found to be tachycardic with a pulse of 130. Respirations 32, and she was 94% on room air. Laboratory analysis was remarkable for white blood cell count 10.9, and 11.1, sodium 126, and creatinine 1.17. Troponin was mildly elevated at 0.231 (down trending from prior STEMI), and BNP was markedly elevated at 22,300. EKG demonstrated atrial flutter with r apid ventricular response which spontaneously converted to normal sinus rhythm. She was started on IV duiretics and arrangements were made for admission. Cardiology was consulted. Patient seen and exmained at bedside. She still has a dry cough, no shortness of breath at reast, significnat edema, Chest pain with deep inspiration related to bruising from CPR Daughter at bedside all questions answered. Patient worried because they could not get a hold of anyone adequately when her edema increased. They have her first appointment with cardiology at the end of the week. General: nontoxic, no distress, appears at stated age Derm: warm, dry Head: atraumatic, normocephalic, symmetric Eyes: EOMI, no lid lag, anicteric sclera Mouth: no lip lesion, mucus membranes moist Cardiovascular: S1S2 reg, no murmur, positive posterior tibial pulse bilateral, Lungs: Rhonchi bilateral bases right greater than left, no accessory muscle use Abdominal: soft, nontender to palpation, no guarding, no appreciable organomegaly Ext: no gross muscle atrophy, 4+ pitting edema, no contractures Neuro: CN II-XI grossly intact, no focal neuro deficits Psych: Alert, oriented, appropriate affect Assessment/plan: Acute exacerbation of digestive heart failure with ejection fraction 40-45% Ischemic cardiomyopathy Recent STEMI on 03/25/22 with PCI to the RCA -A. fib with RVR presentation -Last echo was less than 1 month ago does not need to be repeated - We'll need to be cautious with starting eloquent this patient was recently here and had significant anemia requiring transfusion without a definitive sour ce of bleeding identified despite significant workup. -Diuresis -Strict I's and O's, daily weights -Cardiology recommendations: transition from Brillenta to Plavix - lopressor, was on midodrine at home will attempt to decrease given stable BP - ASA, Statin -Diuretic therapy likely needs to be increased at discharge. -CHF Navigator consultation -Dietitian recommendations Hyponatremia -Suspect secondary to fluid overload -Continue with diuresis -Monitor sodium levels Anemia -Continue outpatient follow-up with hematology -Improved from discharge -Follow CBC Diabetes mellitus type 2 - diet controlled - outpatient follow-up Hypothyroidism - synthroid Chronic kidney disease III -at or better than baseline - monitor closely with diuresis DVT prophylaxis: Eliquis Discussed with: patient, nursing, daughter Anticipated discharge: in 2-[address]: A total of 45 minutes was spent on the care of this complex patient more than 50% of the time was spent in counseling and care coordination. Objective - Vital Signs Vital signs: Vital Signs Temp 98.1 F 04/12/22 12:00 Pulse 84 04/12/22 12:00 Resp 18 04/12/22 12:00 BP 110/69 04/12/22 12:00 Pulse Ox 98 04/12/22 12:00 FiO2 Intake & Output 04/11/22 04/12/22 04/12/22 18:59 06:59 18:59 Intake Total 445 Output Total 1100 1250 Balance -1100 -805 Weight 95.254 kg 95.254 kg Intake: Oral 445 Output: Urine 1100 1250 Other: Voiding Method Diaper Diaper External Catheter External Catheter # Voids 1 - Labs CBC & Chem 7: 04/12/22 08:05 04/12/22 08:05 Labs: Abnormal Lab Results - Last 24 Hours (Table) 04/11/22 04/11/22 04/11/22 Range/Units 17:50 17:50 17:50 WBC 10.9 H (3.8-10.6) k/uL RBC 3.36 L (3.80-5.40) m/uL Hgb 11.1 L (11.4-16.0) gm/dL Hct 33.4 L (34.0-46.0) % MCV (80.0-100.0) fL RDW 17.3 H (11.5-15.5) % Neutrophils # (1.3-7.7) k/uL Neutrophils # (Manual) 8.28 H (1.3-7.7) k/uL Monocytes # (Manual) 1.31 H (0-1.0) k/uL Sodium 126 L (137-145) mmol/L Chloride 91 L (98-107) mmol/L BUN 42 H (7-17) mg/dL Creatinine 1.17 H (0.52-1.04) mg/dL Glucose 147 H (74-99) mg/dL POC Glucose (mg/dL) (70-110) mg/dL Total Bilirubin 1.6 H (0.2-1.3) mg/dL AST 45 H (14-36) U/L Alkaline Phosphatase 204 H (38-126) U/L Troponin I 0.241 H* (0.000-0.034) ng/mL Total Protein 6.1 L (6.3-8.2) g/dL Albumin 3.1 L (3.5-5.0) g/dL 04/11/22 04/12/22 04/12/22 Range/Units 22:42 00:49 08:05 WBC 11.3 H (3.8-10.6) k/uL RBC 3.16 L (3.80-5.40) m/uL Hgb 10.4 L (11.4-16.0) gm/dL Hct 32.4 L (34.0-46.0) % MCV 102.3 H (80.0-100.0) fL RDW 17.7 H (11.5-15.5) % Neutrophils # 8.6 H (1.3-7.7) k/uL Neutrophils # (Manual) (1.3-7.7) k/uL Monocytes # (Manual) (0-1.0) k/uL Sodium (137-145) mmol/L Chloride (98-107) mmol/L BUN (7-17) mg/dL Creatinine (0.52-1.04) mg/dL Glucose (74-99) mg/dL POC Glucose (mg/dL) (70-110) mg/dL Total Bilirubin (0.2-1.3) mg/dL AST (14-36) U/L Alkaline Phosphatase (38-126) U/L Troponin I 0.231 H* 0.244 H* (0.000-0.034) ng/mL Total Protein (6.3-8.2) g/dL Albumin (3.5-5.0) g/dL 04/12/22 04/12/22 Range/Units 08:05 11:41 WBC (3.8-10.6) k/uL RBC (3.80-5.40) m/uL Hgb (11.4-16.0) gm/dL Hct (34.0-46.0) % MCV (80.0-100.0) fL RDW (11.5-15.5) % Neutrophils # (1.3-7.7) k/uL Neutrophils # (Manual) (1.3-7.7) k/uL Monocytes # (Manual) (0-1.0) k/uL Sodium 130 L (137-145) mmol/L Chloride 93 L (98-107) mmol/L BUN 39 H (7-17) mg/dL Creatinine 1.27 H (0.52-1.04) mg/dL Glucose (74-99) mg/dL POC Glucose (mg/dL) 132 H (70-110) mg/dL Total Bilirubin (0.2-1.3) mg/dL AST (14-36) U/L Alkaline Phosphatase (38-126) U/L Troponin I (0.000-0.034) ng/mL Total Protein (6.3-8.2) g/dL Albumin (3.5-5.0) g/dL
[2022-04-12 16:53] LABS: Glucose,Whole Blood 119 mg/dL (70-110)
[2022-04-12 20:07] LABS: Glucose,Whole Blood 142 mg/dL (70-110)
[2022-04-12] MEDS: ATORVASTATIN 80 MG TAB PO SCH (20:55)
[2022-04-12] MEDS: METOPROLOL TARTRATE 25 MG TAB PO SCH (23:03)
[2022-04-13 06:17] LABS: Glucose,Whole Blood 103 mg/dL (70-110)
[2022-04-13] MEDS: INSULIN ASPART (NovoLOG) 100 UNIT/ML VIAL SQ SCH ×4 (06:17→20:54)
[2022-04-13] MEDS: LEVOTHYROXINE 75 MCG TAB PO SCH (06:24)
[2022-04-13] MEDS: MIDODRINE 5 MG TAB PO SCH ×3 (06:24→16:59)
[2022-04-13 08:37] LABS: Anisocytosis Slight; Basophils # (A) 0.1 k/uL (0-0.2); Basophils % (A) 1 %; Eosinophils # (A) 0.3 k/uL (0-0.7); Eosinophils % (A) 3 %; HCT 30.6 % (34.0-46.0); Hypochromasia Moderate; Lymphocytes # (A) 1.4 k/uL (1.0-4.8); Lymphocytes % (A) 17 %; MCH 33.3 pg (25.0-35.0); MCHC 32.9 g/dL (31.0-37.0); MCV 101.2 fL (80.0-100.0); Macrocytosis Moderate; Mean Platelet Volume 7.5; Monocytes # (A) 0.7 k/uL (0-1.0); Monocytes % (A) 8 %; Neutrophils # (A) 5.9 k/uL (1.3-7.7); Neutrophils % (A) 67 %; Platelet Count 353 k/uL (150-450); RBC 3.02 m/uL (3.80-5.40); RDW 17.4 % (11.5-15.5); WBC 8.7 k/uL (3.8-10.6)
[2022-04-13] MEDS: APIXABAN 5 MG TAB PO SCH (08:56)
[2022-04-13] MEDS: METOPROLOL TARTRATE 25 MG TAB PO SCH ×2 (08:56→20:53)
[2022-04-13] MEDS: FUROSEMIDE 10 MG/ML 4 ML VIAL IV SCH ×2 (08:56→20:53)
[2022-04-13] MEDS ORDERED: CLOPIDOGREL 75 MG TAB PO ONE (09:00)
[2022-04-13 09:04] LABS: Calcium 8.1 mg/dL (8.4-10.2); Magnesium 1.9 mg/dL (1.6-2.3)
[2022-04-13] MEDS ORDERED: BENZONATATE 100 MG CAP PO PRN (10:10)
[2022-04-13 11:42] LABS: Glucose,Whole Blood 159 mg/dL (70-110)
[2022-04-13 12:30] VITALS: BMI 37.2
--- NOTE | 2022-04-13 13:16 | P.PN ---
Subjective Progress Note Date: 04/13/22 (delayed charting seen at 0945) Patient is an 82-year-old female with recent event of STEMI and cardiac arrest, chronic kidney disease, congestive heart failure, diabetes mellitus who presen nina with increasing shortness of breath. The ER she was found to be tachycardic with a pulse of 130. Respirations 32, and she was 94% on room air. Laboratory analysis was remarkable for white blood cell count 10.9, and 11.1, sodium 126, and creatinine 1.17. Troponin was mildly elevated at 0.231 (down trending from prior STEMI), and BNP was markedly elevated at 22,300. EKG demonstrated atrial flutter with rapid ventricular response which spontaneously converted to normal sinus rhythm. She was started on IV diuretics and arrangements were made for admission. Cardiology was consulted. She was continue on IV diuretics and was started on eliquis due to A fib episode. Patient seen and examined at bedside. Still with SOB and became very dypnic and tired after bathing today. Still with decreased oral intake. + edema, feeling very anxious. Daughter at bedside all questions answered. General: nontoxic, no distress, appears at stated age Derm: warm, dry Head: atraumatic, normocephalic, symmetric Eyes: EOMI, no lid lag, anicteric sclera Mouth: no lip lesion, mucus membranes moist Cardiovascular: S1S2 reg, no murmur, positive posterior tibial pulse bilateral, Lungs: decreased bs b/l, no accessory muscle use Abdominal: soft, nontender to palpation, no guarding, no appreciable orga nomegaly Ext: no gross muscle atrophy, 3+ pitting edema, no contractures Neuro: CN II-XI grossly intact, no focal neuro deficits Psych: Alert, oriented, appropriate affect Assessment/plan: Acute exacerbation of digestive heart failure with ejection fraction 40-45% Ischemic cardiomyopathy Recent STEMI on 03/25/22 with PCI to the RCA - A. fib with RVR presentation - Last echo was less than 1 month ago does not need to be repeated - D/W Dr Dudley will decrease elqiuis to 2.5 mg daily given recent anemia without definitive source of bleeding and now epistaxis. - Diuresis - Strict I's and O's, daily weights - Cardiology recommendations: transition from Brillenta to Plavix - lopressor - midodrine decreased on 04/12 - ASA, Statin -Diuretic therapy likely needs to be increased at discharge. -CHF Navigator consultation -Dietitian recommendations epistaxis - monitor HgB - D/C O 2 Hyponatremia -Suspect secondary to fluid overload -Continue with diuresis -Monitor sodium levels Anemia -Continue outpatient follow-up with hematology -Improved from discharge -Follow CBC Diabetes mellitus type 2 - diet controlled - outpatient follow-up Hypothyroidism - synthroid Chronic kidney disease III -at or better than baseline - monitor closely with diuresis DVT prophylaxis: Miguel Ángel Discussed with: patient, nursing, daughter Anticipated discharge: in 2-[address]: A total of 45 minutes was spent on the care of this complex patient more than 50% of the time was spent in counseling and care coordination. Objective - Vital Signs Vital signs: Vital Signs Temp 97.8 F 04/13/22 12:01 Pulse 89 04/13/22 12:01 Resp 18 04/13/22 12:01 BP 96/60 04/13/22 12:01 Pulse Ox 97 04/13/22 12:01 FiO2 Intake & Output 04/12/22 04/13/22 04/13/22 18:59 06:59 18:59 Intake Total 445 0 Output Total 1600 1550 Balance -1155 -1550 Weight 95.254 kg Intake: Oral 445 0 Output: Urine 1600 1550 Other: Voiding Method Diaper Diaper External Catheter External Catheter # Voids 1 # Bowel Movements 1 - Labs CBC & Chem 7: 04/13/22 08:26 04/13/22 08:26 Labs: Abnormal Lab Results - Last 24 Hours (Table) 04/12/22 04/12/22 04/13/22 Range/Units 16:50 20:05 08:26 RBC 3.02 L (3.80-5.40) m/uL Hgb 10.0 L (11.4-16.0) gm/dL Hct 30.6 L (34.0-46.0) % MCV 101.2 H (80.0-100.0) fL RDW 17.4 H (11.5-15.5) % Sodium (137-145) mmol/L Chloride (98-107) mmol/L BUN (7-17) mg/dL Creatinine (0.52-1.04) mg/dL POC Glucose (mg/dL) 119 H 142 H (70-110) mg/dL Calcium (8.4-10.2) mg/dL 04/13/22 04/13/22 Range/Units 08:26 11:39 RBC (3.80-5.40) m/uL Hgb (11.4-16.0) gm/dL Hct (34.0-46.0) % MCV (80.0-100.0) fL RDW (11.5-15.5) % Sodium 128 L (137-145) mmol/L Chloride 92 L (98-107) mmol/L BUN 45 H (7-17) mg/dL Creatinine 1.30 H (0.52-1.04) mg/dL POC Glucose (mg/dL) 159 H (70-110) mg/dL Calcium 8.1 L (8.4-10.2) mg/dL
[2022-04-13 16:27] LABS: Glucose,Whole Blood 143 mg/dL (70-110)
[2022-04-13 20:47] LABS: Glucose,Whole Blood 138 mg/dL (70-110)
[2022-04-13] MEDS: APIXABAN 2.5 MG TABLET PO SCH (20:53)
[2022-04-13] MEDS: ATORVASTATIN 80 MG TAB PO SCH (20:53)
[2022-04-13] MEDS ORDERED: MELATONIN 3 MG TABLET PO SCH (21:00)
[2022-04-13 21:08] LABS: Glucose,Whole Blood 131 mg/dL (70-110)
[2022-04-14 06:15] LABS: Glucose,Whole Blood 107 mg/dL (70-110)
[2022-04-14] MEDS: LEVOTHYROXINE 75 MCG TAB PO SCH (06:22)
[2022-04-14] MEDS: MIDODRINE 5 MG TAB PO SCH ×3 (06:22→16:42)
[2022-04-14] MEDS: INSULIN ASPART (NovoLOG) 100 UNIT/ML VIAL SQ SCH ×3 (06:22→16:42)
--- NOTE | 2022-04-14 08:14 | PN ---
PROGRESS NOTE SUBJECTIVE: Mrs. Muhammad is much better today. Her heart failure has improved and she is breathing easier, edema is less. OBJECTIVE: VITALS: Stable. NECK: JVD is 1 cm, no carotid bruit. HEART: S1, S2 heard normally, short systolic murmur noted. LUNGS: Reveal diminished air entry. ABDOMEN: Exam unchanged. LOWER EXTREMITIES: Exam unchanged. PLAN: Continue current medications. We will continue IV Lasix for 1 more day and switch her to oral Lasix tomorrow. I discussed my thoughts in detail with the patient. Thank you very much for the consult. MMODL / IJN: [id number] /
[2022-04-14] MEDS: APIXABAN 2.5 MG TABLET PO SCH (08:43)
[2022-04-14] MEDS: METOPROLOL TARTRATE 25 MG TAB PO SCH (08:43)
[2022-04-14] MEDS: FUROSEMIDE 10 MG/ML 4 ML VIAL IV SCH (08:43)
[2022-04-14 08:50] LABS: Anisocytosis Slight; HCT 30.7 % (34.0-46.0); HGB 9.8 gm/dL (11.4-16.0); MCH 31.8 pg (25.0-35.0); MCHC 32.1 g/dL (31.0-37.0); Macrocytosis Moderate; Platelet Count 383 k/uL (150-450); RDW 17.8 % (11.5-15.5); WBC 10.3 k/uL (3.8-10.6)
[2022-04-14] MEDS ORDERED: CLOPIDOGREL 75 MG TAB PO SCH (09:00)
[2022-04-14 09:10] LABS: Magnesium 1.9 mg/dL (1.6-2.3); Potassium 3.7 mmol/L (3.5-5.1)
--- NOTE | 2022-04-14 10:56 | P.PN ---
Subjective Progress Note Date: 04/14/22 HISTORY OF PRESENT ILLNESS: This is a 82-year-old female with a past medical history significant for coronary artery disease with recent STEMI and stenting to the RCA, ischemic cardiomyopathy, hyperlipidemia, and congestive heart failure. Patient does not see a spa assistant manager but underwent cardiac catheterization recently with Dr. Farooq. We have been asked to see the patient in consultation for congestive heart failure. Patient examined at the bedside. Patient presented to the [facility] with a chief complaint of shortness of breath and coughing. Patient was found to be in acute congestive heart failure. She was started on IV Lasix. She reports lower extremity edema which has been present since her recent heart attack. She denies any chest pain or pressure. EKG on admission reveals atrial fibrillation. Upon reviewing telemetry, patient appears to remain in atrial fib rillation. She denies a history of atrial fibrillation. However looking at previous EKGs it appears the patient may have been in atrial fibrillation during her previous hospitalization. She was not anticoagulated on an outpatient basis. * EKG reveals A. fib with RVR * Chest xray cardiomegaly. Pulmonary vascular congestion and bilateral pleural effusions. * Laboratory data: WBC 11.3. Hemoglobin 10.4. Platelet count 347. Sodium 130. Potassium 4.2. BUN 39. Creatinine 1.27. BNP 22,300. Troponin 0.243. 0.231. 0.244. * Current home cardiac medications include metoprolol 12.5 mg twice a day, aspirin 81 mg daily, Lipitor 80 mg daily, Lasix 40 mg daily, Brilinta 90 mg twice a day * Most recent echocardiogram obtained in March 2022 revealed ejection fraction 40-45% 04/14/2022 Patient examined this morning at the bedside. Patient denies chest pain or pressure. Denies SOB at time of examination. She remains on IV lasix. Vital signs are stable. Telemetry reveals afib with controlled ventricular rate. PHYSICAL EXAM: VITAL SIGNS: Reviewed. GENERAL: Well-developed in no acute distress. HEENT: Head is normocephalic. Pupils are equal, round. Sclerae anicteric. Mucous membranes of the mouth are moist. Neck supple. No JVD or thyromegaly LUNGS: Respirations even and unlabored. Lungs diminished HEART: Irregular rate and rhythm. S1 and S2 heard. ABDOMEN: Soft. Nondistended. Nontender. EXTREMITIES: Normal range of motion. No clubbing or cyanosis. Peripheral pulses intact. 1-2+ bilateral lower extremity edema NEUROLOGIC: Awake and alert. Oriented x 3. ASSESSMENT: Acute on chronic heart failure with mildly reduced ejection fraction Persistent atrial fibrillation with RVR Recent STEMI with PCI to RCA Recent cardiac arrest Ischemic cardiomyopathy Hyperlipidemia PLAN: Continue current cardiac medications Discontinue IV lasix Begin oral lasix 40mg BID Continue with fluid restrictions Eliquis was decreased per primary medicine due to anemia and epistaxis Further recommendations pending patient course Nurse practitioner note has been reviewed by physician. Signing provider agrees with the documented findings, assessment, and plan of care. Objective - Vital Signs Vital signs: Vital Signs Temp 98.0 F 04/14/22 08:00 Pulse 90 04/14/22 08:00 Resp 18 04/14/22 08:00 BP 102/65 04/14/22 08:00 Pulse Ox 97 04/14/22 08:00 FiO2 Intake & Output 04/13/22 04/14/22 04/14/22 18:59 06:59 18:59 Intake Total 240 240 240 Output Total 600 Balance -360 240 240 Weight 95.254 kg 85.5 kg Intake: Oral 240 240 240 Output: Urine 600 Other: Voiding Method Diaper Diaper External Catheter External Catheter External Catheter # Voids 1 # Bowel Movements 1 - Labs CBC & Chem 7: 04/14/22 07:48 04/14/22 07:48 Labs: Abnormal Lab Results - Last 24 Hours (Table) 04/13/22 04/13/22 04/13/22 Range/Units 11:39 16:25 20:46 RBC (3.80-5.40) m/uL Hgb (11.4-16.0) gm/dL Hct (34.0-46.0) % RDW (11.5-15.5) % Sodium (137-145) mmol/L Chloride (98-107) mmol/L BUN (7-17) mg/dL Creatinine (0.52-1.04) mg/dL Glucose (74-99) mg/dL POC Glucose (mg/dL) 159 H 143 H 138 H (70-110) mg/dL Calcium (8.4-10.2) mg/dL 04/13/22 04/14/22 04/14/22 Range/Units 21:07 07:48 07:48 RBC 3.10 L (3.80-5.40) m/uL Hgb 9.8 L (11.4-16.0) gm/dL Hct 30.7 L (34.0-46.0) % RDW 17.8 H (11.5-15.5) % Sodium 128 L (137-145) mmol/L Chloride 91 L (98-107) mmol/L BUN 40 H (7-17) mg/dL Creatinine 1.29 H (0.52-1.04) mg/dL Glucose 131 H (74-99) mg/dL POC Glucose (mg/dL) 131 H (70-110) mg/dL Calcium 8.0 L (8.4-10.2) mg/dL
[2022-04-14 11:45] LABS: Glucose,Whole Blood 115 mg/dL (70-110)
[2022-04-14 12:09] VITALS: TEMP 98.5
[2022-04-14] MEDS ORDERED: FUROSEMIDE 10 MG/ML 4 ML VIAL IV STA (14:37)
[2022-04-14 15:41] VITALS: BP 108/59; PULSE 82; RESP 18
[2022-04-14] MEDS ORDERED: FUROSEMIDE 40 MG TAB PO SCH (16:00)
--- NOTE | 2022-04-14 16:40 | P.DS ---
Providers Date of admission: 04/11/22 22:23 Expected date of discharge: 04/14/22 Attending physician: Chilo Tomas MD Consults: 04/11/22 22:24 Consult Physician Routine Consulting Provider: Rangel Carrasco Consult Reason/Comments: heart failure Do you want consulting provider notified?: Yes, Notify in am Primary care physician: [facility] Course: Acute exacerbation of digestive heart failure with ejection fraction 40-45% Ischemic cardiomyopathy Recent STEMI on 03/25/22 with PCI to the RCA Epistaxis Hyponatremia Anemia Diabetes mellitus type 2 Hypothyroidism Chronic kidney disease III Patient is an 82-year-old female with recent event of STEMI and cardiac arrest, chronic kidney disease, congestive heart failure, diabetes mellitus who prese nted with increasing shortness of breath. The ER she was found to be tachycardic with a pulse of 130. Respirations 32, and she was 94% on room air. Laboratory analysis was remarkable for white blood cell count 10.9, and 11.1, sodium 126, and creatinine 1.17. Troponin was mildly elevated at 0.231 (down trending from prior STEMI), and BNP was markedly elevated at 22,300. EKG demonstrated atrial flutter with rapid ventricular response which spontaneously converted to normal sinus rhythm. She was started on IV diuretics and arrangements were made for admission. Cardiology was consulted. She was continue on IV diuretics and was started on eliquis due to A fib episode with dose reduction to 2.5mg BID for history of recent anemia. Pt improved with diuretics and by day of discharge was not requiring any oxygen. Her medications were titrated per cardiology service and she was discharged home with home care. Her f/u appointment with cardiology is tomorrow 04/15. I spent 48 minutes coordinating this complex discharge Gen: awake, alert HEENT: normocephalic, atraumatic, good hearing acuity, moist mucous membranes Resp: good air exchange, breathing comfortably with no accessory muscle use CVS: good distal perfusion x 4, GI: soft, NTTP, ND : no SPT, no CVAT, dwyer catheter not present MSK: Present pitting edema, no clubbing Neuro: non-focal, moving all extremities Psych: cooperative, euthymic mood Patient Condition at Discharge: Good Plan - Discharge Summary Discharge Rx Participant: No New Discharge Prescriptions: New Metoprolol Tartrate [Lopressor] 25 mg PO BID #60 tab Apixaban [Eliquis] 2.5 mg PO BID #60 tab Clopidogrel [Plavix] 75 mg PO DAILY #30 tab Midodrine [ProAmatine] 5 mg PO AC-TID #90 tab Continue Levothyroxine Sodium [Synthroid] 75 mcg PO DAILY Atorvastatin [Lipitor] 80 mg PO HS #30 tab Ondansetron Odt [Zofran ODT] 4 mg PO Q8HR PRN #30 tab PRN Reason: Nausea Nitroglycerin Sl Tabs [Nitrostat] 0.4 mg SUBLINGUAL Q5M PRN #30 tab PRN Reason: Chest Pain Acetaminophen Tab [Tylenol] 650 mg PO Q6HR PRN #90 tab PRN Reason: Mild Pain Or Fever > 100.5 Changed Furosemide [Lasix] 40 mg PO BID #60 tab Discontinued Ticagrelor [Brilinta] 90 mg PO BID #60 tab Midodrine [ProAmatine] 10 mg PO TID@0800,1300,2000 Metoprolol Tartrate [Lopressor] 12.5 mg PO BID Aspirin 81 mg PO DAILY #30 tab Discharge Medication List Levothyroxine Sodium [Synthroid] 75 mcg PO DAILY 05/07/19 [History] Acetaminophen Tab [Tylenol] 650 mg PO Q6HR PRN #90 tab 04/01/22 [Rx] Atorvastatin [Lipitor] 80 mg PO HS #30 tab 04/01/22 [Rx] Nitroglycerin Sl Tabs [Nitrostat] 0.4 mg SUBLINGUAL Q5M PRN #30 tab 04/01/22 [Rx] Ondansetron Odt [Zofran ODT] 4 mg PO Q8HR PRN #30 tab 04/01/22 [Rx] Apixaban [Eliquis] 2.5 mg PO BID #60 tab 04/14/22 [Rx] Clopidogrel [Plavix] 75 mg PO DAILY #30 tab 04/14/22 [Rx] Furosemide [Lasix] 40 mg PO BID #60 tab 04/14/22 [Rx] Metoprolol Tartrate [Lopressor] 25 mg PO BID #60 tab 04/14/22 [Rx] Midodrine [ProAmatine] 5 mg PO AC-TID #90 tab 04/14/22 [Rx] Follow up Appointment(s)/Referral(s): Rangel Carrasco MD [STAFF PHYSICIAN] - 04/15/22 4:00 pm (Please keep scheduled appointment.) Bev Fabian MD [STAFF PHYSICIAN] - 05/03/22 10:30 am (Monday Previously scheduled appointment.) Boni Alvarez MD [Primary Care Provider] - 04/20/22 2:15 pm (Monday. Only time available) Patient Instructions/Handouts: Heart Failure (DC), A-fib (Atrial Fibrillation) (DC), Safe Use of Anticoagulants (DC) Activity/Diet/Wound Care/Special Instructions: Fluid restriction-1500ml per day Discharge Disposition: HOME WITH HOME HEALTH SERVICES
== END 2022-04-14 16:53 | disposition home health service (06) | DRG 281 ==
LOC: EC 17:18 → 3SCARD 22:23
PROVIDERS: ADMIT Internal Medicine; ATTEND Internal Medicine
DX: I50.20 Unspecified systolic (congestive) heart failure (principal); I21.3 ST elevation (STEMI) myocardial infarction of unspecified site; E87.1 Hypo-osmolality and hyponatremia; I48.19 Other persistent atrial fibrillation; I48.92 Unspecified atrial flutter; D63.1 Anemia in chronic kidney disease; E11.22 Type 2 diabetes mellitus with diabetic chronic kidney disease; N18.30 Chronic kidney disease, stage 3 unspecified; E03.9 Hypothyroidism, unspecified; I25.5 Ischemic cardiomyopathy; E78.5 Hyperlipidemia, unspecified; I25.10 Atherosclerotic heart disease of native coronary artery without angina pectoris; R04.0 Epistaxis; R00.0 Tachycardia, unspecified; M79.89 Other specified soft tissue disorders; Z86.74 Personal history of sudden cardiac arrest; Z28.310 Unvaccinated for COVID-19; Z79.890 Hormone replacement therapy; Z79.899 Other long term (current) drug therapy; Z79.82 Long term (current) use of aspirin; Z79.02 Long term (current) use of antithrombotics/antiplatelets; Z88.5 Allergy status to narcotic agent; Z88.1 Allergy status to other antibiotic agents; Z88.2 Allergy status to sulfonamides; Z91.02 Food additives allergy status; Z95.5 Presence of coronary angioplasty implant and graft
CPT/HCPCS: 36415; 71046; 80048; 80053; 83735; 83880; 84484; 85025; 85027; 85610; 85730; 93005; 94760; 96374; 99285

== ENCOUNTER 2022-10-17 11:36 | Observation (INO) | payer MEDICARE ==
[2022-10-17] MEDS ORDERED: ASPIRIN 81 MG PO STA (12:43)
[2022-10-17 12:59] LABS: Basophils % (A) 0 %; Eosinophils # (A) 0.3 k/uL (0-0.7); Eosinophils % (A) 3 %; HCT 39.8 % (34.0-46.0); Lymphocytes # (A) 1.3 k/uL (1.0-4.8); Lymphocytes % (A) 15 %; MCH 30.1 pg (25.0-35.0); MCHC 32.7 g/dL (31.0-37.0); Mean Platelet Volume 8.5; Monocytes # (A) 0.7 k/uL (0-1.0); Monocytes % (A) 8 %; Neutrophils # (A) 6.4 k/uL (1.3-7.7); Neutrophils % (A) 72 %; Platelet Count 228 k/uL (150-450); RBC 4.32 m/uL (3.80-5.40); RDW 13.4 % (11.5-15.5); WBC 8.9 k/uL (3.8-10.6)
[2022-10-17 13:13] LABS: INR 1.1 (<1.2); Partial Thromboplastin Time 25.4 sec (22.0-30.0); Prothrombin Time 11.5 sec (9.0-12.0)
--- NOTE | 2022-10-17 13:27 | XR ---
EXAMINATION TYPE: XR chest 2V DATE OF EXAM: 10/17/2022 COMPARISON: 04/11/2022 INDICATION: rchest pain and shortness breath TECHNIQUE: Frontal and lateral views of the chest are obtained. FINDINGS: The heart size is enlarged. The pulmonary vasculature is mildly prominent suggestive for volume overload. Patchy bilateral lung infiltrates are present, greater on the left. Correlate for pulmonary edema. Maldonado bsegmental atelectasis could be considered. A minimal left pleural effusion is likely present.. IMPRESSION: 1. Focal correlation for mild congestive heart failure. Follow-up is recommended.
[2022-10-17 13:53] LABS: Albumin 4.1 g/dL (3.5-5.0); Calcium 9.4 mg/dL (8.4-10.2); Magnesium 1.9 mg/dL (1.6-2.3); Potassium 5.1 mmol/L (3.5-5.1); Total Bilirubin 1.4 mg/dL (0.2-1.3); Total Protein 7.5 g/dL (6.3-8.2)
[2022-10-17] MEDS ORDERED: FUROSEMIDE 10 MG/ML 4 ML VIAL IV STA (14:43)
[2022-10-17] MEDS ORDERED: NALOXONE 0.4 MG/ML 1 ML VIAL IV PRN (14:44)
--- NOTE | 2022-10-17 14:53 | ED ---
General Adult HPI - General Chief complaint: Chest Pain Stated complaint: a fib SOB Time Seen by Provider: 10/17/22 12:35 Source: patient, RN notes reviewed, old records reviewed Mode of arrival: ambulatory Limitations: no limitations - History of Present Illness Initial comments: Patient is an 82-year-old female with past medical history remarkable for atrial fibrillation, CAD, diabetes, congestive heart failure, history of cardiac stent who presents emergency Department complaining of shortness of breath, worsening orthopnea, nonproductive cough. Patient denies PND or worsening lower extremity edema. Denies any chest pain. Denies any abdominal pain, nausea, vomiting. She states her symptoms have been ongoing for multiple days. Presented to her PCPs today who instructed her to come to the emergency department over concern for worsening CHF. Patient is on blood thinners. She denies any diarrhea, nausea, vomiting. Denies any obvious chest pain. Presents for further evaluation at this time over concern for CHF exacerbation. - Related Data Home Medications Medication Instructions Recorded Confirmed Levothyroxine Sodium [Synthroid] 75 mcg PO DAILY 05/07/19 10/17/22 Furosemide [Lasix] 20 mg PO DAILY 10/17/22 10/17/22 Metoprolol Tartrate [Lopressor] 12.5 mg PO BID 10/17/22 10/17/22 Pantoprazole Sodium [Protonix] 20 mg PO HS 10/17/22 10/17/22 calcitrioL [Calcitriol] 0.25 mcg PO WE 10/17/22 10/17/22 sitaGLIPtin [Januvia] 50 mg PO DAILY 10/17/22 10/17/22 Previous Rx's Medication Instructions Recorded Atorvastatin [Lipitor] 80 mg PO HS #30 tab 04/01/22 Nitroglycerin Sl Tabs [Nitrostat] 0.4 mg SUBLINGUAL Q5M PRN #30 tab 04/01/22 Ondansetron Odt [Zofran ODT] 4 mg PO Q8HR PRN #30 tab 04/01/22 Apixaban [Eliquis] 2.5 mg PO BID #60 tab 04/14/22 Clopidogrel [Plavix] 75 mg PO DAILY #30 tab 04/14/22 Midodrine [ProAmatine] 5 mg PO AC-TID #90 tab 04/14/22 Allergies Allergy/AdvReac Type Severity Reaction Status Date / Time codeine Allergy Rash/Hives Verified 10/17/22 12:56 metronidazole [From Flagyl] Allergy Rash/Hives Verified 10/17/22 12:56 Metronidazole HCl Allergy Rash/Hives Verified 10/17/22 12:56 [From Flagyl] morphine Allergy Rash/Hives Verified 10/17/22 12:56 hydrocodone [From Machias] AdvReac Unknown felt her Verified 10/17/22 12:56 mind was not right. famotidine [From Pepcid] AdvReac Nausea & Verified 10/17/22 12:56 Vomiting Opioids - Morphine Analogues AdvReac Confusion Verified 10/17/22 12:56 Opioids-Meperidine and AdvReac Confusion Verified 10/17/22 12:56 Related Opioids-Methadone and Related AdvReac Confusion Verified 10/17/22 12:56 Sulfa (Sulfonamide AdvReac Unknown- Verified 10/17/22 12:56 Antibiotics) almost passed out msg Allergy Anaphylaxis Uncoded 10/17/22 12:56 Review of Systems ROS Statement: Those systems with pertinent positive or pertinent negative responses have been documented in the HPI. Review of Systems: CONST: Denies fever EYES: Denies blurry vision ENT: Denies nasal congestion C/V: Denies Chest pain RESP: Endorses exertional shortness of breath GI: Denies abdominal pain : Denies dysuria SKIN: Denies rash. MSK: Denies joint pain. NEURO: Denies headache ROS Other: All systems not noted in ROS Statement are negative. Past Medical History Past Medical History: Atrial Fibrillation, Coronary Artery Disease (CAD), Cancer, Diabetes Mellitus, Myocardial Infarction (MO), Renal Disease, Thyroid Disorder Additional Past Medical History / Comment(s): Basal Cell skin cancer, hx. kidney stone, Diabetes- no longer on meds- watches diet, uses cane, states episodes where it feels her throat is tight (hx of EGD with dilation), chronic k idney disease. cardiac arrest Last Myocardial Infarction Date:: 03/25/22 History of Any Multi-Drug Resistant Organisms: None Reported Past Surgical History: Adenoidectomy, Back Surgery, Tonsillectomy Additional Past Surgical History / Comment(s): bunionectomy, kidney stone, cataracts, EGD with dilation heart stents Past Anesthesia/Blood Transfusion Reactions: No Reported Reaction Past Psychological History: No Psychological Hx Reported Smoking Status: Never smoker Past Alcohol Use History: None Reported Past Drug Use History: None Reported - Past Family History Brother(s) Family Medical History: Cancer Additional Family Medical History / Comment(s): basal cell skin cancer family Additional Family Medical History / Comment(s): no family hx of heart disease General Exam - General Exam Comments Initial Comments: General: Appears in no acute distress. HEAD: Normal with no signs of head trauma. EYES: PERRLA, EOMI, conjunctiva normal, no discharge. ENT: Hearing grossly intact, normal oropharynx. RESPIRATORY: Clear breath sounds bilaterally. No wheezes, rales, or rhonchi. No hypoxia at rest. No increased work of breathing at rest. C/V: irregular rate and rhythm. S1 and S2 auscultated. Peripheral pulses 2+ and intact throughout. Mild pitting edema of the lower extremities that is symmetrical. ABD: Abd is soft, nontender, nondistended EXT: Normal range of motion, no obvious deformity SKIN: No rashes or lesions observed on exposed skin. NEURO: Alert and oriented 4. No focal sensory strength deficits. Limitations: no limitations Course Vital Signs 10/17/22 10/17/22 11:43 14:00 Temperature 97.6 F Pulse Rate 88 Respiratory 18 Rate Blood Pressure 131/82 O2 Sat by Pulse 97 92 L Oximetry Medical Decision Making - Medical Decision Making Was pt. sent in by a medical professional or institution (, PA, NEWSPAPER LIBRARY MANAGER, urgent care, hospital, or fpc...) When possible be specific @ -Sent by PCP Dr. Alvarez. Did you speak to anyone other than the patient for history (EMS, parent, family, police, friend...)? What history was obtained from this source @ -Patient's daughter who is at bedside and assists with history. Did you review nursing and triage notes (agree or disagree)? Why? @ -I reviewed and agree with nursing and triage notes Were old charts reviewed (outside hosp., previous admission, EMS record, old EKG, old radiological studies, urgent care reports/EKG's, fpc records)? Report findings @ -Old EKGs and studies reviewed from April 2022 Differential Diagnosis (chest pain, altered mental status, abdominal pain women, abdominal pain men, vaginal bleeding, weakness, fever, dyspnea, syncope, headache, dizziness, GI bleed, back pain, seizure, CVA, palpatations, mental health, musculoskeletal)? @ -CHF exacerbation, ACS, pneumonia, viral infection. This list is not all inclusive. EKG interpreted by me (3pts min.). @ -As above X-rays interpreted by me (1pt min.). @ -Chest x-ray reveals Bilateral pulmonary vascular congestion concerning for CHF. CT interpreted by me (1pt min.). @ -None done U/S interpreted by me (1pt. min.). @ -None done What testing was considered but not performed or refused? (CT, X-rays, U/S, labs)? Why? @ -None What meds were considered but not given or refused? Why? @ -None Did you discuss the management of the patient with other professionals (professionals i.e. , PA, NEWSPAPER LIBRARY MANAGER, lab, RT, psych nurse, case management social worker, fluid jet cutter operator, teacher, escrow officer, case consultant)? Give summary @ -No Was smoking cessation discussed for >3mins.? @ -No Was critical care preformed (if so, how long)? @ -No Were there social determinants of health that impacted care today? How? (Homelessness, low income, unemployed, alcoholism, drug addiction, transportation, low edu. Level, literacy, decrease access to med. care, fdc, rehab)? @ -No Was there de-escalation of care discussed even if they declined (Discuss DNR or withdrawal of care, Hospice)? DNR status @ -No What co-morbidities impacted this encounter? (DM, HTN, Smoking, COPD, CAD, Ca ncer, CVA, ARF, Chemo, Hep., AIDS, mental health diagnosis, sleep apnea, morbid obesity)? @ -None Was patient admitted / discharged? Hospital course, mention meds given and route, prescriptions, significant lab abnormalities, going to OR and other pertinent info. @ -Based on the patient's presentation and physical exam, I'm concerned for wh at is likely CHF exacerbation given her nonproductive cough, exertional dyspnea, orthopnea that is worsening, rule out other etiology at this time. We will obtain cardiopulmonary labs as well as viral sounds. She was in agreement this plan. We also obtain abdominal laboratory pulse ox. Patient will be given 324 mg of aspirin. Vital signs within acceptable limits at rest. EKG showed no signs of acute ischemia. Patient's laboratory studies are remarkable for an elevated BNP of 6600. Troponin is 0.014. Patient's got a history of CK D with an elevated BUN/creatinine that is within acceptable limits for her chronic levels. Vital signs are negative. Chest x-ray shows concerning signs for pulmonary vascular congestion. On reevaluation, patient remains relatively asymptomatic at rest but his symptoms begin to have her ambulate to the bathroom and back, her pulse ox was dropping to 89-92%. I discussed this with the patient as well as her daughter as well as the workup, and I believe is safe is for her to be admitted for her CHF exacerbation. She was in agreement this plan. Patient did receive a recent cardiac echo per her daughter. Patient left cardiology consulted for her. She is started on IV Lasix will be given a dose immediately. I spoke with the admitting team, Dr. Chaudhari who accepted the patient. Patient was admitted in stable condition. Undiagnosed new problem with uncertain prognosis? @ -No Drug Therapy requiring intensive monitoring for toxicity (Heparin, Nitro, Insulin, Cardizem)? @ -No Were any procedures done? @ -No Diagnosis/symptom? @ -CHF exacerbation Acute, or Chronic, or Acute on Chronic? @ -Acute on chronic Uncomplicated (without systemic symptoms) or Complicated (systemic symptoms)? @ -Complicated Side effects of treatment? @ -No Exacerbation, Progression, or Severe Exacerbation? @ -Exacerbation Poses a threat to life or bodily function? How? (Chest pain, [place], [place], pneumonia, PE, COPD, DKA, ARF, appy, cholecystitis, CVA, Diverticulitis, Homicidal, Suicidal, threat to staff... and all critical care pts) @ -Yes, if untreated can result in significant morbidity and mortality. Diagnosis/symptom? @ -Atrial fibrillation Acute, or Chronic, or Acute on Chronic? @ -Acute on chronic Uncomplicated (without systemic symptoms) or Complicated (systemic symptoms)? @ -Uncomplicated Side effects of treatment? @ -none Exacerbation, Progression, or Severe Exacerbation] @ -no Poses a threat to life or bodily function? @ -no Diagnosis/symptom? @ -Chronic kidney disease Acute, or Chronic, or Acute on Chronic? @ -Chronic Uncomplicated (without systemic symptoms) or Complicated (systemic symptoms)? @ -Uncomplicated Side effects of treatment? @ -none Exacerbation, Progression, or Severe Exacerbation] @ -no Poses a threat to life or bodily function? @ -no - Lab Data Result diagrams: 10/17/22 12:45 10/17/22 12:45 Lab Results 10/17/22 10/17/22 10/17/22 Range/Units 12:45 12:45 12:45 WBC 8.9 (3.8-10.6) k/uL RBC 4.32 (3.80-5.40) m/uL Hgb 13.0 (11.4-16.0) gm/dL Hct 39.8 (34.0-46.0) % MCV 92.0 (80.0-100.0) fL MCH 30.1 (25.0-35.0) pg MCHC 32.7 (31.0-37.0) g/dL RDW 13.4 (11.5-15.5) % Plt Count 228 (150-450) k/uL MPV 8.5 Neutrophils % 72 % Lymphocytes % 15 % Monocytes % 8 % Eosinophils % 3 % Basophils % 0 % Neutrophils # 6.4 (1.3-7.7) k/uL Lymphocytes # 1.3 (1.0-4.8) k/uL Monocytes # 0.7 (0-1.0) k/uL Eosinophils # 0.3 (0-0.7) k/uL Basophils # 0.0 (0-0.2) k/uL PT 11.5 (9.0-12.0) sec INR 1.1 (<1.2) APTT 25.4 (22.0-30.0) sec Sodium 137 (137-145) mmol/L Potassium 5.1 (3.5-5.1) mmol/L Chloride 102 (98-107) mmol/L Carbon Dioxide 26 (22-30) mmol/L Anion Gap 9 mmol/L BUN 44 H (7-17) mg/dL Creatinine 1.44 H (0.52-1.04) mg/dL Est GFR (CKD-EPI)AfAm 39 (>60 ml/min/1.73 sqM) Est GFR (CKD-EPI)NonAf 34 (>60 ml/min/1.73 sqM) Glucose 146 H (74-99) mg/dL Calcium 9.4 (8.4-10.2) mg/dL Magnesium 1.9 (1.6-2.3) mg/dL Total Bilirubin 1.4 H (0.2-1.3) mg/dL AST 26 (14-36) U/L ALT 18 (4-34) U/L Alkaline Phosphatase 94 (38-126) U/L Troponin I (0.000-0.034) ng/mL NT-Pro-B Natriuret Pep pg/mL Total Protein 7.5 (6.3-8.2) g/dL Albumin 4.1 (3.5-5.0) g/dL Influenza Type A (PCR) (Not Detectd) Influenza Type B (PCR) (Not Detectd) RSV (PCR) (Not Detectd) SARS-CoV-2 (PCR) (Not Detectd) 10/17/22 10/17/22 10/17/22 Range/Units 12:45 12:45 12:45 WBC (3.8-10.6) k/uL RBC (3.80-5.40) m/uL Hgb (11.4-16.0) gm/dL Hct (34.0-46.0) % MCV (80.0-100.0) fL MCH (25.0-35.0) pg MCHC (31.0-37.0) g/dL RDW (11.5-15.5) % Plt Count (150-450) k/uL MPV Neutrophils % % Lymphocytes % % Monocytes % % Eosinophils % % Basophils % % Neutrophils # (1.3-7.7) k/uL Lymphocytes # (1.0-4.8) k/uL Monocytes # (0-1.0) k/uL Eosinophils # (0-0.7) k/uL Basophils # (0-0.2) k/uL PT (9.0-12.0) sec INR (<1.2) APTT (22.0-30.0) sec Sodium (137-145) mmol/L Potassium (3.5-5.1) mmol/L Chloride (98-107) mmol/L Carbon Dioxide (22-30) mmol/L Anion Gap mmol/L BUN (7-17) mg/dL Creatinine (0.52-1.04) mg/dL Est GFR (CKD-EPI)AfAm (>60 ml/min/1.73 sqM) Est GFR (CKD-EPI)NonAf (>60 ml/min/1.73 sqM) Glucose (74-99) mg/dL Calcium (8.4-10.2) mg/dL Magnesium (1.6-2.3) mg/dL Total Bilirubin (0.2-1.3) mg/dL AST (14-36) U/L ALT (4-34) U/L Alkaline Phosphatase (38-126) U/L Troponin I 0.014 (0.000-0.034) ng/mL NT-Pro-B Natriuret Pep 6630 pg/mL Total Protein (6.3-8.2) g/dL Albumin (3.5-5.0) g/dL Influenza Type A (PCR) Not Detected (Not Detectd) Influenza Type B (PCR) Not Detected (Not Detectd) RSV (PCR) Not Detected (Not Detectd) SARS-CoV-2 (PCR) Not Detected (Not Detectd) - EKG Data -: EKG Interpreted by Me EKG Comments: 12-lead Electrocardiogram Interpretation Note EKG was reviewed and interpreted by myself. 12-lead ECG performed at 1158 is interpreted by me as revealing atrial fibrillation with PVCs at a rate of 69 beats per minute. [place] is rightward deviated. QRS durations 106 ms, QTc is 407 ms.. There were no ST or T wave abnormalities to suggest myocardial ischemia or injury. R wave progression across the precordium was satisfactory. By my interpretation this EKG is non-diagnostic for acute ischemia. When compared with EKG from April 2022, no significant change. Disposition Clinical Impression: CHF (congestive heart failure), Exercise hypoxemia, CKD (chronic kidney disease), Atrial fibrillation Disposition: ADMITTED IP TO THIS HOSP Condition: Stable Referrals: Ermias Alvarez MD [Primary Care Provider] - 1-2 days Time of Disposition: 14:30
[2022-10-17] MEDS ORDERED: NITROGLYCERIN SL TABS 0.4 MG TAB SUBLINGUAL PRN (15:29)
[2022-10-17] MEDS ORDERED: ONDANSETRON ODT 4 MG TAB PO PRN (15:29)
--- NOTE | 2022-10-17 15:29 | P.HPIM ---
History of Present Illness H&P Date: 10/17/22 History of Presenting Illness: Patient is a very pleasant 82-year-old female with a past medical history of CAD with previous SD status post stent placement, chronic systolic heart failure with previously known EF of 40-45%, chronic atrial fibrillation on a nticoagulation with Eliquis, hypertension, hyperlipidemia, chronic kidney disease stage III, and hypothyroidism. Patient presented to the emergency department with a chief complaint of shortness of breath and orthopnea. Patient reports these symptoms have progressively been worsening over the past week. She states shortness of breath worsens with exertion and states she is unable to lie flat secondary to severe shortness of breath and inability to stop coughing. Patient states that she has been sleeping in her lazy boy recliner. She denies having any chest pain, palpitations, dizziness, lightheadedness, fever, chills, sinus congestion or drainage, nausea, vomiting, or any other complaints at this time. Patient reports she made an appointment with her primary care doctor to be evaluated for these complaints because she was not sure how to take her Lasix. Patient denies knowing if she has lost or gained any weight because her daughter states that if her mom weighs herself then she will not eat because she is overweight so they have chosen not to weigh themselves. Patient underwent full evaluation in the emergency department. EKG completed showing atrial fibrillation with frequent PVCs at a controlled ventricular rate of 69 bpm upon personal review and interpretation. Chest x-ray completed consistent with congestive heart failure with signs of fluid overload. CBC and coagulation profile unremarkable. BMP consistent with stage IIIc EKG with BUN 44, creatinine 1.44, and GFR of 34 with baseline creatinine of 1.4. Liver profile revealing elevated bilirubin of 1.4, bilirubin chronically elevated and is lower than typical baseline level. Troponin 0.014 and proBNP 6630. Influenza A, influenza B, RSV, and Covid PCR all negative. Discussed in detail with ED physician. Patient to be admitted under our services to observation unit for acute on chronic congestive heart failure with consultation to cardiology. Review of systems: Pertinent positives and negatives as discussed in HPI, a complete review of systems was performed and all other systems are negative. Physical exam: Vital signs reviewed and stable. General: Nontoxic, no distress and appears stated age. Derm: Skin warm and dry, normal coloration for ethnicity. Head: Atraumatic, normocephalic and symmetric. Eyes: EOMs intact, no lid lag, and anicteric sclera Mouth: no lip lesions, mucus membranes moist Cardiovascular: Irregularly irregular, systolic murmur, positive posterior tibial pulses bilaterally, and cap refill < 2 seconds. Lungs: Respirations even, regular, and unlabored on room air. Lungs diminished, no rhonchi, no rales, no wheezing, and no accessory muscle usage. Abdominal: soft, nontender to palpation, no guarding, no appreciable organomegaly Ext: ROM intact. No gross muscle atrophy, 1+ bilateral lower extremity pitting edema, no contractures Neuro: Speech clear, face symmetrical and CN II-XII grossly intact with no noted focal neuro deficits Psych: Alert and oriented to person, place, time, and situation. Appropriate and pleasant affect. Assessment and Plan of Care: Acute on chronic systolic heart failure exacerbation Exertional shortness of breath Orthopnea History of CAD with previous SD and stent placement Chronic atrial fibrillation Hypertension Hyperlipidemia -EKG completed showing atrial fibrillation with frequent PVCs at a controlled ventricular rate of 69 bpm upon personal review and interpretation. -Chest x-ray completed consistent with congestive heart failure with signs of fluid overload. -Labs completed and reviewed. CBC and coagulation profile unremarkable. BMP consistent with stage IIIc EKG with BUN 44, creatinine 1.44, and GFR of 34 with baseline creatinine of 1.4. Liver profile revealing elevated bilirubin of 1.4, bilirubin chronically elevated and is lower than typical baseline level. Troponin 0.014 and proBNP 6630. -Influenza A, influenza B, RSV, and Covid PCR all negative. -Discussed in detail with ED physician. -Patient admitted under our services to observation unit with telemetry for acute on chronic congestive heart failure with consultation to cardiology. -Lasix 40 mg IVP every 12 hours. -Strict I's and O's -Daily weights -Continuation of cardiac medication regimen with Eliquis, atorvastatin, Plavix, metoprolol, and midodrine The patient is admitted with an anticipated less than 2 midnight stay for evaluation of exertional shortness of breath and orthopnea. CODE STATUS: Full code DVT prophylaxis: Eliquis Discussed with: Pt, ED physician, patient's daughter, and RN Anticipated discharge date: 24-[address]: Home Patient was seen independently by Nurse Practitioner. This document was prepared using [employer] dictation software. Please allow for errors in revenue tax specialist while rare they do occur. Fernando Herrera NP rendered care for this patient independently, reviewed the findings and plan as documented in the note above. I did not physically speak with or examine the patient on this date. Past Medical History Past Medical History: Atrial Fibrillation, Coronary Artery Disease (CAD), Ca ncer, Diabetes Mellitus, Myocardial Infarction ([place]), Renal Disease, Thyroid Disorder Additional Past Medical History / Comment(s): Basal Cell skin cancer, hx. kidney stone, Diabetes- no longer on meds- watches diet, uses cane, states episodes where it feels her throat is tight (hx of EGD with dilation), chronic kidney disease. cardiac arrest Last Myocardial Infarction Date:: 03/25/22 History of Any Multi-Drug Resistant Organisms: None Reported Past Surgical History: Adenoidectomy, Back Surgery, Tonsillectomy Additional Past Surgical History / Comment(s): bunionectomy, kidney stone, cataracts, EGD with dilation heart stents Past Anesthesia/Blood Transfusion Reactions: No Reported Reaction Past Psychological History: No Psychological Hx Reported Smoking Status: Never smoker Past Alcohol Use History: None Reported Past Drug Use History: None Reported - Past Family History Brother(s) Family Medical History: Cancer Additional Family Medical History / Comment(s): basal cell skin cancer family Additional Family Medical History / Comment(s): no family hx of heart disease Medications and Allergies Home Medications Medication Instructions Recorded Confirmed Type Levothyroxine Sodium [Synthroid] 75 mcg PO DAILY 05/07/19 10/17/22 History Atorvastatin [Lipitor] 80 mg PO HS #30 tab 04/01/22 10/17/22 Rx Nitroglycerin Sl Tabs [Nitrostat] 0.4 mg SUBLINGUAL Q5M PRN #30 tab 04/01/22 10/17/22 Rx Ondansetron Odt [Zofran ODT] 4 mg PO Q8HR PRN #30 tab 04/01/22 10/17/22 Rx Apixaban [Eliquis] 2.5 mg PO BID #60 tab 04/14/22 10/17/22 Rx Clopidogrel [Plavix] 75 mg PO DAILY #30 tab 04/14/22 10/17/22 Rx Midodrine [ProAmatine] 5 mg PO AC-TID #90 tab 04/14/22 10/17/22 Rx Furosemide [Lasix] 20 mg PO DAILY 10/17/22 10/17/22 History Metoprolol Tartrate [Lopressor] 12.5 mg PO BID 10/17/22 10/17/22 History Pantoprazole Sodium [Protonix] 20 mg PO HS 10/17/22 10/17/22 History calcitrioL [Calcitriol] 0.25 mcg PO WE 10/17/22 10/17/22 History sitaGLIPtin [Januvia] 50 mg PO DAILY 10/17/22 10/17/22 History Allergies Allergy/AdvReac Type Severity Reaction Status Date / Time codeine Allergy Rash/Hives Verified 10/17/22 12:56 metronidazole [From Flagyl] Allergy Rash/Hives Verified 10/17/22 12:56 Metronidazole HCl Allergy Rash/Hives Verified 10/17/22 12:56 [From Flagyl] morphine Allergy Rash/Hives Verified 10/17/22 12:56 hydrocodone [From [place]] AdvReac Unknown felt her Verified 10/17/22 12:56 mind was not right. famotidine [From Pepcid] AdvReac Nausea & Verified 10/17/22 12:56 Vomiting Opioids - Morphine Analogues AdvReac Confusion Verified 10/17/22 12:56 Opioids-Meperidine and AdvReac Confusion Verified 10/17/22 12:56 Related Opioids-Methadone and Related AdvReac Confusion Verified 10/17/22 12:56 Sulfa (Sulfonamide AdvReac Unknown- Verified 10/17/22 12:56 Antibiotics) almost passed out msg Allergy Anaphylaxis Uncoded 10/17/22 12:56 Physical Exam Osteopathic Statement: *. No significant issues noted on an osteopathic structural exam other than those noted in the History and Physical/Consult. Vitals: Vital Signs Temp Pulse Resp BP Pulse Ox 10/17/22 15:20 98.0 F 70 18 147/66 97 10/17/22 14:00 92 L 10/17/22 11:43 97.6 F 88 18 131/82 97 Intake and Output 10/17/22 10/17/22 10/17/22 06:59 14:59 22:59 Other: Weight 93.894 kg Results CBC & Chem 7: 10/17/22 12:45 10/17/22 12:45 Labs: Abnormal Lab Results - Last 24 Hours (Table) 10/17/22 Range/Units 12:45 BUN 44 H (7-17) mg/dL Creatinine 1.44 H (0.52-1.04) mg/dL Glucose 146 H (74-99) mg/dL Total Bilirubin 1.4 H (0.2-1.3) mg/dL
[2022-10-17] MEDS: MIDODRINE 5 MG TAB PO SCH (17:18)
[2022-10-17] MEDS: ATORVASTATIN 80 MG TAB PO SCH (20:59)
[2022-10-17] MEDS: METOPROLOL TARTRATE 12.5 MG TAB PO SCH (20:59)
[2022-10-17] MEDS: FUROSEMIDE 10 MG/ML 4 ML VIAL IV SCH (20:59)
[2022-10-17] MEDS: PANTOPRAZOLE 40 MG TABLET PO SCH (20:59)
[2022-10-17] MEDS: APIXABAN 2.5 MG TABLET PO SCH (20:59)
[2022-10-18] MEDS: MIDODRINE 5 MG TAB PO SCH ×3 (06:17→16:23)
[2022-10-18] MEDS: CLOPIDOGREL 75 MG TAB PO SCH (07:56)
[2022-10-18] MEDS: METOPROLOL TARTRATE 12.5 MG TAB PO SCH ×2 (07:56→20:37)
[2022-10-18] MEDS: LEVOTHYROXINE 75 MCG TAB PO SCH (07:56)
[2022-10-18] MEDS: APIXABAN 2.5 MG TABLET PO SCH ×2 (07:56→20:37)
[2022-10-18] MEDS: LINAGLIPTIN 5 MG TABLET PO SCH (07:56)
[2022-10-18] MEDS: FUROSEMIDE 10 MG/ML 4 ML VIAL IV SCH (08:21)
[2022-10-18] MEDS: FUROSEMIDE 40 MG TAB PO SCH ×2 (08:43→16:23)
[2022-10-18 09:49] LABS: Basophils # (A) 0.07 X 10*3/uL (0.00-0.10); Basophils % (A) 0.7 %; Eosinophils # (A) 0.48 X 10*3/uL (0.04-0.35); Eosinophils % (A) 5.1 %; HCT 41.1 % (37.2-46.3); HGB 13.5 g/dL (12.0-15.0); Immature Grans, Automated 0.4 %; Lymphocytes # (A) 1.86 X 10*3/uL (0.90-5.00); Lymphocytes % (A) 19.6 %; MCH 30.2 pg (27.0-32.0); MCHC 32.8 g/dL (32.0-37.0); MCV 91.9 fL (80.0-97.0); Mean Platelet Volume 11.7 fL (9.5-12.2); Monocytes # (A) 1.26 X 10*3/uL (0.20-1.00); Monocytes % (A) 13.3 %; NRBC Per 100 WBC 0.3 /100 WBCS (0.0-0.0); Neutrophils # (A) 5.76 X 10*3/uL (1.80-7.70); Neutrophils % (A) 60.9 %; Platelet Count 256 X 10*3/uL (140-440); RBC 4.47 X 10*6/uL (4.10-5.20); RDW 13.9 % (11.5-14.5); WBC 9.47 X 10*3/uL (4.50-10.00)
--- NOTE | 2022-10-18 10:15 | P.CRDCN ---
History of Present Illness Consult date: 10/18/22 History of present illness: HISTORY OF PRESENT ILLNESS: This is a 82-year-old female with a past medical history significant for atrial fibrillation, coronary artery disease with previous stenting of RCA, hypertension, hyperlipidemia, and congestive heart failure. Patient follows in the office with Dr. Dudley. We have been asked to see the patient in consultation for congestive heart failure. Patient examined at the bedside. Patient presented to the hospital with a chief complaint of shortness of breath. She also reported lower extremity edema. She states that she usually has some lower extremity edema and the right is usually worse than the left. She also reports a cough with sputum production. The patient was started on IV Lasix. This morning the patient states that she is feeling better and that she is able to lay flat comfortably. Vital signs are stable. * EKG reveals atrial fibrillation with controlled ventricular rate. PVCs. * Chest xray focal correlation for mild congestive heart failure. * Laboratory data: WBC 9.47. Hemoglobin 13.5. Platelet count 256. Sodium 137. Potassium 5.1. BUN 44. Creatinine 1.44. Troponin negative 1. ProBNP 6630. * Current home cardiac medications include Eliquis 2.5mg BID, Lipitor 80 mg at night, Plavix 75 mg daily, Lasix 20 g daily, metoprolol tartrate 12.5 mg twice a day, and Midodrine 5mg TID * Most recent echocardiogram obtained in May 2022 revealed ejection fraction 40%, moderate aortic regurgitation, mild mitral regurgitation, mild tricuspid regurgitation * Cardiac catheterization history: March 2022 with PCI of RCA REVIEW OF SYSTEMS: At the time of my exam: CONSTITUTIONAL: Denies fever or chills. HEENT: Denies blurred vision, vision changes, or eye pain. Denies hemoptysis CARDIOVASCULAR: Denies chest pain. Denies orthopnea. Denies PND. Denies palpitations RESPIRATORY: Denies shortness of breath. GASTROINTESTINAL: Denies abdominal pain. Denies nausea or vomiting. HEMATOLOGIC: Denies bleeding disorders. GENITOURINARY: Denies any blood in urine. SKIN: Denies pruitis. Denies rash. PHYSICAL EXAM: VITAL SIGNS: Reviewed. GENERAL: Well-developed in no acute distress. HEENT: Head is normocephalic. Pupils are equal, round. Sclerae anicteric. Mucous membranes of the mouth are moist. Neck supple. No JVD or thyromegaly LUNGS: Respirations even and unlabored. Lungs essentially clear to auscultation bilaterally. HEART: Regular rate and rhythm. S1 and S2 heard. Systolic murmur noted ABDOMEN: Soft. Nondistended. Nontender. EXTREMITIES: Normal range of motion. No clubbing or cyanosis. Peripheral pulses intact. Trace bilateral lower extremity edema NEUROLOGIC: Awake and alert. Oriented x 3. ASSESSMENT: Shortness of breath Acute on chronic heart failure with reduced EF, 40% Coronary artery disease with previous stenting of RCA, March 2022 Persistent atrial fibrillation Hypertension Hyperlipidemia Chronic kidney disease PLAN: Obtain 2D echo to assess cardiac structure and function Resume home cardiac medications Discontinue IV lasix Begin oral lasix 40mg BID Monitor kidney function Further recommendations pending patient's course Nurse practitioner note has been reviewed by physician. Signing provider agrees with the documented findings, assessment, and plan of care. Past Medical History Past Medical History: Atrial Fibrillation, Coronary Artery Disease (CAD), Cancer, Diabetes Mellitus, Myocardial Infarction ([place]), Renal Disease, Thyroid Disorder Additional Past Medical History / Comment(s): Basal Cell skin cancer, hx. kidney stone, Diabetes- no longer on meds- watches diet, uses cane, states episodes where it feels her throat is tight (hx of EGD with dilation), chronic kidney disease. cardiac arrest Last Myocardial Infarction Date:: 03/25/22 History of Any Multi-Drug Resistant Organisms: None Reported Past Surgical History: Adenoidectomy, Back Surgery, Tonsillectomy Additional Past Surgical History / Comment(s): bunionectomy, kidney stone, cataracts, EGD with dilation heart stents Past Anesthesia/Blood Transfusion Reactions: No Reported Reaction Date of Last Stent Placement:: 03/2023 Past Psychological History: No Psychological Hx Reported Smoking Status: Never smoker Past Alcohol Use History: None Reported Past Drug Use History: None Reported - Past Family History Brother(s) Family Medical History: Cancer Additional Family Medical History / Comment(s): basal cell skin cancer family Additional Family Medical History / Comment(s): no family hx of heart disease Medications and Allergies Home Medications Medication Instructions Recorded Confirmed Type Levothyroxine Sodium [Synthroid] 75 mcg PO DAILY 05/07/19 10/17/22 History Atorvastatin [Lipitor] 80 mg PO HS #30 tab 04/01/22 10/17/22 Rx Nitroglycerin Sl Tabs [Nitrostat] 0.4 mg SUBLINGUAL Q5M PRN #30 tab 04/01/22 10/17/22 Rx Ondansetron Odt [Zofran ODT] 4 mg PO Q8HR PRN #30 tab 04/01/22 10/17/22 Rx Apixaban [Eliquis] 2.5 mg PO BID #60 tab 04/14/22 10/17/22 Rx Clopidogrel [Plavix] 75 mg PO DAILY #30 tab 04/14/22 10/17/22 Rx Midodrine [ProAmatine] 5 mg PO AC-TID #90 tab 04/14/22 10/17/22 Rx Furosemide [Lasix] 20 mg PO DAILY 10/17/22 10/17/22 History Metoprolol Tartrate [Lopressor] 12.5 mg PO BID 10/17/22 10/17/22 History Pantoprazole Sodium [Protonix] 20 mg PO HS 10/17/22 10/17/22 History calcitrioL [Calcitriol] 0.25 mcg PO WE 10/17/22 10/17/22 History sitaGLIPtin [Januvia] 50 mg PO DAILY 10/17/22 10/17/22 History Allergies Allergy/AdvReac Type Severity Reaction Status Date / Time codeine Allergy Rash/Hives Verified 10/17/22 12:56 metronidazole [From Flagyl] Allergy Rash/Hives Verified 10/17/22 12:56 Metronidazole HCl Allergy Rash/Hives Verified 10/17/22 12:56 [From Flagyl] morphine Allergy Rash/Hives Verified 10/17/22 12:56 hydrocodone [From [place]] AdvReac Unknown felt her Verified 10/17/22 12:56 mind was not right. famotidine [From Pepcid] AdvReac Nausea & Verified 10/17/22 12:56 Vomiting Opioids - Morphine Analogues AdvReac Confusion Verified 10/17/22 12:56 Opioids-Meperidine and AdvReac Confusion Verified 10/17/22 12:56 Related Opioids-Methadone and Related AdvReac Confusion Verified 10/17/22 12:56 Sulfa (Sulfonamide AdvReac Unknown- Verified 10/17/22 12:56 Antibiotics) almost passed out msg Allergy Anaphylaxis Uncoded 10/17/22 12:56 Physical Exam Vitals: Vital Signs Temp Pulse Pulse Resp BP BP Pulse Ox 10/18/22 06:21 98.4 F 77 16 113/66 97 10/18/22 02:00 97.9 F 77 16 121/71 95 10/17/22 20:00 97.4 F L 53 L 15 119/61 94 L 10/17/22 16:05 97.9 F 72 14 123/57 98 10/17/22 15:20 98.0 F 70 18 147/66 97 10/17/22 14:00 92 L 10/17/22 11:43 97.6 F 88 18 131/82 97 Intake and Output 10/17/22 10/18/22 10/18/22 22:59 06:59 14:59 Intake Total 953 Output Total 1500 1500 300 Balance -547 -1500 -300 Intake: Oral 953 Output: Urine 1500 1500 300 Other: Voiding Method External Catheter External Catheter External Catheter Weight 93.894 kg 89.6 kg Results 10/18/22 04:32 10/17/22 12:45 Cardiac Enzymes 10/17/22 10/17/22 Range/Units 12:45 12:45 AST 26 (14-36) U/L Troponin I 0.014 (0.000-0.034) ng/mL Coagulation 10/17/22 Range/Units 12:45 PT 11.5 (9.0-12.0) sec APTT 25.4 (22.0-30.0) sec CBC 10/17/22 10/18/22 Range/Units 12:45 04:32 WBC 8.9 9.47 (3.8-10.6) k/uL RBC 4.32 4.47 (3.80-5.40) m/uL Hgb 13.0 13.5 (11.4-16.0) gm/dL Hct 39.8 41.1 (34.0-46.0) % Plt Count 228 256 (150-450) k/uL Comprehensive Metabolic Panel 10/17/22 Range/Units 12:45 Sodium 137 (137-145) mmol/L Potassium 5.1 (3.5-5.1) mmol/L Chloride 102 (98-107) mmol/L Carbon Dioxide 26 (22-30) mmol/L BUN 44 H (7-17) mg/dL Creatinine 1.44 H (0.52-1.04) mg/dL Glucose 146 H (74-99) mg/dL Calcium 9.4 (8.4-10.2) mg/dL AST 26 (14-36) U/L ALT 18 (4-34) U/L Alkaline Phosphatase 94 (38-126) U/L Total Protein 7.5 (6.3-8.2) g/dL Albumin 4.1 (3.5-5.0) g/dL Current Medications Generic Name Dose Route Start Last Admin Trade Name Freq PRN Reason Stop Dose Admin Apixaban 2.5 mg 10/17/22 21:00 10/18/22 07:56 Apixaban 2.5 Mg Tablet PO 2.5 mg BID FLORINDA Administration Protocol Atorvastatin Calcium 80 mg 10/17/22 21:00 10/17/22 20:59 Atorvastatin 80 Mg Tab PO 80 mg HS FLORINDA Administration Clopidogrel Bisulfate 75 mg 10/18/22 09:00 10/18/22 07:56 Clopidogrel 75 Mg Tab PO 75 mg DAILY FLORINDA Administration Furosemide 40 mg 10/18/22 09:00 10/18/22 08:43 Furosemide 40 Mg Tab PO 40 mg BID@0900,1600 FLORINDA Administration Levothyroxine Sodium 75 mcg 10/18/22 09:00 10/18/22 07:56 Levothyroxine 75 Mcg Tab PO 75 mcg DAILY FLORINDA Administration Linagliptin 5 mg 10/18/22 09:00 10/18/22 07:56 Linagliptin 5 Mg Tablet PO 5 mg DAILY FLORINDA Administration Metoprolol Tartrate 12.5 mg 10/17/22 21:00 10/18/22 07:56 Metoprolol Tartrate 12.5 Mg Tab PO 12.5 mg BID FLORINDA Administration Midodrine 5 mg 10/17/22 17:30 10/18/22 06:17 Midodrine 5 Mg Tab PO 5 mg AC-TID FLORINDA Administration Naloxone HCl 0.2 mg 10/17/22 14:44 Naloxone 0.4 Mg/Ml 1 Ml Vial IV Q2M PRN Opioid Reversal Nitroglycerin 0.4 mg 10/17/22 15:29 Nitroglycerin Sl Tabs 0.4 Mg Tab SUBLINGUAL Q5M PRN Chest Pain Ondansetron HCl 4 mg 10/17/22 15:29 Ondansetron Odt 4 Mg Tab PO Q8HR PRN Nausea Pantoprazole Sodium 40 mg 10/17/22 21:00 10/17/22 20:59 Pantoprazole 40 Mg Tablet PO 40 mg HS FLORINDA Administration Intake and Output 10/17/22 10/18/22 10/18/22 22:59 06:59 14:59 Intake Total 953 Output Total 1500 1500 300 Balance -547 1500 -300 Intake: Oral 953 Output: Urine 1500 1500 300 Other: Voiding Method External Catheter External Catheter External Catheter Weight 93.894 kg 89.6 kg 10/18/22 04:32 10/17/22 12:45
--- NOTE | 2022-10-18 10:39 | P.PN ---
Subjective Progress Note Date: 10/18/22 Patient reports improvement in her breathing. Swelling in her legs was minimal but has gone down. Gen: awake, alert HEENT: normocephalic, atraumatic, good hearing acuity, moist mucous membranes Resp: good air exchange, breathing comfortably with no accessory muscle use CVS: good distal perfusion x 4, GI: soft, NTTP, ND : no SPT, no CVAT, dwyer catheter not present MSK: no pitting edema, no clubbing Neuro: non-focal, moving all extremities Psych: cooperative, euthymic mood Hospital course: Patient is a very pleasant 82-year-old female with a past medical history of CAD with previous MA status post stent placement, chronic systolic heart failure with previously known EF of 40-45%, chronic atrial fibrillation on anticoagulation with Eliquis, hypertension, hyperlipidemia, chronic kidney disease stage III, and hypothyroidism. Patient presented to the emergency depa rtment with a chief complaint of shortness of breath and orthopnea. Patient underwent full evaluation in the emergency department. EKG completed showing atrial fibrillation with frequent PVCs at a controlled ventricular rate of 69 bpm upon personal review and interpretation. Chest x-ray completed consistent with congestive heart failure with signs of fluid overload. CBC and coagulation profile unremarkable. BMP consistent with stage IIIc EKG with BUN 44, creatinine 1.44, and GFR of 34 with baseline creatinine of 1.4. Liver profile revealing elevated bilirubin of 1.4, bilirubin chronically elevated and is lower than typical baseline level. Troponin 0.014 and proBNP 6630. Influenza A, influenza B, RSV, and Covid PCR all negative. Discussed in detail with ED physician. Patient was admitted under our services to observation unit for acute on chronic congestive heart failure with consultation to cardiology. Assessment: Acute on chronic systolic heart failure exacerbation Exertional shortness of breath Orthopnea History of CAD with previous MA and stent placement Chronic atrial fibrillation Hypertension Hyperlipidemia Plan: Today, patient is afebrile, 113/66, heart rate 77, 97% on room air. CBC is unremarkable. Ordered CBC, basic metabolic panel, magnesium for tomorrow Cardiology note reviewed, patient will be switched to by mouth diuretic and monitor for 24 more hours Continue Apixiban 2.5 mg twice a day Continue atorvastatin 80 mg daily at bedtime Continue Plavix 75 mg daily Continue Lasix 40 mg by mouth twice a day Continue metoprolol 12.5 mg twice a day Continue midodrine 5 mg before meals 3 times a day Continue levothyroxine 75 g by mouth daily Patient is full code DVT prophylaxis covered with Apixiban Objective - Vital Signs Vital signs: Vital Signs Temp 98.4 F 10/18/22 06:21 Pulse 77 10/18/22 06:21 Resp 16 10/18/22 06:21 BP 113/66 10/18/22 06:21 Pulse Ox 97 10/18/22 06:21 FiO2 Intake & Output 10/17/22 10/18/22 10/18/22 18:59 06:59 18:59 Intake Total 473 480 Output Total 700 2300 300 Balance -227 -1820 -300 Weight 93.894 kg 89.6 kg Intake: Oral 473 480 Output: Urine 700 2300 300 Other: Voiding Method External Catheter External Catheter External Catheter - Labs CBC & Chem 7: 10/18/22 04:32 10/17/22 12:45 Labs: Abnormal Lab Results - Last 24 Hours (Table) 10/17/22 10/18/22 Range/Units 12:45 04:32 Absolute Nucleated RBC 0.03 H (0.00-0.00) X 10*3/uL Monocytes # 1.26 H (0.20-1.00) X 10*3/uL Eosinophils # 0.48 H (0.04-0.35) X 10*3/uL NRBC/100 WBC Diff 0.3 H (0.0-0.0) /100 WBCS BUN 44 H (7-17) mg/dL Creatinine 1.44 H (0.52-1.04) mg/dL Glucose 146 H (74-99) mg/dL Total Bilirubin 1.4 H (0.2-1.3) mg/dL
[2022-10-18 11:54] LABS: Magnesium 2.1 mg/dL (1.5-2.4)
[2022-10-18 11:58] LABS: African American GFR (CKD) 31.1 (60.0-200.0); Anion Gap 16.6 mmol/L (10.00-18.00); BUN/Creat Ratio 22.51 Ratio (12.00-20.00); Blood Urea Nitrogen 39.4 mg/dL (9.0-27.0); Carbon Dioxide 22.7 mmol/L (20.0-27.5); Non-African American GFR(CKD) 26.8 (60.0-200.0); Potassium 5.1 mmol/L (3.5-5.5)
--- NOTE | 2022-10-18 17:26 | CA ---
Transthoracic Echo Report Name: Antonio Muhammad Age: 82 Gender: F : 1940 Exam Date: 10/18/2022 09:07 Exam Location: [facility] Ht (in): 63 Wt (lb): 197 Ordering Physician: Chiara Argueta Attending/Referring Phys: [id number], Ellie [employer] Glen Taylor RDCS Procedure CPT: Indications: LV function Cardiac Hx: HTN; CAD; DM; Obesity Technical Quality: Fair Contrast 1: Total Dose (mL): Contrast 2: Total Dose (mL): MEASUREMENTS (Male / Female) Normal Values 2D ECHO LV Diastolic Diameter PLAX 4.1 cm 4.2 - 5.9 / 3.9 - 5.3 cm LV Systolic Diameter PLAX 3.3 cm LV Fractional Shortening PLAX 20.5 % IVS Diastolic Thickness 1.4 cm 0.6 - 1.0 / 0.6 - 0.9 cm IVS Systolic Thickness 1.6 cm LVPW Diastolic Thickness 1.2 cm 0.6 - 1.0 / 0.6 - 0.9 cm LVPW Systolic Thickness 1.6 cm LV Relative Wall Thickness 0.6 LVOT Diameter 2.0 cm LA Systolic Diameter LX 3.8 cm 3.0 - 4.0 / 2.7 - 3.8 cm LV Diastolic Volume MOD BP 83.0 cm??? 67 - 155 / 56 - 104 cm??? LV Systolic Volume MOD BP 40.4 cm??? 22 - 58 / 19 - 49 cm??? LV Ejection Fraction MOD BP 51.3 % >= 55 % LV Stroke Volume MOD BP 42.6 cm??? LV Diastolic Volume MOD 4C 68.2 cm??? LV Systolic Volume MOD 4C 25.6 cm??? LV Ejection Fraction MOD 4C 62.5 % LV Stroke Volume MOD 4C 42.6 cm??? LV Diastolic Length 4C 6.6 cm LV Systolic Length 4C 5.3 cm LV Diastolic Volume MOD 2C 91.1 cm??? LV Systolic Volume MOD 2C 54.7 cm??? LV Ejection Fraction MOD 2C 39.9 % LV Stroke Volume MOD 2C 36.3 cm??? LV Diastolic Length 2C 7.4 cm LV Systolic Length 2C 6.4 cm M-MODE Aortic Root Diameter MM 3.1 cm MV E Point Septal Separation 2.2 cm AV Cusp Separation MM 1.8 cm DOPPLER AV Peak Velocity 129.1 cm/s AV Peak Gradient 6.7 mmHg AI Peak Velocity 316.1 cm/s AI Peak Gradient 40.0 mmHg AI Deceleration [place] 135.0 cm/s??? AI Pressure Half Time 679.3 ms MV Peak Velocity 118.8 cm/s MV Peak Gradient 5.6 mmHg MV Mean Velocity 56.1 cm/s MV Mean Gradient 1.6 mmHg MV Velocity Time Integral 30.8 cm MV Deceleration [place] 717.5 cm/s??? MR Peak Velocity 498.5 cm/s MR Peak Gradient 99.4 mmHg MR Mean Velocity 401.7 cm/s MR Mean Gradient 69.6 mmHg Mitral E Point Velocity 119.8 cm/s Mitral A Point Velocity 47.0 cm/s Mitral E to A Ratio 2.5 MV Deceleration Time 167.0 ms MV E' Velocity 5.2 cm/s Mitral E to MV E' Ratio 23.1 TR Peak Velocity 244.9 cm/s TR Peak Gradient 24.0 mmHg Right Ventricular Systolic Press 34.0 mmHg FINDINGS Left Ventricle Left ventricular ejection fraction is estimated at 40-45%. Mild concentric left ventricular hypertrophy. Grade 2 diastolic dysfunction. Mildly reduced global left ventricular systolic function. Right Ventricle Normal right ventricular size and function. RVSP- 34 mm Hg. Right Atrium Mild right atrial dilatation. Left Atrium Left atrial dilatation. Mitral Valve Mitral valve thickened. Mildly decreased mobility of the anterior mitral valve leaflet. Mildly decreased mobility of the posterior mitral valve leaflet. Aortic Valve Trileaflet aortic valve. Diffuse thickening of the aortic valve cusps with reduced excursion. [id number] aortic regurgitation. Tricuspid Valve [id number] tricuspid regurgitation. Pulmonic Valve Pulmonic valve not well visualized. Pericardium Normal pericardium. No pericardial effusion. Aorta Normal size aortic root and proximal ascending aorta. CONCLUSIONS Global LV dysfunction, systolic function 40% Previewed by: Dr. Tay Blunt MD (Electronically Signed) Final Date: 18 October 2022 17:25
[2022-10-18] MEDS: ATORVASTATIN 80 MG TAB PO SCH (20:37)
[2022-10-18] MEDS: PANTOPRAZOLE 40 MG TABLET PO SCH (20:37)
[2022-10-19] MEDS: MIDODRINE 5 MG TAB PO SCH ×2 (06:31→11:56)
[2022-10-19 07:41] VITALS: BP 119/68; PULSE 95; RESP 18; TEMP 97.9
[2022-10-19] MEDS: CLOPIDOGREL 75 MG TAB PO SCH (07:46)
[2022-10-19] MEDS: LINAGLIPTIN 5 MG TABLET PO SCH (07:46)
[2022-10-19] MEDS: FUROSEMIDE 40 MG TAB PO SCH (07:46)
[2022-10-19] MEDS: LEVOTHYROXINE 75 MCG TAB PO SCH (07:47)
[2022-10-19] MEDS: METOPROLOL TARTRATE 12.5 MG TAB PO SCH (07:47)
[2022-10-19] MEDS: APIXABAN 2.5 MG TABLET PO SCH (07:47)
[2022-10-19 10:21] LABS: African American GFR (CKD) 37 (>60 ml/min/1.73 sqM); Anion Gap 14 mmol/L; Blood Urea Nitrogen 45 mg/dL (7-17); Calcium 9.3 mg/dL (8.4-10.2); Carbon Dioxide 24 mmol/L (22-30); Chloride 96 mmol/L (98-107); Glucose 191 mg/dL (74-99); Non-African American GFR(CKD) 32 (>60 ml/min/1.73 sqM); Sodium 134 mmol/L (137-145)
[2022-10-19 10:24] LABS: Potassium 3.7 mmol/L (3.5-5.1)
--- NOTE | 2022-10-19 11:22 | P.DS ---
Providers Date of admission: 10/17/22 14:44 Expected date of discharge: 10/19/22 Attending physician: Yung Chaudhari MD Consults: 10/17/22 14:44 Consult Physician Routine Consulting Provider: [facility] Consult Reason/Comments: chf exacerbation Do you want consulting provider notified?: Yes Primary care physician: Ermias Baron [facility] Course: Assessment: Acute on chronic systolic heart failure exacerbation Exertional shortness of breath Orthopnea History of CAD with previous W[place] and stent placement Chronic atrial fibrillation Hypertension Hyperlipidemia Hospital course: Patient is a very pleasant 82-year-old female with a past medical history of CAD with previous W[place] status post stent placement, chronic systolic heart failure with previously known EF of 40-45%, chronic atrial fibrillation on anticoagulation with Eliquis, hypertension, hyperlipidemia, chronic kidney disease stage III, and hypothyroidism. Patient presented to the emergency department with a chief complaint of shortness of breath and orthopnea. Patient underwent full evaluation in the emergency department. EKG completed showing atrial fibrillation with frequent PVCs at a controlled ventricular rate of 69 bpm upon personal review and interpretation. Chest x-ray completed consistent with congestive heart failure with signs of fluid overload. CBC and coagulation profile unremarkable. BMP consistent with stage IIIc EKG with BUN 44, creatinine 1.44, and GFR of 34 with baseline creatinine of 1.4. Liver profile revealing elevated bilirubin of 1.4, bilirubin chronically elevated and is lower than typical baseline level. Troponin 0.014 and proBNP 6630. Influenza A, influenza B, RSV, and Covid PCR all negative. Discussed in detail with ED physician. Patient was admitted under our services to observation unit for acute on chronic congestive heart failure with consultation to cardiology. Patient was initially diuresed with Lasix 40 mg IV twice a day, then was subsequent switched to by mouth Lasix 40 mg twice a day. She underwent repeat echocardiogram which demonstrated a mildly reduced ejection fraction 40-45% with grade 2 diastolic dysfunction, thickened mitral valve, mildly decreased mobility of the anterior and posterior mitral valve. Patient was returned to room air and reported significant improvement in her dyspnea as well as her cough. Patient was instructed on following up with cardiology, following her weights closely to ensure that she does not gain weight to quickly, increased dose of Lasix. She'll follow up with cardiology on discharge as well as primary care physician. I spent 36 minutes coordinating this discharge and 10/19 Gen: awake, alert HEENT: normocephalic, atraumatic, good hearing acuity, moist mucous membranes Resp: good air exchange, breathing comfortably with no accessory muscle use CVS: good distal perfusion x 4, GI: soft, NTTP, ND : no SPT, no CVAT, dwyer catheter not present MSK: no pitting edema, no clubbing Neuro: non-focal, moving all extremities Psych: cooperative, euthymic mood Patient Condition at Discharge: Good Plan - Discharge Summary Discharge Rx Participant: No New Discharge Prescriptions: New Furosemide [Lasix] 40 mg PO BID@0900,1600 #60 tab Continue Levothyroxine Sodium [Synthroid] 75 mcg PO DAILY Atorvastatin [Lipitor] 80 mg PO HS #30 tab Ondansetron Odt [Zofran ODT] 4 mg PO Q8HR PRN #30 tab PRN Reason: Nausea Pantoprazole Sodium [Protonix] 20 mg PO HS Metoprolol Tartrate [Lopressor] 12.5 mg PO BID calcitrioL [Calcitriol] 0.25 mcg PO WE Nitroglycerin Sl Tabs [Nitrostat] 0.4 mg SUBLINGUAL Q5M PRN #30 tab PRN Reason: Chest Pain Apixaban [Eliquis] 2.5 mg PO BID #60 tab Clopidogrel [Plavix] 75 mg PO DAILY #30 tab Midodrine [ProAmatine] 5 mg PO AC-TID #90 tab sitaGLIPtin [Januvia] 50 mg PO DAILY Discontinued Furosemide [Lasix] 20 mg PO DAILY Discharge Medication List Levothyroxine Sodium [Synthroid] 75 mcg PO DAILY 05/07/19 [History] Atorvastatin [Lipitor] 80 mg PO HS #30 tab 04/01/22 [Rx] Nitroglycerin Sl Tabs [Nitrostat] 0.4 mg SUBLINGUAL Q5M PRN #30 tab 04/01/22 [Rx] Ondansetron Odt [Zofran ODT] 4 mg PO Q8HR PRN #30 tab 04/01/22 [Rx] Apixaban [Eliquis] 2.5 mg PO BID #60 tab 04/14/22 [Rx] Clopidogrel [Plavix] 75 mg PO DAILY #30 tab 04/14/22 [Rx] Midodrine [ProAmatine] 5 mg PO AC-TID #90 tab 10/06/22 [Rx] Metoprolol Tartrate [Lopressor] 12.5 mg PO BID 10/17/22 [History] Pantoprazole Sodium [Protonix] 20 mg PO HS 10/17/22 [History] calcitrioL [Calcitriol] 0.25 mcg PO WE 10/17/22 [History] sitaGLIPtin [Januvia] 50 mg PO DAILY 10/17/22 [History] Furosemide [Lasix] 40 mg PO BID@0900,1600 #60 tab 10/19/22 [Rx] Follow up Appointment(s)/Referral(s): Ermias Alvarez MD [Primary Care Provider] - 1-2 days [facility], [NON-STAFF] - 1 Week Patient Instructions/Handouts: Heart Failure (DC) Activity/Diet/Wound Care/Special Instructions: Please check your weight daily - if your weight goes up by more than 3 pounds in one day or more than 5 pounds in 3 days, please contact your heart doctor for further recommendations. Please limit the total amount of liquids consumed to 2 Liters daily. 2 Liters is the size of a $0.99 [employer] bottle. Beyond this amount, there will be concern for fluid building up in your lungs and causing shortness of breath. If you are developing worsening shortness of breath, chest pain, palpitations, or any other concerning symptoms - please call your doctor or return to the Emergency Room. Discharge Disposition: HOME WITH HOME HEALTH SERVICES
--- NOTE | 2022-10-19 11:33 | P.PN ---
Subjective Progress Note Date: 10/19/22 HISTORY OF PRESENT ILLNESS: This is a 82-year-old female with a past medical history significant for atrial fibrillation, coronary artery disease with previous stenting of RCA, hype rtension, hyperlipidemia, and congestive heart failure. Patient follows in the office with Dr. Dudley. We have been asked to see the patient in consultation for congestive heart failure. Patient examined at the bedside. Patient presented to the hospital with a chief complaint of shortness of breath. She also reported lower extremity edema. She states that she usually has some lower extremity shameka ma and the right is usually worse than the left. She also reports a cough with sputum production. The patient was started on IV Lasix. This morning the patient states that she is feeling better and that she is able to lay flat comfortably. Vital signs are stable. * EKG reveals atrial fibrillation with controlled ventricular rate. PVCs. * Chest xray focal correlation for mild congestive heart failure. * Laboratory data: WBC 9.47. Hemoglobin 13.5. Platelet count 256. Sodium 137. Potassium 5.1. BUN 44. Creatinine 1.44. Troponin negative 1. ProBNP 6630. * Current home cardiac medications include Eliquis 2.5mg BID, Lipitor 80 mg at night, Plavix 75 mg daily, Lasix 20 g daily, metoprolol tartrate 12.5 mg twice a day, and Midodrine 5mg TID * Most recent echocardiogram obtained in May 2022 revealed ejection fraction 40%, moderate aortic regurgitation, mild mitral regurgitation, mild tricuspid regurgitation * Cardiac catheterization history: March 2022 with PCI of RCA 10/19/2022 Patient examined this morning. Patient is sitting in the chair. Patient denies chest pain or pressure. She denies shortness of breath. She is maintained on oral Lasix. Vital signs are stable. Echocardiogram completed revealing ejection fraction 40-45%, mild to moderate aortic regurgitation, [id number] tricuspid regurgitation PHYSICAL EXAM: VITAL SIGNS: Reviewed. GENERAL: Well-developed in no acute distress. HEENT: Head is normocephalic. Pupils are equal, round. Sclerae anicteric. Mucous membranes of the mouth are moist. Neck supple. No JVD or thyromegaly LUNGS: Respirations even and unlabored. Lungs essentially clear to auscultation bilaterally. HEART: Regular rate and rhythm. S1 and S2 heard. Systolic murmur noted ABDOMEN: Soft. Nondistended. Nontender. EXTREMITIES: Normal range of motion. No clubbing or cyanosis. Peripheral pulses intact. Trace bilateral lower extremity edema NEUROLOGIC: Awake and alert. Oriented x 3. ASSESSMENT: Shortness of breath Acute on chronic heart failure with reduced EF, 40% Coronary artery disease with previous stenting of RCA, March 2022 Persistent atrial fibrillation Hypertension Hyperlipidemia Chronic kidney disease PLAN: Continue current cardiac medications Continue current dose of oral Lasix Patient is stable for discharge home today from a cardiac standpoint She is to follow up on an outpatient basis Nurse practitioner note has been reviewed by physician. Signing provider agrees with the documented findings, assessment, and plan of care. Objective - Vital Signs Vital signs: Vital Signs Temp 97.9 F 10/19/22 06:57 Pulse 95 10/19/22 06:57 Resp 18 10/19/22 06:57 BP 119/68 10/19/22 06:57 Pulse Ox 95 10/19/22 07:42 FiO2 21 10/18/22 08:30 Intake & Output 10/18/22 10/19/22 10/19/22 18:59 06:59 18:59 Intake Total 118 118 Output Total 900 Balance -782 118 Weight 88.8 kg Intake: Oral 118 118 Output: Urine 900 Other: Voiding Method External Catheter External Catheter - Labs CBC & Chem 7: 10/18/22 04:32 10/19/22 09:30 Labs: Abnormal Lab Results - Last 24 Hours (Table) 10/18/22 10/19/22 Range/Units 04:32 09:30 Sodium 134 L (137-145) mmol/L Chloride 96 L (98-107) mmol/L BUN 39.4 H 45 H (9.0-27.0) mg/dL Creatinine 1.8 H 1.52 H (0.6-1.5) mg/dL Est GFR (CKD-EPI)AfAm 31.1 L (60.0-200.0) Est GFR (CKD-EPI)NonAf 26.8 L (60.0-200.0) BUN/Creatinine Ratio 22.51 H (12.00-20.00) Ratio Glucose 124 H 191 H (70-110) mg/dL
== END 2022-10-19 12:22 | disposition home health service (06) ==
LOC: EC 11:36 → 6NMEDSUR 14:44
PROVIDERS: ADMIT Student in an Organized Health Care Education/Training Program; ATTEND Student in an Organized Health Care Education/Training Program
DX: I13.0 Hypertensive heart and chronic kidney disease with heart failure and stage 1 through stage 4 chronic kidney disease, or unspecified chronic kidney disease (principal); E11.22 Type 2 diabetes mellitus with diabetic chronic kidney disease; N18.30 Chronic kidney disease, stage 3 unspecified; I50.23 Acute on chronic systolic (congestive) heart failure; I48.20 Chronic atrial fibrillation, unspecified; Z95.5 Presence of coronary angioplasty implant and graft; E78.5 Hyperlipidemia, unspecified; I25.10 Atherosclerotic heart disease of native coronary artery without angina pectoris; I25.2 Old myocardial infarction; E07.9 Disorder of thyroid, unspecified; Z85.828 Personal history of other malignant neoplasm of skin; Z87.442 Personal history of urinary calculi; Z98.49 Cataract extraction status, unspecified eye; Z98.890 Other specified postprocedural states; Z80.8 Family history of malignant neoplasm of other organs or systems; Z20.822 Contact with and (suspected) exposure to COVID-19; Z79.84 Long term (current) use of oral hypoglycemic drugs; Z79.890 Hormone replacement therapy; Z79.899 Other long term (current) drug therapy; Z79.01 Long term (current) use of anticoagulants; Z79.02 Long term (current) use of antithrombotics/antiplatelets; Z88.5 Allergy status to narcotic agent; Z88.3 Allergy status to other anti-infective agents; Z91.02 Food additives allergy status
CPT/HCPCS: 96376; 96374; 99285; 36415; 94760 ×2; 93005; 93306; 83880; 80053; 80048 ×2; 83735 ×2; 84484; 85025 ×2; 85610; 85730; 87636; 71046; G0378 ×3; J1940

== ENCOUNTER → 2022-11-21 | Outpatient (CLI) | payer MEDICARE ==
[2022-11-21 17:27] LABS: African American GFR (CKD) 35.5 (60.0-200.0); Anion Gap 16.4 mmol/L (10.00-18.00); BUN/Creat Ratio 44.65 Ratio (12.00-20.00); Blood Urea Nitrogen 70.1 mg/dL (9.0-27.0); Calcium 9.8 mg/dL (8.7-10.3); Carbon Dioxide 22.4 mmol/L (20.0-27.5); Non-African American GFR(CKD) 30.6 (60.0-200.0); Potassium 3.8 mmol/L (3.5-5.5)
== END | disposition home or self-care (01) ==
LOC: LABWHC1 09:49
PROVIDERS: ATTEND Internal Medicine Interventional Cardiology
DX: N18.9 Chronic kidney disease, unspecified (principal)
CPT/HCPCS: 36415; 80048

== ENCOUNTER 2022-11-29 08:53 | Emergency (ER) | payer MEDICARE ==
--- NOTE | 2022-11-29 09:24 | ED ---
General Adult HPI - General Chief complaint: Shortness of Breath Stated complaint: Heart failure Time Seen by Provider: 11/29/22 09:00 Source: patient Mode of arrival: ambulatory Limitations: no limitations - History of Present Illness Initial comments: Dictation was produced using [employer] dictation software. please excuse any grammatical, word or spelling errors. Chief Complaint: 82-year-old female presents to the emergency department with cough History of Present Illness: Is 82-year-old female she has had cough it's been persistent ever since being discharged from the hospital 3 weeks ago. Patient does report mild shortness of breath. She had seen her primary care doctor and her impregnator operator regarding these symptoms and is stable for discharge. Patient denies any fevers. Otherwise feels that may sinusitis for this cough. Denies any constitutional symptoms. No chest pain. The ROS documented in this emergency department record has been reviewed and confirmed by me. Those systems with pertinent positive or negative responses have been documented in the HPI. All other systems are other negative and/or noncontributory. - Related Data Home Medications Medication Instructions Recorded Confirmed Levothyroxine Sodium [Synthroid] 75 mcg PO DAILY@0800 05/07/19 11/04/22 Metoprolol Tartrate [Lopressor] 12.5 mg PO BID@10/17/22 11/04/22 Pantoprazole Sodium [Protonix] 20 mg PO HS@199910/17/22 11/04/22 calcitrioL [Calcitriol] 0.25 mcg PO WE@79910/17/22 11/04/22 sitaGLIPtin [Januvia] 50 mg PO DAILY@79910/17/22 11/04/22 Apixaban [Eliquis] 2.5 mg PO BID@08,199911/04/22 11/04/22 Atorvastatin [Lipitor] 80 mg PO HS@199911/04/22 11/04/22 Clopidogrel [Plavix] 75 mg PO DAILY@79911/04/22 11/04/22 Fluticasone Nasal [place] [Flonase 1 spray EA NOSTRIL DAILY@0800 11/04/22 11/04/22 Nasal [place]] Loratadine 10 mg PO DAILY@0800 11/04/22 11/04/22 Midodrine HCl [ProAmatine] 10 mg PO TID@08,1200,1700 11/04/22 11/04/22 Previous Rx's Medication Instructions Recorded Nitroglycerin Sl Tabs [Nitrostat] 0.4 mg SUBLINGUAL Q5M PRN #30 tab 04/01/22 Ondansetron Odt [Zofran ODT] 4 mg PO Q8HR PRN #30 tab 04/01/22 Furosemide [Lasix] 40 mg PO DAILY 30 Days #30 tab 11/07/22 Albuterol Inhaler [Ventolin Hfa 1 - 2 puff INHALATION RT-Q6H PRN 11/29/22 Inhaler] #1 each Azithromycin [Zithromax Z Pack] 1 tab PO DIRECTED #6 tab 11/29/22 Allergies Allergy/AdvReac Type Severity Reaction Status Date / Time codeine Allergy Rash/Hives Verified 11/29/22 08:59 metronidazole [From Flagyl] Allergy Rash/Hives Verified 11/29/22 08:59 Metronidazole HCl Allergy Rash/Hives Verified 11/29/22 08:59 [From Flagyl] morphine Allergy Rash/Hives Verified 11/29/22 08:59 hydrocodone [From [place]] AdvReac Unknown felt her Verified 11/29/22 08:59 mind was not right. famotidine [From Pepcid] AdvReac Nausea & Verified 11/29/22 08:59 Vomiting Opioids - Morphine Analogues AdvReac Confusion Verified 11/29/22 08:59 Opioids-Meperidine and AdvReac Confusion Verified 11/29/22 08:59 Related Opioids-Methadone and Related AdvReac Confusion Verified 11/29/22 08:59 Sulfa (Sulfonamide AdvReac Unknown- Verified 11/29/22 08:59 Antibiotics) almost passed out msg Allergy Anaphylaxis Uncoded 11/29/22 08:59 Review of Systems ROS Statement: Those systems with pertinent positive or pertinent negative responses have been documented in the HPI. ROS Other: All systems not noted in ROS Statement are negative. Past Medical History Past Medical History: Atrial Fibrillation, Coronary Artery Disease (CAD), Cancer, Heart Failure, Diabetes Mellitus, Myocardial Infarction (PA), Renal Disease, Thyroid Disorder Additional Past Medical History / Comment(s): Basal Cell skin cancer, hx. kidney stone, Diabetes- no longer on meds- watches diet, uses cane, states episodes where it feels her throat is tight (hx of EGD with dilation), chronic kidney disease. cardiac arrest Last Myocardial Infarction Date:: 03/25/22 History of Any Multi-Drug Resistant Organisms: None Reported Past Surgical History: Adenoidectomy, Back Surgery, Tonsillectomy Additional Past Surgical History / Comment(s): bunionectomy, kidney stone, cataracts, EGD with dilation heart stents Past Anesthesia/Blood Transfusion Reactions: No Reported Reaction Date of Last Stent Placement:: 03/2023 Past Psychological History: No Psychological Hx Reported Smoking Status: Never smoker Past Alcohol Use History: None Reported Past Drug Use History: None Reported - Past Family History Brother(s) Family Medical History: Cancer Additional Family Medical History / Comment(s): basal cell skin cancer family Additional Family Medical History / Comment(s): no family hx of heart disease General Exam - General Exam Comments Initial Comments: PHYSICAL EXAM: General Impression: Alert and oriented x3, not in acute distress HEENT: Normocephalic atraumatic, extra-ocular movements intact, pupils equal and reactive to light bilaterally, mucous membranes moist. Cardiovascular: Heart regular rate and rhythm Chest: Able to complete full sentences, no retractions, no tachypnea Abdomen: abdomen soft, non-tender, non-distended, no organomegaly Musculoskeletal: Pulses present and equal in all extremities, no peripheral edema Motor: no focal deficits noted Neurological: CN II-XII grossly intact, no focal motor or sensory deficits noted Skin: Intact with no visualized rashes Psych: Normal affect and mood Limitations: no limitations Course Vital Signs 11/29/22 11/29/22 08:56 09:04 Temperature 97.7 F Pulse Rate 87 Respiratory 22 18 Rate Blood Pressure 160/80 O2 Sat by Pulse 98 Oximetry Medical Decision Making - Medical Decision Making Was pt. sent in by a medical professional or institution (, PA, CUSTOMER EXPERIENCE STRATEGIST, urgent care, hospital, or longterm...) When possible be specific @ -No Did you speak to anyone other than the patient for history (EMS, parent, family, police, friend...)? What history was obtained from this source @ -No Did you review nursing and triage notes (agree or disagree)? Why? @ -I reviewed and agree with nursing and triage notes Were old charts reviewed (outside hosp., previous admission, EMS record, old EKG, old radiological studies, urgent care reports/EKG's, longterm records)? Report findings @ -No old charts were reviewed Differential Diagnosis (chest pain, altered mental status, abdominal pain women, abdominal pain men, vaginal bleeding, musculoskeletal, weakness, fever, dyspnea, syncope, headache, dizziness, GI bleed, back pain, seizure, CVA, palpatations, mental health)? @ -Differential Dyspnea: Coronary syndrome, arrhythmia, tamponade, asthma, COPD, pulmonary embolism, pneumonia, pneumothorax, pulmonary effusion, anaphylaxis, diabetic ketoacidosis, flailed chest, pulmonary contusion, diaphragmatic rupture, anemia, neuromuscular, this is not meant to be an all-inclusive list. EKG interpreted by me (3pts min.). @ -My EKG interpretation: Ventricular rate 82, A. fib, QRS 108, QTC 419. No NH prolongation, no QTC prolongation, no ST or T-wave changes noted. Overall, this EKG is unremarkable X-rays interpreted by me (1pt min.). @ -Mild bilateral pleural effusions CT interpreted by me (1pt min.). @ -None done U/S interpreted by me (1pt. min.). @ -None done What testing was considered but not performed or refused? (CT, X-rays, U/S, labs)? Why? @ -None What meds were considered but not given or refused? Why? @ -None Did you discuss the management of the patient with other professionals (professionals i.e. , PA, CUSTOMER EXPERIENCE STRATEGIST, lab, RT, psych nurse, medical social worker, internal sales, teacher, workers' compensation hearings officer, senior case manager)? Give summary @ -No Was smoking cessation discussed for >3mins.? @ -No Was critical care preformed (if so, how long)? @ -No Were there social determinants of health that impacted care today? How? (Homelessness, low income, unemployed, alcoholism, drug addiction, transportation, low edu. Level, literacy, decrease access to med. care, skilled nursing, rehab)? @ -No Was there de-escalation of care discussed even if they declined (Discuss DNR or withdrawal of care, Hospice)? DNR status @ -No What co-morbidities impacted this encounter? (DM, HTN, Smoking, COPD, CAD, Cancer, CVA, ARF, Chemo, Hep., AIDS, mental health diagnosis, sleep apnea, morbid obesity)? @ -None Was patient admitted / discharged? Hospital course, mention meds given and route, prescriptions, significant lab abnormalities, going to OR and other pertinent info. @ -82-year-old female presents emergency Department with persistent cough. Vital signs are stable. Patient is well-appearing. She does not appear dyspneic. Lung examination is unremarkable. Physical examination is benign. Laboratory evaluation is all within acceptable limits. Negative for COVID-19 RSV or influenza. Chest x-ray is nonacute. Patient discharge advised follow-up with primary care doctor. Given prescription for albuterol inhaler. Patient also given a Zithromax pack. Undiagnosed new problem with uncertain prognosis? @ -No Drug Therapy requiring intensive monitoring for toxicity (Heparin, Nitro, Insulin, Cardizem)? @ -No Were any procedures done? @ -No Diagnosis/symptom? Acute, or Chronic, or Acute on Chronic? Uncomplicated (without systemic symptoms) or Complicated (systemic symptoms)? @ -Chronic cough Side effects of treatment? @ -No Exacerbation, Progression, or Severe Exacerbation? @ -No Poses a threat to life or bodily function? How? (Chest pain, USA, PA, pneumonia, PE, COPD, DKA, ARF, appy, cholecystitis, CVA, Diverticulitis, Homicidal, Suicidal, threat to staff... and all critical care pts) @ -yes - Lab Data Result diagrams: 11/29/22 09:22 11/29/22 09:22 Lab Results 11/29/22 11/29/22 11/29/22 Range/Units 09:22 09:22 09:22 WBC 8.6 (3.8-10.6) k/uL RBC 4.59 (3.80-5.40) m/uL Hgb 13.6 (11.4-16.0) gm/dL Hct 42.1 (34.0-46.0) % MCV 91.6 (80.0-100.0) fL MCH 29.6 (25.0-35.0) pg MCHC 32.3 (31.0-37.0) g/dL RDW 14.3 (11.5-15.5) % Plt Count 240 (150-450) k/uL MPV 8.5 Neutrophils % 74 % Lymphocytes % 13 % Monocytes % 6 % Eosinophils % 4 % Basophils % 1 % Neutrophils # 6.4 (1.3-7.7) k/uL Lymphocytes # 1.1 (1.0-4.8) k/uL Monocytes # 0.5 (0-1.0) k/uL Eosinophils # 0.4 (0-0.7) k/uL Basophils # 0.0 (0-0.2) k/uL Sodium 137 (137-145) mmol/L Potassium 4.4 (3.5-5.1) mmol/L Chloride 104 (98-107) mmol/L Carbon Dioxide 21 L (22-30) mmol/L Anion Gap 12 mmol/L BUN 51 H (7-17) mg/dL Creatinine 1.32 H (0.52-1.04) mg/dL Est GFR (CKD-EPI)AfAm 44 (>60 ml/min/1.73 sqM) Est GFR (CKD-EPI)NonAf 38 (>60 ml/min/1.73 sqM) Glucose 233 H (74-99) mg/dL Calcium 9.4 (8.4-10.2) mg/dL Total Bilirubin 1.4 H (0.2-1.3) mg/dL AST 37 H (14-36) U/L ALT 25 (4-34) U/L Alkaline Phosphatase 97 (38-126) U/L Troponin I 0.012 (0.000-0.034) ng/mL NT-Pro-B Natriuret Pep pg/mL Total Protein 7.7 (6.3-8.2) g/dL Albumin 4.1 (3.5-5.0) g/dL Influenza Type A (PCR) (Not Detectd) Influenza Type B (PCR) (Not Detectd) RSV (PCR) (Not Detectd) SARS-CoV-2 (PCR) (Not Detectd) 11/29/22 11/29/22 Range/Units 09:22 09:22 WBC (3.8-10.6) k/uL RBC (3.80-5.40) m/uL Hgb (11.4-16.0) gm/dL Hct (34.0-46.0) % MCV (80.0-100.0) fL MCH (25.0-35.0) pg MCHC (31.0-37.0) g/dL RDW (11.5-15.5) % Plt Count (150-450) k/uL MPV Neutrophils % % Lymphocytes % % Monocytes % % Eosinophils % % Basophils % % Neutrophils # (1.3-7.7) k/uL Lymphocytes # (1.0-4.8) k/uL Monocytes # (0-1.0) k/uL Eosinophils # (0-0.7) k/uL Basophils # (0-0.2) k/uL Sodium (137-145) mmol/L Potassium (3.5-5.1) mmol/L Chloride (98-107) mmol/L Carbon Dioxide (22-30) mmol/L Anion Gap mmol/L BUN (7-17) mg/dL Creatinine (0.52-1.04) mg/dL Est GFR (CKD-EPI)AfAm (>60 ml/min/1.73 sqM) Est GFR (CKD-EPI)NonAf (>60 ml/min/1.73 sqM) Glucose (74-99) mg/dL Calcium (8.4-10.2) mg/dL Total Bilirubin (0.2-1.3) mg/dL AST (14-36) U/L ALT (4-34) U/L Alkaline Phosphatase (38-126) U/L Troponin I (0.000-0.034) ng/mL NT-Pro-B Natriuret Pep 8530 pg/mL Total Protein (6.3-8.2) g/dL Albumin (3.5-5.0) g/dL Influenza Type A (PCR) Not Detected (Not Detectd) Influenza Type B (PCR) Not Detected (Not Detectd) RSV (PCR) Not Detected (Not Detectd) SARS-CoV-2 (PCR) Not Detected (Not Detectd) Disposition Clinical Impression: Cough Disposition: HOME SELF-CARE Condition: Good Instructions (If sedation given, give patient instructions): Chronic Cough (ED) Prescriptions: Albuterol Inhaler [Ventolin Hfa Inhaler] 1 - 2 puff INHALATION RT-Q6H PRN #1 each PRN Reason: Dyspnea Azithromycin [Zithromax Z Pack] 1 tab PO DIRECTED #6 tab Is patient prescribed a controlled substance at d/c from ED?: No Referrals: Ermias Alvarez MD [Primary Care Provider] - 1-2 days Time of Disposition: 10:58
[2022-11-29 09:33] LABS: Basophils % (A) 1 %; Eosinophils # (A) 0.4 k/uL (0-0.7); Eosinophils % (A) 4 %; HCT 42.1 % (34.0-46.0); HGB 13.6 gm/dL (11.4-16.0); Lymphocytes # (A) 1.1 k/uL (1.0-4.8); Lymphocytes % (A) 13 %; MCH 29.6 pg (25.0-35.0); MCHC 32.3 g/dL (31.0-37.0); MCV 91.6 fL (80.0-100.0); Mean Platelet Volume 8.5; Monocytes # (A) 0.5 k/uL (0-1.0); Monocytes % (A) 6 %; Neutrophils # (A) 6.4 k/uL (1.3-7.7); Neutrophils % (A) 74 %; Platelet Count 240 k/uL (150-450); RBC 4.59 m/uL (3.80-5.40); RDW 14.3 % (11.5-15.5); WBC 8.6 k/uL (3.8-10.6)
[2022-11-29 09:47] LABS: Albumin 4.1 g/dL (3.5-5.0); Calcium 9.4 mg/dL (8.4-10.2); Total Bilirubin 1.4 mg/dL (0.2-1.3); Total Protein 7.7 g/dL (6.3-8.2)
--- NOTE | 2022-11-29 09:56 | XR ---
EXAMINATION TYPE: XR chest 2V DATE OF EXAM: 11/29/2022 COMPARISON: 11/07/2022 HISTORY: 82-year-old female with cough TECHNIQUE: PA and lateral views FINDINGS: Heart upper limits of normal in size. Mild atherosclerotic arch calcifications. Mild hyperinflation. There are trace bilateral pleural effusions with mild patchy bibasilar opacity. IMPRESSION: Trace bilateral pleural effusions with a some mild adjacent patchy atelectasis or infiltrate on the l ateral view. Suspect background COPD.
[2022-11-29 09:57] LABS: Potassium 4.4 mmol/L (3.5-5.1)
[2022-11-29 11:27] VITALS: BP 118/87; PULSE 95; RESP 16; TEMP 98.1
== END 2022-11-29 11:22 | disposition home or self-care (01) ==
LOC: EC 08:53
DX: R05.9 Cough, unspecified (principal); E11.22 Type 2 diabetes mellitus with diabetic chronic kidney disease; E11.36 Type 2 diabetes mellitus with diabetic cataract; I25.10 Atherosclerotic heart disease of native coronary artery without angina pectoris; I25.2 Old myocardial infarction; I48.91 Unspecified atrial fibrillation; I50.9 Heart failure, unspecified; E07.9 Disorder of thyroid, unspecified; Z79.890 Hormone replacement therapy; Z79.899 Other long term (current) drug therapy; Z79.01 Long term (current) use of anticoagulants; Z79.02 Long term (current) use of antithrombotics/antiplatelets; Z79.84 Long term (current) use of oral hypoglycemic drugs; Z88.1 Allergy status to other antibiotic agents; Z88.2 Allergy status to sulfonamides; Z88.5 Allergy status to narcotic agent; Z88.8 Allergy status to other drugs, medicaments and biological substances; Z20.822 Contact with and (suspected) exposure to COVID-19
CPT/HCPCS: 36415; 71046; 80053; 83880; 84484; 85025; 87636; 93005; 99285

== ENCOUNTER 2022-12-04 15:02 | Inpatient (IN) | payer MEDICARE ==
[2022-12-04 15:12] LABS: Glucose,Whole Blood 481 mg/dL (70-110)
[2022-12-04] MEDS ORDERED: SODIUM CHLORIDE 0.9% 500 ML 500 ML IV ONE (16:23)
[2022-12-04 16:43] LABS: Basophils % (A) 0 %; Eosinophils # (A) 0.1 k/uL (0-0.7); Eosinophils % (A) 1 %; HCT 42.1 % (34.0-46.0); HGB 13.3 gm/dL (11.4-16.0); Hypochromasia Slight; Lymphocytes # (A) 0.5 k/uL (1.0-4.8); Lymphocytes % (A) 5 %; MCH 29.9 pg (25.0-35.0); MCHC 31.6 g/dL (31.0-37.0); MCV 94.6 fL (80.0-100.0); Mean Platelet Volume 8.8; Monocytes # (A) 0.4 k/uL (0-1.0); Monocytes % (A) 5 %; Neutrophils # (A) 7.9 k/uL (1.3-7.7); Neutrophils % (A) 88 %; Platelet Count 235 k/uL (150-450); RBC 4.45 m/uL (3.80-5.40); RDW 14.6 % (11.5-15.5)
[2022-12-04 16:50] LABS: INR 1.2 (<1.2); Partial Thromboplastin Time 22.2 sec (22.0-30.0); Prothrombin Time 12.6 sec (9.0-12.0)
--- NOTE | 2022-12-04 16:52 | XR ---
EXAMINATION TYPE: XR chest 2V DATE OF EXAM: 12/04/2022 4:42 PM COMPARISON: Chest x-ray 11/29/2022 TECHNIQUE: XR chest 2V . CLINICAL INDICATION:Female, 82 years old with history of altered mental status; FINDINGS: Lungs/Pleura: Persistent trace left pleural effusion with interval improvement in previously describe d right pleural effusion. Right lower lobe airspace opacity is new from prior. No pneumothorax. Pulmonary vascularity: Unremarkable. Heart/mediastinum: Cardiomediastinal silhouette is prominent in size. Atherosclerotic calcifications are seen in the aorta. Musculoskeletal: Multiple level degenerative disc disease changes seen throughout the spine. IMPRESSION: 1. Right lower lobe infiltrate concerning for acute infectious process. 2. Persistent trace left pleural effusion. Intervally improved right pleural effusion.
[2022-12-04 17:09] LABS: Albumin 4.3 g/dL (3.5-5.0); Calcium 9.6 mg/dL (8.4-10.2); Potassium 5.4 mmol/L (3.5-5.1); Total Bilirubin 0.9 mg/dL (0.2-1.3); Total Protein 8.2 g/dL (6.3-8.2)
[2022-12-04 18:21] LABS: Appearance,Urine Clear (Clear); Bilirubin,Urine Negative (Negative); Blood,Urine Negative (Negative); Color,Urine Light Yellow; Glucose,Urine (UA) 4+ (Negative); Ketones,Urine Negative (Negative); Leukocyte Esterase,Urine Negative (Negative); Nitrite,Urine Negative (Negative); Protein,Urine 1+ (Negative); RBC,Urine <1 /hpf (0-5); Specific Gravity,Urine 1.018 (1.001-1.035); Squamous Epithelial Cell,Urine <1 /hpf (0-4); Urobilinogen,Urine <2.0 mg/dL (<2.0)
[2022-12-04] MEDS ORDERED: IPRATROPIUM-ALBUTEROL 3 ML NEB INHALATION PRN (19:15)
[2022-12-04] MEDS ORDERED: PNEUMONIA PROTOCOL UTILIZED 1 EACH MISC PO PRN (19:15)
[2022-12-04] MEDS ORDERED: PIPERACILLIN-TAZOBACTAM 3.375 GM in SODIUM CHLORIDE 0.9% 100 ML IVPB STA (19:15)
[2022-12-04] MEDS ORDERED: AZITHROMYCIN 500 MG in SODIUM CHLORIDE 0.9% 250 ML IVPB STA (19:15)
[2022-12-04] MEDS ORDERED: INSULIN REGULAR 100 UNIT/ML VIAL (IM/SQ) SQ STA (19:21)
--- NOTE | 2022-12-04 19:24 | ED ---
Altered Mental Status HPI - General Chief Complaint: Altered Mental Status Stated Complaint: Medication refill Source: patient, family Mode of arrival: wheelchair Limitations: altered mental status - History of Present Illness Initial Comments: 82-year-old female with multiple medical conditions including A. fib, coronary artery disease, congestive heart failure presents to the emergency department for several complaints. Daughter reports that the patient has had a persisting cough with sputum production. She also reports to shortness of breath, worsening lower extremity swelling, fevers of 99. She also reports that her mother has been slightly confused. Patient was recently hospitalized for congestive heart failure". She was discharged home on steroids and azithr omycin. Daughter is concerned that the prednisone is making her mother confused. Patient is alert and oriented, able to answer questions appropriately. States that she has been taking all her medications as directed. Denies chest pain. No nausea or vomiting. No changes in her bowel or bladder habits. No other alleviating, precipitating or modifying - Related Data Home Medications Medication Instructions Recorded Confirmed Levothyroxine Sodium [Synthroid] 75 mcg PO DAILY@0800 05/07/19 12/04/22 Metoprolol Tartrate [Lopressor] 12.5 mg PO BID@08,199910/17/22 12/04/22 Pantoprazole Sodium [Protonix] 20 mg PO HS@199910/17/22 12/04/22 calcitrioL [Calcitriol] 0.25 mcg PO WE@79910/17/22 12/04/22 sitaGLIPtin [Januvia] 50 mg PO DAILY@79910/17/22 12/04/22 Apixaban [Eliquis] 2.5 mg PO BID@11/04/22 12/04/22 Atorvastatin [Lipitor] 80 mg PO HS@199911/04/22 12/04/22 Clopidogrel [Plavix] 75 mg PO DAILY@79911/04/22 12/04/22 Fluticasone Nasal [place] [Flonase 1 spray EA NOSTRIL DAILY@79911/04/22 12/04/22 Nasal [place]] Loratadine 10 mg PO DAILY@0811/04/22 12/04/22 Midodrine HCl [ProAmatine] 10 mg PO TID@0800,1200,1700 11/04/22 12/04/22 Fluconazole [Diflucan] 150 mg PO WE 11/29/22 12/04/22 Furosemide [Lasix] 20 mg PO DAILY@0800 11/29/22 12/04/22 Ketoconazole 2% Cream [Nizoral 2%] 1 applic TOPICAL BID 11/29/22 12/04/22 Azithromycin [Zithromax Z Pack] See Taper PO DAILY 12/04/22 12/04/22 Nitroglycerin Sl Tabs [Nitrostat] 0.4 mg SL Q5M PRN 12/04/22 12/04/22 Previous Rx's Medication Instructions Recorded Ondansetron Odt [Zofran ODT] 4 mg PO Q8HR PRN #30 tab 04/01/22 Albuterol Inhaler [Ventolin Hfa 1 - 2 puff INHALATION RT-Q6H PRN 11/29/22 Inhaler] #1 each metFORMIN HCL [Glucophage] 500 mg PO BID-W/MEALS #60 tab 12/06/22 Allergies Allergy/AdvReac Type Severity Reaction Status Date / Time codeine Allergy Rash/Hives Verified 12/04/22 15:43 metronidazole [From Flagyl] Allergy Rash/Hives Verified 12/04/22 15:43 Metronidazole HCl Allergy Rash/Hives Verified 12/04/22 15:43 [From Flagyl] morphine Allergy Rash/Hives Verified 12/04/22 15:43 hydrocodone [From [place]le] AdvReac Unknown felt her Verified 12/04/22 15:43 mind was not right. famotidine [From Pepcid] AdvReac Nausea & Verified 12/04/22 15:43 Vomiting Opioids - Morphine Analogues AdvReac Confusion Verified 12/04/22 15:43 Opioids-Meperidine and AdvReac Confusion Verified 12/04/22 15:43 Related Opioids-Methadone and Related AdvReac Confusion Verified 12/04/22 15:43 Sulfa (Sulfonamide AdvReac Unknown- Verified 12/04/22 15:43 Antibiotics) almost passed out msg Allergy Anaphylaxis Uncoded 12/04/22 15:43 Review of Systems ROS Statement: Those systems with pertinent positive or pertinent negative responses have been documented in the HPI. ROS Other: All systems not noted in ROS Statement are negative. Past Medical History Past Medical History: Atrial Fibrillation, Coronary Artery Disease (CAD), Cancer, Heart Failure, Diabetes Mellitus, Myocardial Infarction (CA), Renal Disease, Thyroid Disorder Additional Past Medical History / Comment(s): Basal Cell skin cancer, hx. kidney stone, Diabetes- no longer on meds- watches diet, uses cane, states episodes where it feels her throat is tight (hx of EGD with dilation), chronic kidney disease. cardiac arrest Last Myocardial Infarction Date:: 03/25/22 History of Any Multi-Drug Resistant Organisms: None Reported Past Surgical History: Adenoidectomy, Back Surgery, Tonsillectomy Additional Past Surgical History / Comment(s): bunionectomy, kidney stone, cataracts, EGD with dilation heart stents Past Anesthesia/Blood Transfusion Reactions: No Reported Reaction Date of Last Stent Placement:: 03/2023 Past Psychological History: No Psychological Hx Reported Smoking Status: Never smoker Past Alcohol Use History: None Reported Past Drug Use History: None Reported - Past Family History Brother(s) Family Medical History: Cancer Additional Family Medical History / Comment(s): basal cell skin cancer family Additional Family Medical History / Comment(s): no family hx of heart disease General Exam Limitations: altered mental status General appearance: alert, in no apparent distress Head exam: Present: atraumatic, normocephalic, normal inspection Eye exam: Present: normal appearance, PERRL, EOMI. Absent: scleral icterus, conjunctival injection, periorbital swelling ENT exam: Present: normal exam, mucous membranes moist Neck exam: Present: normal inspection. Absent: tenderness, meningismus, lymphadenopathy Respiratory exam: Present: normal lung sounds bilaterally. Absent: respiratory distress, wheezes, rales, rhonchi, stridor Cardiovascular Exam: Present: regular rate, normal rhythm, normal heart sounds. Absent: systolic murmur, diastolic murmur, rubs, gallop, clicks GI/Abdominal exam: Present: soft, normal bowel sounds. Absent: distended, tenderness, guarding, rebound, rigid Extremities exam: Present: normal inspection, full ROM, normal capillary refill. Absent: tenderness, pedal edema, joint swelling, calf tenderness Back exam: Present: normal inspection Neurological exam: Present: alert, CN II-XII intact Psychiatric exam: Present: normal affect, normal mood Skin exam: Present: warm, dry, intact, normal color. Absent: rash Course Vital Signs 12/04/22 12/04/22 12/04/22 15:05 16:31 17:57 Temperature 98.5 F Pulse Rate 105 H 80 78 Respiratory 20 18 18 Rate Blood Pressure 145/93 134/89 120/94 O2 Sat by Pulse 95 95 94 L Oximetry 12/04/22 12/04/22 12/05/22 18:56 22:31 01:44 Temperature 98.6 F 98.2 F Pulse Rate 82 80 78 Respiratory 18 16 16 Rate Blood Pressure 153/97 144/78 136/70 O2 Sat by Pulse 95 97 96 Oximetry 12/05/22 12/05/22 12/05/22 06:48 08:50 13:06 Temperature 98.7 F 98.0 F Pulse Rate 84 91 84 Respiratory 16 18 20 Rate Blood Pressure 134/73 134/73 130/68 O2 Sat by Pulse 97 97 96 Oximetry Medical Decision Making - Medical Decision Making Was pt. sent in by a medical professional or institution (, PA, [employer], urgent care, hospital, or detention...) When possible be specific @ -No Did you speak to anyone other than the patient for history (EMS, parent, family, police, friend...)? What history was obtained from this source @ -daughter provides all details of history Did you review nursing and triage notes (agree or disagree)? Why? @ -I reviewed and agree with nursing and triage notes Were old charts reviewed (outside hosp., previous admission, EMS record, old EKG, old radiological studies, urgent care reports/EKG's, detention records)? Report findings @ - old charts were reviewed - last discharge summary from hospital Differential Diagnosis (chest pain, altered mental status, abdominal pain women, abdominal pain men, vaginal bleeding, weakness, fever, dyspnea, syncope, headache, dizziness, GI bleed, back pain, seizure, CVA, palpatations, mental health, musculoskeletal)? @ -uti, pna, covid, dehydration, failure to thrive EKG interpreted by me (3pts min.). @ -yes, afib X-rays interpreted by me (1pt min.). @ -yes, reticular appearance. no few findings CT interpreted by me (1pt min.).yes, @ -None done U/S interpreted by me (1pt. min.). @ -None done What testing was considered but not performed or refused? (CT, X-rays, U/S, labs)? Why? @ -None What meds were considered but not given or refused? Why? @ -None Did you discuss the management of the patient with other professionals (professionals i.e. , PA, [employer], lab, RT, psych nurse, clinical social work therapist, ropewalk rope maker, teacher, pharmaceutical officer, case picker)? Give summary @ -dr reina Was smoking cessation discussed for >3mins.? @ -No Was critical care preformed (if so, how long)? @ -No Were there social determinants of health that impacted care today? How? (Homelessness, low income, unemployed, alcoholism, drug addiction, transporta tion, low edu. Level, literacy, decrease access to med. care, usp, rehab)? @ -No Was there de-escalation of care discussed even if they declined (Discuss DNR or withdrawal of care, Hospice)? DNR status @ -No What co-morbidities impacted this encounter? (DM, HTN, Smoking, COPD, CAD, Cancer, CVA, ARF, Chemo, Hep., AIDS, mental health diagnosis, sleep apnea, morbid obesity)? @ -dementia, heart failure Was patient admitted / discharged? Hospital course, mention meds given and route, prescriptions, significant lab abnormalities, going to OR and other pertinent info. @ -Upon arrival patient is placed into room 6. A thorough history and physical exam was performed. Patient does answer questions appropriately. 12-lead EKG is performed. IV is established and laboratory studies were conducted. Patient does have an elevated glucose of 621.. She was given a 500 mL fluid bolus however due to her history of congestive heart failure, I did hold off on any additional fluids. Patient does have a BUN of 63. BNP is 14,800. Troponin 0.057. This is slightly up from previous. Patient has a CO2 of 20. No anion gap, no ketones in the urine. Glucose is down to 509 after the fluids. I did give the patient 20 units of insulin and glucose will be rechecked at 9:30. Chest x-ray demonstrates right lower lobe infiltrate which is new area due to patient's reported productive cough I did initiate antibiotics. Spoke with Dr. Reilly for admission. Patient is awaiting a bed on the floor Undiagnosed new problem with uncertain prognosis? @ -yes Drug Therapy requiring intensive monitoring for toxicity (Heparin, Nitro, Insulin, Cardizem)? @ -No Were any procedures done? @ -No Diagnosis/symptom? @ -acute weakness, acute hyperglycemia, acute chf exacerbation Acute, or Chronic, or Acute on Chronic? @ -acute Uncomplicated (without systemic symptoms) or Complicated (systemic symptoms)? @ -complicated Side effects of treatment? @ -No Exacerbation, Progression, or Severe Exacerbation? @ -yes Poses a threat to life or bodily function? How? (Chest pain, USA, CA, pneumonia, PE, COPD, DKA, ARF, appy, cholecystitis, CVA, Diverticulitis, Homicidal, Suicidal, threat to staff... and all critical care pts) @ -no - Lab Data Result diagrams: 12/04/22 16:17 12/05/22 09:26 Lab Results 12/04/22 12/04/22 12/04/22 Range/Units 15:10 16:17 16:17 WBC 9.0 (3.8-10.6) k/uL RBC 4.45 (3.80-5.40) m/uL Hgb 13.3 (11.4-16.0) gm/dL Hct 42.1 (34.0-46.0) % MCV 94.6 (80.0-100.0) fL MCH 29.9 (25.0-35.0) pg MCHC 31.6 (31.0-37.0) g/dL RDW 14.6 (11.5-15.5) % Plt Count 235 (150-450) k/uL MPV 8.8 Neutrophils % 88 % Lymphocytes % 5 % Monocytes % 5 % Eosinophils % 1 % Basophils % 0 % Neutrophils # 7.9 H (1.3-7.7) k/uL Lymphocytes # 0.5 L (1.0-4.8) k/uL Monocytes # 0.4 (0-1.0) k/uL Eosinophils # 0.1 (0-0.7) k/uL Basophils # 0.0 (0-0.2) k/uL Hypochromasia Slight PT 12.6 H (9.0-12.0) sec INR 1.2 H (<1.2) APTT 22.2 (22.0-30.0) sec Sodium (137-145) mmol/L Potassium (3.5-5.1) mmol/L Chloride (98-107) mmol/L Carbon Dioxide (22-30) mmol/L Anion Gap mmol/L BUN (7-17) mg/dL Creatinine (0.52-1.04) mg/dL Est GFR (CKD-EPI)AfAm (>60 ml/min/1.73 sqM) Est GFR (CKD-EPI)NonAf (>60 ml/min/1.73 sqM) Glucose (74-99) mg/dL POC Glucose (mg/dL) 481 H (70-110) mg/dL POC Glu Entrepreneur ID Candice Faulkner Lactic Ac Sepsis Rflx Plasma Lactic Acid [place] (0.7-2.0) mmol/L Calcium (8.4-10.2) mg/dL Total Bilirubin (0.2-1.3) mg/dL AST (14-36) U/L ALT (4-34) U/L Alkaline Phosphatase (38-126) U/L Troponin I (0.000-0.034) ng/mL NT-Pro-B Natriuret Pep pg/mL Total Protein (6.3-8.2) g/dL Albumin (3.5-5.0) g/dL TSH (0.465-4.680) mIU/L Urine Color Urine Appearance (Clear) Urine pH (5.0-8.0) Ur Specific [place] (1.001-1.035) Urine Protein (Negative) Urine Glucose (UA) (Negative) Urine Ketones (Negative) Urine Blood (Negative) Urine Nitrite (Negative) Urine Bilirubin (Negative) Urine Urobilinogen (<2.0) mg/dL Ur Leukocyte Esterase (Negative) Urine RBC (0-5) /hpf Ur Squamous Epith Cells (0-4) /hpf 12/04/22 12/04/22 12/04/22 Range/Units 16:17 16:17 16:28 WBC (3.8-10.6) k/uL RBC (3.80-5.40) m/uL Hgb (11.4-16.0) gm/dL Hct (34.0-46.0) % MCV (80.0-100.0) fL MCH (25.0-35.0) pg MCHC (31.0-37.0) g/dL RDW (11.5-15.5) % Plt Count (150-450) k/uL MPV Neutrophils % % Lymphocytes % % Monocytes % % Eosinophils % % Basophils % % Neutrophils # (1.3-7.7) k/uL Lymphocytes # (1.0-4.8) k/uL Monocytes # (0-1.0) k/uL Eosinophils # (0-0.7) k/uL Basophils # (0-0.2) k/uL Hypochromasia PT (9.0-12.0) sec INR (<1.2) APTT (22.0-30.0) sec Sodium 132 L (137-145) mmol/L Potassium 5.4 H (3.5-5.1) mmol/L Chloride 98 (98-107) mmol/L Carbon Dioxide 20 L (22-30) mmol/L Anion Gap 14 mmol/L BUN 63 H (7-17) mg/dL Creatinine 1.56 H (0.52-1.04) mg/dL Est GFR (CKD-EPI)AfAm 36 (>60 ml/min/1.73 sqM) Est GFR (CKD-EPI)NonAf 31 (>60 ml/min/1.73 sqM) Glucose 621 H* (74-99) mg/dL POC Glucose (mg/dL) (70-110) mg/dL POC Glu Entrepreneur ID Lactic Ac Sepsis Rflx Plasma Lactic Acid [place] 2.5 H* (0.7-2.0) mmol/L Calcium 9.6 (8.4-10.2) mg/dL Total Bilirubin 0.9 (0.2-1.3) mg/dL AST 33 (14-36) U/L ALT 39 H (4-34) U/L Alkaline Phosphatase 102 (38-126) U/L Troponin I 0.057 H* (0.000-0.034) ng/mL NT-Pro-B Natriuret Pep pg/mL Total Protein 8.2 (6.3-8.2) g/dL Albumin 4.3 (3.5-5.0) g/dL TSH (0.465-4.680) mIU/L Urine Color Urine Appearance (Clear) Urine pH (5.0-8.0) Ur Specific [place] (1.001-1.035) Urine Protein (Negative) Urine Glucose (UA) (Negative) Urine Ketones (Negative) Urine Blood (Negative) Urine Nitrite (Negative) Urine Bilirubin (Negative) Urine Urobilinogen (<2.0) mg/dL Ur Leukocyte Esterase (Negative) Urine RBC (0-5) /hpf Ur Squamous Epith Cells (0-4) /hpf 12/04/22 12/04/22 12/04/22 Range/Units 16:28 16:28 17:06 WBC (3.8-10.6) k/uL RBC (3.80-5.40) m/uL Hgb (11.4-16.0) gm/dL Hct (34.0-46.0) % MCV (80.0-100.0) fL MCH (25.0-35.0) pg MCHC (31.0-37.0) g/dL RDW (11.5-15.5) % Plt Count (150-450) k/uL MPV Neutrophils % % Lymphocytes % % Monocytes % % Eosinophils % % Basophils % % Neutrophils # (1.3-7.7) k/uL Lymphocytes # (1.0-4.8) k/uL Monocytes # (0-1.0) k/uL Eosinophils # (0-0.7) k/uL Basophils # (0-0.2) k/uL Hypochromasia PT (9.0-12.0) sec INR (<1.2) APTT (22.0-30.0) sec Sodium (137-145) mmol/L Potassium (3.5-5.1) mmol/L Chloride (98-107) mmol/L Carbon Dioxide (22-30) mmol/L Anion Gap mmol/L BUN (7-17) mg/dL Creatinine (0.52-1.04) mg/dL Est GFR (CKD-EPI)AfAm (>60 ml/min/1.73 sqM) Est GFR (CKD-EPI)NonAf (>60 ml/min/1.73 sqM) Glucose (74-99) mg/dL POC Glucose (mg/dL) (70-110) mg/dL POC Glu Entrepreneur ID Lactic Ac Sepsis Rflx Y Plasma Lactic Acid [place] (0.7-2.0) mmol/L Calcium (8.4-10.2) mg/dL Total Bilirubin (0.2-1.3) mg/dL AST (14-36) U/L ALT (4-34) U/L Alkaline Phosphatase (38-126) U/L Troponin I (0.000-0.034) ng/mL NT-Pro-B Natriuret Pep 11819 pg/mL Total Protein (6.3-8.2) g/dL Albumin (3.5-5.0) g/dL TSH 1.110 (0.465-4.680) mIU/L Urine Color Urine Appearance (Clear) Urine pH (5.0-8.0) Ur Specific [place] (1.001-1.035) Urine Protein (Negative) Urine Glucose (UA) (Negative) Urine Ketones (Negative) Urine Blood (Negative) Urine Nitrite (Negative) Urine Bilirubin (Negative) Urine Urobilinogen (<2.0) mg/dL Ur Leukocyte Esterase (Negative) Urine RBC (0-5) /hpf Ur Squamous Epith Cells (0-4) /hpf 12/04/22 Range/Units 17:50 WBC (3.8-10.6) k/uL RBC (3.80-5.40) m/uL Hgb (11.4-16.0) gm/dL Hct (34.0-46.0) % MCV (80.0-100.0) fL MCH (25.0-35.0) pg MCHC (31.0-37.0) g/dL RDW (11.5-15.5) % Plt Count (150-450) k/uL MPV Neutrophils % % Lymphocytes % % Monocytes % % Eosinophils % % Basophils % % Neutrophils # (1.3-7.7) k/uL Lymphocytes # (1.0-4.8) k/uL Monocytes # (0-1.0) k/uL Eosinophils # (0-0.7) k/uL Basophils # (0-0.2) k/uL Hypochromasia PT (9.0-12.0) sec INR (<1.2) APTT (22.0-30.0) sec Sodium (137-145) mmol/L Potassium (3.5-5.1) mmol/L Chloride (98-107) mmol/L Carbon Dioxide (22-30) mmol/L Anion Gap mmol/L BUN (7-17) mg/dL Creatinine (0.52-1.04) mg/dL Est GFR (CKD-EPI)AfAm (>60 ml/min/1.73 sqM) Est GFR (CKD-EPI)NonAf (>60 ml/min/1.73 sqM) Glucose (74-99) mg/dL POC Glucose (mg/dL) (70-110) mg/dL POC Glu Entrepreneur ID Lactic Ac Sepsis Rflx Plasma Lactic Acid [place] (0.7-2.0) mmol/L Calcium (8.4-10.2) mg/dL Total Bilirubin (0.2-1.3) mg/dL AST (14-36) U/L ALT (4-34) U/L Alkaline Phosphatase (38-126) U/L Troponin I (0.000-0.034) ng/mL NT-Pro-B Natriuret Pep pg/mL Total Protein (6.3-8.2) g/dL Albumin (3.5-5.0) g/dL TSH (0.465-4.680) mIU/L Urine Color Light Yellow Urine Appearance Clear (Clear) Urine pH 6.0 (5.0-8.0) Ur Specific [place] 1.018 (1.001-1.035) Urine Protein 1+ H (Negative) Urine Glucose (UA) 4+ H (Negative) Urine Ketones Negative (Negative) Urine Blood Negative (Negative) Urine Nitrite Negative (Negative) Urine Bilirubin Negative (Negative) Urine Urobilinogen <2.0 (<2.0) mg/dL Ur Leukocyte Esterase Negative (Negative) Urine RBC <1 (0-5) /hpf Ur Squamous Epith Cells <1 (0-4) /hpf Disposition Clinical Impression: CAP (community acquired pneumonia), Cough, Hyperglycemia Disposition: ADMITTED IP TO THIS HOSP Condition: Stable Is patient prescribed a controlled substance at d/c from ED?: No Time of Disposition: 19:23 Decision to Admit Reason: Admit from EC Decision Date: 12/04/22 Decision Time: 19:23
[2022-12-04 19:31] LABS: Glucose,Whole Blood 509 mg/dL (70-110)
[2022-12-04 21:28] LABS: Glucose,Whole Blood 371 mg/dL (70-110)
[2022-12-04] MEDS ORDERED: INSULIN ASPART (NovoLOG) 100 UNIT/ML VIAL SQ ONE (21:32)
[2022-12-04 23:27] LABS: Glucose,Whole Blood 204 mg/dL (70-110)
--- NOTE | 2022-12-05 01:24 | P.HPIM ---
History of Present Illness H&P Date: 12/04/22 Chief Complaint: confusion 82 year old female with DM , systolic CHF, afib on eliquis patient is not sure why she was brought in here. she does not recall what has been going on over the past 2 days. Her daughter brought her due to increase confusion over 2 days. daughter is not available at time of my evaluation. per ED note, she noticed her mother increasingly confused ,they live together, also reported persistent cough for which she brought her in. patient has been recently hospitalized for acute CHF exacerbation. daughter is reporting some increase orthopnea and exertional dyspnea. patient herself is denying these symptoms patient also found to have elevated blood sugar while in the ED, patient is not sure what she takes for blood sugar at home. patient reports nagging cough , at time productive of whitish sputum that has been going on since she was diagnosed with covid couple months ago she denies any fever, chills, chest pain , dyspnea, wheezing, or hemoptysis. she denies smoking , she does not use home oxygen. she is feeling well at time of my evaluation , she seems alert and oriented to self , place and time. however, for some reason she can not recall anything that has been going on over the past 2 days. patient has no complaints at this time, and has no medical concerns except for her chronic cough. Review of Systems Pertinent positives as noted in HPI. All other systems were reviewed and are negative Past Medical History Past Medical History: Atrial Fibrillation, Coronary Artery Disease (CAD), Cancer, Heart Failure, Diabetes Mellitus, Myocardial Infarction ([place]), Renal Disease, Thyroid Disorder Additional Past Medical History / Comment(s): Basal Cell skin cancer, hx. kidney stone, Diabetes- no longer on meds- watches diet, uses cane, states episodes where it feels her throat is tight (hx of EGD with dilation), chronic kidney disease. cardiac arrest Last Myocardial Infarction Date:: 03/25/22 History of Any Multi-Drug Resistant Organisms: None Reported Past Surgical History: Adenoidectomy, Back Surgery, Tonsillectomy Additional Past Surgical History / Comment(s): bunionectomy, kidney stone, cataracts, EGD with dilation heart stents Past Anesthesia/Blood Transfusion Reactions: No Reported Reaction Date of Last Stent Placement:: 03/2023 Past Psychological History: No Psychological Hx Reported Smoking Status: Never smoker Past Alcohol Use History: None Reported Past Drug Use History: None Reported - Past Family History Brother(s) Family Medical History: Cancer Additional Family Medical History / Comment(s): basal cell skin cancer family Additional Family Medical History / Comment(s): no family hx of heart disease Medications and Allergies Home Medications Medication Instructions Recorded Confirmed Type Levothyroxine Sodium [Synthroid] 75 mcg PO DAILY@0800 05/07/19 12/04/22 History Ondansetron Odt [Zofran ODT] 4 mg PO Q8HR PRN #30 tab 04/01/22 12/04/22 Rx Metoprolol Tartrate [Lopressor] 12.5 mg PO BID@08,199910/17/22 12/04/22 History Pantoprazole Sodium [Protonix] 20 mg PO HS@199910/17/22 12/04/22 History calcitrioL [Calcitriol] 0.25 mcg PO WE@79910/17/22 12/04/22 History sitaGLIPtin [Januvia] 50 mg PO DAILY@0810/17/22 12/04/22 History Apixaban [Eliquis] 2.5 mg PO BID@08,199911/04/22 12/04/22 History Atorvastatin [Lipitor] 80 mg PO HS@199911/04/22 12/04/22 History Clopidogrel [Plavix] 75 mg PO DAILY@0811/04/22 12/04/22 History Fluticasone Nasal [place] [Flonase 1 spray EA NOSTRIL DAILY@0811/04/22 12/04/22 History Nasal [place]] Loratadine 10 mg PO DAILY@0811/04/22 12/04/22 History Midodrine HCl [ProAmatine] 10 mg PO TID@0800,1200,1700 11/04/22 12/04/22 History Albuterol Inhaler [Ventolin Hfa 1 - 2 puff INHALATION RT-Q6H PRN 11/29/22 12/04/22 Rx Inhaler] #1 each Fluconazole [Diflucan] 150 mg PO WE 11/29/22 12/04/22 History Furosemide [Lasix] 20 mg PO DAILY@0800 11/29/22 12/04/22 History Ketoconazole 2% Cream [Nizoral 2%] 1 applic TOPICAL BID 11/29/22 12/04/22 History Azithromycin [Zithromax Z Pack] See Taper PO DAILY 12/04/22 12/04/22 History Nitroglycerin Sl Tabs [Nitrostat] 0.4 mg SL Q5M PRN 12/04/22 12/04/22 History predniSONE See Taper PO DAILY 12/04/22 12/04/22 History Allergies Allergy/AdvReac Type Severity Reaction Status Date / Time codeine Allergy Rash/Hives Verified 12/04/22 15:43 metronidazole [From Flagyl] Allergy Rash/Hives Verified 12/04/22 15:43 Metronidazole HCl Allergy Rash/Hives Verified 12/04/22 15:43 [From Flagyl] morphine Allergy Rash/Hives Verified 12/04/22 15:43 hydrocodone [From [place]] AdvReac Unknown felt her Verified 12/04/22 15:43 mind was not right. famotidine [From Pepcid] AdvReac Nausea & Verified 12/04/22 15:43 Vomiting Opioids - Morphine Analogues AdvReac Confusion Verified 12/04/22 15:43 Opioids-Meperidine and AdvReac Confusion Verified 12/04/22 15:43 Related Opioids-Methadone and Related AdvReac Confusion Verified 12/04/22 15:43 Sulfa (Sulfonamide AdvReac Unknown- Verified 12/04/22 15:43 Antibiotics) almost passed out msg Allergy Anaphylaxis Uncoded 12/04/22 15:43 Physical Exam Vitals: Vital Signs Temp Pulse Resp BP Pulse Ox 12/04/22 18:56 82 18 153/97 95 12/04/22 17:57 78 18 120/94 94 L 12/04/22 16:31 80 18 134/89 95 12/04/22 15:05 98.5 F 105 H 20 145/93 95 Intake and Output 12/04/22 12/04/22 12/05/22 14:59 22:59 06:59 Other: Weight 90.265 kg Constitutional: No acute distress, conversant, pleasant Eyes: Anicteric sclerae, moist conjunctiva, Pupils equal round reactive to light ENMT: NC/AT Oropharynx clear, no erythema, or exudates Neck: Supple, no masses, or JVD No carotid bruits No thyromegaly Lungs: Clear to auscultation Clear to percussion Normal respiratory effort, no accessory muscle use Cardiovascular: Heart regular in rate and rhythm, No murmurs, gallops, or rubs No peripheral edema Abdominal: Soft Nontender, no guarding, rebound or rigidity Abdomen moving with respiration Normoactive bowel sounds No hepatomegaly, No splenomegaly No palpable mass No abdominal wall hernia noted Skin: Normal temperature, tone, texture, turgor Extremities: No digital cyanosis No clubbing Pedal pulses intact and symmetrical Radial pulses intact and symmetrical No calf tenderness Psychiatric: Alert and oriented to person, place and time Appropriate affect Neuro Muscles Strength 5/5 in all 4 extremities Sensation to light touch grossly present throughout Cranial nerves II-XII grossly intact Lymphatics: no palpable cervical or supraclavicular lymph nodes Results CBC & Chem 7: 12/04/22 16:17 12/04/22 16:17 Labs: Abnormal Lab Results - Last 24 Hours (Table) 12/04/22 12/04/22 12/04/22 Range/Units 15:10 16:17 16:17 Neutrophils # 7.9 H (1.3-7.7) k/uL Lymphocytes # 0.5 L (1.0-4.8) k/uL PT 12.6 H (9.0-12.0) sec INR 1.2 H (<1.2) Sodium (137-145) mmol/L Potassium (3.5-5.1) mmol/L Carbon Dioxide (22-30) mmol/L BUN (7-17) mg/dL Creatinine (0.52-1.04) mg/dL Glucose (74-99) mg/dL POC Glucose (mg/dL) 481 H (70-110) mg/dL Plasma Lactic Acid [place] (0.7-2.0) mmol/L ALT (4-34) U/L Troponin I (0.000-0.034) ng/mL Urine Protein (Negative) Urine Glucose (UA) (Negative) 12/04/22 12/04/22 12/04/22 Range/Units 16:17 16:17 16:28 Neutrophils # (1.3-7.7) k/uL Lymphocytes # (1.0-4.8) k/uL PT (9.0-12.0) sec INR (<1.2) Sodium 132 L (137-145) mmol/L Potassium 5.4 H (3.5-5.1) mmol/L Carbon Dioxide 20 L (22-30) mmol/L BUN 63 H (7-17) mg/dL Creatinine 1.56 H (0.52-1.04) mg/dL Glucose 621 H* (74-99) mg/dL POC Glucose (mg/dL) (70-110) mg/dL Plasma Lactic Acid Tyler 2.5 H* (0.7-2.0) mmol/L ALT 39 H (4-34) U/L Troponin I 0.057 H* (0.000-0.034) ng/mL Urine Protein (Negative) Urine Glucose (UA) (Negative) 12/04/22 12/04/22 12/04/22 Range/Units 17:50 19:29 19:34 Neutrophils # (1.3-7.7) k/uL Lymphocytes # (1.0-4.8) k/uL PT (9.0-12.0) sec INR (<1.2) Sodium (137-145) mmol/L Potassium (3.5-5.1) mmol/L Carbon Dioxide (22-30) mmol/L BUN (7-17) mg/dL Creatinine (0.52-1.04) mg/dL Glucose (74-99) mg/dL POC Glucose (mg/dL) 509 H (70-110) mg/dL Plasma Lactic Acid Tyler 2.2 H* (0.7-2.0) mmol/L ALT (4-34) U/L Troponin I (0.000-0.034) ng/mL Urine Protein 1+ H (Negative) Urine Glucose (UA) 4+ H (Negative) 12/04/22 12/04/22 Range/Units 21:26 23:25 Neutrophils # (1.3-7.7) k/uL Lymphocytes # (1.0-4.8) k/uL PT (9.0-12.0) sec INR (<1.2) Sodium (137-145) mmol/L Potassium (3.5-5.1) mmol/L Carbon Dioxide (22-30) mmol/L BUN (7-17) mg/dL Creatinine (0.52-1.04) mg/dL Glucose (74-99) mg/dL POC Glucose (mg/dL) 371 H 204 H (70-110) mg/dL Plasma Lactic Acid Tyler (0.7-2.0) mmol/L ALT (4-34) U/L Troponin I (0.000-0.034) ng/mL Urine Protein (Negative) Urine Glucose (UA) (Negative) Assessment and Plan Assessment: 82 year old female with systolic chf , LVEF 40%, afib on eliquis , presented due to confusion , I discussed the case with ED doc, patient found to have hyperglycemia without ketosis , I accepted the admission for blood sugar control with anticipated length of stay < 2 midnights hyperosmolar hyperglycemic blood sugar 621 serum bicarb 20 K 5.4 Na 132 pseudohyponatremia patient given 1 L normal saline in the ED, but due to history of systolic CHF and recent acute exacerbation, cautious hydration was followed to avoid fluid overload bolus doses of sc insulin approach was followed to correct her blood sugar. initial dose of 20 units then 10 units of insulin aspart after 2 hours. blood sugar initially 621 then 371 then 204 recheck BMP at 2 am continue close monitoring patient clinically improving UA showed no ketones check acetone once blood sugar under control will resume insulin sliding scale while inpatient chronic conditions chronic cough CXR no acute pathology , CXR overall unchanged compared to before , with some persistent left pleural effusion azithromycin initiated in the ED afebrile , no leukocytosis WBC 9 discontinue zosyn which was started in the ED afib on eliquis continue eliquis h/o CAD systolic CHF with LVEF 40% , compensated resume PO lasix in AM daily weight monitor I/O continue plavix 75 mg po daily resume atorvastatin metoprolol 12.5 mg po bid elevated trops , no chest pain hypothyroid resume levothyroxine 75 mg po daily full code DVT PPX on eliquis for afib
[2022-12-05 02:12] LABS: Glucose,Whole Blood 47 mg/dL (70-110)
[2022-12-05] MEDS ORDERED: DEXTROSE 50% SYRINGE 50 ML IVP STA ×3 (02:14→06:44)
[2022-12-05 02:47] LABS: Glucose,Whole Blood 121 mg/dL (70-110)
[2022-12-05 03:17] LABS: Glucose,Whole Blood 113 mg/dL (70-110)
[2022-12-05] MEDS ORDERED: PIPERACILLIN-TAZOBACTAM 3.375 GM in SODIUM CHLORIDE 0.9% 100 ML IVPB SCH (04:00)
[2022-12-05 04:08] LABS: Glucose,Whole Blood 47 mg/dL (70-110)
[2022-12-05 04:10] LABS: Calcium 9.6 mg/dL (8.4-10.2); Potassium 3.9 mmol/L (3.5-5.1)
[2022-12-05 05:40] LABS: Glucose,Whole Blood 90 mg/dL (70-110)
[2022-12-05 06:35] LABS: Glucose,Whole Blood 60 mg/dL (70-110)
[2022-12-05] MEDS: INSULIN ASPART (NovoLOG) 100 UNIT/ML VIAL SQ SCH ×4 (06:49→21:16)
--- NOTE | 2022-12-05 06:56 | XR ---
EXAMINATION TYPE: XR chest 1V DATE OF EXAM: 12/05/2022 CLINICAL HISTORY: Difficulty breathing progress study. TECHNIQUE: Single AP portable upright view of the chest is obtained. COMPARISON: Chest x-ray from one day earlier and older studies FINDINGS: Improving bibasilar opacities. Upper lungs remain clear. Cardiac silhouette size is stable and mildly enlarged. Multilevel spurring in the thoracic spine is redemonstrated. IMPRESSION: Improving bilateral pleural effusions and bibasilar acute infiltrate and/or atelectasis. No new infiltrates seen.
[2022-12-05] MEDS ORDERED: DEXTROSE 5%-0.45% NACL 1,000 ML IV SCH (08:15)
[2022-12-05 08:20] LABS: Glucose,Whole Blood 97 mg/dL (70-110)
[2022-12-05] MEDS: APIXABAN 2.5 MG TABLET PO SCH ×2 (09:14→19:47)
[2022-12-05] MEDS: FUROSEMIDE 20 MG TAB PO SCH (09:14)
[2022-12-05] MEDS: CLOPIDOGREL 75 MG TAB PO SCH (09:14)
[2022-12-05] MEDS: LEVOTHYROXINE 75 MCG TAB PO SCH (09:47)
[2022-12-05] MEDS: METOPROLOL TARTRATE 12.5 MG TAB PO SCH ×2 (09:47→19:47)
[2022-12-05] MEDS: MIDODRINE 5 MG TAB PO SCH ×4 (09:47→17:36)
[2022-12-05 10:03] LABS: Calcium 9.5 mg/dL (8.4-10.2)
--- NOTE | 2022-12-05 10:12 | P.NPCON ---
History of Present Illness - Reason for Consult Consult date: 12/05/22 acute renal failure - Chief Complaint Confusion - History of Present Illness This 82-year-old female known to us with chronic kidney disease stage III secondary to nephrosclerosis, additionally with acute kidney injury. Came in because of confusion, she was brought in by her daughter. Currently she is completely awake alert oriented. Blood sugar was high, 481 on admission but then went down to 47 this morning. Electrolytes unremarkable creatinine was slightly high of 1.56 normal range for her baseline is 1.34, dated 11/04/2022. Supposedly she was started on steroids for her chronic cough for the last few months. In the past she's had COVID. She does also complain of postnasal drip as well as GERD. She is known with atrial fibrillation coronary artery disease past history of cardiac arrest and acute CA. Past Medical History Past Medical History: Atrial Fibrillation, Coronary Artery Disease (CAD), Cancer, Heart Failure, Diabetes Mellitus, Myocardial Infarction ([place]), Renal Disease, Thyroid Disorder Additional Past Medical History / Comment(s): Basal Cell skin cancer, hx. kidney stone, Diabetes- no longer on meds- watches diet, uses cane, states episodes where it feels her throat is tight (hx of EGD with dilation), chronic kidney disease. cardiac arrest Last Myocardial Infarction Date:: 03/25/22 History of Any Multi-Drug Resistant Organisms: None Reported Past Surgical History: Adenoidectomy, Back Surgery, Tonsillectomy Additional Past Surgical History / Comment(s): bunionectomy, kidney stone, cataracts, EGD with dilation heart stents Past Anesthesia/Blood Transfusion Reactions: No Reported Reaction Date of Last Stent Placement:: 03/2023 Past Psychological History: No Psychological Hx Reported Smoking Status: Never smoker Past Alcohol Use History: None Reported Past Drug Use History: None Reported - Past Family History Brother(s) Family Medical History: Cancer Additional Family Medical History / Comment(s): basal cell skin cancer family Additional Family Medical History / Comment(s): no family hx of heart disease Medications and Allergies Home Medications Medication Instructions Recorded Confirmed Type Levothyroxine Sodium [Synthroid] 75 mcg PO DAILY@0800 05/07/19 12/04/22 History Ondansetron Odt [Zofran ODT] 4 mg PO Q8HR PRN #30 tab 04/01/22 12/04/22 Rx Metoprolol Tartrate [Lopressor] 12.5 mg PO BID@08,199910/17/22 12/04/22 History Pantoprazole Sodium [Protonix] 20 mg PO HS@199910/17/22 12/04/22 History calcitrioL [Calcitriol] 0.25 mcg PO WE@79910/17/22 12/04/22 History sitaGLIPtin [Januvia] 50 mg PO DAILY@0810/17/22 12/04/22 History Apixaban [Eliquis] 2.5 mg PO BID@08,199911/04/22 12/04/22 History Atorvastatin [Lipitor] 80 mg PO HS@199911/04/22 12/04/22 History Clopidogrel [Plavix] 75 mg PO DAILY@0811/04/22 12/04/22 History Fluticasone Nasal [place] [Flonase 1 spray EA NOSTRIL DAILY@0811/04/22 12/04/22 History Nasal [place]] Loratadine 10 mg PO DAILY@0800 11/04/22 12/04/22 History Midodrine HCl [ProAmatine] 10 mg PO TID@0800,1200,1700 11/04/22 12/04/22 History Albuterol Inhaler [Ventolin Hfa 1 - 2 puff INHALATION RT-Q6H PRN 11/29/22 12/04/22 Rx Inhaler] #1 each Fluconazole [Diflucan] 150 mg PO WE 11/29/22 12/04/22 History Furosemide [Lasix] 20 mg PO DAILY@0800 11/29/22 12/04/22 History Ketoconazole 2% Cream [Nizoral 2%] 1 applic TOPICAL BID 11/29/22 12/04/22 History Azithromycin [Zithromax Z Pack] See Taper PO DAILY 12/04/22 12/04/22 History Nitroglycerin Sl Tabs [Nitrostat] 0.4 mg SL Q5M PRN 12/04/22 12/04/22 History predniSONE See Taper PO DAILY 12/04/22 12/04/22 History Allergies Allergy/AdvReac Type Severity Reaction Status Date / Time codeine Allergy Rash/Hives Verified 12/04/22 15:43 metronidazole [From Flagyl] Allergy Rash/Hives Verified 12/04/22 15:43 Metronidazole HCl Allergy Rash/Hives Verified 12/04/22 15:43 [From Flagyl] morphine Allergy Rash/Hives Verified 12/04/22 15:43 hydrocodone [From [place]] AdvReac Unknown felt her Verified 12/04/22 15:43 mind was not right. famotidine [From Pepcid] AdvReac Nausea & Verified 12/04/22 15:43 Vomiting Opioids - Morphine Analogues AdvReac Confusion Verified 12/04/22 15:43 Opioids-Meperidine and AdvReac Confusion Verified 12/04/22 15:43 Related Opioids-Methadone and Related AdvReac Confusion Verified 12/04/22 15:43 Sulfa (Sulfonamide AdvReac Unknown- Verified 12/04/22 15:43 Antibiotics) almost passed out msg Allergy Anaphylaxis Uncoded 12/04/22 15:43 Physical Exam Vitals: Vital Signs Temp Pulse Resp BP Pulse Ox 12/05/22 08:50 91 18 134/73 97 12/05/22 06:48 98.7 F 84 16 134/73 97 12/05/22 01:44 98.2 F 78 16 136/70 96 12/04/22 22:31 98.6 F 80 16 144/78 97 12/04/22 18:56 82 18 153/97 95 12/04/22 17:57 78 18 120/94 94 L 12/04/22 16:31 80 18 134/89 95 12/04/22 15:05 98.5 F 105 H 20 145/93 95 Intake and Output 12/04/22 12/05/22 12/05/22 22:59 06:59 14:59 Other: Weight 90.265 kg On examination awake alert oriented comfortable on room air No JVP noted neck is supple no facial asymmetry Lungs are clear to auscultation good air entry bilaterally except for some end expiratory wheezing. Heart sounds unremarkable except for atrial fibrillation Abdomen soft nontender No masses felt no hepatosplenomegaly Seemingly examination was no edema Neurologically awake and alert and oriented Results - Lab Results Most recent lab results Calcium 9.6 mg/dL (8.4-10.2) 12/05/22 03:54 12/04/22 16:17 12/05/22 03:54 Assessment and Plan Assessment: Impression 1. Acute kidney injury secondary to 1 depletion from high blood sugar possibly. Creatinine improved with hydration from 1.5-1.3 which is her baseline 2. Chronic kidney disease stage III that with nephropathy and or nephrosclerosis, 1+ proteinuria noted, proteinuria has not been quantified yet 3. Admitted with confusion possibly secondary to high blood sugar which is resolved. The cause of this worsening of diabetes likely was the steroid there was recently started for her lungs. 4. Chronic cough post-coded rule out other causes. 5. Gap and non-gap acidosis with bicarb of 20 and gap of 14. This morning gap has remained same but bicarb is 17. Etiology is acute kidney injury, diabetes with possible ketosis. 6. Hypertension blood pressure is at target Recommendation 1. Continue current medications, she is currently on 20 mg of Lasix by mouth daily, this can be maintained for right now and depending upon labs tomorrow he can readjust.
[2022-12-05 10:18] LABS: Potassium 4.4 mmol/L (3.5-5.1)
[2022-12-05 10:20] LABS: Glucose,Whole Blood 192 mg/dL (70-110)
[2022-12-05] MEDS: NYSTATIN 100,000 UNIT/GM POWD 15 GM TOPICAL SCH ×2 (11:00→21:16)
[2022-12-05 12:57] LABS: Glucose,Whole Blood 150 mg/dL (70-110)
[2022-12-05 15:20] LABS: Glucose,Whole Blood 203 mg/dL (70-110)
[2022-12-05] MEDS ORDERED: DEXTROSE 50% SYRINGE 50 ML IVP PRN ×2 (15:20)
--- NOTE | 2022-12-05 15:41 | P.PN ---
Subjective Progress Note Date: 12/05/22 (delayed charting seen at approx 11 ) Patient is an 82-year-old female with systolic congestive heart failure with ejection fraction of 40%, A. fib anticoagulated with Eliquis, diabetes mellitus type 2 on oral medications with multiple other comorbid conditions who presented to the ER due to increased confusion. In the ER she underwent an extensive evaluation. I have arrival her initial blood sugar is 481, on laboratory analysis was up to 621. The remainder of her laboratory analysis was remarkable for sodium 132, potassium 5.4, BUN 63, creatinine 1.56, and lactic acid 2.5. Her BNP was elevated at 14,800 and troponin was mildly elevated at 0.057. Her acetone test was positive consistent with DKA. She was given 1 L of normal saline and 20 units of regular insulin. Her blood sugar remained elevated 2 hours later and she was given 10 units of NovoLog. She had rapid decrease in her blood sugars and required multiple doses of D 50 overnight. Patient seen and examined at bedside with daughter present. Daughter reports that patient has had a cough for 2 months and they have seen Dr. Carrasco who stated it was not her heart or lungs and suggested GI follow-up she was Dr. Rodriges from GI who though she had bronchitis and messaged Dr. Alvarez who called in steroids on 11/30/22. On day # 2 of steroids she nticed increased confusion and it was worse yesterday when she presented to the ED. We discussed with the patient had cold last month, patient daughter feels that she never actually echo because they repeated home testing and they were negative. I explained that the hospital testing is more accurate at home testing. We also continued chronic cough after coded. I am that we have seen in people require insulin after COVID-19 infection. Daughter threatens that if we do not find a reason for her chronic cough she will be taking her from our discharge straight to the ER at [facility]. I told her that with a two-month history of chronic cough but would likely wart morbid outpatient workup and she could consider pulmonary-she states they've seen Dr. Black in the past and they do not plan on following up there were ENT again she does not like this plan and has no plans on following up with ENT. I assured her that we'll be addressing her mother's glucose level and ensuring that she has proper management of diabetes on discharge. Vital signs reviewed General: nontoxic, no distress, appears at stated age Cardiovascular: S1S2 reg, no murmur, positive posterior tibial pulse bilateral, Lungs: CTA bilateral, no rhonchi, no rales , no accessory muscle use Abdominal: soft, nontender to palpation, no guarding, no appreciable organomegaly Ext: no gross muscle atrophy, trace edema right lower extremity, no contractures Neuro: CN II-XI grossly intact, no focal neuro deficits Psych: Alert, oriented, appropriate affect Assessment: Mild DKA in known diabetic with recent steroid use - now with hypoglycemia Elevated troponin likely reactive to DKA Chronic cough Chronic kidney disease stage III Hyponatremia, resolved Paroxysmal A. fib on last Chronic systolic congestive heart failure with ejection fraction 40% Hypothyroidism Coronary artery Disease Imaging: Chest [id number] bilateral pleural effusions with bibasilar acute infiltrate and/or atelectasis no new infiltrate Data Review: Vital signs showed temperature 98.7, pulse 84, respirations 16, blood pressure 1:30/73, O2 sat 97% on room air A.m. labs remarkable for carbon dioxide 17, anion gap 14, creatinine 1.35 (at baseline, glucose 64 Plan: - off prednisone - Start D5 0.45 at 50 cc/hr, SSI, Likely will need discharged on insulin as was on januvia last A1C 7.7 - Case dicusse with nephrology and Cr is at baseline - repeat BMP in AM - Conitnue with flonase - consult cardiology - outpatient pulmonayr referral and ENT suggested for chronic cough -Repeat troponin in 6 hours DVT prophylaxis: [email or web address] Discussed with: patient, william, nephrology, nursing Anticipated discharge date: in 1-[address]: home This dictation was prepared using [employer] voice recognition software. Though every attempt is made to correct errors during during dictation some may still exist. Objective - Vital Signs Vital signs: Vital Signs Temp 97.6 F 12/05/22 14:15 Pulse 76 12/05/22 14:15 Resp 19 12/05/22 14:15 BP 133/81 12/05/22 14:15 Pulse Ox 97 12/05/22 14:15 FiO2 Intake & Output 12/04/22 12/05/22 12/05/22 18:59 06:59 18:59 Weight 90.265 kg 90.265 kg Other: # Voids 1 - Labs CBC & Chem 7: 12/04/22 16:17 12/05/22 09:26 Labs: Abnormal Lab Results - Last 24 Hours (Table) 12/04/22 12/04/22 12/04/22 Range/Units 16:17 16:17 16:17 Neutrophils # 7.9 H (1.3-7.7) k/uL Lymphocytes # 0.5 L (1.0-4.8) k/uL PT 12.6 H (9.0-12.0) sec INR 1.2 H (<1.2) Sodium 132 L (137-145) mmol/L Potassium 5.4 H (3.5-5.1) mmol/L Carbon Dioxide 20 L (22-30) mmol/L BUN 63 H (7-17) mg/dL Creatinine 1.56 H (0.52-1.04) mg/dL Glucose 621 H* (74-99) mg/dL POC Glucose (mg/dL) (70-110) mg/dL Plasma Lactic Acid Tyler (0.7-2.0) mmol/L ALT 39 H (4-34) U/L Troponin I (0.000-0.034) ng/mL Urine Protein (Negative) Urine Glucose (UA) (Negative) 12/04/22 12/04/22 12/04/22 Range/Units 16:17 16:28 17:50 Neutrophils # (1.3-7.7) k/uL Lymphocytes # (1.0-4.8) k/uL PT (9.0-12.0) sec INR (<1.2) Sodium (137-145) mmol/L Potassium (3.5-5.1) mmol/L Carbon Dioxide (22-30) mmol/L BUN (7-17) mg/dL Creatinine (0.52-1.04) mg/dL Glucose (74-99) mg/dL POC Glucose (mg/dL) (70-110) mg/dL Plasma Lactic Acid Tyler 2.5 H* (0.7-2.0) mmol/L ALT (4-34) U/L Troponin I 0.057 H* (0.000-0.034) ng/mL Urine Protein 1+ H (Negative) Urine Glucose (UA) 4+ H (Negative) 12/04/22 12/04/22 12/04/22 Range/Units 19:29 19:34 21:26 Neutrophils # (1.3-7.7) k/uL Lymphocytes # (1.0-4.8) k/uL PT (9.0-12.0) sec INR (<1.2) Sodium (137-145) mmol/L Potassium (3.5-5.1) mmol/L Carbon Dioxide (22-30) mmol/L BUN (7-17) mg/dL Creatinine (0.52-1.04) mg/dL Glucose (74-99) mg/dL POC Glucose (mg/dL) 509 H 371 H (70-110) mg/dL Plasma Lactic Acid Tyler 2.2 H* (0.7-2.0) mmol/L ALT (4-34) U/L Troponin I (0.000-0.034) ng/mL Urine Protein (Negative) Urine Glucose (UA) (Negative) 12/04/22 12/05/22 12/05/22 Range/Units 23:25 02:09 02:45 Neutrophils # (1.3-7.7) k/uL Lymphocytes # (1.0-4.8) k/uL PT (9.0-12.0) sec INR (<1.2) Sodium (137-145) mmol/L Potassium (3.5-5.1) mmol/L Carbon Dioxide (22-30) mmol/L BUN (7-17) mg/dL Creatinine (0.52-1.04) mg/dL Glucose (74-99) mg/dL POC Glucose (mg/dL) 204 H 47 L 121 H (70-110) mg/dL Plasma Lactic Acid Tyler (0.7-2.0) mmol/L ALT (4-34) U/L Troponin I (0.000-0.034) ng/mL Urine Protein (Negative) Urine Glucose (UA) (Negative) 12/05/22 12/05/22 12/05/22 Range/Units 03:16 03:54 04:07 Neutrophils # (1.3-7.7) k/uL Lymphocytes # (1.0-4.8) k/uL PT (9.0-12.0) sec INR (<1.2) Sodium (137-145) mmol/L Potassium (3.5-5.1) mmol/L Carbon Dioxide 17 L (22-30) mmol/L BUN 56 H (7-17) mg/dL Creatinine 1.35 H (0.52-1.04) mg/dL Glucose 64 L (74-99) mg/dL POC Glucose (mg/dL) 113 H 47 L (70-110) mg/dL Plasma Lactic Acid Tyler (0.7-2.0) mmol/L ALT (4-34) U/L Troponin I (0.000-0.034) ng/mL Urine Protein (Negative) Urine Glucose (UA) (Negative) 12/05/22 12/05/22 12/05/22 Range/Units 06:33 09:26 09:26 Neutrophils # (1.3-7.7) k/uL Lymphocytes # (1.0-4.8) k/uL PT (9.0-12.0) sec INR (<1.2) Sodium (137-145) mmol/L Potassium (3.5-5.1) mmol/L Carbon Dioxide (22-30) mmol/L BUN 53 H (7-17) mg/dL Creatinine 1.38 H (0.52-1.04) mg/dL Glucose 135 H (74-99) mg/dL POC Glucose (mg/dL) 60 L (70-110) mg/dL Plasma Lactic Acid Tyler (0.7-2.0) mmol/L ALT (4-34) U/L Troponin I 0.276 H* (0.000-0.034) ng/mL Urine Protein (Negative) Urine Glucose (UA) (Negative) 12/05/22 12/05/22 12/05/22 Range/Units 10:18 12:55 15:18 Neutrophils # (1.3-7.7) k/uL Lymphocytes # (1.0-4.8) k/uL PT (9.0-12.0) sec INR (<1.2) Sodium (137-145) mmol/L Potassium (3.5-5.1) mmol/L Carbon Dioxide (22-30) mmol/L BUN (7-17) mg/dL Creatinine (0.52-1.04) mg/dL Glucose (74-99) mg/dL POC Glucose (mg/dL) 192 H 150 H 203 H (70-110) mg/dL Plasma Lactic Acid Tyler (0.7-2.0) mmol/L ALT (4-34) U/L Troponin I (0.000-0.034) ng/mL Urine Protein (Negative) Urine Glucose (UA) (Negative)
[2022-12-05 17:05] LABS: Glucose,Whole Blood 198 mg/dL (70-110)
[2022-12-05] MEDS ORDERED: PANTOPRAZOLE 40 MG TABLET PO SCH (20:00)
[2022-12-05] MEDS ORDERED: ATORVASTATIN 80 MG TAB PO SCH (20:00)
[2022-12-05 20:32] LABS: Glucose,Whole Blood 197 mg/dL (70-110)
[2022-12-05] MEDS ORDERED: AZITHROMYCIN 500 MG in SODIUM CHLORIDE 0.9% 250 ML IVPB SCH (21:00)
[2022-12-06 06:04] LABS: Glucose,Whole Blood 172 mg/dL (70-110)
[2022-12-06] MEDS: INSULIN ASPART (NovoLOG) 100 UNIT/ML VIAL SQ SCH ×2 (06:09→12:10)
[2022-12-06] MEDS: LEVOTHYROXINE 75 MCG TAB PO SCH (08:57)
[2022-12-06] MEDS: MIDODRINE 5 MG TAB PO SCH ×2 (08:57→12:19)
[2022-12-06] MEDS: APIXABAN 2.5 MG TABLET PO SCH (08:59)
[2022-12-06] MEDS: FUROSEMIDE 20 MG TAB PO SCH (08:59)
[2022-12-06] MEDS: METOPROLOL TARTRATE 12.5 MG TAB PO SCH (08:59)
[2022-12-06] MEDS: CLOPIDOGREL 75 MG TAB PO SCH (08:59)
[2022-12-06] MEDS: NYSTATIN 100,000 UNIT/GM POWD 15 GM TOPICAL SCH (09:00)
[2022-12-06] MEDS ORDERED: metFORMIN 500 MG TAB PO SCH (10:00)
[2022-12-06 11:26] LABS: Glucose,Whole Blood 243 mg/dL (70-110)
--- NOTE | 2022-12-06 11:37 | P.PN ---
Subjective Patient is seen in follow-up for acute kidney injury on chronic kidney disease. GFR at baseline. Oral intake fair. No vomiting or diarrhea. Denies chest pain or shortness breath. Family present at bedside. Vital signs are stable. General: No acute distress. HEENT: No JVD. On room air. LUNGS: No audible rhonchi or wheezes. HEART: Rate and Rhythm are regular. ABDOMEN: Soft, nontender. EXTREMITITES: No edema. Objective - Vital Signs Vital signs: Vital Signs Temp 97.7 F 12/06/22 07:32 Pulse 82 12/06/22 07:32 Resp 17 12/06/22 07:32 BP 124/66 12/06/22 07:32 Pulse Ox 97 12/06/22 07:32 FiO2 Intake & Output 12/05/22 12/06/22 12/06/22 18:59 06:59 18:59 Output Total 1000 Balance -1000 Weight 90.265 kg 89.8 kg Output: Urine 1000 Other: Voiding Method External Catheter External Catheter # Voids 1 - Labs CBC & Chem 7: 12/04/22 16:17 12/05/22 09:26 Labs: Abnormal Lab Results - Last 24 Hours (Table) 12/05/22 12/05/22 12/05/22 Range/Units 09:26 12:55 15:18 POC Glucose (mg/dL) 150 H 203 H (70-110) mg/dL Troponin I 0.276 H* (0.000-0.034) ng/mL 12/05/22 12/05/22 12/05/22 Range/Units 17:03 19:00 20:30 POC Glucose (mg/dL) 198 H 197 H (70-110) mg/dL Troponin I 0.198 H* (0.000-0.034) ng/mL 12/06/22 12/06/22 Range/Units 05:51 11:25 POC Glucose (mg/dL) 172 H 243 H (70-110) mg/dL Troponin I (0.000-0.034) ng/mL Assessment and Plan Plan: Assessment: 1. Chronic kidney disease stage IIIB with baseline creatinine 1.3-1.5 secondary to diabetic kidney disease. GFR near baseline. 2. Acute on chronic systolic CHF with ejection fraction of 40-45% with mild to moderate aortic regurgitation. 3. Diabetes mellitus. 4. Hyperkalemia secondary to hyperglycemia. Improved. 5. Chronic kidney disease mineral bone disease maintained on calcitriol. Plan: Maintain oral Lasix. Encourage oral intake. Maintain low salt diet and fluid restriction. Avoid nephrotoxins. Continue to monitor renal function and urine output. Hold midodrine for systolic blood pressure greater than 110.
[2022-12-06 13:26] LABS: Glucose,Whole Blood 169 mg/dL (70-110)
[2022-12-06 14:05] VITALS: BP 132/76; PULSE 79; RESP 18; TEMP 97.5
--- NOTE | 2022-12-06 18:47 | P.DS ---
Providers Date of admission: 12/04/22 19:21 Expected date of discharge: 12/06/22 Attending physician: Chilo Tomas MD Consults: 12/05/22 12:17 Consult Physician Routine Consulting Provider: Rangel Carrasco Consult Reason/Comments: Elevated Troponin Do you want consulting provider notified?: Yes Primary care physician: Ermias Alvarez Hospital Course: Discharge Diagnosis: Patient's daughter is requesting discharge, she wants to drive the patient to use them for admission, she will leave AMA if not discharged. Mild DKA in known diabetic with recent steroid use Elevated troponin likely reactive to DKA Chronic cough Chronic kidney disease stage III Hyponatremia, resolved Paroxysmal A. fib on eliquis Chronic systolic congestive heart failure with ejection fraction 40% Hypothyroidism Coronary artery Disease Hospital Course: Patient is an 82-year-old female with systolic congestive heart failure with e jection fraction of 40%, A. fib anticoagulated with Eliquis, diabetes mellitus type 2 on oral medications with multiple other comorbid conditions who presented to the ER due to increased confusion. In the ER she underwent an extensive evaluation. I have arrival her initial blood sugar is 481, on laboratory analysis was up to 621. The remainder of her laboratory analysis was remarkable for sodium 132, potassium 5.4, BUN 63, creatinine 1.56, and lactic acid 2.5. Her BNP was elevated at 14,800 and troponin was mildly elevated at 0.057. Her acetone test was positive consistent with DKA. She was given 1 L of normal saline and 20 units of regular insulin. Her blood sugar remained elevated 2 hours later and she was given 10 units of NovoLog. She had rapid decrease in her blood sugars and required multiple doses of D 50 overnight. He was started on D5 half normal and her blood sugars stabilized near 200. Her troponins remained relatively flat. Cardiology was consulted and had suggested an echocardiogram. However patient daughter was requesting discharge as soon as blood sugars were stabilized. Off of the D5 half normal drip blood sugars were remaining in the 200s, and were 169 after eating without any insulin administration. We discussed that she should start metformin in addition to her Januvia, check blood sugars twice daily, and have close follow-up with her primary care physician. I did discuss with the patient's daughter on multiple times that her chronic cough would be best worked up in the outpatient setting including seeing Dr. Black again she seen from pulmonary in the past and considering an ENT evaluation. Patient's daughter requested discharge that she did drive to use on the emergency department. She declined to stay to have an echocardiogram completed or inpatient pulmonary consultation.Patient discharged in stable condition. Prescription for metformin 500 mg twice daily written, order is completed for refill of home diabetic medications testing, and patient was given a free glucometer. Patient seen and examined at bedside. He is feeling much better. She does not recall meeting for confusion, she thought she was here for chronic cough. She denies any nausea or vomiting. We again had a discussion regarding her prior workup for her chronic cough, and continued suggestions for workup for chronic cough. Vital signs reviewed and stable. General: nontoxic, no distress, appears at stated age Cardiovascular: S1S2 reg, no murmur, positive posterior tibial pulse bilateral, Lungs: Coarse breath sounds bilateral, no rhonchi, no rales , no accessory muscle use Abdominal: soft, nontender to palpation, no guarding, no appreciable organomegaly Ext: no gross muscle atrophy, no edema, no contractures Neuro: CN II-XI grossly intact, no focal neuro deficits Psych: Alert, oriented, appropriate affect A total of 45 minutes of time were spent preparing this complex discharge summary. Patient was discharged on 12/06/22. This dictation was prepared using [employer] voice recognition software. Though every attempt is made to correct errors during during dictation some may still exist. Patient Condition at Discharge: Stable Plan - Discharge Summary Discharge Rx Participant: No New Discharge Prescriptions: New metFORMIN HCL [Glucophage] 500 mg PO BID-W/MEALS #60 tab Continue Levothyroxine Sodium [Synthroid] 75 mcg PO DAILY@0800 Ondansetron Odt [Zofran ODT] 4 mg PO Q8HR PRN #30 tab PRN Reason: Nausea Pantoprazole Sodium [Protonix] 20 mg PO HS@2000 Metoprolol Tartrate [Lopressor] 12.5 mg PO BID@0800,1999 calcitrioL [Calcitriol] 0.25 mcg PO WE@0800 Clopidogrel [Plavix] 75 mg PO DAILY@0800 Atorvastatin [Lipitor] 80 mg PO HS@2000 Albuterol Inhaler [Ventolin Hfa Inhaler] 1 - 2 puff INHALATION RT-Q6H PRN #1 each PRN Reason: Dyspnea Furosemide [Lasix] 20 mg PO DAILY@0800 Azithromycin [Zithromax Z Pack] See Taper PO DAILY sitaGLIPtin [Januvia] 50 mg PO DAILY@0800 Loratadine 10 mg PO DAILY@0800 Fluticasone Nasal [place] [Flonase Nasal [place]] 1 spray EA NOSTRIL DAILY@0800 Midodrine HCl [ProAmatine] 10 mg PO TID@0800,1200,1700 Apixaban [Eliquis] 2.5 mg PO BID@799,1999 Fluconazole [Diflucan] 150 mg PO WE Ketoconazole 2% Cream [Nizoral 2%] 1 applic TOPICAL BID Nitroglycerin Sl Tabs [Nitrostat] 0.4 mg SL Q5M PRN PRN Reason: Chest Pain Discontinued predniSONE See Taper PO DAILY Discharge Medication List Levothyroxine Sodium [Synthroid] 75 mcg PO DAILY@0800 05/07/19 [History] Ondansetron Odt [Zofran ODT] 4 mg PO Q8HR PRN #30 tab 04/01/22 [Rx] Metoprolol Tartrate [Lopressor] 12.5 mg PO BID@08,199910/17/22 [History] Pantoprazole Sodium [Protonix] 20 mg PO HS@199910/17/22 [History] calcitrioL [Calcitriol] 0.25 mcg PO WE@79910/17/22 [History] sitaGLIPtin [Januvia] 50 mg PO DAILY@0800 10/17/22 [History] Apixaban [Eliquis] 2.5 mg PO BID@799,199911/04/22 [History] Atorvastatin [Lipitor] 80 mg PO HS@199911/04/22 [History] Clopidogrel [Plavix] 75 mg PO DAILY@0811/04/22 [History] Fluticasone Nasal [place] [Flonase Nasal [place]] 1 spray EA NOSTRIL DAILY@0800 11/04/22 [History] Loratadine 10 mg PO DAILY@0800 11/04/22 [History] Midodrine HCl [ProAmatine] 10 mg PO TID@0800,1200,1700 11/04/22 [History] Albuterol Inhaler [Ventolin Hfa Inhaler] 1 - 2 puff INHALATION RT-Q6H PRN #1 each 11/29/22 [Rx] Fluconazole [Diflucan] 150 mg PO WE 11/29/22 [History] Furosemide [Lasix] 20 mg PO DAILY@0800 11/29/22 [History] Ketoconazole 2% Cream [Nizoral 2%] 1 applic TOPICAL BID 11/29/22 [History] Azithromycin [Zithromax Z Pack] See Taper PO DAILY 12/04/22 [History] Nitroglycerin Sl Tabs [Nitrostat] 0.4 mg SL Q5M PRN 12/04/22 [History] metFORMIN HCL [Glucophage] 500 mg PO BID-W/MEALS #60 tab 12/06/22 [Rx] Follow up Appointment(s)/Referral(s): Ermias Alvarez MD [Primary Care Provider] - 1-2 days Nehemias Black DO [Doctor of Osteopathic Medicine] - 1 Week Patient Instructions/Handouts: Diabetic Hyperglycemia (DC) Activity/Diet/Wound Care/Special Instructions: Diabetic supplies ordered through [facility]. . Check Blood sugar twice daily and make a log to bring to your appointment with Dr. Alvarez Discharge Disposition: HOME SELF-CARE
--- NOTE | 2022-12-06 21:47 | CONS ---
CONSULTATION CHIEF COMPLAINT: Elevated troponin. HISTORY OF PRESENT ILLNESS: This is an 82-year-old lady with history of permanent atrial fibrillation, non-insulin- dependent diabetes, and hypothyroidism, who is admitted to hospital with recurrent episodes of cough. She also seemed a little confused for 2 days prior to coming in. Cardiology has been consulted because of mild elevation in troponin. The patient has history of hospitalizations secondary to congestive heart failure, and on this admission, her blood sugars were elevated. She has been diagnosed with coronavirus infection a few months ago and has been having cough on and off since, that has gotten particularly worse recently. She had been treated with steroids with some improvement in her symptoms. Her troponin elevation is probably related to the renal insufficiency. EKG shows atrial fibrillation with nonspecific ST-T wave changes. She had LV systolic dysfunction on an echocardiogram in the past. I will repeat an echo on her to assess her LV function and wall motion. The exact etiology for her cough is unclear. I am going to have a investigation division sergeant evaluate her. I told the family that the troponin elevation is not secondary to myocardial infarction and that the cough is unrelated to the heart. PAST MEDICAL HISTORY: Significant for atrial fibrillation, coronary artery disease, chronic systolic heart failure, diabetes, renal insufficiency, and thyroid disorder. MEDICATIONS AT HOME: Included: 1. Synthroid. 2. Zofran. 3. Lopressor. 4. Protonix. 5. Januvia. 6. Eliquis. 7. Lipitor. 8. Plavix. 9. Flonase. 10.Midodrine. 11.Lasix. 12.Zithromax. 13.Prednisone. ALLERGIES: She has multiple drug allergies. They are charted, and I reviewed them. FAMILY HISTORY: Negative for premature coronary artery disease. SOCIAL HISTORY: Negative for current smoking, EtOH abuse, or drug abuse. REVIEW OF SYSTEMS: 14 out of 14 review of systems has been performed. Pertinents are as documented in history of presenting illness. PHYSICAL EXAMINATION: VITAL SIGNS: Heart rate is 90 beats per minute, blood pressure is 124/66, respiratory rate is 18, O2 saturation is 97% on room air. NECK: There is no jugular venous distention. Carotid upstroke is normal. There is no bruit. CHEST: Reveals good air entry bilaterally. HEART: Reveals first and second heart sounds. No gallop. Has a systolic murmur at the apex. ABDOMEN: Soft. EXTREMITIES: Did not reveal any edema. Peripheral pulses are palpable. IMAGING STUDIES: Chest x-ray shows improving bibasal opacities, mildly enlarged heart. LABORATORY DATA: Show that the hemoglobin is normal at 13.3, platelet count is 235. Potassium is 4.4, BUN is 53, creatinine is 1.3. Troponins are mildly elevated at 0.05, 0.2, and 0.1. EKG shows atrial fibrillation with nonspecific ST-T wave changes. ASSESSMENT: 1. Troponin elevation, probably secondary to acute renal insufficiency. 2. History of chronic systolic heart failure. 3. Chronic renal insufficiency. 4. History of coronary artery disease. 5. Cough of unclear etiology. PLAN: I will obtain a 2D echo, and if it is unchanged from her previous echo, she does not require any other workup at this time. MMODL / IJN: [id number] /
== END 2022-12-06 14:36 | disposition home or self-care (01) | DRG 637 ==
LOC: EC 15:02 → 3SCARD 19:21 → 4SSUR 12-05 12:32
PROVIDERS: ADMIT Internal Medicine; ATTEND Internal Medicine
DX: E11.10 Type 2 diabetes mellitus with ketoacidosis without coma (principal); I50.23 Acute on chronic systolic (congestive) heart failure; E87.1 Hypo-osmolality and hyponatremia; I48.21 Permanent atrial fibrillation; I13.0 Hypertensive heart and chronic kidney disease with heart failure and stage 1 through stage 4 chronic kidney disease, or unspecified chronic kidney disease; N17.9 Acute kidney failure, unspecified; Z76.0 Encounter for issue of repeat prescription; Z79.84 Long term (current) use of oral hypoglycemic drugs; E03.9 Hypothyroidism, unspecified; E11.22 Type 2 diabetes mellitus with diabetic chronic kidney disease; E86.0 Dehydration; E87.5 Hyperkalemia; T38.0X5A Adverse effect of glucocorticoids and synthetic analogues, initial encounter; R05.3 Chronic cough; Z79.01 Long term (current) use of anticoagulants; E83.9 Disorder of mineral metabolism, unspecified; K21.9 Gastro-esophageal reflux disease without esophagitis; N18.32 Chronic kidney disease, stage 3b; I25.10 Atherosclerotic heart disease of native coronary artery without angina pectoris; R77.8 Other specified abnormalities of plasma proteins; I25.2 Old myocardial infarction; I35.1 Nonrheumatic aortic (valve) insufficiency; Z86.74 Personal history of sudden cardiac arrest; Z86.16 Personal history of COVID-19; Z87.01 Personal history of pneumonia (recurrent); Z79.890 Hormone replacement therapy; Z79.3 Long term (current) use of hormonal contraceptives; Z79.02 Long term (current) use of antithrombotics/antiplatelets; Z79.899 Other long term (current) drug therapy; Z85.828 Personal history of other malignant neoplasm of skin; Z87.442 Personal history of urinary calculi; Z95.5 Presence of coronary angioplasty implant and graft; Z88.1 Allergy status to other antibiotic agents; Z88.5 Allergy status to narcotic agent; Z88.2 Allergy status to sulfonamides; Z88.8 Allergy status to other drugs, medicaments and biological substances
CPT/HCPCS: 36415; 71045; 71046; 80048; 80053; 81001; 82009; 83605; 83880; 84443; 84484; 85025; 85610; 85730; 87040; 87449; 93005; 96361; 96365; 96367; 96368; 96375; 96376; 99285

== ENCOUNTER 2022-12-20 16:01 | Emergency (ER) | payer MEDICARE ==
[2022-12-20 16:08] VITALS: TEMP 99.3
--- NOTE | 2022-12-20 16:09 | ED ---
General Adult HPI - General Stated complaint: Chest Pain Time Seen by Provider: 12/20/22 16:02 Source: patient, EMS, RN notes reviewed, old records reviewed Limitations: no limitations - History of Present Illness Initial comments: 82-year-old female presents for evaluation of chest discomfort. Discomfort has been present for the past one day. Has been intermittent in nature. No associated vomiting or diaphoresis. No abdominal pain. Patient does have prior history of atrial fibrillation as well as CAD and is currently on anticoagulation. No pain at the time my evaluation.no dyspnea. Patient had recent admission and will follow-up at [facility] she was discharged and has an appointment with her senior clinical consultant and sail repairer tomorrow. - Related Data Home Medications Medication Instructions Recorded Confirmed Levothyroxine Sodium [Synthroid] 75 mcg PO DAILY@0800 05/07/19 12/04/22 Metoprolol Tartrate [Lopressor] 12.5 mg PO BID@08,199910/17/22 12/04/22 Pantoprazole Sodium [Protonix] 20 mg PO HS@199910/17/22 12/04/22 calcitrioL [Calcitriol] 0.25 mcg PO WE@79910/17/22 12/04/22 sitaGLIPtin [Januvia] 50 mg PO DAILY@79910/17/22 12/04/22 Apixaban [Eliquis] 2.5 mg PO BID@08,199911/04/22 12/04/22 Atorvastatin [Lipitor] 80 mg PO HS@199911/04/22 12/04/22 Clopidogrel [Plavix] 75 mg PO DAILY@79911/04/22 12/04/22 Fluticasone Nasal [place] [Flonase 1 spray EA NOSTRIL DAILY@0811/04/22 12/04/22 Nasal [place]] Loratadine 10 mg PO DAILY@0800 11/04/22 12/04/22 Midodrine HCl [ProAmatine] 10 mg PO TID@0800,1200,1700 11/04/22 12/04/22 Fluconazole [Diflucan] 150 mg PO WE 11/29/22 12/04/22 Furosemide [Lasix] 20 mg PO DAILY@0800 11/29/22 12/04/22 Ketoconazole 2% Cream [Nizoral 2%] 1 applic TOPICAL BID 11/29/22 12/04/22 Azithromycin [Zithromax Z Pack] See Taper PO DAILY 12/04/22 12/04/22 Nitroglycerin Sl Tabs [Nitrostat] 0.4 mg SL Q5M PRN 12/04/22 12/04/22 Previous Rx's Medication Instructions Recorded Ondansetron Odt [Zofran ODT] 4 mg PO Q8HR PRN #30 tab 04/01/22 Albuterol Inhaler [Ventolin Hfa 1 - 2 puff INHALATION RT-Q6H PRN 11/29/22 Inhaler] #1 each metFORMIN HCL [Glucophage] 500 mg PO BID-W/MEALS #60 tab 12/06/22 Allergies Allergy/AdvReac Type Severity Reaction Status Date / Time codeine Allergy Rash/Hives Verified 12/20/22 18:13 metronidazole [From Flagyl] Allergy Rash/Hives Verified 12/20/22 18:13 Metronidazole HCl Allergy Rash/Hives Verified 12/20/22 18:13 [From Flagyl] morphine Allergy Rash/Hives Verified 12/20/22 18:13 hydrocodone [From [place]] AdvReac Unknown felt her Verified 12/20/22 18:13 mind was not right. famotidine [From Pepcid] AdvReac Nausea & Verified 12/20/22 18:13 Vomiting Opioids - Morphine Analogues AdvReac Confusion Verified 12/20/22 18:13 Opioids-Meperidine and AdvReac Confusion Verified 12/20/22 18:13 Related Opioids-Methadone and Related AdvReac Confusion Verified 12/20/22 18:13 Sulfa (Sulfonamide AdvReac Unknown- Verified 12/20/22 18:13 Antibiotics) almost passed out msg Allergy Anaphylaxis Uncoded 12/20/22 18:13 Review of Systems ROS Statement: Those systems with pertinent positive or pertinent negative responses have been documented in the HPI. ROS Other: All systems not noted in ROS Statement are negative. Past Medical History Past Medical History: Atrial Fibrillation, Coronary Artery Disease (CAD), Cancer, Heart Failure, Diabetes Mellitus, Myocardial Infarction (MO), Renal D isease, Thyroid Disorder Additional Past Medical History / Comment(s): Basal Cell skin cancer, hx. kidney stone, Diabetes- no longer on meds- watches diet, uses cane, states episodes where it feels her throat is tight (hx of EGD with dilation), chronic kidney disease. cardiac arrest Last Myocardial Infarction Date:: 03/25/22 History of Any Multi-Drug Resistant Organisms: None Reported Past Surgical History: Adenoidectomy, Back Surgery, Tonsillectomy Additional Past Surgical History / Comment(s): bunionectomy, kidney stone, cataracts, EGD with dilation heart stents Past Anesthesia/Blood Transfusion Reactions: No Reported Reaction Date of Last Stent Placement:: 03/2023 Past Psychological History: No Psychological Hx Reported Smoking Status: Never smoker Past Alcohol Use History: None Reported Past Drug Use History: None Reported - Past Family History Brother(s) Family Medical History: Cancer Additional Family Medical History / Comment(s): basal cell skin cancer family Additional Family Medical History / Comment(s): no family hx of heart disease General Exam General appearance: alert, in no apparent distress Head exam: Present: atraumatic, normocephalic Eye exam: Present: normal appearance, PERRL ENT exam: Present: normal exam Respiratory exam: Present: normal lung sounds bilaterally. Absent: respiratory distress, wheezes, rales Cardiovascular Exam: Present: regular rate, irregular rhythm GI/Abdominal exam: Present: soft. Absent: distended, tenderness, guarding Extremities exam: Present: normal inspection, normal capillary refill Neurological exam: Present: alert, oriented X3, CN II-XII intact. Absent: motor sensory deficit Psychiatric exam: Present: normal affect, normal mood Skin exam: Present: warm, dry, intact. Absent: cyanosis, diaphoretic Course Vital Signs 12/20/22 12/20/22 16:02 17:46 Temperature 99.3 F Pulse Rate 90 82 Respiratory 20 18 Rate Blood Pressure 131/77 124/44 O2 Sat by Pulse 99 99 Oximetry Medical Decision Making - Medical Decision Making Was pt. sent in by a medical professional or institution (, PA, REAGENT TENDER, urgent care, hospital, or senior care...) When possible be specific @ -[No] Did you speak to anyone other than the patient for history (EMS, parent, family, police, friend...)? What history was obtained from this source @ -[patient's daughter is at bedside Did you review nursing and triage notes (agree or disagree)? Why? @ -[I reviewed and agree with nursing and triage notes] Were old charts reviewed (outside hosp., previous admission, EMS record, old EKG, old radiological studies, urgent care reports/EKG's, senior care records)? Report findings @ -[recent laboratory testing including BMP, troponin Differential Diagnosis (chest pain, altered mental status, abdominal pain women, abdominal pain men, vaginal bleeding, weakness, fever, dyspnea, syncope, headache, dizziness, GI bleed, back pain, seizure, CVA, palpatations, mental health, musculoskeletal)? @ Differential Chest Pain: Stable Angina, Unstable Angina, STEMI, NSTEMI Aortic Dissection, Pneumothorax, Musculoskeletal, Esophageal Spasm GERD, Cholecystitis, Pancreatitis, Zoster, this is not meant to be an all-inclusive list. EKG interpreted by me (3pts min.). @ -[EKG: Atrial fibrillation with a rate of 102 QRS duration 107, QTC 402, no ST segment elevation X-rays interpreted by me (1pt min.). @ -[showing cardiomegaly with bilateral effusions and pulmonary vascular congestion CT interpreted by me (1pt min.). @ -[None done] U/S interpreted by me (1pt. min.). @ -[None done] What testing was considered but not performed or refused? (CT, X-rays, U/S, labs)? Why? @ -[None] What meds were considered but not given or refused? Why? @ -[None] Did you discuss the management of the patient with other professionals (professionals i.e. , PA, REAGENT TENDER, lab, RT, psych nurse, healthcare social worker, animal hospital clerk, teacher, custody officer, showcase trimmer)? Give summary @ -[No] Was smoking cessation discussed for >3mins.? @ -[No] Was critical care preformed (if so, how long)? @ -[No] Were there social determinants of health that impacted care today? How? (Homelessness, low income, unemployed, alcoholism, drug addiction, transportation, low edu. Level, literacy, decrease access to med. care, correction, rehab)? @ -[No] Was there de-escalation of care discussed even if they declined (Discuss DNR or withdrawal of care, Hospice)? DNR status @ -[No] What co-morbidities impacted this encounter? (DM, HTN, Smoking, COPD, CAD, Cancer, CVA, ARF, Chemo, Hep., AIDS, mental health diagnosis, sleep apnea, morbid obesity)? @ -[A. fib, CHF, CAD Was patient admitted / discharged? Hospital course, mention meds given and route, prescriptions, significant lab abnormalities, going to OR and other pertinent info. @ -[82-year-old female who presents with atypical chest discomfort. No typical features. EKG showing atrial fibrillation without ST segment elevation. Chest x-ray shows cardiomegaly with bilateral effusions although fairly good aeration. She does have an elevated BNP although this is down trending from prior. Patient is 100% on room air. She has no chest pain while in the emergency department. Patient is eager for discharge and her daughter is at bedside and is agreeable with discharge. She has an appointment with her senior clinical consultant and her sail repairer tomorrow. I did plan to observe this patient however given her stable vitals and the fact she is asymptomatic at this time. She will be discharged. Undiagnosed new problem with uncertain prognosis? @ -[No] Drug Therapy requiring intensive monitoring for toxicity (Heparin, Nitro, Insulin, Cardizem)? @ -[No] Were any procedures done? @ -[No] Diagnosis/symptom? @ -[atypical chest discomfort] Acute, or Chronic, or Acute on Chronic? @ -[acute on chronic] Uncomplicated (without systemic symptoms) or Complicated (systemic symptoms)? @ -[default] Side effects of treatment? @ -[No] Exacerbation, Progression, or Severe Exacerbation? @ -[No] Poses a threat to life or bodily function? How? (Chest pain, [place], [place], pneumonia, PE, COPD, DKA, ARF, appy, cholecystitis, CVA, Diverticulitis, Homicidal, Suicidal, threat to staff... and all critical care pts) @ -[yes, CAD, chest pain, arrhythmia] - Lab Data Result diagrams: 12/20/22 16:10 12/20/22 16:10 Lab Results 12/20/22 12/20/22 12/20/22 Range/Units 16:10 16:10 16:10 WBC 8.8 (3.8-10.6) k/uL RBC 4.34 (3.80-5.40) m/uL Hgb 12.8 (11.4-16.0) gm/dL Hct 39.4 (34.0-46.0) % MCV 90.9 (80.0-100.0) fL MCH 29.6 (25.0-35.0) pg MCHC 32.5 (31.0-37.0) g/dL RDW 15.4 (11.5-15.5) % Plt Count 198 (150-450) k/uL MPV 9.0 Neutrophils % 76 % Lymphocytes % 12 % Monocytes % 8 % Eosinophils % 1 % Basophils % 0 % Neutrophils # 6.7 (1.3-7.7) k/uL Lymphocytes # 1.1 (1.0-4.8) k/uL Monocytes # 0.7 (0-1.0) k/uL Eosinophils # 0.1 (0-0.7) k/uL Basophils # 0.0 (0-0.2) k/uL PT 11.8 (9.0-12.0) sec INR 1.1 (<1.2) APTT 26.2 (22.0-30.0) sec Sodium 134 L (137-145) mmol/L Potassium 5.4 H (3.5-5.1) mmol/L Chloride 101 (98-107) mmol/L Carbon Dioxide 19 L (22-30) mmol/L Anion Gap 14 mmol/L BUN 48 H (7-17) mg/dL Creatinine 1.57 H (0.52-1.04) mg/dL Est GFR (CKD-EPI)AfAm 35 (>60 ml/min/1.73 sqM) Est GFR (CKD-EPI)NonAf 31 (>60 ml/min/1.73 sqM) Glucose 155 H (74-99) mg/dL Calcium 9.2 (8.4-10.2) mg/dL Magnesium 1.7 (1.6-2.3) mg/dL Total Bilirubin 1.5 H (0.2-1.3) mg/dL AST 45 H (14-36) U/L ALT 28 (4-34) U/L Alkaline Phosphatase 72 (38-126) U/L Troponin I (0.000-0.034) ng/mL NT-Pro-B Natriuret Pep pg/mL Total Protein 7.2 (6.3-8.2) g/dL Albumin 3.8 (3.5-5.0) g/dL Lipase 360 H (23-300) U/L 12/20/22 12/20/22 Range/Units 16:10 16:10 WBC (3.8-10.6) k/uL RBC (3.80-5.40) m/uL Hgb (11.4-16.0) gm/dL Hct (34.0-46.0) % MCV (80.0-100.0) fL MCH (25.0-35.0) pg MCHC (31.0-37.0) g/dL RDW (11.5-15.5) % Plt Count (150-450) k/uL MPV Neutrophils % % Lymphocytes % % Monocytes % % Eosinophils % % Basophils % % Neutrophils # (1.3-7.7) k/uL Lymphocytes # (1.0-4.8) k/uL Monocytes # (0-1.0) k/uL Eosinophils # (0-0.7) k/uL Basophils # (0-0.2) k/uL PT (9.0-12.0) sec INR (<1.2) APTT (22.0-30.0) sec Sodium (137-145) mmol/L Potassium (3.5-5.1) mmol/L Chloride (98-107) mmol/L Carbon Dioxide (22-30) mmol/L Anion Gap mmol/L BUN (7-17) mg/dL Creatinine (0.52-1.04) mg/dL Est GFR (CKD-EPI)AfAm (>60 ml/min/1.73 sqM) Est GFR (CKD-EPI)NonAf (>60 ml/min/1.73 sqM) Glucose (74-99) mg/dL Calcium (8.4-10.2) mg/dL Magnesium (1.6-2.3) mg/dL Total Bilirubin (0.2-1.3) mg/dL AST (14-36) U/L ALT (4-34) U/L Alkaline Phosphatase (38-126) U/L Troponin I <0.012 (0.000-0.034) ng/mL NT-Pro-B Natriuret Pep 8170 pg/mL Total Protein (6.3-8.2) g/dL Albumin (3.5-5.0) g/dL Lipase (23-300) U/L Disposition Clinical Impression: Heart failure, Atrial fibrillation Disposition: HOME SELF-CARE Condition: Fair Instructions (If sedation given, give patient instructions): Heart Failure (DC), Chest Pain (ED) Is patient prescribed a controlled substance at d/c from ED?: No Referrals: None,Stated [REFERRING] - 1-2 days Rangel Carrasco MD [STAFF PHYSICIAN] - 1-2 days Time of Disposition: 18:25
[2022-12-20 16:52] LABS: Basophils % (A) 0 %; Eosinophils # (A) 0.1 k/uL (0-0.7); Eosinophils % (A) 1 %; HCT 39.4 % (34.0-46.0); HGB 12.8 gm/dL (11.4-16.0); Lymphocytes # (A) 1.1 k/uL (1.0-4.8); Lymphocytes % (A) 12 %; MCH 29.6 pg (25.0-35.0); MCHC 32.5 g/dL (31.0-37.0); MCV 90.9 fL (80.0-100.0); Monocytes # (A) 0.7 k/uL (0-1.0); Monocytes % (A) 8 %; Neutrophils # (A) 6.7 k/uL (1.3-7.7); Neutrophils % (A) 76 %; Platelet Count 198 k/uL (150-450); RBC 4.34 m/uL (3.80-5.40); RDW 15.4 % (11.5-15.5); WBC 8.8 k/uL (3.8-10.6)
--- NOTE | 2022-12-20 17:00 | XR ---
EXAMINATION TYPE: XR chest 2V DATE OF EXAM: 12/20/2022 4:56 PM COMPARISON: Chest radiographs from 12/21/2019 TECHNIQUE: XR chest 2V Frontal and lateral views of the chest. CLINICAL INDICATION:Female, 82 years old with history of Chest Pain; FINDINGS: Lungs/Pleura: No evidence of focal consolidation or pneumothorax. Blunting of the costophrenic angles is present. Pulmonary vascularity: Pulmonary vascular congestion. Heart/mediastinum: Cardiomediastinal silhouette is enlarged and stable. Musculoskeletal: No acute osseous pathology. IMPRESSION: Cardiomegaly, pulmonary vascular congestion and bilateral pleural effusions. Correlate with BNP for c ongestive heart failure.
[2022-12-20 17:02] LABS: INR 1.1 (<1.2); Partial Thromboplastin Time 26.2 sec (22.0-30.0); Prothrombin Time 11.8 sec (9.0-12.0)
[2022-12-20 17:06] LABS: ALT 28 U/L (4-34); AST 45 U/L (14-36); African American GFR (CKD) 35 (>60 ml/min/1.73 sqM); Albumin 3.8 g/dL (3.5-5.0); Alkaline Phosphatase 72 U/L (38-126); Anion Gap 14 mmol/L; Blood Urea Nitrogen 48 mg/dL (7-17); Calcium 9.2 mg/dL (8.4-10.2); Carbon Dioxide 19 mmol/L (22-30); Chloride 101 mmol/L (98-107); Lipase 360 U/L (23-300); Magnesium 1.7 mg/dL (1.6-2.3); Non-African American GFR(CKD) 31 (>60 ml/min/1.73 sqM); Potassium 5.4 mmol/L (3.5-5.1); Sodium 134 mmol/L (137-145); Total Bilirubin 1.5 mg/dL (0.2-1.3); Total Protein 7.2 g/dL (6.3-8.2)
[2022-12-20 17:12] LABS: Glucose 155 mg/dL (74-99)
[2022-12-20] MEDS ORDERED: FUROSEMIDE 10 MG/ML 2 ML VIAL IV STA (18:26)
[2022-12-20 18:50] VITALS: BP 139/65; PULSE 95; RESP 20
== END 2022-12-20 19:05 | disposition home or self-care (01) ==
LOC: EC 16:01
DX: I50.9 Heart failure, unspecified (principal); I48.91 Unspecified atrial fibrillation; J90 Pleural effusion, not elsewhere classified; I25.10 Atherosclerotic heart disease of native coronary artery without angina pectoris; I25.2 Old myocardial infarction; E11.9 Type 2 diabetes mellitus without complications; E07.9 Disorder of thyroid, unspecified; Z79.890 Hormone replacement therapy; Z79.899 Other long term (current) drug therapy; Z79.01 Long term (current) use of anticoagulants; Z79.02 Long term (current) use of antithrombotics/antiplatelets; Z79.84 Long term (current) use of oral hypoglycemic drugs; Z88.1 Allergy status to other antibiotic agents; Z88.2 Allergy status to sulfonamides; Z88.5 Allergy status to narcotic agent
CPT/HCPCS: 36415; 93005; 83880; 80053; 83690; 83735; 84484; 85025; 85610; 85730; 71046; 99285; 96374; J1940

== ENCOUNTER 2023-01-07 08:58 | Emergency (ER) | payer MEDICARE ==
[2023-01-07 09:17] LABS: Glucose,Whole Blood 169 mg/dL (70-110)
[2023-01-07 09:52] LABS: Anisocytosis Slight; Basophils % (A) 0 %; Eosinophils # (A) 0.2 k/uL (0-0.7); Eosinophils % (A) 2 %; HCT 41.3 % (34.0-46.0); HGB 13.2 gm/dL (11.4-16.0); Lymphocytes # (A) 1.5 k/uL (1.0-4.8); Lymphocytes % (A) 17 %; MCH 29.8 pg (25.0-35.0); MCV 92.9 fL (80.0-100.0); Mean Platelet Volume 8.5; Monocytes # (A) 0.6 k/uL (0-1.0); Monocytes % (A) 7 %; Neutrophils # (A) 6.3 k/uL (1.3-7.7); Neutrophils % (A) 72 %; Platelet Count 211 k/uL (150-450); RBC 4.45 m/uL (3.80-5.40); RDW 16.2 % (11.5-15.5); WBC 8.8 k/uL (3.8-10.6)
--- NOTE | 2023-01-07 09:55 | XR ---
EXAMINATION TYPE: XR chest 2V DATE OF EXAM: 01/07/2023 COMPARISON: 12/20/2022 HISTORY: Syncope TECHNIQUE: Frontal and lateral views of the chest are obtained. FINDINGS: The heart is mildly enlarged and there are small bilateral pleural effusions. There is no airspace consolidation or abnormal interstitial density. The osseous structures are intact. There is no pneumothorax. IMPRESSION: Small bilateral pleural effusions and mild cardiomegaly. No other significant abnormality seen.
[2023-01-07] MEDS ORDERED: ONDANSETRON 4 MG/2 ML VIAL IVP STA ×2 (09:57→10:01)
[2023-01-07 10:06] LABS: INR 1.2 (<1.2); Partial Thromboplastin Time 23.5 sec (22.0-30.0); Prothrombin Time 11.9 sec (9.0-12.0)
[2023-01-07 10:09] VITALS: RESP 18
[2023-01-07 10:21] LABS: ALT 25 U/L (4-34); AST 36 U/L (14-36); African American GFR (CKD) 39 (>60 ml/min/1.73 sqM); Albumin 3.8 g/dL (3.5-5.0); Alkaline Phosphatase 78 U/L (38-126); Anion Gap 15 mmol/L; Blood Urea Nitrogen 39 mg/dL (7-17); Calcium 8.8 mg/dL (8.4-10.2); Carbon Dioxide 12 mmol/L (22-30); Chloride 109 mmol/L (98-107); Glucose 170 mg/dL (74-99); Magnesium 1.4 mg/dL (1.6-2.3); Non-African American GFR(CKD) 34 (>60 ml/min/1.73 sqM); Potassium 4.3 mmol/L (3.5-5.1); Sodium 136 mmol/L (137-145); Total Bilirubin 1.1 mg/dL (0.2-1.3); Total Protein 7.1 g/dL (6.3-8.2)
--- NOTE | 2023-01-07 10:36 | ED ---
SOB HPI - General Chief Complaint: Shortness of Breath Stated Complaint: LITZY Time Seen by Provider: 01/07/23 09:05 Source: patient, family Mode of arrival: wheelchair Limitations: no limitations - History of Present Illness Initial Comments: 82-year-old female with past medical history of congestive heart failure, aortic regurg, kidney disease stage III who presents to the emergency department. Daughter provides the history. States that her mother had went to the bathroom and then attempted to ambulate outside the car. She wanted to go for a ride. There is a long ramp to get down to the car. By the time the patient got into the car she was extremely short of breath and passed out. Daughter states that she was unresponsive all the way to the hospital. Staff did have to pull the patient out of the car. She arrives in A. fib with a rapid rate. Patient is alert upon putting her in the room. States that she felt extremely short of breath and nauseated. She denies having any chest pain. Patient has been hospitalized several times for congestive heart failure and a K I. She was just recently hospitalized at [facility]. Patient is not currently taking any Lasix. Denies any swelling. No other alleviating, pre cipitating or modifying factors - Related Data Home Medications Medication Instructions Recorded Confirmed Levothyroxine Sodium [Synthroid] 75 mcg PO DAILY@0800 05/07/19 12/20/22 Pantoprazole Sodium [Protonix] 20 mg PO HS@199910/17/22 12/20/22 calcitrioL [Calcitriol] 0.25 mcg PO WE@79910/17/22 12/20/22 Apixaban [Eliquis] 2.5 mg PO BID@0811/04/22 12/20/22 Atorvastatin [Lipitor] 80 mg PO HS@199911/04/22 12/20/22 Clopidogrel [Plavix] 75 mg PO DAILY@0800 11/04/22 12/20/22 Midodrine HCl [ProAmatine] 10 mg PO DAILY PRN 11/04/22 12/20/22 Fluconazole [Diflucan] 150 mg PO MO 11/29/22 12/20/22 Ketoconazole 2% Cream [Nizoral 2%] 1 applic TOPICAL BID 11/29/22 12/20/22 Nitroglycerin Sl Tabs [Nitrostat] 0.4 mg SL Q5M PRN 12/04/22 12/20/22 Empagliflozin [Jardiance] 10 mg PO DAILY@0800 12/20/22 12/20/22 Furosemide [Lasix] 40 mg PO DAILY PRN 12/20/22 12/20/22 Losartan [Cozaar] 12.5 mg PO DAILY@0800 12/20/22 12/20/22 Metoprolol Succinate (ER) [Toprol 12.5 mg PO HS@199912/20/22 12/20/22 Xl] metFORMIN HCL [Glucophage] 500 mg PO BID@0800,1700 12/20/22 12/20/22 Previous Rx's Medication Instructions Recorded Ondansetron Odt [Zofran ODT] 4 mg PO Q8HR PRN #30 tab 04/01/22 Allergies Allergy/AdvReac Type Severity Reaction Status Date / Time codeine Allergy Rash/Hives Verified 01/07/23 09:02 metronidazole [From Flagyl] Allergy Rash/Hives Verified 01/07/23 09:02 Metronidazole HCl Allergy Rash/Hives Verified 01/07/23 09:02 [From Flagyl] morphine Allergy Rash/Hives Verified 01/07/23 09:02 hydrocodone [From [place]] AdvReac Unknown felt her Verified 01/07/23 09:02 mind was not right. famotidine [From Pepcid] AdvReac Nausea & Verified 01/07/23 09:02 Vomiting Opioids - Morphine Analogues AdvReac Confusion Verified 01/07/23 09:02 Opioids-Meperidine and AdvReac Confusion Verified 01/07/23 09:02 Related Opioids-Methadone and Related AdvReac Confusion Verified 01/07/23 09:02 Sulfa (Sulfonamide AdvReac Unknown- Verified 01/07/23 09:02 Antibiotics) almost passed out msg Allergy Anaphylaxis Uncoded 01/07/23 09:02 Review of Systems ROS Statement: Those systems with pertinent positive or pertinent negative responses have been documented in the HPI. ROS Other: All systems not noted in ROS Statement are negative. Past Medical History Past Medical History: Atrial Fibrillation, Coronary Artery Disease (CAD), Cancer, Heart Failure, Diabetes Mellitus, Myocardial Infarction (ND), Renal Disease, Thyroid Disorder Additional Past Medical History / Comment(s): Basal Cell skin cancer, hx. kidney stone, Diabetes- no longer on meds- watches diet, uses cane, states episodes where it feels her throat is tight (hx of EGD with dilation), chronic kidney disease. cardiac arrest Last Myocardial Infarction Date:: 03/25/22 History of Any Multi-Drug Resistant Organisms: None Reported Past Surgical History: Adenoidectomy, Back Surgery, Tonsillectomy Additional Past Surgical History / Comment(s): bunionectomy, kidney stone, cataracts, EGD with dilation heart stents Past Anesthesia/Blood Transfusion Reactions: No Reported Reaction Date of Last Stent Placement:: 03/2023 Past Psychological History: No Psychological Hx Reported Smoking Status: Never smoker Past Alcohol Use History: None Reported Past Drug Use History: None Reported - Past Family History Brother(s) Family Medical History: Cancer Additional Family Medical History / Comment(s): basal cell skin cancer family Additional Family Medical History / Comment(s): no family hx of heart disease General Exam Limitations: no limitations General appearance: alert, in distress Head exam: Present: atraumatic, normocephalic, normal inspection Eye exam: Present: normal appearance, PERRL, EOMI. Absent: scleral icterus, conjunctival injection, periorbital swelling ENT exam: Present: normal exam, mucous membranes moist Neck exam: Present: normal inspection. Absent: tenderness, meningismus, lymphadenopathy Respiratory exam: Present: normal lung sounds bilaterally, other (tachypnic). Absent: respiratory distress, wheezes, rales, rhonchi, stridor Cardiovascular Exam: Present: regular rate, irregular rhythm, normal heart s ounds. Absent: systolic murmur, diastolic murmur, rubs, gallop, clicks GI/Abdominal exam: Present: soft, normal bowel sounds. Absent: distended, tenderness, guarding, rebound, rigid Extremities exam: Present: full ROM, normal capillary refill, pedal edema. Absent: tenderness, joint swelling, calf tenderness Back exam: Present: normal inspection Neurological exam: Present: alert, oriented X3, CN II-XII intact Psychiatric exam: Present: normal affect, normal mood Skin exam: Present: warm, dry, intact, normal color. Absent: rash Course Vital Signs 01/07/23 01/07/23 01/07/23 09:00 09:05 10:07 Temperature 98.2 F Pulse Rate 142 H 90 Respiratory 26 H 20 18 Rate Blood Pressure 135/88 119/55 O2 Sat by Pulse 94 L 95 Oximetry 01/07/23 12:05 Temperature 98.1 F Pulse Rate 75 Respiratory 18 Rate Blood Pressure 121/70 O2 Sat by Pulse 99 Oximetry Medical Decision Making - Medical Decision Making Was pt. sent in by a medical professional or institution (, DONALD, PATIENT SUPPORT TECH, urgent care, hospital, or [facility]...) When possible be specific @ -No Did you speak to anyone other than the patient for history (EMS, parent, family, police, friend...)? What history was obtained from this source @ -daughter states the patient passed out Did you review nursing and triage notes (agree or disagree)? Why? @ -I reviewed and agree with nursing and triage notes Were old charts reviewed (outside hosp., previous admission, EMS record, old EKG, old radiological studies, urgent care reports/EKG's, [facility] records)? Report findings @ -old charts were reviewed - discharge summary from 12/06 Differential Diagnosis (chest pain, altered mental status, abdominal pain women, abdominal pain men, vaginal bleeding, weakness, fever, dyspnea, syncope, headache, dizziness, GI bleed, back pain, seizure, CVA, palpatations, mental health, musculoskeletal)? @ -afib with rvr, cardiac dysrhythmia, syncope, valvular dysfunction, acute resp failure EKG interpreted by me (3pts min.). @ -Yes and demonstrates A. fib with a rate of 99. QRS 1:15. QTC of 404. No acute ST segment elevations or depressions. Q wave lead 3. X-rays interpreted by me (1pt min.). @ -yes, no acute process CT interpreted by me (1pt min.). @ -None done U/S interpreted by me (1pt. min.). @ -None done What testing was considered but not performed or refused? (CT, X-rays, U/S, l abs)? Why? @ -None What meds were considered but not given or refused? Why? @ -None Did you discuss the management of the patient with other professionals (professionals i.e. , DONALD, PATIENT SUPPORT TECH, lab, RT, psych nurse, social media sr strategy manager, terminal gauger, teacher, articulation officer, case assembler)? Give summary @ -No Was smoking cessation discussed for >3mins.? @ -No Was critical care preformed (if so, how long)? @ -No Were there social determinants of health that impacted care today? How? (Homelessness, low income, unemployed, alcoholism, drug addiction, transportation, low edu. Level, literacy, decrease access to med. care, long term, rehab)? @ -No Was there de-escalation of care discussed even if they declined (Discuss DNR or withdrawal of care, Hospice)? DNR status @ -No What co-morbidities impacted this encounter? (DM, HTN, Smoking, COPD, CAD, Cance r, CVA, ARF, Chemo, Hep., AIDS, mental health diagnosis, sleep apnea, morbid obesity)? @ -afib, chf, valvular insufficiency Was patient admitted / discharged? Hospital course, mention meds given and route, prescriptions, significant lab abnormalities, going to OR and other pertinent info. @ -Upon arrival patient was placed into room 5. Thorough history and physical exam was performed. Patient placed on continuous pulse ox and cardiac m onitoring 12-lead EKG was obtained. Patient is alert and able to answer questions. I did review her paperwork from [facility]. Laboratories is were conducted and chest x-ray was performed. Patient does have an elevated BNP however she is saturating 100% on room air without any increased worker breathing. I did discuss diagnosis, differential treatment options. Offer hospitalization however the patient and her daughter would prefer to go home. She is given a dose of Lasix through the IV. They are instructed to take Lasix for the next 7 days. Call make an appointment with the ibm mainframe developer. Also recommended a follow-up with pulmonology for the patient's chronic cough. The patient has any new or worsening symptoms she can return to the emergency room. Patient discharged in stable condition Undiagnosed new problem with uncertain prognosis? @ -yes Drug Therapy requiring intensive monitoring for toxicity (Heparin, Nitro, Insulin, Cardizem)? @ -No Were any procedures done? @ -No Diagnosis/symptom? @ -acute syncope, peripheral edema Acute, or Chronic, or Acute on Chronic? @ -acute Uncomplicated (without systemic symptoms) or Complicated (systemic symptoms)? @ -complicated Side effects of treatment? @ -No Exacerbation, Progression, or Severe Exacerbation? @ -No Poses a threat to life or bodily function? How? (Chest pain, USA, ND, pneumonia, PE, COPD, DKA, ARF, appy, cholecystitis, CVA, Diverticulitis, Homicidal, Suicidal, threat to staff... and all critical care pts) @ -No - Lab Data Result diagrams: 01/07/23 09:44 01/07/23 09:44 Lab Results 01/07/23 01/07/23 01/07/23 Range/Units 09:15 09:44 09:44 WBC 8.8 (3.8-10.6) k/uL RBC 4.45 (3.80-5.40) m/uL Hgb 13.2 (11.4-16.0) gm/dL Hct 41.3 (34.0-46.0) % MCV 92.9 (80.0-100.0) fL MCH 29.8 (25.0-35.0) pg MCHC 32.0 (31.0-37.0) g/dL RDW 16.2 H (11.5-15.5) % Plt Count 211 (150-450) k/uL MPV 8.5 Neutrophils % 72 % Lymphocytes % 17 % Monocytes % 7 % Eosinophils % 2 % Basophils % 0 % Neutrophils # 6.3 (1.3-7.7) k/uL Lymphocytes # 1.5 (1.0-4.8) k/uL Monocytes # 0.6 (0-1.0) k/uL Eosinophils # 0.2 (0-0.7) k/uL Basophils # 0.0 (0-0.2) k/uL Anisocytosis Slight PT 11.9 (9.0-12.0) sec INR 1.2 H (<1.2) APTT 23.5 (22.0-30.0) sec Sodium (137-145) mmol/L Potassium (3.5-5.1) mmol/L Chloride (98-107) mmol/L Carbon Dioxide (22-30) mmol/L Anion Gap mmol/L BUN (7-17) mg/dL Creatinine (0.52-1.04) mg/dL Est GFR (CKD-EPI)AfAm (>60 ml/min/1.73 sqM) Est GFR (CKD-EPI)NonAf (>60 ml/min/1.73 sqM) Glucose (74-99) mg/dL POC Glucose (mg/dL) 169 H (70-110) mg/dL POC Glu Weather Reporter ID Ashish Moore Calcium (8.4-10.2) mg/dL Magnesium (1.6-2.3) mg/dL Total Bilirubin (0.2-1.3) mg/dL AST (14-36) U/L ALT (4-34) U/L Alkaline Phosphatase (38-126) U/L Troponin I (0.000-0.034) ng/mL NT-Pro-B Natriuret Pep pg/mL Total Protein (6.3-8.2) g/dL Albumin (3.5-5.0) g/dL 01/07/23 01/07/23 01/07/23 Range/Units 09:44 09:44 09:44 WBC (3.8-10.6) k/uL RBC (3.80-5.40) m/uL Hgb (11.4-16.0) gm/dL Hct (34.0-46.0) % MCV (80.0-100.0) fL MCH (25.0-35.0) pg MCHC (31.0-37.0) g/dL RDW (11.5-15.5) % Plt Count (150-450) k/uL MPV Neutrophils % % Lymphocytes % % Monocytes % % Eosinophils % % Basophils % % Neutrophils # (1.3-7.7) k/uL Lymphocytes # (1.0-4.8) k/uL Monocytes # (0-1.0) k/uL Eosinophils # (0-0.7) k/uL Basophils # (0-0.2) k/uL Anisocytosis PT (9.0-12.0) sec INR (<1.2) APTT (22.0-30.0) sec Sodium 136 L (137-145) mmol/L Potassium 4.3 (3.5-5.1) mmol/L Chloride 109 H (98-107) mmol/L Carbon Dioxide 12 L (22-30) mmol/L Anion Gap 15 mmol/L BUN 39 H (7-17) mg/dL Creatinine 1.45 H (0.52-1.04) mg/dL Est GFR (CKD-EPI)AfAm 39 (>60 ml/min/1.73 sqM) Est GFR (CKD-EPI)NonAf 34 (>60 ml/min/1.73 sqM) Glucose 170 H (74-99) mg/dL POC Glucose (mg/dL) (70-110) mg/dL POC Glu Weather Reporter ID Calcium 8.8 (8.4-10.2) mg/dL Magnesium 1.4 L (1.6-2.3) mg/dL Total Bilirubin 1.1 (0.2-1.3) mg/dL AST 36 (14-36) U/L ALT 25 (4-34) U/L Alkaline Phosphatase 78 (38-126) U/L Troponin I 0.017 (0.000-0.034) ng/mL NT-Pro-B Natriuret Pep 29386 pg/mL Total Protein 7.1 (6.3-8.2) g/dL Albumin 3.8 (3.5-5.0) g/dL Disposition Clinical Impression: CHF (congestive heart failure), Syncope Disposition: HOME SELF-CARE Condition: Stable Instructions (If sedation given, give patient instructions): Syncope (ED) Additional Instructions: Please take your Lasix 40 mg once daily for the next 7 days starting tomorrow. Call your ibm mainframe developer and make an appointment with them. Please notify them that you have been taking the Lasix daily this week. Call and make an appointment with the purchasing engineer. Return for any new or worsening symptoms Is patient prescribed a controlled substance at d/c from ED?: No Referrals: Ermias Alvarez MD [Primary Care Provider] - 1-2 days Rangel Carrasco MD [STAFF PHYSICIAN] - 1-2 days Nehemias Black DO [Doctor of Osteopathic Medicine] - 1-2 days Time of Disposition: 11:55
[2023-01-07] MEDS ORDERED: FUROSEMIDE 10 MG/ML 4 ML VIAL IV STA (11:53)
[2023-01-07 12:06] VITALS: BP 121/70; PULSE 75; TEMP 98.1
== END 2023-01-07 12:17 | disposition home or self-care (01) ==
LOC: EC 08:58
DX: I50.9 Heart failure, unspecified (principal); R55 Syncope and collapse; J90 Pleural effusion, not elsewhere classified; I48.91 Unspecified atrial fibrillation; I25.10 Atherosclerotic heart disease of native coronary artery without angina pectoris; E11.22 Type 2 diabetes mellitus with diabetic chronic kidney disease; N18.30 Chronic kidney disease, stage 3 unspecified; I25.2 Old myocardial infarction; E07.9 Disorder of thyroid, unspecified; Z79.890 Hormone replacement therapy; Z79.01 Long term (current) use of anticoagulants; Z79.84 Long term (current) use of oral hypoglycemic drugs; Z79.899 Other long term (current) drug therapy; Z88.5 Allergy status to narcotic agent; Z88.6 Allergy status to analgesic agent; Z88.2 Allergy status to sulfonamides; Z88.8 Allergy status to other drugs, medicaments and biological substances; Z79.02 Long term (current) use of antithrombotics/antiplatelets; Z88.1 Allergy status to other antibiotic agents
CPT/HCPCS: 36415; 93005; 83880; 80053; 83735; 84484; 85025; 85610; 85730; 71046; 99285; 96374; 96375; J1940; J2405

== ENCOUNTER → 2023-05-06 | Outpatient (CLI) | payer MEDICARE ==
--- NOTE | 2023-05-07 13:38 | MR ---
EXAMINATION TYPE: MR angio head wo con DATE OF EXAM: 05/06/2023 COMPARISON: HISTORY: CONTRAST: None TECHNIQUE: Multiplanar multiecho imaging on a 3.0 La magnet is performed through the [place] of [place]. 3-D [id number] imaging is performed. Source images are reviewed on the computer in the axi al plane. Reconstructed images rotating on the computer are reviewed. FINDINGS: The internal carotid arteries bifurcate normally into A1 and M1 segments. The A2 segments are normal. Middle cerebral artery branches are normal. Anterior communicating artery is absent. The right posterior communicating artery is small but patent. The left posterior communicating artery is patent. Vertebrobasilar arteries within the [id number] are normal. Posterior cerebral vasculature is norm al. No suspicious aneurysm or aneurysmal dilatation is evident. No obstructions are identified. No sign ificant flow-limiting stenosis is evident. IMPRESSION: 1. NORMAL MRA [place].
--- NOTE | 2023-05-07 13:40 | MR ---
EXAMINATION TYPE: MR brain wo con DATE OF EXAM: 05/06/2023 COMPARISON: None HISTORY: Transient cerebral ischemic changes CONTRAST: Performed utilizing 0 mL intravenous Gadavist gadolinium contrast. TECHNIQUE: Multiplanar, multiecho imaging on a 3.0 La magnet is performed through the brain. Stud y is performed within 24 hours of arrival to the hospital. The craniovertebral junction is normal. The pituitary is normal. Diffusion-weighted imaging is performed. No abnormal hyperintensity is present to suggest an acute i ntracranial infarct or acute ischemic change. Patchy periventricular white matter hyperintensities present on T2 and inversion recovery weighted se quences. This is partially confluent. Small amount of increased intensity is within the brainstem. Fi ndings are nonspecific but can be related to chronic white matter ischemic-type changes. Ventricles and sulci are prominent for the patient age. IMPRESSION: 1. Atrophy with patchy to confluent chronic appearing periventricular white matter ischemic-type abreu ges.
== END | disposition home or self-care (01) ==
LOC: RADMRIMAIN 12:42
PROVIDERS: ATTEND Family Medicine
DX: G45.9 Transient cerebral ischemic attack, unspecified (principal); G31.1 Senile degeneration of brain, not elsewhere classified; I67.82 Cerebral ischemia; G93.89 Other specified disorders of brain
CPT/HCPCS: 70544; 70551